=== PATIENT | male | born 1960 ===

== ENCOUNTER 2022-01-08 07:45 | Outpatient (REF) | payer OTHER, SELFPAY ==
[2022-01-08 11:52] LABS: Alanine Aminotransferase 17 U/L (0-40); Albumin Level 4.1 g/dL (3.5-5.0); Alkaline Phosphatase 53 U/L (39-117); Anion Gap 12 (12-20); Aspartate Amino Transferase 15 U/L (5-37); Blood Urea Nitrogen 14 mg/dL (9-16); Calcium 9.8 mg/dL (8.4-10.2); Carbon Dioxide 26 mmol/L (22-29); Chloride 106 mmol/L (96-108); Cholesterol 216 mg/dL; Estimated Glomerular Filt Rate > 60; Glucose Fasting 98 mg/dL (60-99); HDL Cholesterol 53 mg/dL; LDL Cholesterol Calculated 139 mg/dl; Potassium 4.2 mmol/L (3.3-5.1); Sodium 140 mmol/L (135-145); Triglycerides 122 mg/dL
[2022-01-08 12:38] LABS: Prostate Specific Antigen Scr 5.57 ng/mL (<0.05-4.0); TSH reflex Free T4 1.16 uIU/mL (0.32-4.0)
[2022-01-08 12:52] LABS: Appearance Urine CLEAR; Color Urine STRAW; Glucose Urine UA NEG (NEG); Leukocyte Esterase Urine NEG (NEG); Nitrite Urine NEG (NEG); PH 6.5 (5.0-8.0); Specific Gravity - Urine 1.015 (1.005-1.025); Urine Blood NEG (NEG); Urine Ketones NEG (NEG); Urine Protein NEG (NEG-TRACE)
[2022-01-08 12:59] LABS: Creatinine Urine 73.11 mg/dL; Microalbumin Urine < 5.0 mg/L
[2022-01-14 14:56] LABS: Testosterone, Free 51.1 pg/mL (35.0-155.0); Testosterone, Total 452 ng/dL (250-1100)
== END 2022-01-08 07:46 | disposition home or self-care (01) ==
LOC: HO.WFDLDS 07:45
PROVIDERS: Visit Provider Family Medicine
DX: Z00.00 Encounter for general adult medical examination without abnormal findings (principal); Z12.5 Encounter for screening for malignant neoplasm of prostate; I10 Essential (primary) hypertension; N52.9 Male erectile dysfunction, unspecified
CPT/HCPCS: 36415; 80053; 80061; 81003; 82043; 84153; 84402; 84403; 84443

== ENCOUNTER 2022-02-04 12:37 | Outpatient (REF) | payer OTHER, SELFPAY ==
--- NOTE | ~2022-02-04 | XR_ITS ---
EXAMINATION: XR KNEE, LEFT CLINICAL INFORMATION: Left leg pain COMPARISON: None TECHNIQUE: Two views of the left knee. FINDINGS: Bones and soft tissues are normal. No fracture or joint effusion. Alignment is anatomic. Joint spaces are well maintained. Mild vascular calcification in the catheter. XR/XR knee LT 2V IMPRESSION: Normal left knee.
--- NOTE | ~2022-02-04 | XR_ITS ---
EXAMINATION: XR LUMBOSACRAL SPINE CLINICAL INFORMATION: Lower back pain radiating to the left abdomen in the COMPARISON: None TECHNIQUE: Three views of the lumbosacral spine. FINDINGS: Lumbar spine maintains normal alignment. The vertebral body heights are maintained. There is multilevel loss of intervertebral disc space with endplate degenerative changes in the lower thoracic and lumbar spine. There is facet arthropathy in the lower lumbar spine. There are surgical clips in the left pelvis. 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
--- NOTE | ~2022-02-04 | XR_ITS ---
EXAMINATION: XR HIP, LEFT CLINICAL INFORMATION: Left hip pain COMPARISON: None TECHNIQUE: Two views of the left hip. FINDINGS: No acute fracture or dislocation. There is moderate joint space narrowing and subchondral sclerosis of the left hip. There are multiple surgical clips in left pelvis. 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
== END 2022-02-04 12:38 | disposition home or self-care (01) ==
LOC: HO.XRAY 12:37
PROVIDERS: Visit Provider Family Medicine
DX: M79.605 Pain in left leg (principal); M25.552 Pain in left hip; M54.50 Low back pain, unspecified
CPT/HCPCS: 72100; 73502; 73560

== ENCOUNTER 2022-05-10 09:29 | Outpatient (AMB) | payer OTHER, SELFPAY ==
--- NOTE | 2022-05-10 08:56 | MHC.OFFVIS ---
Intake Intake Visit Reasons: Elevated PSA Intake Note: Patient is present for elevated psa Medical Records Analyst Required: No Accompanied by: Self / Same As Patient Allergies pollen extracts Allergy (Mild, Verified 10/21/23 13:22) Sneezing penicillin V Allergy (Unknown, Verified 10/21/23 13:22) childhood Penicillins Allergy (Unknown, Verified 10/21/23 13:22) Unknown tree nuts, sesame seeds Allergy (Unknown, Uncoded 10/21/23 13:04) anaphylaxis Medication List - Last Reconciled 05/10/22 by Thomas Young MD bisacodyl (Dulcolax (bisacodyl)) 10 mg (2 x 5 mg) PO ONCE 1 day cholecalciferol (vitamin D3) 50 mcg PO DAILY finasteride 5 mg PO DAILY 90 days [id number]-[id number]-[id number]-C-pina-bosw 750-625-30 mg 2 tabs PO DAILY polyethylene glycol 3350 (Miralax) 238 grams PO ONCE zinc 50 mg PO DAILY HPI HPI Comments History of Present Illness Details Jose is a pleasant male. He is a patient of Dr. Espinal. He seen for the following urologic conditions - elevated PSA Initial visit Elevated PSA Discussed potential from prostatitis, of the prostate damage Recommend repeat PSA in 6 months Trial of finasteride 6 months Elevated PSA PSA 01/20 5.5 PFSH Medical History No pertinent past medical history Surgical History History of nasal surgery History of hernia surgery Social History Housing: Apartment Alcohol intake: current Alcohol intake frequency: a few times a week Patient Tobacco Use Status: Former Tobacco user e-Cigarette/Vaping Use: Never Used Second Hand Smoke Exposure: No service: No Current occupational status: employed Current occupation: [employer] Current occupational exposures/hazards: No Cognitive needs: No Hearing needs: No Vision needs: No Review of Systems Const Denies chills and Denies fever(s) Card Reports no additional complaints and Denies syncope Resp Denies cough GI Denies abdominal pain and Denies heartburn Reports as per HPI and Denies change in libido Neuro Denies syncope Psych Denies change in libido Endo Denies change in libido Physical Exam Const General: cooperative, healthy appearing, comfortable and no acute distress Orientation/consciousness: patient oriented x3 HEENT Face and sinus: Yes normal facial exam Mouth: moist mucous membranes Neck Neck: Yes normal visual inspection, Yes full ROM and Yes trachea midline Chest Chest palpation & inspection: normal inspection of the chest Resp Effort & Inspection: normal respiratory effort, able to speak in complete sentences and no respiratory distress GI Inspection: Yes normal to inspection Back/Spine/Pelvis Cervical Spine: normal cervical lordosis Thoracic/Lumbar Spine: thoracic and lumbar spine normal to inspection Skin General skin exam: no rashes or lesions noted Neuro General: patient oriented x3, gait normal, tone normal and moves all extremities Extrem General: Yes normal to inspection and Yes capillary refill normal Assessment & Plan Assessment & Plan (1) Elevated PSA: Code(s): R97.20 - Elevated prostate specific antigen [PSA] Plan Trial finasteride Six-month follow-up PSA Orders: Orders PSA,Total (Free>4and<10) 6 Months R97.20 - Elevated prostate specific antigen [PSA] Medications: New finasteride 5 mg PO DAILY 90 tabs 1RF 90 days R97.20 - Elevated prostate specific antigen [PSA], N40.1 - Benign prostatic hyperplasia with lower urinary tract symptoms, N13.8 - Other obstructive and reflux uropathy, R33.9 - Retention of urine, unspecified Patient Instructions: Imaging studies, laboratory and physical exam results were discussed and reviewed in detail. No major barriers to patient understanding were identified. An opportunity to ask questions regarding the treatment plan was provided. All questions were answered. The patient expressed understanding and agreement with the above treatment plan. The patient is aware they should contact our office by phone for worsening of their current condition or the appearance of new urologic symptoms. Compliance is encouraged with any medications and followup testing that is ordered. It is a privilege to participate in the urologic care of your patient. If you have any questions or concerns regarding treatment for the above conditions, or other urologic issues, please do not hesitate to contact me. The office telephone contact is [phone]. This note is constructed using voice recognition software. While every effort has been made to ensure accuracy signaling design engineer errors may have been included. Yours sincerely, Dr Thomas Young MD, [facility] - Urology Providers of Expert, Compassionate Care for the Genitourinary System Coding Level of Care Code New Pt Level 4 (15787) Diagnoses Elevated PSA R97.20
== END 2022-05-10 10:30 | disposition home or self-care (01) ==
LOC: HO.HUSH 09:29
PROVIDERS: PCP Family Medicine; Visit Provider Urology
DX: R97.20 Elevated prostate specific antigen [PSA] (principal)
CPT/HCPCS: 99499

== ENCOUNTER 2022-05-16 10:56 | Outpatient (REF) | payer OTHER, SELFPAY ==
[2022-05-16 14:29] LABS: MANUAL DIFF FLAG NO
[2022-05-16 14:34] LABS: Basophils Absolute Auto 0.1 X10*3/uL (0.0-0.2); Basophils Percent Auto 1.3 % (0-2); Eosinophils Absolute Auto 0.5 X10*3/uL (0.0-0.4); Eosinophils Percent Auto 7.6 % (0-4); Hematocrit 47.4 % (42.0-52.0); Hemoglobin 16.2 g/dl (14.0-18.0); Imm Gran Abs Auto 0.01 X10*3/uL (0.00-0.03); Imm Gran Pct Auto 0.1 % (0.0-0.4); Lymphocytes Absolute Auto 1.9 X10*3/uL (1.2-4.9); Lymphocytes Percent Auto 28.6 % (20-40); Mean Corpuscular HGB Conc 34.2 g/dl (31.0-36.0); Mean Corpuscular Hemoglobin 31.4 pg (27.0-33.0); Mean Corpuscular Volume 91.9 fL (80.0-98.0); Mean Platelet Volume 11.8 fL (9.4-12.4); Monocytes Absolute Auto 0.8 X10*3/uL (0.1-1.2); Monocytes Percent Auto 11.2 % (2-11); Neutrophils Absolute Auto 3.4 x10*3/uL (2.0-8.3); Neutrophils Percent Auto 51.2 % (45-73); Platelet Count 283 X10*3/uL (160-400); Red Blood Count 5.16 X10*6/uL (4.60-5.80); Red Cell Distribution Width 12.7 % (11.0-16.0); White Blood Count 6.7 X10*3/uL (4.8-10.8)
[2022-05-16 14:47] LABS: Alanine Aminotransferase 17 U/L (0-40); Albumin Level 4.3 g/dL (3.5-5.0); Alkaline Phosphatase 61 U/L (39-117); Anion Gap 13 (12-20); Aspartate Amino Transferase 16 U/L (5-37); Bilirubin Total 0.8 mg/dL (0.0-1.0); Blood Urea Nitrogen 14 mg/dL (9-16); Calcium 9.5 mg/dL (8.4-10.2); Carbon Dioxide 26 mmol/L (22-29); Chloride 106 mmol/L (96-108); Estimated Glomerular Filt Rate > 60; Glucose Random 100 mg/dL (60-115); Potassium 4.3 mmol/L (3.3-5.1); Sodium 141 mmol/L (135-145); Total Protein 7.1 g/dL (6.5-8.0)
[2022-05-16 15:08] LABS: TSH reflex Free T4 0.74 uIU/mL (0.32-4.0)
== END 2022-05-16 10:57 | disposition home or self-care (01) ==
LOC: HO.WFDLDS 10:56
PROVIDERS: Visit Provider Family Medicine
DX: R53.83 Other fatigue (principal)
CPT/HCPCS: 36415; 80053; 84443; 85025

== ENCOUNTER 2022-07-10 08:40 | Outpatient (REF) | payer OTHER, SELFPAY ==
[2022-07-10 13:00] LABS: Influenza A PCR NEGATIVE (Negative); Influenza B PCR NEGATIVE (Negative); Resp Syncy Virus RNA Qual PCR POSITIVE (Negative); SARS COV2 PCR INHOUSE NEGATIVE (Negative)
== END 2022-07-10 08:41 | disposition home or self-care (01) ==
LOC: HO.LAB 08:40
PROVIDERS: Visit Provider Nurse Practitioner Family
DX: Z20.822 Contact with and (suspected) exposure to COVID-19 (principal); B34.9 Viral infection, unspecified
CPT/HCPCS: 0241U

== ENCOUNTER 2022-09-10 11:41 | Outpatient (REF) | payer OTHER, SELFPAY ==
--- NOTE | ~2022-09-10 | XR_ITS ---
EXAMINATION: XR CHEST CLINICAL INFORMATION: Shortness of breath COMPARISON: X-ray 09/22/2019 TECHNIQUE: 2 views of the chest were obtained. FINDINGS: The cardiomediastinal silhouette is stable, within normal limits. The lungs are well expanded. Linear band of opacity in the left lower lung, probably atelectasis. There is no focal consolidation otherwise. No edema, or effusion. No pneumothorax. No acute osseous abnormality. XR/XR chest 2V IMPRESSION: Left basilar atelectasis.
[2022-09-10 11:56] LABS: MANUAL DIFF FLAG NO
[2022-09-10 12:39] LABS: Basophils Absolute Auto 0.1 X10*3/uL (0.0-0.2); Eosinophils Absolute Auto 0.5 X10*3/uL (0.0-0.4); Hematocrit 46.5 % (42.0-52.0); Hemoglobin 15.7 g/dl (14.0-18.0); Imm Gran Abs Auto 0.02 X10*3/uL (0.00-0.03); Imm Gran Pct Auto 0.3 % (0.0-0.4); Lymphocytes Absolute Auto 2.1 X10*3/uL (1.2-4.9); Lymphocytes Percent Auto 31.1 % (20-40); Mean Corpuscular HGB Conc 33.8 g/dl (31.0-36.0); Mean Corpuscular Hemoglobin 30.8 pg (27.0-33.0); Mean Corpuscular Volume 91.4 fL (80.0-98.0); Mean Platelet Volume 11.4 fL (9.4-12.4); Monocytes Absolute Auto 0.8 X10*3/uL (0.1-1.2); Neutrophils Absolute Auto 3.3 x10*3/uL (2.0-8.3); Neutrophils Percent Auto 48.6 % (45-73); Platelet Count 232 X10*3/uL (160-400); Red Blood Count 5.09 X10*6/uL (4.60-5.80); Red Cell Distribution Width 13.6 % (11.0-16.0); White Blood Count 6.8 X10*3/uL (4.8-10.8)
[2022-09-10 13:00] LABS: Alanine Aminotransferase 12 U/L (0-40); Alkaline Phosphatase 59 U/L (39-117); Anion Gap 11 (12-20); Aspartate Amino Transferase 14 U/L (5-37); Bilirubin Total 0.9 mg/dL (0.0-1.0); Blood Urea Nitrogen 14 mg/dL (9-16); Calcium 9.3 mg/dL (8.4-10.2); Carbon Dioxide 26 mmol/L (22-29); Chloride 106 mmol/L (96-108); Estimated Glomerular Filt Rate > 60; Glucose Random 93 mg/dL (60-115); Potassium 4.3 mmol/L (3.3-5.1); Sodium 139 mmol/L (135-145); Total Protein 6.8 g/dL (6.5-8.0)
== END 2022-09-10 11:42 | disposition home or self-care (01) ==
LOC: HO.XRAY 11:41
PROVIDERS: PCP Family Medicine; Visit Provider Family Medicine
DX: Z00.00 Encounter for general adult medical examination without abnormal findings (principal); R07.1 Chest pain on breathing; R06.02 Shortness of breath
CPT/HCPCS: 36415; 71046; 80053; 85025

== ENCOUNTER 2022-09-18 10:25 | Outpatient (REF) | payer OTHER, SELFPAY ==
[2022-09-18 11:21] LABS: MANUAL DIFF FLAG NO
[2022-09-18 12:13] LABS: Basophils Absolute Auto 0.1 X10*3/uL (0.0-0.2); Basophils Percent Auto 1.3 % (0-2); Eosinophils Absolute Auto 0.6 X10*3/uL (0.0-0.4); Hematocrit 45.9 % (42.0-52.0); Hemoglobin 15.7 g/dl (14.0-18.0); Imm Gran Abs Auto 0.03 X10*3/uL (0.00-0.03); Imm Gran Pct Auto 0.4 % (0.0-0.4); Lymphocytes Absolute Auto 2.3 X10*3/uL (1.2-4.9); Mean Corpuscular HGB Conc 34.2 g/dl (31.0-36.0); Mean Corpuscular Hemoglobin 31.3 pg (27.0-33.0); Mean Corpuscular Volume 91.4 fL (80.0-98.0); Mean Platelet Volume 11.4 fL (9.4-12.4); Monocytes Absolute Auto 0.8 X10*3/uL (0.1-1.2); Monocytes Percent Auto 11.6 % (2-11); Neutrophils Absolute Auto 3.3 x10*3/uL (2.0-8.3); Neutrophils Percent Auto 45.7 % (45-73); Platelet Count 255 X10*3/uL (160-400); Red Blood Count 5.02 X10*6/uL (4.60-5.80); Red Cell Distribution Width 13.8 % (11.0-16.0); White Blood Count 7.2 X10*3/uL (4.8-10.8)
[2022-09-18 12:56] LABS: Troponin-I High Sensitivity < 3.5 ng/L (<3.5-35.0)
[2022-09-18 13:08] LABS: Alanine Aminotransferase 17 U/L (0-40); Alkaline Phosphatase 58 U/L (39-117); Anion Gap 13 (12-20); Aspartate Amino Transferase 17 U/L (5-37); Bilirubin Total 0.7 mg/dL (0.0-1.0); Blood Urea Nitrogen 13 mg/dL (9-16); Calcium 9.9 mg/dL (8.4-10.2); Carbon Dioxide 27 mmol/L (22-29); Chloride 106 mmol/L (96-108); Estimated Glomerular Filt Rate > 60; Glucose Random 93 mg/dL (60-115); Sodium 141 mmol/L (135-145); Total Protein 6.9 g/dL (6.5-8.0)
[2022-09-18 14:47] LABS: Influenza A PCR NEGATIVE (Negative); Influenza B PCR NEGATIVE (Negative); Resp Syncy Virus RNA Qual PCR NEGATIVE (Negative); SARS COV2 PCR INHOUSE NEGATIVE (Negative)
== END 2022-09-18 10:26 | disposition home or self-care (01) ==
LOC: HO.LAB 10:25
PROVIDERS: Visit Provider Family Medicine
DX: Z00.00 Encounter for general adult medical examination without abnormal findings (principal); R06.02 Shortness of breath; R07.9 Chest pain, unspecified; R59.0 Localized enlarged lymph nodes; Z20.822 Contact with and (suspected) exposure to COVID-19
CPT/HCPCS: 0241U; 36415; 80053; 84484; 85025

== ENCOUNTER 2022-09-18 11:07 | Outpatient (REF) | payer OTHER, SELFPAY ==
--- NOTE | ~2022-09-18 | XR_ITS ---
EXAMINATION: XR CHEST CLINICAL INFORMATION: Shortness of breath COMPARISON: 09/10/2022 TECHNIQUE: 2 views of the chest were obtained. FINDINGS: No significant abnormality is noted involving the heart, lungs, mediastinum, bony thorax or soft tissues. XR/XR chest 2V IMPRESSION: Unremarkable examination.
== END 2022-09-18 11:08 | disposition home or self-care (01) ==
LOC: HO.XRAY 11:07
PROVIDERS: PCP Family Medicine; Visit Provider Family Medicine
DX: R06.02 Shortness of breath (principal)
CPT/HCPCS: 71046

== ENCOUNTER → 2022-09-23 12:57 | Outpatient (BNVA) | payer OTHER, SELFPAY | PROVIDERS: PCP Family Medicine; Visit Provider Nurse Practitioner Family | DX: Z13.89 Encounter for screening for other disorder (principal) ==

== ENCOUNTER 2022-10-01 14:36 | Outpatient (REF) | payer OTHER, SELFPAY ==
--- NOTE | ~2022-10-01 | US_ITS ---
EXAMINATION: US SOFT TISSUE NECK CLINICAL INFORMATION: Palpable abnormality in the left neck. COMPARISON: No similar priors. TECHNIQUE: Targeted high- frequency hardy-scale imaging and color Doppler ultrasound in the area of clinical concern in the soft tissues of the left lower neck as indicated by the patient. US/US soft tiss head and/or neck FINDINGS/IMPRESSION: No measurable lesion, collection or other abnormality in the area of concern as indicated by the patient. If symptoms persists, consider correlation with a CT or preferable MR targeted to the area of concern.
== END 2022-10-01 14:37 | disposition home or self-care (01) ==
LOC: HO.HMGCX 14:36
PROVIDERS: PCP Family Medicine; Visit Provider Nurse Practitioner Family
DX: M79.89 Other specified soft tissue disorders (principal)
CPT/HCPCS: 76536

== ENCOUNTER 2023-04-28 13:50 | Outpatient (AMB) | payer OTHER, SELFPAY ==
--- NOTE | 2023-04-28 13:51 | MHC.PC.OV ---
Vital Signs 04/28/23 14:01 Height 5 ft 10 in Weight 255 lb 4 oz BMI 36.6 BP 122/60 Blood Pressure Location Rt brachial Position Sitting Respiration 14 Pulse 98 Pulse Source Pulse Oximeter Pulse Oximetry (%) 96 Oxygen Delivery Method Room Air Intake Visit Reasons: right eye cyst/pustule Intake Note: Patient reports right, inside eyelid with small white pustule that patient noticed x2 days. Patient tried allergy eye drops and he reports they did not help. Senior Lead Java Developer Required: No Accompanied by: Self / Same As Patient Allergies pollen extracts Allergy (Mild, Verified 04/28/23 14:11) Sneezing penicillin V Allergy (Unknown, Verified 04/28/23 14:11) childhood Penicillins Allergy (Unknown, Verified 04/28/23 14:11) Unknown tree nuts, sesame seeds Allergy (Unknown, Uncoded 04/28/23 14:11) anaphylaxis Medication List - Last Reconciled 04/28/23 by Billie Hsieh CNP albuterol sulfate 90 mcg/actuation (Ventolin HFA) 2 puffs inhalation Q4-6H PRN 30 days epinephrine (EpiPen) 0.3 mg IM Q4H PRN Tobacco use date assessed: 04/28/23 HPI HPI Comments History of Present Illness Details 62-year-old male presents with complaints of a cyst to the inside of his right lower eyelid for the past 2 days. He reports associated soreness and intermittent purulent drainage. No visual disturbances. No fever, chills, body aches, fatigue, weakness. PFSH Surgical History History of hernia surgery History of nasal surgery Social History Housing: Apartment Alcohol intake: current Alcohol intake frequency: a few times a week Patient Tobacco Use Status: Former Tobacco user e-Cigarette/Vaping Use: Never Used Second Hand Smoke Exposure: No service: No Current occupational status: employed Current occupational exposures/hazards: No Cognitive needs: No Hearing needs: No Vision needs: No Questionnaire Thrive Questionnaire Date Thrive assessed: 02/05/22 LISA-7 AMB Questionnaire LISA-7 Date LISA - 7 assessed: 02/05/22 Source: Developed by Drs. Darin Day, Ama Bowman, Deyvi Espinal and colleagues, with an educational helen from [employer]. Review of Systems Const Details: Const Denies chills, Denies fatigue, Denies fever(s), Denies headache(s) and Denies weakness ENT Reports as per HPI Card Denies chest pain, Denies lightheadedness, Denies dyspnea and Denies other (Palpitations) Resp Denies cough, Denies dyspnea, Denies wheezing and Denies other ( shortness of breath) GI Denies abdominal pain, Denies melena, Denies hematochezia, Denies change in bowel habits, Denies dyspepsia and Denies nausea Denies hematuria and Denies dysuria Musc Denies abnormal gait, Denies myalgias, Denies arthralgias, Denies numbness and Denies tingling Skin/Breast Denies rash, Denies unusual bruising and Denies wounds Neuro Denies abnormal gait, Denies dizziness, Denies headache(s), Denies memory loss, Denies numbness, Denies Sensory deficit (Neuro), Denies tingling and Denies weakness Psych Denies anxiety, Denies depression, Denies memory loss Endo Denies cold intolerance, Denies fatigue, Denies heat intolerance, Denies polydipsia and Denies polyuria Aller/Immun Denies wheezing Physical exam (Primary Care) Vital Signs: Last Vital Signs Pulse 98 04/28/23 14:01 Resp 14 04/28/23 14:01 BP 122/60 04/28/23 14:01 Pulse Ox 96 04/28/23 14:01 Oxygen Delivery Method Room Air 04/28/23 14:01 BMI result Body Mass Index 36.6 Tobacco/Smoking Status: Tobacco use Status Tobacco use date assessed 04/28/23 04/28/23 14:11 Patient Tobacco Use Status Former Tobacco user 04/28/23 13:54 e-Cigarette/Vaping Use Never Used 04/28/23 13:54 Thrive Assessment: Date of Thrive Assessment Date Thrive assessed 02/05/22 04/28/23 13:54 Const Other: General: no acute distress and well developed Nutritional Appearance: well nourished Orientation/consciousness: patient oriented x3 HENMT Head: Yes normocephalic and Yes atraumatic Eyes General: appearance normal, both eyes and all related structures, except for small, round, yellow lesion with surrounding erythema to the inside of the right lower eyelid, consistent with an abscess Pupils: Equal, round and reactive pupils present EOM: EOMs intact bilaterally Resp Effort & Inspection: normal respiratory effort Auscultation: clear to auscultation bilaterally Cardio Rate: regular rate Rhythm: regular rhythm Heart sounds: S1 normal heart sound present, S2 normal heart sound present, no gallops, no murmurs and no rubs GI Palpation (GI): No Abdominal aortic bruit present, Soft to palpation, nontender, No hepatosplenomegaly present and No Rebound tenderness present Auscultation: normal bowel sounds General: Yes no CVA tenderness Back/Spine/Pelvis Back: no CVA tenderness Cervical Spine: cervical ROM normal and No Cervical spine tenderness Thoracic/Lumbar Spine: thoraco-lumbar ROM normal, No pain with thoraco-lumbar ROM, No thoracic spinal tenderness and No lumbar spinal tenderness Extrem General: Yes normal to inspection, No edema and No calf tenderness Skin General: warm and dry. Normal skin color. Normal skin turgor Lesions: no lesions Rashes: no rashes Trauma: no lacerations or abrasions Wounds: no wounds Nails: normal Neuro General: patient oriented x3, gait normal and no focal neuro deficit Cranial nerves: Yes Equal, round and reactive pupils present Cognition (Neuro): normal cognition Gait exam (Neuro): Normal gait present Sensory Exam: No Sensory deficit (Neuro) Psych Appearance: grossly normal Affect: normal affect Attitude: cooperative Thought process: Normal thought process present Assessment and Plan Assessment & Plan (1) Abscess of right lower eyelid: Code(s): H00.032 - Abscess of right lower eyelid Plan: Small, round, yellow lesion with surrounding erythema to the inside of the right lower eyelid, consistent with an abscess Doxycycline ordered. Take as prescribed Warm compresses encouraged Return with new or worsening signs and symptoms or visual disturbances; will referred to Ophthalmology Verbalized understanding and agreed with the treatment plan. Medications: New doxycycline hyclate 100 mg PO BID 20 caps 0RF 10 days Coding Level of Care Code Est Pt Level 3 (23622) Diagnoses Abscess of right lower eyelid H00.032
[2023-04-28 14:01] VITALS: BP 122/60; PULSE 98; RESP 14; O2SAT 96; BMI 36.6
== END 2023-04-28 14:25 | disposition home or self-care (01) ==
PROVIDERS: PCP Family Medicine; Visit Provider Nurse Practitioner Family
DX: H00.032 Abscess of right lower eyelid (principal)
CPT/HCPCS: 99213

== ENCOUNTER 2023-09-26 15:32 | Outpatient (AMB) | payer OTHER, SELFPAY ==
[2023-09-26 15:42] VITALS: BP 144/90; PULSE 80; RESP 13; TEMP 36.3; O2SAT 98; BMI 37.5
--- NOTE | 2023-09-26 15:42 | A.OFFPC_ITS ---
Vital Signs 09/26/23 15:42 Height 5 ft 10 in Weight 261 lb 8 oz BMI 37.5 BP 144/90 H Blood Pressure Location Rt brachial Position Sitting Respiration 13 Pulse 80 Pulse Source Pulse Oximeter Temp 97.4 F Temp Source Temporal Artery Scan Pulse Oximetry (%) 98 Oxygen Delivery Method Room Air Intake Visit Reasons: carpal tunnel Regulatory Product Manager Required: No Accompanied by: Self / Same As Patient Allergies pollen extracts Allergy (Mild, Verified 09/26/23 15:54) Sneezing penicillin V Allergy (Unknown, Verified 09/26/23 15:54) childhood Penicillins Allergy (Unknown, Verified 09/26/23 15:54) Unknown tree nuts, sesame seeds Allergy (Unknown, Uncoded 09/26/23 15:54) anaphylaxis Medication List - Last Reconciled 09/26/23 by Billie Hsieh CNP albuterol sulfate 90 mcg/actuation (Ventolin HFA) 2 puffs inhalation Q4-6H PRN 30 days epinephrine (EpiPen) 0.3 mg (0.3 mL) IM Q4H PRN 30 days Tobacco use date assessed: 09/26/23 Fall risk assessment: No Falls in past year Last assessed Fall Risk: 09/26/23 Dental Screening Dental Screen Date: 09/26/23 Did you have a dental visit in the last 12 months?: No Did you have a dental problem in the last 6 months where you did not have access to dental care?: No Was dental information given to patient?: Patient has dentist HPI HPI Comments History of Present Illness Details 63-year-old male presents with complaint s of dull ache intermitted pain below his left thumb (palm aspect). He reports associated occasional shooting pain with palpation. No tingling, numbness, or loss of sensation. No fall, injury, or trauma. His symptoms have been ongoing for the past 2 weeks. OTC analgesic cream and Advil have not provided relief. He works as a [employer] in his work requires repeated use of both hands. [facility] Medical History (Updated 09/26/23 @ 16:09 by Billie Hsieh CNP) No pertinent past medical history Surgical History History of hernia surgery History of nasal surgery Social History (Reviewed 04/28/23 @ 14:09 by Vandana Rivera CMAAdan Housing: Apartment Alcohol intake: current Alcohol intake frequency: a few times a week Patient Tobacco Use Status: Former Tobacco user e-Cigarette/Vaping Use: Never Used Second Hand Smoke Exposure: No service: No Current occupational status: employed Current occupation: [employer] Current occupational exposures/hazards: No Cognitive needs: No Hearing needs: No Vision needs: No Questionnaire Thrive Questionnaire Date Thrive assessed: 02/05/22 LISA-7 AMB Questionnaire LISA-7 Date LISA - 7 assessed: 02/05/22 Source: Developed by Drs. Darin Day, Ama Bowman, Deyvi Espinal and colleagues, with an educational helen from [employer]. Review of Systems Const Details: Const Denies chills, Denies fatigue, Denies fever(s), Denies headache(s) and Denies weakness ENT Denies dizziness and Denies headache(s) Card Denies chest pain, Denies lightheadedness, Denies dyspnea and Denies other (Palpitations) Resp Denies cough, Denies dyspnea, Denies wheezing and Denies other ( shortness of breath) GI Denies abdominal pain, Denies melena, Denies hematochezia, Denies change in bowel habits, Denies dyspepsia and Denies nausea Denies hematuria and Denies dysuria Musc Reports as per HPI Skin/Breast Denies rash, Denies unusual bruising and Denies wounds Neuro Denies abnormal gait, Denies dizziness, Denies headache(s), Denies memory loss, Denies numbness, Denies Sensory deficit (Neuro), Denies tingling and Denies weakness Psych Denies anxiety, Denies depression, Denies memory loss Endo Denies cold intolerance, Denies fatigue, Denies heat intolerance, Denies polydipsia and Denies polyuria Aller/Immun Denies wheezing Physical exam (Primary Care) BMI result Body Mass Index 37.5 Tobacco/Smoking Status: Tobacco use Status Tobacco use date assessed 04/28/23 04/28/23 14:11 Patient Tobacco Use Status Former Tobacco user 04/28/23 13:54 e-Cigarette/Vaping Use Never Used 04/28/23 13:54 Thrive Assessment: Date of Thrive Assessment Date Thrive assessed 02/05/22 04/28/23 13:54 Const Other: General: no acute distress and well developed Nutritional Appearance: well nourished Orientation/consciousness: patient oriented x3 [facility] Head: Yes normocephalic and Yes atraumatic Eyes General: appearance normal, both eyes and all related structures Pupils: Equal, round and reactive pupils present EOM: EOMs intact bilaterally Resp Effort & Inspection: normal respiratory effort Auscultation: clear to auscultation bilaterally Cardio Rate: regular rate Rhythm: regular rhythm Heart sounds: S1 normal heart sound present, S2 normal heart sound present, no gallops, no murmurs and no rubs GI Palpation (GI): No Abdominal aortic bruit present, Soft to palpation, nontender, No hepatosplenomegaly present and No Rebound tenderness present Auscultation: normal bowel sounds General: Yes no CVA tenderness Back/Spine/Pelvis Back: no CVA tenderness Cervical Spine: cervical ROM normal and No Cervical spine tenderness Thoracic/Lumbar Spine: thoraco-lumbar ROM normal, No pain with thoraco-lumbar ROM, No thoracic spinal tenderness and No lumbar spinal tenderness Extrem General: Yes normal to inspection, No edema and No calf tenderness Pain to palpation of the palm below the left thumb. Negative Phalen and Tinel signs. No overt injury or trauma Skin General: warm and dry. Normal skin color. Normal skin turgor Lesions: no lesions Rashes: no rashes Trauma: no lacerations or abrasions Wounds: no wounds Nails: normal Neuro General: patient oriented x3, gait normal and no focal neuro deficit Cranial nerves: Yes Equal, round and reactive pupils present Cognition (Neuro): normal cognition Gait exam (Neuro): Normal gait present Sensory Exam: No Sensory deficit (Neuro) Psych Appearance: grossly normal Affect: normal affect Attitude: cooperative Thought process: Normal thought process present Assessment and Plan Assessment & Plan (1) Hand pain, left: Code(s): M79.642 - Pain in left hand Plan: Pain to palpation of the palm below the left thumb. Negative Phalen and Tinel signs. No overt injury or trauma Likely muscular pain or tendinitis He notes he will continue with current treatment regimen Warm/cold compresses encouraged Follow-up with worsening or new symptoms Verbalized understanding and agreed with treatment plan Coding Level of Care Code Est Pt Level 3 (47813) Diagnoses Hand pain, left M79.642
== END 2023-09-26 16:07 | disposition home or self-care (01) ==
PROVIDERS: PCP Family Medicine; Visit Provider Nurse Practitioner Family
DX: M79.642 Pain in left hand (principal)
CPT/HCPCS: 99213

== ENCOUNTER 2023-10-08 13:34 | Outpatient (AMB) | payer OTHER, SELFPAY ==
[2023-10-08 13:39] VITALS: BP 150/90; PULSE 94; RESP 14; TEMP 36.6; O2SAT 97; BMI 37.2
--- NOTE | 2023-10-08 13:39 | AM.OFFWIN_ITS ---
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 Symptoms started Friday with nausea. He reports both nasal and chest congestion. [facility] Medical History No pertinent past medical history Surgical History History of nasal surgery History of hernia surgery Social History Housing: Apartment Alcohol intake: current Alcohol intake frequency: a few times a week Patient Tobacco Use Status: Former Tobacco user e-Cigarette/Vaping Use: Never Used Second Hand Smoke Exposure: No service: No Current occupational status: employed Current occupation: [employer] Current occupational exposures/hazards: No Cognitive needs: No Hearing needs: No Vision needs: No Review of Systems Const Denies chills, Denies fatigue, Denies fever(s), Denies headache(s) and Denies weakness ENT Denies dizziness, Denies headache(s) and Reports nasal congestion Card Denies dyspnea Resp Reports chest congestion, Denies cough, Denies dyspnea, Denies wheezing and Denies other (shortness of breath) Musc Denies numbness and Denies tingling Neuro Denies dizziness, Denies headache(s), Denies numbness, Denies tingling and Denies weakness Psych Denies anxiety and Denies depression Endo Denies fatigue Aller/Immun Denies wheezing Physical Exam Vital Signs: Last Vital Signs Temp 97.9 F 10/08/23 13:39 Pulse 94 10/08/23 13:39 Resp 14 10/08/23 13:39 BP 150/90 H 10/08/23 13:39 Pulse Ox 97 10/08/23 13:39 Oxygen Delivery Method Room Air 10/08/23 13:39 BMI result Body Mass Index 37.2 Const General: well developed; No acute distress Nutritional Appearance: well nourished Orientation/consciousness: patient oriented x3 HEENT Head: Yes normocephalic and Yes atraumatic Eyes General: appearance normal, both eyes and all related structures Pupils: Equal, round and reactive pupils present EOM: EOMs intact bilaterally Resp Effort & Inspection: normal respiratory effort Neuro General: patient oriented x3 and gait normal Cranial nerves: Yes Equal, round and reactive pupils present Psych Affect: normal affect Assessment & Plan Assessment & Plan (1) Viral illness: Code(s): B34.9 - Viral infection, unspecified Plan: Viral?illness There?is?no?antibiotic?medication?for?viruses.??They?must?run?their?course.?? Most?average?5-7?days?but?7-10?days?is?not?uncommon?and?up?to?14?days?is?still?p ossible.??A?cough?is?often?the?last?symptom?to?resolve?and?this?can?last?for?wee ks?in?some?cases. Rest Hydrate?well?-??Drink?plenty?of?fluids.??Especially?water. Tylenol?or?ibuprofen?for?muscle?aches,?headache,?fever/discomfort Can?use?qnvi-bph-ieodrlj?medications?for?cough?such?as?Delsym?or?DayQuil.??Presc ription?cough?medicines?have?been?shown?to?be?no?better. Checking?nasal?swab?for?COVID/flu/RSV (2) Chest congestion: Code(s): R09.89 - Other specified symptoms and signs involving the circulatory and respiratory systems Plan: Likely?secondary?to?viral?illness?as?above. Lungs?are?clear?though?coarse Can?continue?Delsym?or?DayQuil (3) Nasal congestion: Code(s): R09.81 - Nasal congestion Plan: Some?sinus?pressure?and?patient?has?had?multiple?sinus?infections?in?the?past Will?give?him?a?script?for?a?Z- Jim?but?I?have?advised?him?not?to?take?this?unless not?improving?in?a?couple?of?days. Orders: Orders SARS-CoV2/FLU/RSV Today B34.9 - Viral infection, unspecified, R09.89 - Other specified symptoms and signs involving the circulatory and respiratory systems, Z20.822 - Contact with and (suspected) exposure to COVID-19 Coding Level of Care Code Est Pt Level 3 (49259) Diagnoses Viral illness B34.9 Chest congestion R09.89 Nasal congestion R09.81
== END 2023-10-08 14:18 | disposition home or self-care (01) ==
PROVIDERS: PCP Family Medicine; Visit Provider Family Medicine
DX: B34.9 Viral infection, unspecified (principal); R09.89 Other specified symptoms and signs involving the circulatory and respiratory systems; R09.81 Nasal congestion
CPT/HCPCS: 99213

== ENCOUNTER 2023-10-08 14:16 | Outpatient (REF) | payer OTHER, SELFPAY ==
[2023-10-09 14:02] LABS: Influenza A PCR NEGATIVE (Negative); Influenza B PCR NEGATIVE (Negative); Resp Syncy Virus RNA Qual PCR NEGATIVE (Negative); SARS COV2 PCR INHOUSE NEGATIVE (Negative)
== END 2023-10-08 14:17 | disposition home or self-care (01) ==
LOC: HO.LAB 14:16
PROVIDERS: Visit Provider Family Medicine
DX: Z11.52 Encounter for screening for COVID-19 (principal); Z20.822 Contact with and (suspected) exposure to COVID-19; B34.9 Viral infection, unspecified; R09.89 Other specified symptoms and signs involving the circulatory and respiratory systems
CPT/HCPCS: 0241U

== ENCOUNTER 2023-10-13 12:57 | Outpatient (AMB) | payer OTHER, SELFPAY ==
[2023-10-13 13:02] VITALS: BP 148/88; PULSE 90; TEMP 36.8; O2SAT 97; BMI 37.3
--- NOTE | 2023-10-13 13:02 | AM.OFFWIN_ITS ---
Intake Vital Signs 10/13/23 13:02 Height 5 ft 10 in Weight 260 lb 4 oz BMI 37.3 BP 148/88 H Blood Pressure Location Rt brachial Position Sitting Pulse 90 Pulse Source Pulse Oximeter Temp 98.2 F Temp Source Oral Pulse Oximetry (%) 97 Oxygen Delivery Method Room Air Intake Visit Reasons: Congestion Intake Note: Pt presents to the office today for a walk in visit for c/o chest congestion and a lot of chest pressure. Pt states last night he was struggling to catch his breath while sleeping. Pt states his mucus was green yesterday but has lightened up today. Patient Tobacco Use Status: Former Tobacco user Allergies pollen extracts Allergy (Mild, Verified 10/13/23 13:13) Sneezing penicillin V Allergy (Unknown, Verified 10/13/23 13:13) childhood Penicillins Allergy (Unknown, Verified 10/13/23 13:13) Unknown tree nuts, sesame seeds Allergy (Unknown, Uncoded 10/13/23 13:04) anaphylaxis Medication List - Last Reconciled 10/13/23 by Jennifer Muniz, [facility]- albuterol sulfate 90 mcg/actuation (Ventolin HFA) 2 puffs inhalation Q4-6H PRN 30 days epinephrine (EpiPen) 0.3 mg (0.3 mL) IM Q4H PRN 30 days HPI HPI Comments History of Present Illness Details Here today with complaints of ongoing chest and nasal congestion. Was seen by primary care 09/26/2023 for similar symptoms. He was swabbed for COVID RSV and the flu and this was negative. He was treated with a 5 day course of azithromycin. He has completed this. However he does not feel any better. He does admit that his bloody sinus drainage has improved. However he continues with severe sinus congestion and chest congestion. Having a hard time sleeping. Not using anything [id number] at the current time. Denies any use of nasal sprays or nasal decongestants. Denies fever chills and chest pain Reports that he is very sensitive to medications and has severe allergic reactions to several things [facility] Medical History No pertinent past medical history Surgical History History of nasal surgery History of hernia surgery Social History Housing: Apartment Alcohol intake: current Alcohol intake frequency: a few times a week Patient Tobacco Use Status: Former Tobacco user e-Cigarette/Vaping Use: Never Used Second Hand Smoke Exposure: No service: No Current occupational status: employed Current occupation: [employer] Current occupational exposures/hazards: No Cognitive needs: No Hearing needs: No Vision needs: No Review of Systems Const All systems reviewed & are unremarkable except as noted in HPI and below Physical Exam Vital Signs: Last Vital Signs Temp 98.2 F 10/13/23 13:02 Pulse 90 10/13/23 13:02 BP 148/88 H 10/13/23 13:02 Pulse Ox 97 10/13/23 13:02 Oxygen Delivery Method Room Air 10/13/23 13:02 BMI result Body Mass Index 37.3 Const Other: Awake alert NAD Sclera and conjunctiva clear bilat TM intact bilat, effusions bilat worse on the right Nasal congestion noted, turbinates within normal limits, no sinus tenderness with palpation bilat MMM, pharynx WNL RRR LS CTAB Assessment & Plan Assessment & Plan (1) Acute sinus infection: Code(s): J01.90 - Acute sinusitis, unspecified Qualifiers: Recurrence: recurrent Sinusitis location: pansinusitis Qualified Code(s): J01.41 - Acute recurrent pansinusitis Plan: Will treat with another round of antibiotics. Chose doxycycline as he tolerated this well in the past. The last time he took this was September of 2022. He asked about medications to help his nasal congestion. I told him to avoid all wejw-dgu-mfthhwo products to include sprays and oral medications as this will worsen his congestion. Can use Flonase and has on hand at home. In addition I have sent and ipratropium. He can use as needed. This note is constructed using voice recognition software. While every effort has been made to ensure accuracy in behavioral services tech, still errors may have been included Sometimes, these errors may affect the content or meaning of the given sentence . Total time spent caring for the patient today was 30 minutes. This includes time spent before the visit reviewing the chart, time spent during the visit, and time spent after the visit on documentation Medications: New doxycycline hyclate 100 mg PO BID 7 days 14 caps 0RF ipratropium bromide administer into each nostril 2 sprays intranasal TID-QID PRN 15 mL 0RF allergy symptoms Coding Level of Care Code Est Pt Level 4 (63648) Diagnoses Acute recurrent pansinusitis J01.41 Recurrence: recurrent Sinusitis location: pansinusitis
== END 2023-10-13 13:25 | disposition home or self-care (01) ==
PROVIDERS: PCP Family Medicine; Visit Provider Nurse Practitioner Family
DX: J01.41 Acute recurrent pansinusitis (principal)
CPT/HCPCS: 99214

== ENCOUNTER 2023-10-21 12:55 | Outpatient (AMB) | payer OTHER, SELFPAY ==
--- NOTE | 2023-10-21 13:02 | A.OFFPC_ITS ---
Vital Signs 10/21/23 13:05 Height 5 ft 10 in Weight 255 lb 8 oz BMI 36.7 BP 132/90 H Blood Pressure Location Rt brachial Position Sitting Pulse 99 Pulse Source Pulse Oximeter Pulse Oximetry (%) 97 Oxygen Delivery Method Room Air Intake Visit Reasons: Congestion/Sore Chest Intake Note: Patient is here today for Congestion, Sore chest, trouble breathing. Finished antibiotic and still have some symptoms Nutrition Internship Required: No Graduate Rn: Not Required per policy Accompanied by: Self / Same As Patient Allergies pollen extracts Allergy (Mild, Verified 10/21/23 13:22) Sneezing penicillin V Allergy (Unknown, Verified 10/21/23 13:22) childhood Penicillins Allergy (Unknown, Verified 10/21/23 13:22) Unknown tree nuts, sesame seeds Allergy (Unknown, Uncoded 10/21/23 13:04) anaphylaxis Medication List - Last Reconciled 10/21/23 by Jennifer Muniz, [facility]- albuterol sulfate 90 mcg/actuation (Ventolin HFA) 2 puffs inhalation Q4-6H PRN 30 days epinephrine (EpiPen) 0.3 mg (0.3 mL) IM Q4H PRN 30 days ipratropium bromide 2 sprays intranasal TID-QID PRN Tobacco use date assessed: 09/26/23 Fall risk assessment: No Falls in past year Last assessed Fall Risk: 10/21/23 Dental Screening Dental Screen Date: 10/21/23 Did you have a dental visit in the last 12 months?: No Did you have a dental problem in the last 6 months where you did not have access to dental care?: No Was dental information given to patient?: Patient has dentist HPI HPI Comments History of Present Illness Details 63-year-old male being seen today for ch est congestion. This is his 3rd visit since October 08. He was seen October 08 for similar complaints and given a Z-Jim. A viral swab was obtained and negative at that time. He completed that and on the same day he completed the azithromycin he sought care again at this visit he complained of ongoing chest and nasal congestion. Was not using anything [id number]. Declined a viral swab at that visit. He was treated with doxycycline based on his allergies. Advised to use Flonase. I also sent in a prescription for ipratropium nasally. He presents today completing his doxycycline 7 day course yesterday with continued complaints of chest and nasal congestion. He has been using the Flonase and still feels congested. He made no mention of using the ipratropium. Reviewed the course of treatment so far with him. Advised that we should swab him for viruses again de spite the negative 1st swab. He made a remark about this provider being lazy at the last visit. And also said that he was willing to argue to make his point get what he wanted. I did ask him what he wanted and he was not able to tell me that. I offered him a chest x-ray although his exam was benign. He does not want a chest x-ray. He does not like taking medications. So I am not really loredo re what it is that he is looking for today. Be that as it may he is willing to do a viral swab. [facility] Medical History No pertinent past medical history Surgical History History of nasal surgery History of hernia surgery Social History Housing: Apartment Alcohol intake: current Alcohol intake frequency: a few times a week Patient Tobacco Use Status: Former Tobacco user e-Cigarette/Vaping Use: Never Used Second Hand Smoke Exposure: No service: No Current occupational status: employed Current occupation: [employer] Current occupational exposures/hazards: No Cognitive needs: No Hearing needs: No Vision needs: No Questionnaire PHQ-9 Over the last 2 weeks, how often have you been bothered by any of the following problems? 1. Little interest or pleasure in doing things: not at all 2. Feeling down, depressed, or hopeless: not at all 3. Trouble falling or staying asleep, or sleeping too much: not at all 4. Feeling tired or having little energy: not at all 5. Poor appetite or overeating: not at all 6. Feeling bad about yourself - or that you are a failure or have let yourself or your family down: not at all 7. Trouble concentrating on things, such as reading the newspaper or watching television: not at all 8. Moving or speaking so slowly that other people could have noticed. Or the opposite - being so fidgety or restless that you have been moving around a lot more than usual: not at all 9. Thoughts that you would be better off or of hurting yourself in some way: not at all Total score: 0 Depression Screening Interpretation: Negative Depression Screening Done: Yes Source: Developed by Drs. Darin Day, Ama Bowman, Deyvi Espinal and colleagues, with an educational helen from [employer]. Thrive Questionnaire Date Thrive assessed: 10/21/23 I am a: Patient What is your living situation today?: I have a steady place to live Within the past 12 months, did the food you bought not last and you didn't have the money to get more?: Never true Within the past 12 months, did you worry whether your food would run out before you got money to buy more?: Never true Do you have trouble paying for medicines?: No Do you have trouble getting transportation to medical appointments?: No Do you have trouble paying your heating and electricity bill?: No Do you have trouble taking care of your child, family member or friend?: No Do you have trouble with day-to-day activities such as bathing, preparing meals, shopping, managing finances, etc.?: No Are you currently unemployed and looking for a job?: No Are you interested in more education?: No Currently or been in a relationship where the following occur: no concerns reported THRIVE Score: 0 AUDIT C Alcohol Use Questionnaire (AUDIT-C) 1. How often do you have a drink containing alcohol?: Monthly or less 2. How many drinks containing alcohol do you have on a typical day when you are drinking?: 1 or 2 Total Score: 1 LISA-7 AMB Questionnaire LISA-7 Date LISA - 7 assessed: 10/21/23 Feeling nervous, anxious, or on edge: 0 = Not at all Not being able to stop or control worryin = Not at all Worrying too much about different things: 0 = Not at all Trouble relaxin = Not at all Being so restless that it is hard to sit still: 0 = Not at all Becoming easily annoyed or irritable: 0 = Not at all Feeling afraid as if something awful might happen: 0 = Not at all Total LISA-7 score (0-4 normal; 5-9 mild; 10-14 moderate; 15-21 severe): 0 Source: Developed by Drs. Darin Day, Ama Bowman, Deyvi Espinal and colleagues, with an educational helen from [employer]. Review of Systems Const All systems reviewed & are unremarkable except as noted in HPI and below Physical exam (Primary Care) Vital Signs: Last Vital Signs Pulse 99 10/21/23 13:05 BP 132/90 H 10/21/23 13:05 Pulse Ox 97 10/21/23 13:05 Oxygen Delivery Method Room Air 10/21/23 13:05 BMI result Body Mass Index 36.7 Tobacco/Smoking Status: Tobacco use Status Tobacco use date assessed 09/26/23 10/21/23 13:10 Patient Tobacco Use Status Former Tobacco user 10/21/23 13:10 e-Cigarette/Vaping Use Never Used 10/21/23 13:10 PHQ-9: PHQ-9 Score PHQ-9: Total score 0 10/22/23 07:41 Depression Screening Interpretation: Negative Thrive Assessment: Date of Thrive Assessment Date Thrive assessed 10/21/23 10/21/23 13:10 Currently or been in a relationship where the following occur: no concerns reported Const Other: Awake alert NAD Sclera and conjunctiva clear bilat TM intact and clear bilat Nasal congestion noted, turbinates within normal limits, no sinus tenderness with palpation bilat MMM, pharynx WNL RRR LS CTAB no cough or respiratory distress noted during exam Assessment and Plan Assessment & Plan (1) Viral illness: Comment: Treated with azithromycin immediately followed by a course of doxycycline. He continues to complain of his symptoms with a benign exam. Viral swab obtained today and negative. I offered him a chest x-ray and he declined. I do recommend follow up with his primary care for any further management of this. Code(s): B34.9 - Viral infection, unspecified (2) Nasal congestion: Code(s): R09.81 - Nasal congestion Plan This note is constructed using voice recognition software. While every effort has been made to ensure accuracy in sexual assault social worker, still errors may have been included Sometimes, these errors may affect the content or meaning of the given sentence . Total time spent caring for the patient today was 30 minutes. This includes time spent before the visit reviewing the chart, time spent during the visit, and time spent after the visit on documentation Orders: Orders SARS-CoV2/FLU/RSV 10/21/23 R68.89 - Other general symptoms and signs Coding Level of Care Code Est Pt Level 4 (59375) Diagnoses Viral illness B34.9 Nasal congestion R09.81
[2023-10-21 13:05] VITALS: BP 132/90; PULSE 99; O2SAT 97; BMI 36.7
== END 2023-10-21 13:30 | disposition home or self-care (01) ==
PROVIDERS: PCP Family Medicine; Visit Provider Nurse Practitioner Family
DX: B34.9 Viral infection, unspecified (principal); R09.81 Nasal congestion
CPT/HCPCS: 99214

== ENCOUNTER 2023-10-21 15:16 | Outpatient (REF) | payer OTHER, SELFPAY ==
[2023-10-21 16:02] LABS: Influenza A PCR NEGATIVE (Negative); Influenza B PCR NEGATIVE (Negative); Resp Syncy Virus RNA Qual PCR NEGATIVE (Negative); SARS COV2 PCR INHOUSE NEGATIVE (Negative)
== END 2023-10-21 15:17 | disposition home or self-care (01) ==
LOC: HO.LNP 15:16
PROVIDERS: Visit Provider Nurse Practitioner Family
DX: Z11.52 Encounter for screening for COVID-19 (principal); Z20.822 Contact with and (suspected) exposure to COVID-19; J02.9 Acute pharyngitis, unspecified
CPT/HCPCS: 0241U

== ENCOUNTER 2023-11-04 08:16 | Outpatient (REF) | payer OTHER, SELFPAY ==
--- NOTE | ~2023-11-04 | XR_ITS ---
EXAMINATION: XR CHEST CLINICAL INFORMATION: Chest pain COMPARISON: None available. TECHNIQUE: 2 views of the chest were obtained. FINDINGS: The lungs are hypoexpanded but clear. The heart size and pulmonary vascularity is normal. There is mild scoliosis of dorsal spine. XR/XR chest 2V IMPRESSION: Hypoexpanded lungs without acute process.
== END 2023-11-04 08:17 | disposition home or self-care (01) ==
LOC: HO.XRAY 08:16
PROVIDERS: PCP Family Medicine; Visit Provider Family Medicine
DX: R09.89 Other specified symptoms and signs involving the circulatory and respiratory systems (principal)
CPT/HCPCS: 71046

== ENCOUNTER 2023-11-04 13:01 | Outpatient (AMB) | payer OTHER, SELFPAY ==
--- NOTE | 2023-11-04 13:02 | A.OFFPC_ITS ---
Vital Signs 11/04/23 13:03 11/04/23 13:41 Height 5 ft 10 in Weight 257 lb 2 oz BMI 36.9 BP 144/80 H 140/90 H Blood Pressure Location Rt brachial Rt brachial Position Sitting Sitting Respiration 13 Pulse 96 Pulse Source Pulse Oximeter Temp 97.6 F Temp Source Temporal Artery Scan Pulse Oximetry (%) 99 Oxygen Delivery Method Room Air Intake Visit Reasons: difficulty breathing Form Setter/Driver Required: No Accompanied by: Self / Same As Patient Allergies pollen extracts Allergy (Mild, Verified 11/04/23 13:20) Sneezing penicillin V Allergy (Unknown, Verified 11/04/23 13:20) childhood Penicillins Allergy (Unknown, Verified 11/04/23 13:20) Unknown tree nuts, sesame seeds Allergy (Unknown, Uncoded 11/04/23 13:20) anaphylaxis Medication List - Last Reconciled 11/04/23 by Billie Hsieh CNP albuterol sulfate 90 mcg/actuation (Ventolin HFA) 2 puffs inhalation Q4-6H PRN 30 days epinephrine (EpiPen) 0.3 mg (0.3 mL) IM Q4H PRN 30 days ipratropium bromide 2 sprays intranasal TID-QID PRN Tobacco use date assessed: 09/26/23 Fall risk assessment: No Falls in past year Last assessed Fall Risk: 11/04/23 Dental Screening Dental Screen Date: 11/04/23 Did you have a dental visit in the last 12 months?: Yes Did you have a dental problem in the last 6 months where you did not have access to dental care?: No Was dental information given to patient?: Patient has dentist HPI HPI Comments History of Present Illness Details 63-year-old male presents with complaint s of intermittent upper chest congestion, pressure, and ache since he has been suffering with URI for the past 6 weeks. He also reports coughing, sneezing, nasal congestion. His symptoms are aggravated by exertion while walking. Sometimes he feels as though he is experiencing a heart attack. He notes that his symptoms are musculoskeletal in nature. He was evaluated for nasal/chest congestion and treated for sinus infection and URI 3 times last month. He was prescribed Z-Jim, doxycycline, and ipratropium He admits to using ipratropium as prescribed He had a chest x-ray done today which shows hypoexpanded lungs but otherwise normal FORMERLY [facility], [facility] Medical History No pertinent past medical history Surgical History History of nasal surgery History of hernia surgery Social History Housing: Apartment Alcohol intake: current Alcohol intake frequency: a few times a week Patient Tobacco Use Status: Former Tobacco user e-Cigarette/Vaping Use: Never Used Second Hand Smoke Exposure: No service: No Current occupational status: employed Current occupation: [employer] Current occupational exposures/hazards: No Cognitive needs: No Hearing needs: No Vision needs: No Questionnaire Thrive Questionnaire Date Thrive assessed: 10/21/23 LISA-7 AMB Questionnaire LISA-7 Date LISA - 7 assessed: 10/21/23 Source: Developed by Drs. Darin Day, Ama Bowman, Deyvi Espinal and colleagues, with an educational helen from [email or web address]. Review of Systems Const Details: Const Denies chills, Denies fatigue, Denies fever(s), Denies headache(s) and Denies weakness ENT Denies dizziness and Denies headache(s) Card Denies chest pain, Denies lightheadedness, Denies dyspnea and Denies other (Palpitations) Resp Denies cough, Denies dyspnea, Denies wheezing and Denies other ( shortness of breath) GI Denies abdominal pain, Denies melena, Denies hematochezia, Denies change in bowel habits, Denies dyspepsia and Denies nausea Denies hematuria and Denies dysuria Musc Denies abnormal gait, Denies myalgias, Denies arthralgias, Denies numbness and Denies tingling Skin/Breast Denies rash, Denies unusual bruising and Denies wounds Neuro Denies abnormal gait, Denies dizziness, Denies headache(s), Denies memory loss, Denies numbness, Denies Sensory deficit (Neuro), Denies tingling and Denies weak ness Psych Denies anxiety, Denies depression, Denies memory loss Endo Denies cold intolerance, Denies fatigue, Denies heat intolerance, Denies polydip malinda and Denies polyuria Aller/Immun Denies wheezing Physical exam (Primary Care) Vital Signs: Last Vital Signs Temp 97.6 F 11/04/23 13:03 Pulse 96 11/04/23 13:03 Resp 13 11/04/23 13:03 BP 144/80 H 11/04/23 13:03 Pulse Ox 99 11/04/23 13:03 Oxygen Delivery Method Room Air 11/04/23 13:03 BMI result Body Mass Index 36.9 Tobacco/Smoking Status: Tobacco use Status Tobacco use date assessed 09/26/23 11/04/23 13:09 Patient Tobacco Use Status Former Tobacco user 11/04/23 13:09 e-Cigarette/Vaping Use Never Used 11/04/23 13:09 Thrive Assessment: Date of Thrive Assessment Date Thrive assessed 10/21/23 11/04/23 13:09 Const Other: General: no acute distress and well developed Nutritional Appearance: well nourished Orientation/consciousness: patient oriented x3 HENMT Head is normocephalic Bilateral ear canal and TM are normal Nasal turbinates and oropharynx are pink and moist Sinuses are nontender with palpation No auricular or cervical lymphadenopathy Eyes General: appearance normal, both eyes and all related structures Pupils: Equal, round and reactive pupils present EOM: EOMs intact bilaterally Resp Effort & Inspection: normal respiratory effort Auscultation: clear to auscultation bilaterally Cardio Rate: regular rate Rhythm: regular rhythm Heart sounds: S1 normal heart sound present, S2 normal heart sound present, no gallops, no murmurs and no rubs GI Palpation (GI): No Abdominal aortic bruit present, Soft to palpation, nontender, No hepatosplenomegaly present and No Rebound tenderness present Auscultation: normal bowel sounds General: Yes no CVA tenderness Back/Spine/Pelvis Back: no CVA tenderness Cervical Spine: cervical ROM normal and No Cervical spine tenderness Thoracic/Lumbar Spine: thoraco-lumbar ROM normal, No pain with thoraco-lumbar ROM, No thoracic spinal tenderness and No lumbar spinal tenderness Extrem General: Yes normal to inspection, No edema and No calf tenderness Skin General: warm and dry. Normal skin color. Normal skin turgor Neuro General: patient oriented x3, gait normal and no focal neuro deficit Cranial nerves: Yes Equal, round and reactive pupils present Cognition (Neuro): normal cognition Gait exam (Neuro): Normal gait present Sensory Exam: No Sensory deficit (Neuro) Psych Appearance: grossly normal Affect: normal affect Attitude: cooperative Thought process: Normal thought process present Assessment and Plan Assessment & Plan (1) Viral upper respiratory illness: Code(s): J06.9 - Acute upper respiratory infection, unspecified Plan: Likely viral illness though possibly allergies. No exam evidence of bacterial infection Viral illness There is no antibiotic medication for viruses.? They must run their course.? Most average 5-7 days but 7-10 days is not uncommon and up to 14 days is still possible.? A cough is often the last symptom to resolve and this can last for weeks in some cases. Rest Hydrate well -? Drink plenty of fluids.? Especially water. Tylenol or ibuprofen for muscle aches, headache, fever/discomfort Continue to use ipratropium as prescribed Prednisone and Zyrtec as prescribed May take Benadryl 25 mg at night for sleep EKG recommended but patient declines at this time Cannot rule out COVID-19/RSV/Flu infection Nasal swab acquired and will be sent to the lab Return for new or worsening symptoms Verbalized understanding and agreed with treatment plan. Orders: Orders SARS-CoV2/FLU/RSV Today R09.89 - Other specified symptoms and signs involving the circulatory and respiratory systems Medications: New prednisone 4 tabs daily for 4 days, 3 tabs daily for 2 days, 2 tabs daily for 2 days, 1 tab daily for 2 days PO daily; 10 days 28 tabs 0RF cetirizine (Zyrtec) 10 mg PO DAILY 30 days 30 tabs 1RF Coding Level of Care Code Est Pt Level 4 (88511) Diagnoses Viral upper respiratory illness J06.9
[2023-11-04 13:03] VITALS: BP 144/80; PULSE 96; RESP 13; TEMP 36.4; O2SAT 99; BMI 36.9
[2023-11-04 13:41] VITALS: BP 140/90
== END 2023-11-04 13:55 | disposition home or self-care (01) ==
PROVIDERS: PCP Family Medicine; Visit Provider Nurse Practitioner Family
DX: J06.9 Acute upper respiratory infection, unspecified (principal)
CPT/HCPCS: 99214

== ENCOUNTER 2023-11-04 13:52 | Outpatient (REF) | payer OTHER, SELFPAY ==
[2023-11-05 12:28] LABS: Influenza A PCR NEGATIVE (Negative); Influenza B PCR NEGATIVE (Negative); Resp Syncy Virus RNA Qual PCR NEGATIVE (Negative); SARS COV2 PCR INHOUSE NEGATIVE (Negative)
== END 2023-11-04 13:53 | disposition home or self-care (01) ==
LOC: HO.LAB 13:52
PROVIDERS: Visit Provider Nurse Practitioner Family
DX: Z11.52 Encounter for screening for COVID-19 (principal); Z20.822 Contact with and (suspected) exposure to COVID-19; R09.89 Other specified symptoms and signs involving the circulatory and respiratory systems
CPT/HCPCS: 0241U

== ENCOUNTER 2023-11-17 10:47 | Outpatient (AMB) | payer OTHER, SELFPAY ==
--- NOTE | 2023-11-17 11:04 | A.OFFPC_ITS ---
Vital Signs 11/17/23 11:08 Height 5 ft 10 in Weight 251 lb 6 oz BMI 36.1 BP 124/60 Blood Pressure Location Lt brachial Position Sitting Respiration 12 Pulse 79 Pulse Source Pulse Oximeter Pulse Oximetry (%) 99 Oxygen Delivery Method Room Air Intake Visit Reasons: [facility], NSTEMI, Intake Note: Patient reports he is following up from [facility] after an NSTEMI. Patient reports he has some side effects from his current medications such as haziness in the morning and frequent urination. Food And Nutrition Supervisor Required: No Accompanied by: Self / Same As Patient Allergies pollen extracts Allergy (Mild, Verified 11/17/23 11:16) Sneezing penicillin V Allergy (Unknown, Verified 11/17/23 11:16) childhood Penicillins Allergy (Unknown, Verified 11/17/23 11:16) Unknown tree nuts, sesame seeds Allergy (Unknown, Uncoded 11/17/23 11:16) anaphylaxis Tobacco use date assessed: 09/26/23 HPI [facility], NSTEMI, HPI Details 63 y/o male presents today to f/u ED vis it for non-STEMI. Had presented with complaints of substernal and epigastric discomfort. EKG showed sinus rhythm with sinus arrhytmia and heart rate of 85. Nonspecific ST changes in V2 to V3 with minimal less than [address] segment elevation. High sensitive troponin has had significant delta from 23, 256 and 434. Presentation was concerning for NSTEMI. [facility] Medical History No pertinent past medical history Surgical History History of nasal surgery History of hernia surgery Social History Housing: Apartment Alcohol intake: current Alcohol intake frequency: a few times a week Patient Tobacco Use Status: Former Tobacco user e-Cigarette/Vaping Use: Never Used Second Hand Smoke Exposure: No service: No Current occupational status: employed Current occupation: [email or web address] Current occupational exposures/hazards: No Cognitive needs: No Hearing needs: No Vision needs: No Questionnaire Thrive Questionnaire Date Thrive assessed: 10/21/23 LISA-7 AMB Questionnaire LISA-7 Date LISA - 7 assessed: 10/21/23 Source: Developed by Drs. Darin Day, Ama Bowman, Deyvi Espinal and colleagues, with an educational helen from [employer]. Review of Systems Const Denies chills, Denies fatigue, Denies fever(s), Denies headache(s) and Denies weakness ENT Denies dizziness and Denies headache(s) Card Denies dyspnea Resp Denies cough, Denies dyspnea, Denies wheezing and Denies other (shortness of breath) Musc Denies numbness and Denies tingling Neuro Denies dizziness, Denies headache(s), Denies numbness, Denies tingling and Denies weakness Psych Denies anxiety and Denies depression Endo Denies fatigue Aller/Immun Denies wheezing Physical exam (Primary Care) Vital Signs: Last Vital Signs Pulse 79 11/17/23 11:08 Resp 12 11/17/23 11:08 BP 124/60 11/17/23 11:08 Pulse Ox 99 11/17/23 11:08 Oxygen Delivery Method Room Air 11/17/23 11:08 BMI result Body Mass Index 36.1 Tobacco/Smoking Status: Tobacco use Status Tobacco use date assessed 09/26/23 11/17/23 11:04 Patient Tobacco Use Status Former Tobacco user 11/17/23 11:04 e-Cigarette/Vaping Use Never Used 11/17/23 11:04 Thrive Assessment: Date of Thrive Assessment Date Thrive assessed 10/21/23 11/17/23 11:04 Const General: well developed; No acute distress Nutritional Appearance: well nourished Orientation/consciousness: patient oriented x3 HENMT Head: Yes normocephalic and Yes atraumatic Eyes General: appearance normal, both eyes and all related structures Pupils: Equal, round and reactive pupils present EOM: EOMs intact bilaterally Resp Effort & Inspection: normal respiratory effort Neuro General: patient oriented x3 and gait normal Cranial nerves: Yes Equal, round and reactive pupils present Psych Affect: normal affect Assessment and Plan Assessment & Plan (1) NSTEMI (non-ST elevated myocardial infarction): Code(s): I21.4 - Non-ST elevation (NSTEMI) myocardial infarction Plan: Recent?NSTEMI?myocardial?infarction?and?status?post?angio plasty?and?stenting?of?LAD?which?was?diffusely?up?to?95%?occluded. Echocardiogram?at?the?hospital?was?of?very?poor?quality?and?little?can?be?derive d?from?this-unable?to?get?ejection?fraction. He?has?an?appointment?with?cardiology?in?3?days. He?is?now?on?Brilinta,?aspirin,?atorvastatin?80?mg?daily?and?metoprolol. Notes?some?side?effects?likely?from?metoprolol?including?some mental?fogginess. Encouraged?him?to?continue?these?medications?and?follow-up?with?Cardiology. Has?not?had?repeat?echocardiogram?ordered?but?is?seeing?the?program planner?in?3?da ys?and?will?have?this?done?at?[facility]. He?will?ask?them?to?have?a?copy?of?the?report?sent?to?me. Encouraged?blood?pressure?control?and?diet?and?exercise. He?needs?FMLA?paperwork?for?intermittent?leave?of?up?to?3?days?per?week?times?18 ?weeks?for?cardiac?rehab. (2) Nasal polyps: Code(s): J33.9 - Nasal polyp, unspecified Plan: History?of?nasal?polyps?and?patient?notes?some?epistaxis. Encouraged?nasal?saline?and?humidified?air. Likely?some?of?his?symptoms?are?secondary?to?aspirin?and?Brilinta?which?he?needs ?to?continue?due?to?stenting. Referred?to?ENT (3) Epistaxis: Code(s): R04.0 - Epistaxis Plan: Mild Management?as?above Orders: Referrals Ear/Nose/Throat Referral J33.9 - Nasal polyp, unspecified, R04.0 - Epistaxis Coding Level of Care Code Est Pt Level 3 (87369) Diagnoses NSTEMI (non-ST elevated myocardial infarction) I21.4 Nasal polyps J33.9 Epistaxis R04.0
[2023-11-17 11:08] VITALS: BP 124/60; PULSE 79; RESP 12; O2SAT 99; BMI 36.1
== END 2023-11-17 12:15 | disposition home or self-care (01) ==
PROVIDERS: PCP Family Medicine; Visit Provider Family Medicine
DX: I25.2 Old myocardial infarction (principal); J33.9 Nasal polyp, unspecified; R04.0 Epistaxis
CPT/HCPCS: 99213

== ENCOUNTER 2023-12-10 07:24 | Outpatient (REF) | payer OTHER, SELFPAY ==
[2023-12-10 11:50] LABS: MANUAL DIFF FLAG NO
[2023-12-10 12:06] LABS: Basophils Absolute Auto 0.1 X10*3/uL (0.0-0.2); Basophils Percent Auto 1.1 % (0-2); Eosinophils Absolute Auto 0.7 X10*3/uL (0.0-0.4); Hematocrit 46.7 % (42.0-52.0); Imm Gran Abs Auto 0.03 X10*3/uL (0.00-0.03); Imm Gran Pct Auto 0.4 % (0.0-0.4); Lymphocytes Absolute Auto 2.4 X10*3/uL (1.2-4.9); Lymphocytes Percent Auto 29.5 % (20-40); Mean Corpuscular HGB Conc 34.3 g/dl (31.0-36.0); Mean Corpuscular Volume 90.5 fL (80.0-98.0); Mean Platelet Volume 11.5 fL (9.4-12.4); Monocytes Absolute Auto 0.9 X10*3/uL (0.1-1.2); Monocytes Percent Auto 11.4 % (2-11); Neutrophils Absolute Auto 3.9 x10*3/uL (2.0-8.3); Neutrophils Percent Auto 48.6 % (45-73); Platelet Count 253 X10*3/uL (160-400); Red Blood Count 5.16 X10*6/uL (4.60-5.80); Red Cell Distribution Width 12.9 % (11.0-16.0)
[2023-12-10 12:37] LABS: Alanine Aminotransferase 25 U/L (0-40); Alkaline Phosphatase 62 U/L (39-117); Anion Gap 13 (12-20); Aspartate Amino Transferase 18 U/L (5-37); Bilirubin Total 0.8 mg/dL (0.0-1.0); Blood Urea Nitrogen 17 mg/dL (9-16); Calcium 9.1 mg/dL (8.4-10.2); Carbon Dioxide 25 mmol/L (22-29); Chloride 106 mmol/L (96-108); Cholesterol 208 mg/dL (<200); Estimated Glomerular Filt Rate > 60; Glucose Fasting 105 mg/dL (60-99); HDL Cholesterol 48 mg/dL (>40); LDL Cholesterol Calculated 135 mg/dL (<100); Potassium 3.9 mmol/L (3.3-5.1); Sodium 140 mmol/L (135-145); Total Protein 7.1 g/dL (6.5-8.0); Triglycerides 127 mg/dL (<150)
[2023-12-10 12:38] LABS: Creatinine Urine 53.21 mg/dL; Microalbumin Urine < 5.0 mg/L
[2023-12-10 12:55] LABS: TSH reflex Free T4 0.89 uIU/mL (0.32-4.0)
== END 2023-12-10 07:25 | disposition home or self-care (01) ==
LOC: HO.WFDLDS 07:24
PROVIDERS: Visit Provider Family Medicine
DX: Z00.00 Encounter for general adult medical examination without abnormal findings (principal); I21.4 Non-ST elevation (NSTEMI) myocardial infarction; I10 Essential (primary) hypertension
CPT/HCPCS: 36415; 80053; 80061; 82043; 82570; 84443; 85025

== ENCOUNTER 2023-12-15 15:14 | Outpatient (AMB) | payer OTHER, SELFPAY ==
--- NOTE | 2023-12-15 15:16 | A.OFFPC_ITS ---
Vital Signs 12/15/23 15:17 Height 5 ft 10 in BP 124/70 Blood Pressure Location Lt brachial Position Sitting Pulse 84 Pulse Source Pulse Oximeter Pulse Oximetry (%) 97 Oxygen Delivery Method Room Air Intake Visit Reasons: follow up nstemi Intake Note: Patient is here for follow up on nstemi. Allergies pollen extracts Allergy (Mild, Verified 12/15/23 15:20) Sneezing sesame oil Allergy (Mild, Verified 12/15/23 15:20) Anaphylaxis sesame seed Allergy (Mild, Verified 12/15/23 15:20) Anaphylaxis penicillin V Allergy (Unknown, Verified 12/15/23 15:20) childhood Penicillins Allergy (Unknown, Verified 12/15/23 15:20) Unknown tree nuts, sesame seeds Allergy (Unknown, Uncoded 12/15/23 15:20) anaphylaxis Medication List - Last Reconciled 12/15/23 by Fidel Espinal MD albuterol sulfate 90 mcg/actuation (Ventolin HFA) 2 puffs inhalation Q4-6H PRN 30 days cetirizine (Zyrtec) 10 mg PO DAILY 30 days epinephrine (EpiPen) 0.3 mg (0.3 mL) IM Q4H PRN 30 days ipratropium bromide 2 sprays intranasal TID-QID PRN prednisone 4 tabs daily for 4 days, 3 tabs daily for 2 days, 2 tabs daily for 2 days, 1 tab daily for 2 days PO daily; 10 days Tobacco use date assessed: 12/15/23 Fall risk assessment: No Falls in past year Last assessed Fall Risk: 12/15/23 Dental Screening Dental Screen Date: 12/15/23 HPI follow up nstemi HPI Details 63 y/o male presents to f/u NSTEMI. Labs ordered. Had seen [facility] 11/20/23. They had decreased artovastatin from 80mg to 40mg to see if sensation of fogginess resolves. Per note they plan an echo mid-to-late November for reevaluation. [facility] Medical History No pertinent past medical history Surgical History History of nasal surgery History of hernia surgery Social History (Reviewed 03/05/24 @ 13:09 by NASIM Ibrahim Housing: Apartment Alcohol intake: current Alcohol intake frequency: a few times a week Patient Tobacco Use Status: Former Tobacco user e-Cigarette/Vaping Use: Never Used Second Hand Smoke Exposure: No service: No Current occupational status: employed Current occupation: [employer] Current occupational exposures/hazards: No Cognitive needs: No Hearing needs: No Vision needs: No Questionnaire Thrive Questionnaire Date Thrive assessed: 10/21/23 LISA-7 AMB Questionnaire LISA-7 Date LISA - 7 assessed: 10/21/23 Source: Developed by Drs. Darin Day, Ama Bowman, Deyvi Espinal and colleagues, with an educational helen from [employer]. Review of Systems Const Denies chills, Denies fatigue, Denies fever(s), Denies headache(s) and Denies weakness ENT Denies dizziness and Denies headache(s) Card Denies chest pain, Denies lightheadedness, Denies dyspnea and Denies other (Palpitations) Resp Denies cough, Denies dyspnea, Denies wheezing and Denies other ( shortness of breath) Musc Denies numbness and Denies tingling Neuro Denies dizziness, Denies headache(s), Denies numbness, Denies tingling, Denies paresthesias and Denies weakness Psych Denies anxiety and Denies depression Endo Denies fatigue Aller/Immun Denies wheezing Physical exam (Primary Care) Vital Signs: Last Vital Signs Pulse 84 12/15/23 15:17 BP 124/70 12/15/23 15:17 Pulse Ox 97 12/15/23 15:17 Oxygen Delivery Method Room Air 12/15/23 15:17 Tobacco/Smoking Status: Tobacco use Status Tobacco use date assessed 12/15/23 12/15/23 15:21 Patient Tobacco Use Status Former Tobacco user 12/15/23 15:21 e-Cigarette/Vaping Use Never Used 12/15/23 15:21 Thrive Assessment: Date of Thrive Assessment Date Thrive assessed 10/21/23 12/15/23 15:21 Const General: no acute distress and well developed Nutritional Appearance: well nourished Orientation/consciousness: patient oriented x3 HENMT Head: Yes normocephalic and Yes atraumatic Eyes General: appearance normal, both eyes and all related structures Pupils: Equal, round and reactive pupils present EOM: EOMs intact bilaterally Resp Effort & Inspection: normal respiratory effort Auscultation: clear to auscultation bilaterally Cardio Rate: regular rate Rhythm: regular rhythm Heart sounds: S1 normal heart sound present, S2 normal heart sound present, no gallops, no murmurs and no rubs Neuro General: patient oriented x3 and gait normal Cranial nerves: Yes Equal, round and reactive pupils present Psych Affect: normal affect Assessment and Plan Assessment & Plan (1) NSTEMI (non-ST elevated myocardial infarction): Code(s): I21.4 - Non-ST elevation (NSTEMI) myocardial infarction Plan: Patient?is?taking?metoprolol?and?aspirin?and?Brilinta Had?been?on?atorvastatin?but?this?was?stopped?because?he had?complaints?of?mental?fogginess This?has?not?improved?with?discontinuance?this?statin?so?I?have?asked?him?to?res ume?this. Blood?pressures?are?controll ed?but?he?wants?to?discontinue?metoprolol.??He?will?try?breaking?this?in?half?an d?watch?his?blood?pressures?carefully?at?home. If?fogginess?improves?he?will?continue?metoprolol?12.5?mg?daily?and?we?ca n?supplement?blood?pressure?control?with?losartan?if?needed If?blood?pressures?are?getting?too?high?however?he?will?resume?this?and?let?me?k now. Follow-up?with?Cardiology (2) Hyperlipidemia: Code(s): E78.5 - Hyperlipidemia, unspecified Plan: LDL?cholesterol?135?in?patient?with?coronary ?artery?disease?and?recent?NSTEMI?and?stent Had?stopped?atorvastatin?due?to?foggy?mental?thinking?but?this?has?not?changed?w ith?discontinuance Resume?atorvastatin (3) Brain fog: Code(s): R41.89 - Other symptoms and signs involving cognitive functions and awareness Plan: Possibly?due?to?metoprolol He?will?try?decreasing?this?to?12.5?mg?and?watch?his?blood?pressures?carefully.? ?He?will?let?me?know?if?blood?pressures?are?too?high Can?also?supplement?blood?pressure?with?losartan?if?needed Follow-up?with?Cardiology (4) Hypertension: Code(s): I10 - Essential (primary) hypertension Plan: Blood?pressure?well?controlled?today.??Goal?is?less?than?130/80 Medications?as?above Follow-up?with?Cardiology (5) CAD (coronary artery disease): Code(s): I25.10 - Atherosclerotic heart disease of [place] coronary artery without angina pectoris Plan: Now?s/p?stent Continue?aspirin?and?Brilinta Continue?small?dose?of?metoprolol?and?we?will?adjust?as?needed Resume?atorvastatin Follow-up?with?Cardiology (6) Nasal polyps: Code(s): J33.9 - Nasal polyp, unspecified Plan: Nasal?polyps?with?rather?severe?congestion?as?polyps?are?mechanically?obstructin g?nasal?passages. Refer red?to?ENT?though?he?has?not?heard?back?from?them?so?I?gave?him?their?phone?numb er. Trial?nasal?steroid?to?shrink?polyps?and?nasal?mucosa Use?nasal?saline?to?flush?out?any?secretions. Advised?against?pseudoephedrine?as?this?will?likely?cause?blood?pressures?to spike Ultimately?will?need?to?follow-up?with?ENT?and?may?need?resection Medications: New aspirin 325 mg PO DAILY 30 days 30 tabs 0RF ticagrelor (Brilinta) 60 mg PO BID 90 days 180 tabs 0RF atorvastatin 80 mg PO BEDTIME 90 days 90 tabs 0RF mometasone 50 mcg/actuation administer into each nostril 2 sprays intranasal DAILY 30 days PRN 17 grams 2RF nasal congestion metoprolol succinate ER 12.5 mg (1/2 x 25 mg) PO DAILY 90 days 45 tabs 0RF Coding Level of Care Code Est Pt Level 4 (09956) Diagnoses NSTEMI (non-ST elevated myocardial infarction) I21.4 Hyperlipidemia E78.5 Brain fog R41.89 Hypertension I10 CAD (coronary artery disease) I25.10 Nasal polyps J33.9
[2023-12-15 15:17] VITALS: BP 124/70; PULSE 84; O2SAT 97
== END 2023-12-15 16:04 | disposition home or self-care (01) ==
PROVIDERS: PCP Family Medicine; Visit Provider Family Medicine
DX: I25.2 Old myocardial infarction (principal); E78.5 Hyperlipidemia, unspecified; R41.89 Other symptoms and signs involving cognitive functions and awareness; I10 Essential (primary) hypertension; I25.10 Atherosclerotic heart disease of native coronary artery without angina pectoris; J33.9 Nasal polyp, unspecified
CPT/HCPCS: 99214

== ENCOUNTER → 2024-01-19 16:23 | Outpatient (AMB) | payer OTHER, SELFPAY ==
--- NOTE | 2024-01-19 16:27 | A.OFFPC_ITS ---
Vital Signs 01/19/24 16:30 Height 5 ft 10 in Weight 250 lb 6 oz BMI 35.9 BP 112/66 Blood Pressure Location Lt brachial Position Sitting Pulse 89 Pulse Source Pulse Oximeter Pulse Oximetry (%) 96 Oxygen Delivery Method Room Air Intake Visit Reasons: f/u hypertension, chronic conditions Intake Note: Patient is here to follow up on hypertension and chronic conditions. Allergies pollen extracts Allergy (Mild, Verified 01/19/24 16:32) Sneezing sesame oil Allergy (Mild, Verified 01/19/24 16:32) Anaphylaxis sesame seed Allergy (Mild, Verified 01/19/24 16:32) Anaphylaxis penicillin V Allergy (Unknown, Verified 01/19/24 16:32) childhood Penicillins Allergy (Unknown, Verified 01/19/24 16:32) Unknown tree nuts, sesame seeds Allergy (Unknown, Uncoded 01/19/24 16:32) anaphylaxis Medication List - Last Reconciled 01/19/24 by Fidel Espinal MD aspirin 81 mg PO DAILY epinephrine (EpiPen) 0.3 mg (0.3 mL) IM Q4H PRN 30 days metoprolol succinate ER 12.5 mg (1/2 x 25 mg) PO DAILY 90 days mometasone 50 mcg/actuation 2 sprays intranasal DAILY PRN 30 days ticagrelor (Brilinta) 60 mg PO BID 90 days Tobacco use date assessed: 01/19/24 Fall risk assessment: No Falls in past year Last assessed Fall Risk: 01/19/24 Dental Screening Dental Screen Date: 12/15/23 HPI f/u hypertension, chronic conditions HPI Details 63 y/o male presents to f/u hypertension in pt with recent NSTEMI and stent. Had decreased his metoprolol to 12.5mg due to brain fog. Blood pressure today is 112/66. He is on metoprolol 12.5mg daily. Pt reports some anxiety. [facility] Medical History No pertinent past medical history Surgical History History of nasal surgery History of hernia surgery Social History Housing: Apartment Alcohol intake: current Alcohol intake frequency: a few times a week Patient Tobacco Use Status: Former Tobacco user e-Cigarette/Vaping Use: Never Used Second Hand Smoke Exposure: No service: No Current occupational status: employed Current occupation: [employer] Current occupational exposures/hazards: No Cognitive needs: No Hearing needs: No Vision needs: No Questionnaire Thrive Questionnaire Date Thrive assessed: 10/21/23 LISA-7 AMB Questionnaire LISA-7 Date LISA - 7 assessed: 10/21/23 Source: Developed by Drs. Darin Day, Ama Bowman, Deyvi Espinal and colleagues, with an educational helen from [employer]. Review of Systems Const Denies chills, Denies fatigue, Denies fever(s), Denies headache(s) and Denies weakness ENT Denies dizziness and Denies headache(s) Card Denies chest pain, Denies lightheadedness, Denies dyspnea and Denies other (Palpitations) Resp Denies cough, Denies dyspnea, Denies wheezing and Denies other ( shortness of breath) Musc Denies numbness and Denies tingling Neuro Denies dizziness, Denies headache(s), Denies numbness, Denies tingling, Denies paresthesias and Denies weakness Psych Denies anxiety and Denies depression Endo Denies fatigue Aller/Immun Denies wheezing Physical exam (Primary Care) Vital Signs: Last Vital Signs Pulse 89 01/19/24 16:30 BP 112/66 01/19/24 16:30 Pulse Ox 96 01/19/24 16:30 Oxygen Delivery Method Room Air 01/19/24 16:30 BMI result Body Mass Index 35.9 Tobacco/Smoking Status: Tobacco use Status Tobacco use date assessed 01/19/24 01/19/24 16:42 Patient Tobacco Use Status Former Tobacco user 01/19/24 16:30 e-Cigarette/Vaping Use Never Used 01/19/24 16:30 Thrive Assessment: Date of Thrive Assessment Date Thrive assessed 10/21/23 01/19/24 16:30 Const General: no acute distress and well developed Nutritional Appearance: well nourished Orientation/consciousness: patient oriented x3 HENMT Head: Yes normocephalic and Yes atraumatic Eyes General: appearance normal, both eyes and all related structures Pupils: Equal, round and reactive pupils present EOM: EOMs intact bilaterally Resp Effort & Inspection: normal respiratory effort Auscultation: clear to auscultation bilaterally Cardio Rate: regular rate Rhythm: regular rhythm Heart sounds: S1 normal heart sound present, S2 normal heart sound present, no gallops, no murmurs and no rubs Neuro General: patient oriented x3 and gait normal Cranial nerves: Yes Equal, round and reactive pupils present Psych Affect: normal affect Assessment and Plan Assessment & Plan (1) Hypertension: Code(s): I10 - Essential (primary) hypertension Plan: Blood?pressure?shows?good?control.??Goal?is?less?than?130/80?for?patient?with?co ronary?artery?disease Continue?current?medication?regimen (2) CAD (coronary artery disease): Code(s): I25.10 - Atherosclerotic heart disease of [place] coronary artery without angina pectoris Plan: Taking?Brilinta?and?aspirin. He?is?still?very?concerned?that?statin?medications?are?causing?too?man y?side?effects?such?as?leg?pain?and?brain?fog He?will?try?Zetia LDL?goal?is?less?than?70. He?will?also?work?on?a?diet?lower?in?saturated?fats?and?cholesterol?and?work?at? exercise?and?weight?loss Will?follow-up?in?a?couple?of?months. I?did?discuss?that?Zetia?can?also?be?used?with?other?statins?and?that?we?may?be? able?to?find?a?statin?at?some?point?that?does?not?cause?adverse?effects?for?him? if?he?is?still?not?close?to?goal. Follow-up?with?Cardiology?as?recommended (3) Brain fog: Code(s): R41.89 - Other symptoms and signs involving cognitive functions and awareness Plan: This?has?not?improved?with?reduction?in?metoprolol?or?discontinuance?of?statin?m edication. Also?has?problems?with?sleeping?and?also?headaches We?had?discussed?testing?to?rule?out?sleep?apnea?in?the?past?but?he?has?not?had? this?done?yet?due?to?his?heart?attack. I?think?this?would?be?important?to?rule?out?at?this?point?and?he?agrees. Referred?to?Sleep?Medicine (4) Anxiety: Code(s): F41.9 - Anxiety disorder, unspecified Plan: Anxiety?and?irritability We?will?discuss?again?at?his?next?visit. Ruling?out?sleep?apnea He?is?also?s/p?heart?attack?and?this?can?lead?to?anxiety?as?well. (5) Hyperlipidemia: Code(s): E78.5 - Hyperlipidemia, unspecified Plan: Starting?Zetia (6) Sleep apnea: Code(s): G47.30 - Sleep apnea, unspecified Plan: As?above Orders: Referrals Sleep Medicine Referral G47.30 - Sleep apnea, unspecified Medications: New ezetimibe (Zetia) 10 mg PO DAILY 30 days 30 tabs 2RF Coding Level of Care Code Est Pt Level 4 (10938) Diagnoses Hypertension I10 CAD (coronary artery disease) I25.10 Brain fog R41.89 Anxiety F41.9 Hyperlipidemia E78.5 Sleep apnea G47.30
[2024-01-19 16:30] VITALS: BP 112/66; PULSE 89; O2SAT 96; BMI 35.9
== END ==
PROVIDERS: PCP Family Medicine; Visit Provider Family Medicine
DX: I10 Essential (primary) hypertension (principal); I25.10 Atherosclerotic heart disease of native coronary artery without angina pectoris; R41.89 Other symptoms and signs involving cognitive functions and awareness; F41.9 Anxiety disorder, unspecified; E78.5 Hyperlipidemia, unspecified; G47.30 Sleep apnea, unspecified
CPT/HCPCS: 99214

== ENCOUNTER 2024-03-30 08:04 | Outpatient (AMB) | payer OTHER, SELFPAY ==
--- OUTSIDE RECORDS SUMMARY | 2024-03-30 08:05 | XMS_ITS | Continuity of Care Document ---
Author Organization [facility] Address [address] [address]- Care Team Providers Care Tree Doctor Name Role Phone Fidel Espinal MD Primary Care Physician Encounter [facility] Date(s): 01/07/24 - 01/14/24 [facility] [address] [address]- [place] Encounter Diagnosis CAD S/P percutaneous coronary angioplasty(Discharge Diagnosis) - 01/07/24 Attending Physician: Sam Santos MD Admitting Physician: Sam Santos MD Referring Physician: Fidel Espinal MD Allergies, Adverse Reactions, Alerts Substance Reaction Severity Status atorvastatin Prednisone adverse reaction Active penicillins breathing problems Active Nuts Active Medications amLODIPine 5 mg oral tablet 5 mg, 1, tablet, By Mouth, Daily, # 90 tablet, Refills 3, Tot. Refills 3, Maintenance, 01/07/24 9:17:00 EDT, Route to Pharmacy Electronically, [id number], Partial fill upon patient request if the prescription is for a schedule II opio... Start Date: 01/07/24 Stop Date: 01/01/25 Status: Ordered aspirin 81 mg oral delayed release tablet = 81 mg, By Mouth, Daily, # 90 tablet, 0 Refills, Maintenance, 11/07/23 9:42:00 EST, EC Tablet, [facility], Partial fill upon patient request if the prescription is for a schedule II opioid drug., 178, cm, 11/07/23 8:33:00 EST, Height, 1... Start Date: 11/07/23 Stop Date: 02/05/24 Status: Ordered cetirizine 10 mg oral tablet 1 tablet = 10 mg, By Mouth, Daily, # 30 tablet, 0 Refills, Maintenance, 11/06/23 3:23:00 EST, Tablet, Partial fill upon patient request if the prescription is for a schedule II opioid drug. Start Date: 11/06/23 Status: Ordered metoprolol 25 mg oral tablet, extended release 12.5 mg, 0.5, tablet, By Mouth, Daily, # 90 tablet, Refills 0, Tot. Refills 0, Maintenance, 11/07/23 9:43:00 EST, Route to Pharmacy Electronically, [facility], Partial fill upon patientrequest if the prescription is for a schedule II op... Start Date: 11/07/23 Status: Ordered PredniSONE By Mouth, Daily, 0 Refills, Maintenance, 11/05/23 7:49:00 EST, Partial fill upon patient request ifthe prescription is for a schedule II opioid drug. Start Date: 11/05/23 Status: Ordered rosuvastatin 10 mg oral tablet 1 tablet = 10 mg, By Mouth, Daily at bedtime, # 30 tablet, 6 Refills, Maintenance, 01/07/24 9:11:00EDT, Tablet, [facility] #[id number], Partial fill upon patient request if the prescription is for a schedule II opioid drug., 178, cm, 01/07/24 8:... Start Date: 01/07/24 Stop Date: 08/04/24 Status: Ordered ticagrelor 90 mg oral tablet 1 tablet = 90 mg, By Mouth, 2 times a day, # 180 tablet, 3 Refills, Maintenance, 01/02/24 15:04:00 EDT, Tablet, [facility] #[id number], Partial fill upon patient request if the prescription is for a schedule II opioid drug., 178, cm, 12/11/23 15:... Start Date: 01/02/24 Status: Ordered Problem List Condition Confirmation Course Effective Dates Status Health St atus Informant Groin pain Confirmed Active Obese class II Confirmed Active Diagnosis Diagnosis Type Effective Dates Health Status Clinical Service Informant CAD S/P percutaneous coronary angioplasty Discharge Diagnosis 01/07/24 Vital Signs Most recent to oldest [Reference Range]: 1 2 Height 178 cm (01/07/24 8:46 AM) 178 cm (01/07/24 8:43 AM) Weight 114.1 kg (01/07/24 8:43 AM) Oxygen Saturation [94-100 %] 98 % (01/07/24 8:43 AM) Pulse Rate [55-90 bpm] 85 bpm (01/07/24 8:43 AM) Body Mass Index [18.5-24.99 kg/m2] 36.01 kg/m2 *>HHI* (01/07/24 8:43 AM) Blood Pressure [90-138/55-84 mm Hg] 150/ 99mm Hg *H* (01/07/24 8:46 AM) 148/100mm Hg *H* (01/07/24 8:43 AM) Mode of Delivery (Oxygen) Room air (01/07/24 8:43 AM) Blood pressure sites Arm, right (01/07/24 8:46 AM) Arm, left (01/07/24 8:43 AM) Weight Obtained Via Standing scale (01/07/24 8:43 AM) Social History Social History Type Response Smoking Status Former smoker, quit more than 30 days ago entered on: 11/05/23 Sex Implantable Device List Procedure Provider Procedure Date Device Type Site Reduction Turbinate Inferior Shaji Vora MD 04/28/19 Unknown Nares Right Device Identifier Serial Number Lot or Batch Number Manufacturing Date Expiration Date Distinct Identification Code MRI Safety Implantable Status Assigning Authority Unknown Unknown [id number] Unknown 09/21/20 Unknown Unknown Active Unknown Procedure Provider Procedure Date Device Type Site Reduction Turbinate Inferior Shaji Vora MD 04/28/19 Unknown Nares Left Device Identifier Serial Number Lot or Batch Number Manufacturing Date Expiration Date Distinct Identification Code MRI Safety Implantable Status Assigning Authority Unknown Unknown [id number] Unknown 09/21/20 Unknown Unknown Active Unknown Cardiology Outpatient Note * Sam Santos MD: PERFORM Event Display: Cardiology Note Office Authored Date: [id number] Patient: ??TAVO HUDSON ? Age:??63 Years?Sex:??Male?:??1960?? Patient Hx Cardiology Shared Clinical Summary CAD s/p THOMAS to mid-proximal LAD 11/06/2023. Mild dz in LCx and RCA HL??with??hx of atorvastatin intolerance?? Hypertension?? Provider Clinical Summary 63-year-old man seen in follow-up. ??First time meeting??him. No further angina since stenting in October 2023, but??he and his are??concerned about??blood pressure and lipid trends??since then. Did not tolerate atorvastatin??80??or 40 mg nightly. ??Had??quadriceps pain bilaterally which resolved with??atorvastatin cessation. Noted to be hypertensive during cardiac rehab, which improves with exercise Physical Exam Vitals & Measurements HR:??85??(Peripheral)?? BP:??150/99?? SpO2:??98%?? HT:??178??cm?? WT:??114.1??kg?? BMI:??36.01?? Weight lb/oz: 251 lb 9 oz GENERAL: ??Alert and oriented x3, no acute distress. HEENT: Mucous membranes pink and moist. ?? NECK: ??No JVD?? LUNGS: Clear to auscultation bilaterally. ??No crackles, wheezing, rhonchi. ?? HEART: ??Regular rate and rhythm, normal S1, S2. ??No murmurs, rubs, or gallops.?? ABDOMEN: Soft, nontender, nondistended.?? EXTREMITIES: ??No pitting edema, cyanosis, clubbing. ?? PULSES: 2+ radials SKIN: Warm and well perfused. ?? NEURO: ??Oriented to person, time, and place, following commands, and moving all extremities.?? MUSCULOSKELETAL: ??Negative.?? Assessment/Plan 1.??CAD S/P percutaneous coronary angioplasty With Hyperlipidemia? Trial of an alternative statin??with surveillance labs before 3-month follow- up visit. He knows to stop the medication if he develops muscle aches again If he does not tolerate rosuvastatin, next step would be to put in a prior authorization for [place] Ordered: Rosuvastatin, 1 tablet = 10 mg, By Mouth, Daily at bedtime, # 30 tablet, 6 Refills, Maintenance, 01/07/24 9:11:00 EDT, Tablet, [facility] #[id number], Partial fill upon patient request if the prescription is for a schedule II opioid drug., 178, cm, 01/07/24 8:... ALT AST Hemoglobin A1C (Monitoring) Lipid Panel ?? CAD in [place] artery Status post??LAD stent, October 2023 No angina. Brilinta??through October 2024 Aspirin 81 mg for life Statin??as described above.?? Ordered: Follow up Appointment ?? Hypertension ??Poor control. He and seem to think addition of metoprolol??has caused a spike in his blood pressure which I disagreed with. But it might be causing some brain fog symptoms, so??having him have his Toprol- XL to 12.5 mg dailyfrom a 25 mg dose Adding amlodipine 5 mg daily for better treatment of??high blood pressure Ordered: Amlodipine, 5 mg, 1, tablet, By Mouth, Daily, # 90 tablet, Refills 3, Tot. Refills 3, Maintenance, 01/07/24 9:17:00 EDT, Route to Pharmacy Electronically, [email or web address] #[id number], Partial fill upon patient request if the prescription is for a schedule II opio... ?? Orders: Metoprolol, 12.5 mg, 0.5, tablet, By Mouth, Daily, # 90 tablet, Refills 0, Tot. Refills 0, Maintenance, 11/07/23 9:43:00 EST, Route to Pharmacy Electronically, [facility], Partial fill upon patient request if the prescription is for a schedule II op... ?? RTC with Evette GARCIA in 3 months? Billing Total time: 45 min (5 minutes reviewing data and coordinating care, 30 minutes directly interactingwith the patient, 10 minutes documenting the encounter) Allergies Nuts atorvastatin??(Prednisone adverse reaction) penicillins??(breathing problems) Home Medications amLODIPine 5 mg oral tablet, 5 mg= 1 tablet, By Mouth, Daily, 3 refills aspirin 81 mg oral delayed release tablet, 81 mg, By Mouth, Daily cetirizine 10 mg oral tablet, 10 mg= 1 tablet, By Mouth, Daily metoprolol 25 mg oral tablet, extended release, 12.5 mg= 0.5 tablet, By Mouth, Daily PredniSONE, By Mouth, Daily rosuvastatin 10 mg oral tablet, 10 mg= 1 tablet, By Mouth, Daily at bedtime, 6 refills ticagrelor 90 mg oral tablet, 90 mg= 1 tablet, By Mouth, 2 times a day, 3 refills Lab Results Cardiology Labs WBC: 8.6 k/mm3 (11/07/23) RBC:??4.66 m/mm3??Low (11/07/23) Hgb: 14.5 Gm/dL (11/07/23) Hct: 42.3 % (11/07/23) MCV: 90.8 femtoliters (11/07/23) MCH: 31.1 pg (11/07/23) MCHC: 34.3 g/dL (11/07/23) Platelet Count: 229 k/mm3 (11/07/23) RDW-SD: 42.9 femtoliters (11/07/23) Nucleated RBC (Automated): 0 #/100 WBC'S (11/07/23) Abs. Neut: 5.1 k/mm3 (11/05/23) Abs. Lymph: 1.8 k/mm3 (11/05/23) Abs. [place]:??0.2 k/mm3??Low (11/05/23) Abs. Eo: 0.1 k/mm3 (11/05/23) Abs. Baso: 0.1 k/mm3 (11/05/23) Neut %: 70.3 % (11/05/23) [place] %:??2.5 %??Low (11/05/23) Eos %: 1.2 % (11/05/23) Baso %: 0.7 % (11/05/23) Imm Gran: 0.5 % (11/05/23) Abs. Imm Gran: 0 k/mm3 (11/05/23) INR: 1 (11/05/23) Protime (PT): 10.7 seconds (11/05/23) APTT:??83.8 seconds??High (11/06/23) Sodium: 141 mmol/L (11/07/23) Potassium: 3.9 mmol/L (11/07/23) Chloride: 103 mmol/L (11/07/23) Bicarbonate Level: 22 mmol/L (11/07/23) Glucose Level:??126 mg/dL??High (11/06/23) Hemoglobin A1C (Monitoring): 5.6 % (11/06/23) BUN: 13 mg/dL (11/07/23) Creatinine-Blood: 1 mg/dL (11/07/23) Calcium: 8.8 mg/dL (11/06/23) Protein, Total: 6.7 g/dL (12/20/23) Albumin: 4.2 g/dL (12/20/23) Alkaline Phosphatase: 64 IU/L (12/20/23) AST (SGOT): 18 IU/L (12/20/23) ALT (SGPT): 21 IU/L (12/20/23) Bilirubin, Total: 0.7 mg/dL (12/20/23) Cholesterol:??219 mg/dL??High (12/20/23) Triglycerides: 94 mg/dL (12/20/23) HDL Cholesterol: 51 mg/dL (12/20/23) LDL Cholesterol: 120 mg/dL (11/07/23) Non HDL Cholesterol:??168 mg/dL??High (12/20/23) Diagnostic Impression ECG ECG 12-Lead ?? 08:10:00 Please click on pdf link to open report ?? Signed By: Nan Trejo MD ?? ECG 12-Lead ?? 08:10:00 Ventricular Rate: 93 BPM Atrial Rate: 93 BPM P-R Interval: 194 ms QRS Duration: 88 ms Q-T Interval: 424 ms QTC Calculation(Bazett): 527 ms P [place]: 31 degrees R [place]: 69 degrees T [place]: 137 degrees Poor data quality, interpretation may be adversely affected Normal sinus rhythm T wave abnormality, consider anterolateral ischemia Prolonged QT Abnormal ECG When compared with ECG of 06-NOV-2023 14:43, No significant change was found Confirmed by NAN TREJO ([id number]) on 11/12/2023 4:35:33 PM ?? Mccoll: NAN TREJO ?? Signed By: Nan Trejo MD Echo Echocardiogram - Complete ?? 13:01:57 Summary The right ventricle is normal in size and function. The left ventricular size is normal. The left ventricular wall thickness is upper normal. The LV systolic function is normal . The left ventricular ejection fraction is 55-60 %. The endocardial definition on the apical windows is suboptimal (the patient refused use of LV contrast) however overall there are no regional wall motion abnormalities. There is no doppler evidence of increased filling pressures. ?? Comparison Comparison is made to the study of November 06, 2023. The previously mentioned wall motion abnormalities are now resolved. ?? Signature ?? Signed By: Josue Garcia MD Problem List/Past Medical History Ongoing Groin pain Obese class II Procedure/Surgical History No qualifying data available. Social History Alcohol Use: Current. Frequency: 1-2 times per month. Electronic Cigarette/Vaping Electronic Cigarette Use: Never. Substance Abuse Use: Never. Tobacco Use: Former smoker, quit more than 30 days ago. Family History No family history recorded. Patient Care team information Care Team Personnel Name: Jazmyn Sanchez RN Position: [facility] RN Member Role: Primary Care Nurse Name: Fidel Espinal MD Position: [facility] Outreach Member Role: PCP Address: Address: [address] [place] [address]- Care Team Related Persons Name: SHALONDA HUDSON Address: home [address] [place] [address]
--- OUTSIDE RECORDS SUMMARY | 2024-03-30 08:05 | XMS_ITS | Continuity of Care Document ---
Author Organization [facility] ter Address [address] [place] [id number]- Care Team Providers Care Daycare Assistant Name Role Phone Gretta GUIDO, Ainsley Adams Primary Care Physician [phone] Encounter [facility] [place] [facility] [place](s[place] 11/05/23 - 11/07/[address] [address]- Discharge Disposition: A-D/C Home Attending Physician: Janeen GUIDO, Terry Fernandez Admitting Physician: Chung GUIDO, [facility] Referring Physician: Not on Staff, Referring MD Allergies, Adverse Reactions, Alerts Substance Reaction Severity Status penicillins breathing problems Active Nuts Active Medications aspirin 81 mg oral delayed release tablet = 81 mg, By Mouth, Daily, # 90 tablet, 0 Refills, Maintenance, 11/07/23 9:42:00 EST, EC Tablet, [facility], Partial fill upon patient [...] opioid drug. Start Date: 11/06/23 Status: Ordered Lipitor 80 mg oral tablet = 80 mg, By Mouth, Daily at bedtime, # 90 each, 0 Refills, Maintenance, 11/07/23 9:42:00 EST, Tablet, [facility], Partial fill upon patient request if the prescription is for a scheduleII opioid drug., 178, cm, 11/07/23 8:33:00 EST, Hei... Start Date: 11/07/23 Stop Date: 02/05/24 Status: Ordered metoprolol 25 mg oral tablet, extended release 25 mg, 1, tablet, By Mouth, Daily, # 90 tablet, Refills 0, Tot. Refills 0, Maintenance, 11/07/23 9:43:00 EST, Route to Pharmacy Electronically, [facility], Partial fill upon patient request if the prescription is for a schedule II opioid... Start Date: 11/07/23 Status: Ordered PredniSONE By Mouth, Daily, 0 Refills, Maintenance, 11/05/23 7:49:00 EST, Partial fill upon patient request ifthe prescription is for a schedule II opioid drug. Start Date: 11/05/23 Status: Ordered ticagrelor 90 mg oral tablet 1 tablet = 90 mg, By Mouth, 2 times a day, # 120 tablet, 0 Refills, Maintenance, 11/07/23 9:43:00 EST, Tablet, [facility], Partial fill upon patient request if the prescription is for aschedule II opioid drug., 178, cm, 11/07/23 8:33:00... Start Date: 11/07/23 Stop Date: 01/06/24 Status: Ordered Problem List Condition Confirmation Course Effective Dates Status Health St atus Informant Groin pain Confirmed Active Obese class II Confirmed Active Vital Signs Most recent to oldest [Reference Range]: 1 2 3 Height 178 cm (11/07/23 10:02 AM) 178 cm (11/07/23 8:33 AM) 178 cm (11/07/23 5:03 AM) Weight 115.7 kg (11/07/23 5:03 AM) 115.1 kg (11/05/23 5:19 PM) 115.1 kg (11/05/23 5:13 PM) Oxygen Saturation [94-100 %] 100 % (11/07/23 8:33 AM) 96 % (11/07/23 5:03 AM) 100 % (11/06/23 8:58 PM) Pulse Rate [55-90 bpm] 110 bpm *H* (11/07/23 10:02 AM) 85 bpm (11/07/23 8:33 AM) 88 bpm (11/07/23 5:03 AM) Body Mass Index [18.5-24.99 kg/m2] 36.52 kg/m2 *>HHI* (11/07/23 5:03 AM) 36.33 kg/m2 *>HHI* (11/05/23 5:19 PM) Blood Pressure [90-138/55-84 mm Hg] 131/93mm Hg (11/07/23 10:02 AM) 126/78mm Hg (11/07/23 8:33 AM) 139/87mm Hg *H* (11/07/23 5:03 AM) Respiratory Rate [16-30 br/min] 18 br/min (11/07/23 8:33 AM) 18 br/min (11/07/23 5:03 AM) 18 br/min (11/06/23 8:58 PM) Temperature [96.8-100.4 DegF] 98.2 DegF (11/07/23 8:33 AM) 98.4 DegF (11/07/23 5:03 AM) 98.2 DegF (11/06/23 8:58 PM) Mode of Delivery (Oxygen) Room air (11/07/23 8:33 AM) Room air (11/07/23 5:03 AM) Room air (11/06/23 8:58 PM) Blood pressure sites Arm, left (11/07/23 8:33 AM) Arm, left (11/07/23 5:03 AM) Arm, left (11/06/23 8:58 PM) Temperature Route Oral (11/07/23 8:33 AM) Oral (11/07/23 5:03 AM) Oral (11/06/23 8:58 PM) Dry Weight 115.1 kg (11/05/23 5:19 PM) Weight Obtained Via Bed scale (11/07/23 5:03 AM) Bed scale (11/05/23 5:13 PM) Social History Social History Type Response Smoking Status Former smoker, quit more than 30 days ago entered on: 11/05/23 Sex Implantable Device List Procedure Provider Procedure Date Device Type Site Reduction Turbinate Inferior Shaji Vora MD 04/28/19 Unknown Nares Right Device Identifier Serial Number Lot or Batch Number Manufacturing Date Expiration Date Distinct Identification Code MRI Safety Implantable Status Assigning Authority Unknown Unknown [id number] Unknown 09/21/20 Unknown Unknown Active Unknown Procedure Provider Procedure Date Device Type Site Reduction Turbinate Inferior Shaji Vora MD 04/28/19 Unknown Nares Left Device Identifier Serial Number Lot or Batch Number Manufacturing Date Expiration Date Distinct Identification Code MRI Safety Implantable Status Assigning Authority Unknown Unknown [id number] Unknown 09/21/20 Unknown Unknown Active Unknown Cardiac catheterization study * Event Display: Cardiac Last Remodeler Repairer Report Authored Date: Cardiac Diagnostic + PCI Report Demographics Patient Name TRISTAN VO Jr Gender Male [employer] Room Number M511 Height 70.08 inches Date of 1960 Weight 253.54 pounds Age 63 year(s) BSA 2.31 m2 Accession Number [id number] BMI 36.3 kg/m2 Referring Physician Val Brock Date of Study 11/06/2023 MD Ainsley Saunders MD Performing Physician Brandyn Ledesma Fellow Caleb Molina MD Interventional Brandyn Ledesma Physician Tracy Procedure Procedure Type Diagnostic procedure:Coronary Angiography with [facility] PCI procedure:Coronary IVUS, Stent (Drug Eluting) Miscellaneous:ACT [facility] Diagnostic Catheterization Status:Urgent [facility] Interventional Catheterization Status:Urgent Indications Indications: NSTEMI. Current Diagnosis:Unstable angina. Clinical History Admission Medications + +------+------+ + + +---------+ !Medication !Dosage!Times !Last !Last !Administered !Comments ! ! ! !Per !Delivery !Delivery ! ! ! ! ! !Day !Date !Time ! ! ! + +------+------+ + + +---------+ !Aspirin (any) !81 mg !x 1 !11/06/2023!00:00 !Yes ! ! + +------+------+ + + +---------+ !Unfractionated ! !x 1 ! ! ! ! ! !Heparin (any) ! ! ! ! ! ! ! + +------+------+ + + +---------+ Clinical Evaluation Leading to Procedure - The patient's CAD presentation was assessed as: Non-STEMI. - The patient's anginal syndrome during the past two weeks was assessed as: Class IV according to the [place] Cardiovascular Society Classification System (CCS). Additional Clinical History:63-year-old gentleman with obesity, no known cardiac disease who presented to hospital with chest pain and found to have non-STEMI. He is referred for cardiac catheterization and possible PCI. Procedure Data Procedure Date Date: 11/06/2023Start: 13:16End: 14:31 The procedure was explained in detail to the patient. Risks, complications and alternative treatments were reviewed. Written consent was obtained. Entry Locations - Retrograde Percutaneous access was performed through the Right Radial artery (Primary location). A 6 Fr sheath was inserted. Hemostasis was successfully obtained using TR Band. Closure Comments: 11 cc's in TR. Procedure Medications - Benadryl I.V. 25 mg. - Versed (Midazolam) I.V. 1 mg. - Fentanyl I.V. 50 mcg. - Lidocaine 2% S.C. Right groin 3 ml. - Nitroglycerin I.A. 200 mcg. - Heparin I.V. 5000 units. - 0.9NS I.V. bolus 500 ml. - Ticagrelor P.O. 180 mg. - Versed (Midazolam) I.V. 1 mg. - Fentanyl I.V. 50 mcg. - Heparin I.V. 6000 units. - Nitroglycerin I.A. 200 mcg. - Nitroglycerin I.A. 200 mcg. Sedation: My intra-service moderate sedation time was: from 13:26 to 14:27. Refer to procedural log for detailed chronological information. Contrast Material - Omnipaque 100 ml Diagnostic Catheters - ADxTerity 5F 100 cm JR 4.0was used for: Left heart catheterization. - ADxTerity 5F 100 cm JR 4.0was used for: Right coronary angiography. - ADxTerity 5F 100 cm JL 3.5was used for: Left coronary angiography. - AVISTA BRITE TIP 6F 100 cm XB LAD 3.5was used for: PCI. Fluoroscopy Time: Diagnostic: 2:13 minutes. PCI: 10:00 minutes. Total: 12:13 minutes. Fluoroscopy Dose: Diagnostic: 389 mGy. PCI: 400 mGy. Total: 789 mGy. Dose Area Product:Diagnostic: 63349 mGy/cm2. PCI: 40753 mGy/cm2. Total: 01391 mGy/cm2. Procedure Narrative We obtained right radial artery access. Diagnostic coronary angiogram performed using 5 Armenian JR4 and JL 3.5. We also obtained LVEDP using JR4 which was 15 to 20 mmHg. There was no obstructive CAD in the RCA. Proximal section of mid LAD has a 95% lesion, there is a second lesion further distal in mid LAD at the bifurcation with a large second diagonal. We decided to perform PCI of LAD. Heparin was given and ACT was monitored. We engaged the left main using XB LAD 3.5. Crossed the lesion and wired to distal LAD using run-through wire. We performed balloon angioplasty of both lesions using 2.5 mm x 15 mm balloon. We performed OCT which showed distal vessel reference was about 3 mm and proximal was 4 mm. We stented proximal to mid LAD using 3.0 mm x 32 mm Synergy THOMAS, we postdilated the proximal part of the stent using 4.0 mm NC balloon and distal part of the stent using 3.0 mm NC balloon. Repeat OCT was performed but there was significant swirling of contrast therefore quality was not adequate. Final angiogram showed no stent edge dissection, the ostium of second diagonal appeared pinched likely due to plaque shift, we brought the run-through wire from LAD and were able to wire the diagonal with no difficulty, following that we performed balloon angioplasty of the ostial diagonal using 2.0 mm x 12 mm balloon. This improved the angiographic appearance of the lesion. Patient tolerated the procedure well. There was PING-3 flow in the diagonal and LAD. There were no complications. Patient was chest pain-free. We closed the right radial artery access site using a TR band. Angiographic Findings Cardiac Arteries and Lesion Findings LMCA: Normal. LAD: Mild diffuse disease (<30%). Lesion in Mid LAD: Proximal subsection.95% stenosis . Pre procedure PING III flow was noted. Good runoff was present. The lesion was diagnosed as Moderate Risk (B). The lesion was diffuse and eccentric.The lesion showed with irregular contour and tandem arrangment.Culprit lesion.Bifurcation lesion. Lesion in 1st Dia% stenosis . Pre procedure PING III flow was noted. Good runoff was present. The lesion was diagnosed as Moderate Risk (B). The lesion was eccentric.The lesion showed with smooth contour.Bifurcation lesion. LCx: Mild diffuse disease (<30%). RCA: Mild diffuse disease (<30%). Hemodynamics Condition: Rest O2 Consumption: Estimated: 314.16Heart Rate: 121 bpm Pressures (mmHg) +-----+ + !Site !Pressure ! +-----+ + !LV !145/11 ,16 ! +-----+ + !AO !138/93 (116)! +-----+ + !LV !145/11 ,15 ! +-----+ + !AO !130/90 (111)! +-----+ + Valve Gradients and Areas +------+----+----+----+-----+----+------+ !Valve !Peak!Mean!Area!Index!Flow!Source! +------+----+----+----+-----+----+------+ !Aortic!7 !0 ! ! ! ! ! +------+----+----+----+-----+----+------+ !Aortic!7 !0 ! ! ! ! ! +------+----+----+----+-----+----+------+ Shunts Oxygen Values O2 Consumption 314.16 Interventional Procedure Cardiac lesions LAD: Lesion in Mid LAD: Proximal subsection.95% stenosis reduced to 0%. Pre procedure PING III flow was noted. Post Procedure PING III flow was present. Good runoff was present. The lesion was diagnosed as Moderate Risk (B). The lesion was diffuse and eccentric.The lesion showed with irregular contour and tandem arrangment.Lesion plaque is ruptured.The guidewire cross was successful.Culprit lesion.Bifurcation lesion. Treatment results:Interventional treatment was successful. Devices used - Runthrough NS 0.014 in 180 cm Extra Floppy. Number of passes: 1. - Emerge 2.50 mm 15 mm RX. Diameter: 2.5 mm. Length: 15 mm. 2 inflation(s) to a max pressure of: 14 paula. - Dragonfly OpStar. Number of passes: 2. - Synergy XD 3.00 mm 32 mm US. (Primary Device)Diameter: 3 mm. Length: 32 mm. 1 inflation(s) to a max pressure of: 12 paula. - NC Emerge 4.00 mm 12 mm. Diameter: 4 mm. Length: 12 mm. 3 inflation(s) to a max pressure of: 12 paula. - NC Emerge 3.00 mm 12 mm. Diameter: 3 mm. Length: 12 mm. 2 inflation(s) to a max pressure of: 14 paula. Lesion in 1st Dia% stenosis reduced to 10%. Pre procedure PING III flow was noted. Post Procedure PING III flow was present. Good runoff was present. The lesion was diagnosed as Moderate Risk (B). The lesion was eccentric.The lesion showed with smooth contour.The guidewire cross was successful.Bifurcation lesion. Treatment results:Interventional treatment was successful. Devices used - Runthrough NS 0.014 in 180 cm Extra Floppy. Number of passes: 1. - Emerge 2.00 mm 12 mm RX. Diameter: 2 mm. Length: 12 mm. 1 inflation(s) to a max pressure of: 8 paula. Conclusions Diagnostic Summary No obstructive CAD in RCA and LCx Mid LAD: Diffuse stenosis up to 95% in the proximal section, lesion crossing the D1 and D2 LVEDP: 15 to 20 mmHg No significant gradient on pullback across aortic valve Interventional Summary Successful OCT guided PCI of proximal to mid LAD using 3.0 mm x 32 mm Synergy THOMAS. Stent was postdilated using 3.0 mm NC balloon distally and 4.0 mm NC balloon proximally. We performed balloon angioplasty of the ostium of second diagonal using 2.0 mm x 12 mm balloon. Successful hemostasis of the right radial artery using a radial compression device . Interventional Recommendations Aggressive secondary risk factor modification according to ATP III guidelines. Continue aspirin 81 mg indefinitely. Continue ticagrelor 90 mg po bid therapy for at least 12 month(s) post-PCI. ACC Diagnostic Recommendations: PCI without planned CABG. Complications:None. Signatures * Event Display: Cardiac Last Remodeler Repairer Report Authored Date: Note * Rosario Montilla RN: PERFORM, SIGN, VERIFY Event Display: Cardiac Rehab Note Authored Date: Patient: TAVO HUDSON JR Age: 63 years Sex: Male : 1960 Associated Diagnoses: None Author: Rosario Montilla RN Pre-exercise Vitals Vital Signs Comment: Reviewed in [facility]. Pre-exercise Physical Examination Neurologic: alert & oriented. Activity Symptoms with Cardiac Rehab Symptoms: No exertional symptoms. Activity Ambulate: independent. Patient Education Education: Family present, Post procedure guidelines, Stent card reviewed. Education topic Teachback comprehension 75% Topic: Medication education, Role of exercise, Home activity guidelines/limits. Reinforcement needed: Infarct recovery guidelines. Recommendation and Plan Outpatient follow up recommended: [facility]. Cardiac Rehab: Will sign off at this time. Recommendation comment: RN notified of plan. * Tati Kennedy RN: PERFORM Event Display: Discharge/Transfer Note Hospital Authored Date: [id number] Nursing Discharge Note Entered On: 11/07/2023 13:37 EST Performed On: 11/07/2023 13:37 EST by Tati Kennedy RN Nursing Discharge Note 2 Discharge Time : 11/07/2023 13:37 EST Discharge Level of Care at Discharge : Home/Prison/Foster Care Patient Left Unit Via : Ambulatory Patient Accompanied Off Unit with : Significant other, Responsible adult DC Instructions Provided & Signed by Pt : Yes Patient Understands D/C Instructions : Yes Patient Instructions Discharge Signed : Yes Did Pt have Specialty Bed or Wound Vac : No Tati Kennedy RN - 11/07/2023 13:37 EST * Janeen GUIDO, Terry D: PERFORM Event Display: Discharge/Transfer Note Hospital Authored Date: [id number] Patient: ??TAOV HUDSON JR ? Age:??63 Years?Sex:??Male?:??1960?? Patient Information Discharge Location: Primary Care Physician: Ainsley Glynn MD Admit Date/Time: 11/05/23 17:12 Discharge Disposition Discharge Disposition: Home: No Services Discharge Diagnosis Non-ST elevated myocardial infarction (non-STEMI) (I21.4) CAD S/P percutaneous coronary angioplasty (I25.10) Regional wall motion abnormality of heart (R93.1) ?? _ Discharge Medications Aspirin (aspirin 81 mg oral delayed release tablet)?81?Milligram?By Mouth?Daily?for 90?Days Atorvastatin (Lipitor 80 mg oral tablet)?80?Milligram?By Mouth?Daily at bedtime?for 90?Days Cetirizine (cetirizine 10 mg oral tablet)?1?tab(s)?10?Milligram?By Mouth?Daily Metoprolol (metoprolol 25 mg oral tablet, extended release)?25?Milligram?1?tablet?ByMouth?Daily PredniSONE?By Mouth?Daily Ticagrelor (ticagrelor 90 mg oral tablet)?1?tab(s)?90?Milligram?By Mouth?2 times a day?for 60?Days ? Quality Measures Chest Pain, AMI Quality Measures:?Beta-Simona Prescribed at Discharge:??Beta-Simona Prescibed ?Aspirin Prescribed at Discharge:??Aspirin Prescribed ?Statin Prescribed at Discharge:??Statin Prescribed ? Medications Started Aspirin (aspirin 81 mg oral delayed release tablet)?81?Milligram?By Mouth?Daily?for 90?Days Atorvastatin (Lipitor 80 mg oral tablet)?80?Milligram?By Mouth?Daily at bedtime?for 90?Days Metoprolol (metoprolol 25 mg oral tablet, extended release)?25?Milligram?1?tablet?ByMouth?Daily Ticagrelor (ticagrelor 90 mg oral tablet)?1?tab(s)?90?Milligram?By Mouth?2 times a day?for 60?Days Allergies Allergies ?(Active and Proposed Allergies Only) Nuts? (Severity: Unknown severity, Onset: Unknown) penicillins? (Severity: Unknown severity, Onset: Unknown) ?Reactions: breathing problems ? PCP Follow-Up/Heads-Up Patient found to have coronary artery disease status post stent placement and is being discharged on aspirin, Brilinta, atorvastatin and metoprolol Hospital Course ??This is a 63-year-old??obese??male??with a significant past medical history, who currently presents to the hospital as a transfer??from [place] ED where he presented to the??chest pain.??He does describe episodes of chest pressure??noted??over the past 6 weeks. He was noted to have elevation in his troponin consistent with non-STEMI and has been transferred here for further management. ? # Non-ST elevated myocardial infarction (non-STEMI) (I21.4) # Coronary artery disease status post stent placement in this admission #??Regional wall motion abnormality ?? - Status post left heart cath 11/06/2023??with findings of no obstructive CAD in RCA and LCx,??Mid LAD: Diffuse stenosis up to 95% in the proximal section, lesion crossing?the D1 and D2 -Successful OCT guided PCI of proximal to mid LAD using 3.0 mm x 32 mm?Synergy THOMAS. Stent was postdilated using 3.0 mm NC balloon distally and 4.0?mm NC balloon proximally. -??balloon angioplasty of the ostium of second diagonal using 2.0?mm x 12 mm balloon. -Patient chest pain-free today, -Echo study was of poor quality and LVEF could not be assessed, likely echo outpatient, did have some regional wall motion abnormalities -Spent 25-30 min in room counseling??and explaining the importance of all the medications and answering multiple questions. -Patient will follow-up with cardiology outpatient in 4 to 6 weeks appointment has been requested -HbA1c??5.6 in prediabetic range??and LDL 120 will continue aspirin, atorvastatin, metoprolol??and ticagrelor ? Being discharged in stable condition patient is aware of monitoring his stool for any bleeding??andalso returning to the ER if he has further chest pain Objective Assessment and Plan ? Vital Signs?? Temperature: 98.2 DegF (11/07/23 08:33:00) Temperature Route: Oral (11/07/23 08:33:00) Pulse Rate: 85 bpm (11/07/23 08:33:00) Respiratory Rate: 18 br/min (11/07/23 08:33:00) Systolic Blood Pressure: 126 mm Hg (11/07/23 08:33:00) Diastolic Blood Pressure: 78 mm Hg (11/07/23 08:33:00) Blood pressure sites: Arm, left (11/07/23 08:33:00) Mean Arterial Pressure: 94 mm Hg (11/07/23 08:33:00) Pulse Pressure: 48 mm Hg (11/07/23 08:33:00) Oxygen Saturation: 100 % (11/07/23 08:33:00) Mode of Delivery (Oxygen): Room air (11/07/23 08:33:00) Early Warning Score: 0 (11/07/23 08:34:06) ? . Physical Exam General: Is appears comfortable in no distress HEENT: ??mucous mucous membranes appear wet, PERRLA Cardiovascular: S1-S2 heard no murmurs appreciated Respiratory: CTA without any wheezing or crackles anteriorly GI: Abdomen nontender to palpation, no distention, no obvious hepatosplenomegaly Neuro: AOx3 plus date of , able to raise all extremities on commands Psych: Appears calm without any agitation Consultants cards Pending Results Add On Lab Order ordered on 11/06/2023 Add On Lab Order ordered on 11/07/2023 CBC ordered on 11/05/2023 PTT ordered on 11/06/2023 Patient Education Titles WebMD Ignite Patient Education - Ticagrelor Oral Tablet?? WebMD Ignite Patient Education - Atorvastatin Oral Tablet?? WebMD Ignite Patient Education - Aspirin Delayed Release Oral Tablet?? WebMD Ignite Patient Education - Metoprolol Extended Release Oral Tablet?? Follow-Up Appointments Added Follow Up ?Time Frame ?Comments [facility]?4 to 5 weeks?you should receive a??call??from their??office??for??a??follow up appointment??but if??you done then??call??please call [facility] cardiology??at [phone]?to schedule an appointment?? Gretta GUIDO, Ainsley Adams?1 to 2 weeks Patient Instructions # 1. ??It is extremely important to continue??all for new??medications that have been prescribed??which are essential??for patient's??who have had stent placed. ??You have been discharged on 2 blood thinners: Aspirin and Brilinta??is important to monitor your stool for any bleeding. ??If your stoolturns black or there is fresh blood in stool please come back to the ER ?? #2. ??If you experience chest pain please come back to the ER for further evaluation ?? #3.?You will need to follow-up??with cardiology in 4 to 6 weeks of discharge. ??You will receivea call from their office but if not??then please call at the number provided to get a follow-up appointment.?? Would recommend getting the echocardiogram??at the follow-up visit??as the echocardiogram done in this hospitalization but not of the best quality Post Discharge Care Diet: ??Cardiac diet ?? Activity: ??Ambulate with assistance 3 times a day unless otherwise specified ?? Code Status: ??Full Resuscitation ?? Discharge ?11/07/23 9:46:00 EST Home Health Face to Face ^HomeHealthFTF Results Discharge Labs BLOOD COUNT & DIFF WBC 8.6 k/mm3 ()?? 11/07/2023 00:46 RBC 4.66 m/mm3 (Low)?? 11/07/2023 00:46 Hgb 14.5 Gm/dL ()?? 11/07/2023 00:46 Hct 42.3 % ()?? 11/07/2023 00:46 MCV 90.8 femtoliters ()?? 11/07/2023 00:46 MCH 31.1 pg ()?? 11/07/2023 00:46 MCHC 34.3 g/dL ()?? 11/07/2023 00:46 Platelet Count 229 k/mm3 ()?? 11/07/2023 00:46 RDW-SD 42.9 femtoliters ()?? 11/07/2023 00:46 MPV 11.5 femtoliters ()?? 11/07/2023 00:46 Nucleated RBC (Automated) 0.0 #/100 WBC'S ()?? 11/07/2023 00:46 Abs. NRBC 0.0 k/mm3 ()?? 11/07/2023 00:46 ?? CARDIAC High Sensitivity Troponin (HSTnT) HEMOLYZED ng/L ()?? 11/06/2023 01:56 ? CHEM GENERAL Sodium 141 mmol/L ()?? 11/07/2023 00:46 Potassium 3.9 mmol/L ()?? 11/07/2023 00:46 Chloride 103 mmol/L ()?? 11/07/2023 00:46 Bicarbonate Level 22 mmol/L ()?? 11/07/2023 00:46 Anion Gap 16 ()?? 11/07/2023 00:46 Glucose Level 126 mg/dL (High)?? 11/06/2023 07:36 Hemoglobin A1C (Monitoring) 5.6 % ()?? 11/06/2023 07:36 BUN 13 mg/dL ()?? 11/07/2023 00:46 Creatinine-Blood 1.0 mg/dL ()?? 11/07/2023 00:46 Estimated GFR Creatinine 88 ML/MIN/1.73 M2 ()?? 11/07/2023 00:46 Calcium 8.8 mg/dL ()?? 11/06/2023 07:36 ? COAG APTT 83.8 seconds (High)?? 11/06/2023 07:36 ? LIPID STUDIES Cholesterol 206 mg/dL (High)?? 11/06/2023 07:36 Triglycerides 160 mg/dL (High)?? 11/06/2023 07:36 HDL Cholesterol 54 mg/dL ()?? 11/06/2023 07:36 LDL Cholesterol 120 mg/dL ()?? 11/06/2023 07:36 Non HDL Cholesterol 152 mg/dL ()?? 11/06/2023 07:36 ? MISC. CHEMISTRY Hold Gel Top SPECIMEN DISCARDED AFTER 1 WEEK ()?? 11/06/2023 01:56 ? URINE OTHER Est Creatinine Clearance 77.25 mL/min ()?? 11/07/2023 02:20 ? Imaging(s) ?Echocardiogram - Complete ?? 11/06/2023 10:41??by Milton Chatterjee MD ?Summary ??The left ventricle is poorly visualized. No adequate imaging windows were ??obtained and patient refused ultrasound enhancement. The left ventricular ??size is normal. The left ventricular wall thickness is increased. Cannot ??assess LV ejection fraction. Image quality is inadequate to assess regional ??wall motion. The distal septal to apical wall appears akinetic in extremely ??limited imaging. ?? The right ventricle is poorly visualized. The right ventricle is normal in ??size. Right ventricular systolic function appears preserved. ?? Impressions ??Mostly inadequate study. The distal septal and apical wall appears akinetic. ? Consults(s) ?Consultation Note ?? 11/05/2023 22:26??by Sabi Ge MD ? 45??minutes spent on discharge including 25 minutes??spent??with patient and patient's spouse at bedside explaining??in detail??about NSTEMI,??angiography report, stent placement??and all the medications that are necessary??and answered all the questions * Tati Kennedy RN: PERFORM Event Display: Patient Education/Instruction Authored Date: [id number] Inpatient Adult Discharge Instructions. [address] [address] Name: TAVO HUDSON : 1960?? Visit: 11/05/2023 17:12?? Current Date: 11/07/2023 12:47 ?? Account: [id number]?? Inpatient Adult Discharge Instructions We would like to thank you for allowing us to assist you with your healthcare needs. The following includes patient education materials and information regarding your injury/illness. Our entire staffstrives to provide an excellent experience for our patients and their families. PLEASE ENSURE YOU FOLLOW-UP PER THE INSTRUCTIONS BELOW! ?? YOUR OPINION IS IMPORTANT TO US! Please complete the survey you may receive by mail or email. Your feedback will be used to make improvements to the healthcare experiences of our patients and their families. Surveys are administered by [employer] ?? If further treatment with your primary care physician or another doctor is recommended, it is important for you to keep the appointment. Call your primary care physician or return to the Emergency Department immediately if your condition worsens, fails to improve, or new symptoms develop. If you need to find a doctor, you can call [facility] [employer] for a referral at [phone] or toll free at [phone] ([phone]) or log in to [email or web address].. ?? [facility], in keeping with [facility] guidance, no longer requires face masks for staff, patientsor visitors in most situations. Similiar to time spent indoors at other locations, there is the chance that you were exposed to repiratory viruses during your time with us (such as flu or COVID-19). If you develop symptoms concerning for a viral respiratory infection, please seek testing (and treatment if indicated) from your medical provider or home test kit. ?? You can view and manage your care through the patient portal or by using a health care lopez of your choosing. [email or web address] is a website that allows you to securely view your medical information including your hospital discharge summary, office visit summaries, medications and follow-up visits. You can also request appointments, renew medications, and request access to your medical information using a health care lopez of your choosing, or just ask a question. You can enroll at [email or web address] or register during your next office visit. You have been discharged from [facility], Patient Care Unit: M5??. If you have any questions regarding these instructions, including results of studies pending, afteryou leave, please call us and we will be happy to assist you 24/03. [facility] Your Care Team Attending Physician Terry Vernon MD?? Consulting Providers Terry Vernon MD?? Discharging Providers Terry Vernon MD Your Diagnosis Non-ST elevated myocardial infarction (non-STEMI) CAD S/P percutaneous coronary angioplasty Regional wall motion abnormality of heart Tests Performed Below is a partial list of the tests performed during your hospitalization. You may have had other tests and procedures not included in this list. Please discuss all test results with your provider. Basic Metabolic Panel BUN Cardiac Lipid Panel CBC Creatinine HEMOGLOBIN A1C Hgb A1C (Monitoring) High??Sensitivity??Troponin T HOLD GEL TUBE LIPID PANEL Lytes PTT?-- Results Pending -- You will be contacted within 72 hours with your results. Add On Lab Order?? CBC?? PTT?? Primary Care Provider Gretta GUIDO, Ainsley Adams? Advance Directive Health Care Proxy on File Yes - Health Care Proxy Discharge Vitals Temperature: 98.2 DegF Height: 178 cm Pulse Rate:??110 bpm??High Weight: 115.7 kg Respiratory Rate: 18 br/min Body Mass Index:??36.52 kg/m2??Critical Systolic Blood Pressure: 131 mm Hg Body surface area: 2.39 Diastolic Blood Pressure:??93 mm Hg??High ?? Oxygen Saturation: 100 % ?? Studies Pending All studies ordered during this hospital stay have been completed unless listed below. Please discuss all pending results with your provider listed above in these instructions. ?? Add On Lab Order?? CBC?? PTT?? What to do next Instructions From Your Doctor # 1. ??It is extremely important to continue??all for new??medications that have been prescribed??which are essential??for patient's??who have had stent placed. ??You have been discharged on 2 blood thinners: Aspirin and Brilinta??is important to monitor your stool for any bleeding. ??If your stoolturns black or there is fresh blood in stool please come back to the ER ?? #2. ??If you experience chest pain please come back to the ER for further evaluation ?? #3.?You will need to follow-up??with cardiology in 4 to 6 weeks of discharge. ??You will receivea call from their office but if not??then please call at the number provided to get a follow-up appointment.?? Would recommend getting the echocardiogram??at the follow-up visit??as the echocardiogram done in this hospitalization but not of the best quality ?? Orders??:Cardiac diet :Ambulate with assistance ??3 times a day ??unless otherwise specified Status: ??Full Resuscitation? 11/07/23 9:46:00 EST?? Scheduled Follow-Up Appointments Friday 11:00 AM EDT ?? With: Sam Troncoso Where: [facility] [address] [address]- Status: Pending You Need to Schedule the Following Appointments Follow Up with??[facility] When:??12/11/2023 01:00 PM EDT Why: [phone] Where: [address] [place] [address] Follow Up with??[facility] When:??Within 4 to 5 weeks Why: ??you should receive a??call??from their??office??for??a??follow up appointment??but if??you done then??call??please call [facility] cardiology??at [phone]?to schedule an appointment?? Where: [address] [place] [address]- [phone] Follow Up with??Gretta GUIDO, Ainsley Adams When:??Within 1 to 2 weeks Where: [address] [place] [address]- Discharge Medications TAVO HUDSON :1960 Visit Date:11/05/2023 Medications: Please continue your medications until treatment is completed or stopped by your provider. Medications not listed below should be discontinued. Discuss any questions related to medications with your provider. What How Much When Why Instructions Next Dose New Aspirin (aspirin 81 mg oral delayed release tablet) 81 Milligram Oral Daily CAD S/P percutaneous coronary angioplasty Duration: 90 Days Pickup at [place] [address] 11/08/2023 New Atorvastatin (Lipitor 80 mg oral tablet) 80 Milligram Oral Daily at Bedtime Duration: 90 Days Pickup at [place] [address] 11/07/2023 New Metoprolol (metoprolol 25 mg oral tablet, extended release) 1 tab(s) Oral Daily Pickup at [place] [address] 11/08/2023 New Ticagrelor (ticagrelor 90 mg oral tablet) 1 tab(s) Oral Twice a day CAD S/P percutaneous coronary angioplasty Duration: 60 Days Pickup at [place] [address] 11/07/2023 Unchanged Cetirizine (cetirizine 10 mg oral tablet) 1 tab(s) Oral Daily Unchanged PredniSONE Oral Daily Pharmacy Information [facility]: [address], [place] [id number] [phone] ?? What How Much When Comments Stop Taking Loratadine (Claritin 10 mg oral tablet) 1 tab(s) Oral Daily tapering dosed ?? Prescription Given During Visit Aspirin (aspirin 81 mg oral delayed release tablet) - 81 mg, By Mouth, Daily, # 90 tablet, 0 Refills, [facility], [address] [place] [address] [phone]?? Atorvastatin (Lipitor 80 mg oral tablet) - 80 mg, By Mouth, Daily at bedtime, # 90 each, 0 Refills,[facility], [address] [place] [address] [phone]?? Metoprolol (metoprolol 25 mg oral tablet, extended release) - 1 tablet = 25 mg, By Mouth, Daily, # 90 tablet, 0 Refills, [facility], [address] [place] [address] [phone]?? Ticagrelor (ticagrelor 90 mg oral tablet) - 1 tablet = 90 mg, By Mouth, 2 times a day, # 120 tablet, 0 Refills, [facility], [address] [place] [phone]?? Laboratory Results Below is a partial list of the most recent Laboratory test results done prior to this discharge. You may have had other tests and procedures not included in this list. Please discuss all test resultswith your provider. Est Creatinine Clearance - 77.25 mL/min (11/07/2023) Basic Metabolic Panel (11/06/2023) ???Sodium - 140 mmol/L???Potassium - 3.9 mmol/L???Chloride - 105 mmol/L???Bicarbonate Level - 21 mmol/L???Anion Gap - 14???Glucose Level - 126 mg/dL???BUN - 14 mg/dL???Creatinine-Blood - 0.9 mg/dL???Estimated GFR Creatinine - 93 ML/MIN/1.73 M2???Calcium - 8.8 mg/dL BUN (11/07/2023) ???BUN - 13 mg/dL Cardiac Lipid Panel (11/06/2023) ???Cholesterol - 206 mg/dL???Triglycerides - 160 mg/dL???HDL Cholesterol - 54 mg/dL???LDL Cholesterol - 120 mg/dL???Non HDL Cholesterol - 152 mg/dL CBC (11/07/2023) ???WBC - 8.6 k/mm3???RBC - 4.66 m/mm3???Hgb - 14.5 Gm/dL???Hct - 42.3 %???MCV - 90.8 femtoliters???MCH - 31.1 pg???MCHC - 34.3 g/dL???Platelet Count - 229 k/mm3???RDW-SD - 42.9 femtoliters???MPV - 11.5 femtoliters???Nucleated RBC (Automated) - 0.0 #/100 WBC'S???Abs. NRBC - 0.0 k/mm3 Creatinine (11/07/2023) ???Creatinine-Blood - 1.0 mg/dL???Estimated GFR Creatinine - 88 ML/MIN/1.73 M2 HEMOGLOBIN A1C (11/06/2023) ???Hemoglobin A1C (Monitoring) - 5.6 % Hgb A1C (Monitoring) (11/06/2023) ???Hemoglobin A1C (Monitoring) - 5.6 % High??Sensitivity??Troponin T (11/06/2023) ???High Sensitivity Troponin (HSTnT) - HEMOLYZED HOLD GEL TUBE (11/06/2023) ???Hold Gel Top - SPECIMEN DISCARDED AFTER 1 WEEK LIPID PANEL (11/07/2023) ???Cholesterol - 199 mg/dL???Triglycerides - 157 mg/dL???HDL Cholesterol - 48 mg/dL???LDL Cholesterol - 120 mg/dL???Non HDL Cholesterol - 151 mg/dL Lytes (11/07/2023) ???Sodium - 141 mmol/L???Potassium - 3.9 mmol/L???Chloride - 103 mmol/L???Bicarbonate Level - 22 mmol/L???Anion Gap - 16 Allergies (NKA means No Known Allergies) Nuts penicillins??(breathing problems) Problems Active Problems??(2) Groin pain?? Obese class II?? Education Materials Below is the list of Educational Leaflet Providered with your Discharge Instructions. [employer] Patient Education - Ticagrelor Oral Tablet?? [employer] Patient Education - Atorvastatin Oral Tablet?? [employer] Patient Education - Aspirin Delayed Release Oral Tablet?? [employer] Patient Education - Metoprolol Extended Release Oral Tablet?? Valuables and Belongings I fully understand and agree that [facility] accepts no responsibility for all my personal property including clothing, toilet articles, radios, jewelry, dentures, hearing aids, rings, money, or any other property that is in my possession or is brought to me after admission. I understand certain valuables may be placed in a hospital safe for a short period of time. I understand that the hospital is not liable for loss or damage due to accident, fire, or other natural occurrence while said property is in the safe. I accept full responsibility for any personal property that I keep with me, and will not hold the hospital responsible in case of loss or disappearance. I acknowledge that i have been encouraged to send valuables and belongings home. ? Other Discharge Information ? Pulmonary Rehab Status?? Pulmonary Rehab Discharge Status?? Respiratory Rate: 18 br/min ? Common Emergency Awareness Tips IS IT A STROKE? Act FAST and Check for these signs: FACE Does the face look uneven? ARM Does one arm drift down? SPEECH Does their speech sound strange? TIME Call at any sign of stroke ?? Heart Attack Signs Chest discomfort: Most heart attacks involve discomfort in the center of the chest and lasts more than a few minutes, or goes away and comes back. It can feel like uncomfortable pressure, squeezing, fullness or pain. Discomfort in upper body: Symptoms can include pain or discomfort in one or both arms, back, neck, jaw or stomach. Shortness of breath: With or without discomfort. Other signs: Breaking out in a cold sweat, nausea, or lightheaded. Remember, MINUTES DO MATTER. If you experience any of these heart attack warning signs, call to get immediate medical attention! ?? Smoking can increase your chances of developing chronic health problems and can cause harmful effects to other family members in your house. If you smoke, you are strongly encouraged to quit. Please call [facility] [email or web address] Link at [phone] or [phone] ([phone]) or log in to [email or web address] for referrals to smoking cessation programs. ?? 302 Suicide & Crisis Lifeline is available 24/03 if you or someone you know needs to find a reason to keep living. By calling 194 you'll be connected to a skilled, trained counselor at a crisis center in your area. INPATIENT DISCHARGE INSTRUCTIONS SIGNATURE PAGE TAVO HUDSON Location:[facility] Registration Date and Time:11/05/2023 17:12 EST Primary Care Physician: Gretta GUIDO, Ainsley Adams, Attending Physician: Janeen GUIDO, Terry Fernandez, TAVO CARRASCO, have received the above patient education materials/instructions and have verbalized understanding. If ambulance or transport services are being used I further acknowledge being given a choice of service. ?? If you need to contact me, please call me at this number: . Patient/Recording Artist Name: Patient/Recording Artist Signature: Relationship to Patient: Witness Name/Signature: Date: * Roldan GORDON, Rosario De Anda: PERFORM, SIGN, VERIFY Event Display: Patient Education Handout Authored Date: * Tati Kennedy RN: PERFORM Event Display: Patient Education Leaflets Authored Date: [id number] Discharge Instructions for Cardiac Catheterization ?? [address] Discharge Instructions for Cardiac Catheterization Cardiac catheterization??is an invasive??procedure??to look for certain heart problems. These problems may affect the heart's chambers, valves, and blood vessels. A thin, flexible tube (catheter) is put in a blood vessel in your groin or arm. The catheter is moved to the heart. The healthcare provider can look at the blood flow, blood pressure, and oxygen. They can inject contrast fluid??into your blood. This flows to your heart.??The provider can then take X-rays pictures?? of your heart. Coronary angiography is often done as part of a cardiac cath. This looks for blocked areas in the arteries that send blood to the heart. If a blockage is found, your provider may try to open up the artery. They may put a stent in place. Your provider will talk with you about the results of your procedure . Ask any questions you have before you leave. This sheet will help you take care of yourselfat home. Home care ??? Have a responsible adult drive you home after your procedure. ??? Don't drive or makeany important decisions for at least 24 hours after getting any type of sedation or anesthesia.? Drink?? 6 to 8??glasses of water over the next 24 hours. This is to help flush the contrast dye out of your body. Call your healthcare team if your urine has any change in color. ??? Take your tempe rature each day for 3 to 5 days. If you feel cold and clammy or start sweating, take your temperature right away. Call your healthcare team. ??? Do only light and easy activities for??the next?? 2 to3??days. Ask for help with chores and errands while you recover. Have someone drive you to your appointments. ??? Don't lift anything heavy??until your healthcare team says it's safe. ??? Ask your healthcare team when you can expect to return to work. Unless your job involves lifting, you may be able to return to your normal activities within 2 days. ??? Take your medicines as directed. Don't skip doses. ??? Check your incisions every day for signs of infection. These include redness, swelling,and fluid leaking. It's normal to have a small bruise or bump where the catheter was put in. A bruise that's getting larger is not normal. Tell your healthcare team about this. Call your healthcare team if you see blood forming in the incision. Go to the emergency room if you have uncontrolled bleeding from the artery site. This is even more important if you take medicines that make it hard for your blood to clot. These include aspirin, clopidogrel, warfarin, apixaban, and rivaroxaban. ??? Eat a healthy diet. Make sure it's low in fat, salt, and cholesterol. Ask your healthcare team for diet information. ??? Stop smoking. Sign up for a quit-smoking program. Or ask your healthcare team for help. ??? Exercise as your healthcare team tells you to. Your healthcare team??may advise you to start a cardiac rehab program. Cardiac rehab is an exercise program where trained healthcare staff watchyour progress and stress on your heart while you exercise. Ask your team how to enroll. ??? Don't swim or take baths until your healthcare team says it???s OK. You can shower the day after the procedure. Keep the site clean and dry. This keeps the incision from getting wet and infected until the skin and artery can heal. ??? Follow all other after-care instructions from your team.? Follow-up care ??? Make a follow-up appointment as advised. It's common to have a follow-up appointment 2 to 4 weeks after an angioplasty or coronary stent procedure. ??? Make a yearly appointment. This is??to make sure you're still doing well and not having any new symptoms. ??? Don't wait for a follow-up appointment if your medicines aren't working or you're having heart-related symptoms. Call your healthcare provider. ?? When to get medical care Call your healthcare provider right away if you have any of these: ??? Severe or increasing pain, numbness, coldness, or a bluish color in the leg or arm that held the catheter ??? Fever of 100.4?? F??( 38??C) or higher, or as advised by your healthcare provider ??? Signs of infection at the incision site. These include redness, swelling, drainage, or warmth. ??? Bleeding, bruising, or a lot of??swelling where the catheter was inserted ??? Blood in your urine ??? Black or tarry stools ??? Any unusual bleeding ??? Irregular, very slow, or fast heartbeat ??? Dizziness ?? Call 911 Call 911 if you have any of these: ??? Chest pain ??? Shortness of breath ??? Sudden numbness or weakness in arms, legs, or face, or trouble speaking ??? The puncture site swells up very fast ??? Bleeding from the puncture site that doesn't slow down with firm pressure ?? Last Reviewed Date: 2021 ?? [employer]. All rights reserved. This information is not intended as a substitute for professional medical care. Always follow your healthcare professional's instructions. ?? * Janeen GUIDO, Terry D: PERFORM Event Display: Patient Education Leaflets Authored Date: [id number] Ticagrelor Oral Tablet ?? [id number] Ticagrelor Oral Tablet Brands: Brilinta Uses This medicine is used for the following purposes: ??? heart disease ??? prevent blood clots ??? prevent heart attack ?? Instructions This medicine may be taken with or without food. This medicine will work best if you take it at about the same time every day. Store at room temperature away from heat, light, and moisture. Do not keep in the bathroom. It is important that you keep taking each dose of this medicine on time even if you are feeling well. If you forget a dose, just wait. Use the next dose at the usual time. Do not use 2 doses at once. Drug interactions can change how medicines work or increase risk for side effects. Tell your healthcare providers about all medicines taken. Include prescription and [id number] medicines, vitamins, and herbal medicines. Speak with your doctor or pharmacist before starting or stopping any medicine. It is very important that you follow your doctor's instructions for all blood tests. ?? Cautions This medicine may cause serious bleeding problems in patients taking blood thinner medications. Follow your doctor's instructions carefully to monitor your blood lab tests if you are on blood thinners. Tell your doctor and pharmacist if you ever had an allergic reaction to a medicine. This medicine may cause serious bleeding from the stomach or bowels. Stop this medicine and call your doctor immediately if you see any signs of bleeding. Bleeding can cause pain in the stomach, vomiting up liquid that looks like coffee grounds, and red or dark tarry stools. There is an increased risk of bleeding while on this medicine, please tell your doctor or nurse if you notice any excessive bleeding or bruising. Do not use the medication any more than instructed. Speak with your doctor before taking any medicine with aspirin. Please check with your doctor before drinking alcohol while on this medicine. Tell the doctor or pharmacist if you are , planning to be , or . Do not take Hibbing's wort while on this medicine. Call your doctor right away if you notice any unusual bleeding or bruising. Do not share this medicine with anyone who has not been prescribed this medicine. Some patients have serious side effects from this medicine. Ask your pharmacist to show you the information from the Food and Drug Administration (FDA) and discuss it with you. Always refill this medicine before it runs out. ?? Side Effects The following is a list of some common side effects from this medicine. Please speak with your doctor about what you should do if you experience these or other side effects. ??? coughing ??? nosebleeds Call your doctor or get medical help right away if you notice any of these more serious side effects: ??? bleeding or bruising ??? breathing interruption during sleep ??? shallow, irregular breathing ??? coughing up blood or vomit that looks like coffee grounds ??? fainting ??? fever ??? numbness or tingling in hands and feet ??? severe or persistent headache ??? sudden leg pain, swelling, warmth or redness ??? loss of movement anywhere on the body ??? shortness of breath ??? bloody or dark, tarry stools ??? symptoms of stroke (such as one-sided weakness, slurred speech, confusion) ??? difficulty swallowing ??? unusual or unexplained tiredness or weakness ??? blood in urine ??? blurring or changes of vision A few people may have an allergic reaction to this medicine. Symptoms can include difficulty breathing, skin rash, itching, swelling, or severe dizziness. If you notice any of these symptoms, seek medical help quickly. ?? Extra Please speak with your doctor, nurse, or pharmacist if you have any questions about this medicine. ?? [email or web address] IMPORTANT NOTE: This document tells you briefly how to take your medicine, but it does not tell youall there is to know about it. Your doctor or pharmacist may give you other documents about your medicine. Please talk to them if you have any questions. Always follow their advice. There is a more complete description of this medicine available in Arabic. Scan this code on your smartphone or tablet or use the web address below. You can also ask your pharmacist for a printout. If you have any questions, please ask your pharmacist. The display and use of this drug information is subject to Terms of Use. Copyright(c) 2022 [employer]. ?? [employer]. All rights reserved. This information is not intended as a substitute for professional medical care. Always follow your healthcare professional's instructions. ?? * Janeen GUIDO, Terry D: PERFORM Event Display: Patient Education Leaflets Authored Date: [id number] Atorvastatin Oral Tablet ?? [id number] Atorvastatin Oral Tablet Brands: Lipitor Uses To lower high fat levels in blood. ?? Instructions This medicine may be taken with or without food. Store at room temperature away from heat, light, and moisture. Do not keep in the bathroom. Avoid grapefruit and grapefruit juice while on this medicine. It is important that you keep taking each dose of this medicine on time even if you are feeling well. If you forget to take a dose on time, take it as soon as you remember. If it is almost time for thenext dose, do not take the missed dose. Return to your normal schedule. Do not take 2 doses at one time. Drug interactions can change how medicines work or increase risk for side effects. Tell your healthcare providers about all medicines taken. Include prescription and [id number] medicines, vitamins, and herbal medicines. Speak with your doctor or pharmacist before starting or stopping any medicine. Keep all appointments for medical exams and tests while on this medicine. ?? Cautions Tell your doctor and pharmacist if you ever had an allergic reaction to a medicine. Do not use the medication any more than instructed. Please check with your doctor before drinking alcohol while on this medicine. Do not breastfeed while on this medicine. During , this medicine should be used only when clearly needed. Talk to your doctor about the risks and benefits. Do not share this medicine with anyone who has not been prescribed this medicine. ?? Side Effects Call your doctor or get medical help right away if you notice any of these more serious side effects: ??? confusion ??? signs of kidney damage (such as change in urine color or bubbly urine) ??? signs of liver damage (such as yellowing of eye or skin, dark urine, or unusual tiredness) ??? memory problems or loss ??? muscle pain or weakness A few people may have an allergic reaction to this medicine. Symptoms can include difficulty breathing, skin rash, itching, swelling, or severe dizziness. If you notice any of these symptoms, seek medical help quickly. ?? Extra Please speak with your doctor, nurse, or pharmacist if you have any questions about this medicine. ?? [email or web address] IMPORTANT NOTE: This document tells you briefly how to take your medicine, but it does not tell youall there is to know about it. Your doctor or pharmacist may give you other documents about your medicine. Please talk to them if you have any questions. Always follow their advice. There is a more complete description of this medicine available in Arabic. Scan this code on your smartphone or tablet or use the web address below. You can also ask your pharmacist for a printout. If you have any questions, please ask your pharmacist. The display and use of this drug information is subject to Terms of Use. Copyright(c) 2022 [employer]. ?? [employer]. All rights reserved. This information is not intended as a substitute for professional medical care. Always follow your healthcare professional's instructions. ?? * Event Display: Hemodynamic Procedure Report Authored Date: History and physical note * Ramses Parra DO: PERFORM, MODIFY, MODIFY, MODIFY, MODIFY, MODIFY Event Display: History and Physical Hospital Authored Date: Patient: ??TRISTAN TAVO ? Age:??63 Years?Sex:??Male?:??1960?? Chief Complaint/Reason for Consultation Transfer from [facility] for non-STEMI History of Present Illness This is a 63-year-old male who??denies significant past medical history, and presents to the hospital as a transfer from [facility] where he presented earlier today with complaint of substernal and epigastric discomfort that awoke him from sleep.?? The patient reports having a viral infection in October. ??He was??treated??with 2 courses of??antibiotics, initially Zithromax,??and then doxycycline.??He did notice some improvement??with doxycycline,??but reports that he had??chest pressure??sincethat time. ??He feels that the pressure is worse when he lays down. ??He also reports some exertional shortness of breath??and increased fatigue.?He was seen at his PCPs office yesterday??due to his persistent symptoms,??and was prescribed prednisone 40 mg??(tapering dose down by 10 mg every 2 days till off), as well as cetirizine 10 mg daily.?He took his??first??doses of these medications yesterday. ??This morning he awoke??slightly before??6 AM with substernal chest discomfort associated with??nausea and vomiting, prompting him to go to [place] [facility].?? In the ER, he had lab work done thatwas fairly unremarkable with a D-dimer of 0.47 and initial troponin 23.?? Subsequent troponin was elevated at 256.?? Glucose was also elevated at 196.?? The patient did undergo CTA of the chest and abdomen at the outside hospital that showed no evidence of pulmonary embolism and no aortic aneurysm or dissection with fatty liver and chronic diverticulosis without diverticulitis.?? The patient was initiated on heparin drip due to elevated cardiac markers and subsequently transferred here for further assessment.?? His EKG at the outside hospital showed sinus rhythm with sinus arrhythmia and heart rate of 85.?? There were some nonspecific ST changes in V2 to V3 with minimal less than [address] segment elevation. Review of Systems A complete review of systems was obtained and noted to be negative except as stated above in the HPI. Objective Measurements?? Height: 178 cm (11/05/23) Weight: 115.1 kg (11/05/23) Dry Weight: 115.1 kg (11/05/23) Body Mass Index:??36.33 kg/m2??Critical (11/05/23) ? Vital Signs?? Temperature: 97.7 DegF (11/05/23 17:19:00) Temperature Route: Oral (11/05/23 17:19:00) Pulse Rate:??102 bpm??High (11/05/23 17:19:00) Respiratory Rate: 20 br/min (11/05/23 17:19:00) Systolic Blood Pressure:??145 mm Hg??High (11/05/23 19:15:00) Diastolic Blood Pressure:??126 mm Hg??High (11/05/23 19:15:00) Blood pressure sites: Arm, left (11/05/23 17:19:00) Mean Arterial Pressure: 115 mm Hg (11/05/23 17:19:00) Pulse Pressure: 49 mm Hg (11/05/23 17:19:00) Oxygen Saturation: 99 % (11/05/23 17:19:00) Mode of Delivery (Oxygen): Room air (11/05/23 17:19:00) Early Warning Score: 3 (11/05/23 19:15:13) ? Physical Exam General: Alert, in no acute cardiopulmonary distress. Mental Status: Oriented to person, place and time. Normal affect. Head: Normocephalic. Eyes: Pupils are equal, round and reactive to light. Extraocular muscles intact. Ear, Nose and Throat: Oropharynx clear, mucous membranes moist. Ears and nose without masses, lesions or deformities. Trachea midline. Neck: Supple, Full range of motion. Respiratory: Clear to auscultation and percussion. No wheezing, rales or rhonchi. Cardiovascular: Heart sounds normal. Regular rate and rhythm, no murmurs, rubs or gallops. Gastrointestinal: Abdomen soft, non-tender, non-distended. Normal bowel sounds. No pulsatile mass. No hepatosplenomegaly. Neurologic: Cranial nerves II-XII grossly intact. No focal neurological deficits. Moves all extremities spontaneously. Sensation intact bilaterally. Skin: No rashes or lesions. No petechiae or purpura. No edema. Musculoskeletal: No cyanosis or clubbing. No gross deformities. Normal range of motion. Assessment/Plan Assessment:??This is a 63-year-old??obese??male??with a significant past medical history, who currently presents to the hospital as a transfer??from [place] [facility] where he presented to the??chest pain.??He does describe episodes of chest pressure??noted??over the past 6 weeks. He was noted to have elevation in his troponin consistent with non-STEMI and has been transferred here for further management. ? Non-ST elevated myocardial infarction (non-STEMI) (I21.4) This patient will be admitted to an inpatient telemetry bed.??He presents with??intermittent chest pain??with associated cough for the last 6 weeks. He had an episode this morning that awoke him fromsleep.??His EKG does not show any acute abnormality, and troponin was noted to increase from 23 to 256. We will continue to trend troponins on this patient. He was initiated on a heparin drip at the outside hospital and given aspirin. Will continue him on aspirin, high- dose statin treatment, and initiate metoprolol 25 mg twice daily. In addition, we will obtain an echocardiogram on this patient. Cardiology consult has also been requested.?? The patient is very hesitant to start new medications as he states??he is very sensitive??to medication.?? He also describes??feeling flushed and??attributes this to possible reaction??to dye received for??CTA of the chest and abdomen.?? Extensive time spent with patient describing indications for??medications including aspirin, beta-blockers,??and stat in??treatment. ??The patient??also still reports 1 out of 10 chest??pressure,??and was offered Nitropaste, which he??does not want to??take. ?? VTE Prophylaxis This patient is currently on a heparin drip. ?VTE Prophylaxis Assessment:??Excluded from VTE prophylaxis measure ?? Code Status Confirmed with the patient that he is a full code. ?? Patient seen on November 05, 2023.?? Total time spent with patient and in coordination of care: including reviewing the chart/medical records, speaking with the patient, formulating and discussing the treatment plan, and documenting the findings and encounter:?70 + min ? Histories Allergies Allergies ?(Active and Proposed Allergies Only) Nuts? (Severity: Unknown severity, Onset: Unknown) penicillins? (Severity: Unknown severity, Onset: Unknown) ?Reactions: breathing problems ? Past Medical History/Problem List Active Problems??(2) Obese class II Nasal polyp ? Past Surgical History Bilateral inguinal hernia repair x 2 Sinus??surgery/rhinoplasty ? Social History Patient and lives with spouse. Alcohol Details:??Use: None currently, and previously social drinker. Substance Abuse Details:??Use: Never. Tobacco Details:??Use: Former smoker, smoked from age 17 to his early 40s??at 1 pack every few days. Electronic Cigarette/Vaping Details:??Electronic Cigarette Use: Never. ?? Family Medical History Mother living at 87 and relatively healthy. ??Father at 83??with Alzheimer's disease and he had an SD in his??mid 60s. Medications Home Medications??(no regular home medications, and started on??following 2 medications 1 day ago) Cetirizine (cetirizine 10 mg oral tablet)?1?tab(s)?10?Milligram?By Mouth?Daily PredniSONE 10 mg??4 tablets??By Mouth?Daily??for 2 days, then decrease by??1 tablet??every 2 days ? Results Recent Labs BLOOD COUNT & DIFF WBC 7.3 k/mm3 ()?? 11/05/2023 07:09 RBC 5.31 m/mm3 ()?? 11/05/2023 07:09 Hgb 16.7 Gm/dL ()?? 11/05/2023 07:09 Hct 48.1 % ()?? 11/05/2023 07:09 MCV 90.6 femtoliters ()?? 11/05/2023 07:09 MCH 31.5 pg ()?? 11/05/2023 07:09 MCHC 34.7 g/dL ()?? 11/05/2023 07:09 Platelet Count 261 k/mm3 ()?? 11/05/2023 07:09 RDW-SD 41.5 femtoliters ()?? 11/05/2023 07:09 MPV 11.3 femtoliters ()?? 11/05/2023 07:09 Nucleated RBC (Automated) 0.0 #/100 WBC'S ()?? 11/05/2023 07:09 Abs. NRBC 0.0 k/mm3 ()?? 11/05/2023 07:09 Abs. Neut 5.1 k/mm3 ()?? 11/05/2023 07:09 Abs. Lymph 1.8 k/mm3 ()?? 11/05/2023 07:09 Abs. Meagher 0.2 k/mm3 (Low)?? 11/05/2023 07:09 Abs. Eo 0.1 k/mm3 ()?? 11/05/2023 07:09 Abs. Baso 0.1 k/mm3 ()?? 11/05/2023 07:09 Neut % 70.3 % ()?? 11/05/2023 07:09 Lymph % 24.8 % ()?? 11/05/2023 07:09 Meagher % 2.5 % (Low)?? 11/05/2023 07:09 Eos % 1.2 % ()?? 11/05/2023 07:09 Baso % 0.7 % ()?? 11/05/2023 07:09 Imm Gran 0.5 % ()?? 11/05/2023 07:09 Abs. Imm Gran 0.0 k/mm3 ()?? 11/05/2023 07:09 ?? CARDIAC High Sensitivity Troponin (HSTnT) 256 ng/L (Critical)?? 11/05/2023 10:15 ?? CHEM GENERAL Sodium 138 mmol/L ()?? 11/05/2023 07:09 Potassium 3.9 mmol/L ()?? 11/05/2023 07:09 Chloride 101 mmol/L ()?? 11/05/2023 07:09 Bicarbonate Level 22 mmol/L ()?? 11/05/2023 07:09 Anion Gap 15 ()?? 11/05/2023 07:09 Glucose Level 196 mg/dL (High)?? 11/05/2023 07:09 BUN 16 mg/dL ()?? 11/05/2023 07:09 Creatinine-Blood 0.8 mg/dL ()?? 11/05/2023 07:09 Estimated GFR Creatinine 99 ML/MIN/1.73 M2 ()?? 11/05/2023 07:09 Calcium 9.7 mg/dL ()?? 11/05/2023 07:09 Protein, Total 7.7 Gm/dL ()?? 11/05/2023 07:09 Albumin 4.4 Gm/dL ()?? 11/05/2023 07:09 Alkaline Phosphatase 66 units/L ()?? 11/05/2023 07:09 Lipase 17 units/L ()?? 11/05/2023 07:09 AST (SGOT) 19 units/L ()?? 11/05/2023 07:09 ALT (SGPT) 23 units/L ()?? 11/05/2023 07:09 Bilirubin, Total 0.5 mg/dL ()?? 11/05/2023 07:09 Bilirubin, Direct <0.2 mg/dL ()?? 11/05/2023 07:09 Bilirubin, Indirect Direct bilirubin is less than the measureable limit. Therefore, indirect mg/dL ()?? 11/05/2023 07:09 ?? COAG INR 1.0 ()?? 11/05/2023 12:25 Protime (PT) 10.7 seconds ()?? 11/05/2023 12:25 APTT 29.0 seconds ()?? 11/05/2023 12:25 D-Dimer 0.47 mg/L FEU ()?? 11/05/2023 07:09 ?? HEME OTHER Hold Blue Top SPECIMEN DISCARDED AFTER 4 HOURS. ()?? 11/05/2023 07:09 ?? MISC. CHEMISTRY Hold Gel Top SPECIMEN DISCARDED AFTER 1 WEEK ()?? 11/05/2023 07:09 Hold Holley Top SPECIMEN DISCARDED AFTER 1 WEEK ()?? 11/05/2023 07:09 ?? URINE OTHER Est Creatinine Clearance 96.56 mL/min ()?? 11/05/2023 07:39 ? Imaging(s) ?Other Image ?EKG showing sinus arrhythmia with heart rate of 85. Some very minimal less than 1 mm STelevation noted in V2 and V3 with Q waves in lead III. ?(11/05/2023 09:[address] Angio Chest) IMPRESSION:? No aortic aneurysm or dissection. ?? Fatty liver. ?? Chronic diverticulosis without diverticulitis. [1] [1]??CT Angio Chest; Alcides Camp MD 11/05/2023 09:17 EST EKG study * Event Display: ECG 12-Lead Please click on pdf link to open report * Event Display: ECG 12-Lead Ventricular Rate: 98 BPM Atrial Rate: 98 BPM P-R Interval: 192 ms QRS Duration: 100 ms Q-T Interval: 342 ms QTC Calculation(Bazett): 436 ms P [place]: 49 degrees R [place]: 53 degrees T [place]: 47 degrees Normal sinus rhythm Cannot rule out Inferior infarct , age undetermined Abnormal ECG When compared with ECG of 05-NOV-2023 11:16, MANUAL COMPARISON REQUIRED, DATA IS UNCONFIRMED Confirmed by Suleman Lo ([id number]) on 11/05/2023 11:22:37 PM [place]: Suleman Lo Heart * Event Display: Echocardiogram - Complete Authored Date: [id number] Transthoracic Echocardiography Report (TTE) Patient Demographics Patient Name TAVO HUDSON Date of Study 11/06/2023 Corporate Gender Male Facility Race Ethnicity Date of 1960 Height: 70.08 inches Age 63 year(s) Weight: 253.54 pounds Accession Number [id number] BSA: 2.31 m2 Room Number [id number] BMI: 36.3 kg/m2 Referring Physician Ramses Parra DO Interpreting Milton Chatterjee MD Physician Medical Office Specialist Ashleigh Whitman [facility] Indications NSTEMI. Clinical History Obesity. Former tobacco use. Study Data Type of Study TTE procedure:Echo Complete-Doppler, Colorflow, M-Mode. Procedure Information:Patient refused Definity Study Date11/06/2023 Start Time: 10:41 AM Study Location: [facility] [place] [facility] [place] Study Status: Bedside Patient Status: Routine Technical Quality: Inadequate due to obesity. Blood Pressure:133/77 mmHg EKG: Normal sinus rhythm HR: 89 bpm 2D Measurements LV Diastolic Dimension: 4.47 cm LV Systolic Dimension: 3 cm LV Septum Diastolic: 1.34 cm LV PW Diastolic: 1 cm AO Root Dimension: 2.8 cm LA Dimension: 3.6 cm LVOT Stroke Volume: 63.51 ml LVOT: 2.27 cm Stroke Volume Index27.49 ml/m2 Ascending Aorta:2.8 cm Cardiac Index:2.45 l/min/m2 Doppler Measurements AV Peak Velocity: 117 cm/s MV Peak E-Wave: 53 cm/s AV Peak Gradient: 5.48 mmHg MV Peak A-Wave: 83.6 cm/s MV E/A Ratio: 0.63 LVOT Peak Velocity: 90.6 cm/s MV P1/2t: 66 msec LVOT VTI15.7 cm MV Deceleration Time: 226 msec MV Area (PHT): 3.33 cm2 PV Peak Velocity: 75.6 cm/s E' Lateral Velocity: 5.98 cm/s PV Peak Gradient: 2.29 mmHg E/Lat E':[id number] Cardiac Anatomy Left Ventricle/Interventricular Septum The left ventricle is poorly visualized. No adequate imaging windows were obtained and patient refused ultrasound enhancement. The left ventricular size is normal. The left ventricular wall thickness is increased. Cannot assess LV ejection fraction. Image quality is inadequate to assess regional wall motion. The distal septal to apical wall appears akinetic in extremely limited imaging. Left Atrium/Interatrial Septum The left atrium is poorly visualized. Aortic Valve The aortic valve is is poorly visualized. There is no aortic stenosis. There is no aortic regurgitation. Mitral Valve The mitral valve opening is normal. There is no significant mitral regurgitation. Aorta The ascending aorta and aortic root are normal in size. Right Ventricle The right ventricle is poorly visualized. The right ventricle is normal in size. Right ventricular systolic function appears preserved. Right Atrium The right atrium is poorly visualized. Pulmonic Valve The pulmonic valve is poorly visualized. Tricuspid Valve The tricuspid valve is poorly visualized. Pumonary Artery An accurate pulmonary artery pressure could not be obtained. Venous Structures The inferior vena cava is poorly visualized. Pericardium/Extracardiac There is no significant pericardial effusion. Summary The left ventricle is poorly visualized. No adequate imaging windows were obtained and patient refused ultrasound enhancement. The left ventricular size is normal. The left ventricular wall thickness is increased. Cannot assess LV ejection fraction. Image quality is inadequate to assess regional wall motion. The distal septal to apical wall appears akinetic in extremely limited imaging. The right ventricle is poorly visualized. The right ventricle is normal in size. Right ventricular systolic function appears preserved. Impressions Mostly inadequate study. The distal septal and apical wall appears akinetic. Comparison No prior study available for comparison. Signature * Event Display: Echocardiogram - Complete Authored Date: Cardiology * Event Display: Cardiac Rhythm Strips Authored Date: * Event Display: Cardiac Rhythm Strips Authored Date: * Event Display: Cardiac Rhythm Strips Authored Date: Hospital Progress note * Jazmyn Sanchez RN: PERFORM, SIGN, VERIFY, MODIFY, SIGN Event Display: Progress Note Hospital Authored Date: Patient: TAVO HUDSON JR [facility]: [id number] Age: 63 years Sex: Male : 1960 Associated Diagnoses: None Author: Jazmyn Sanchez RN Findings Problem Related to Alteration in Cardiac Function (new) : Alteration in Cardiac Function/new 11/06/2023 23:00 EST Alteration in Cardiac Status Related to Cardiac Procedure, Chest pain Goals & Outcomes, Cardiac Status Pt will resume/maintain adequate cardiac output, Pt will resume/maintain adequate hemodynamic status, Pt will resume/maintain adequate respiratory function, Pt will resume/maintain intact neuro function, Pt will maintain adequate GI/ function appropriate for pt, Pt will maintain adequate nutrition status, Pt/caregiver will state understanding of diagnosis, Pt/caregiver will state strategies to reduce risk factors Cardiac Interventions Implemented Assess/monitor cardiac status, Assess/monitor neuro status, Assess/monitor respiratory status, Assess for tolerance of IV infusions; verify rate & dose, Call/Report variances in ECG to provider, Document & Monitor O2 Sats; Administer O2 as ordered, Ensure adequate caloric intake, If no bowel movement in 3 days activate bowel regime, Monitor & document daily weight, Monitor anticoagulation values, Monitor ECG w/administration of antiarrhythmics (CO 13.420), Obtain 12 Lead ECG and CXR as ordered, Prep pt for treatments & procedures, Teach/encourage deep breath & cough exercises, Teach/encourage use of incentive spirometer, Team conversation regarding appropriate level of care, Turn & reposition Q2 hours per activity restrictions, Useadjunctive therapies per Standards of Practice Goals/Interventions, Cardiac Yes Cardiac, Problem Start 11/05/2023 19:11 Reviewed Plan with, Cardiac Status Patient Patient Progression, Cardiac Status Patient progressing according to plan . Narrative/Incidental Pt. is A&Ox4. He is on tele in NSR with 1st degree HB. He denies any SOB, chest pain, palpitations, dizziness or N/V. He is on RA. He is S/P cath via RT radial 11/06/23. dressing is CDI with no oozing, bruising or swelling with +CMS. he is independent in room with steady gait. safety maintained with bed locked in lowest position and call dorman in reach. He did refuse the metoprolol, I educated him on what it is for and let the provider Brian Leiva know, no further orders. * Janeen GUIDO, Terry D: MODIFY, PERFORM Event Display: Progress Note Hospital Authored Date: Patient: ??TAVO HUDSON JR ? Age:??63 Years?Sex:??Male?:??1960?? Subjective Patient seen at bedside. ??Denies any nausea vomiting??chest pain or shortness of breath this morning.? Patient has been refusing most of his medications but discussed??patient did not have a clear reason??but does not want to be on medications. ??Had a discussion??that??if they take him for left heartcatheterization??and find significant??obstructive CAD??that he will need to have a stent placed and after that he will need to??continue??dual antiplatelet therapy??at least for a year??and also metoprolol/beta-simona??and??statins.?? Patient was not sure??that he will be able to take the medications after which I informed cardiology input??his left heart catheterization was aborted??until further clarification??however later??a second discussion occurred??after his was in the room??and patient is agreeable??to take Review of Systems Objective Measurements?? Height: 178 cm (11/06/23) Weight: 115.1 kg (11/05/23) Dry Weight: 115.1 kg (11/05/23) Body Mass Index:??36.33 kg/m2??Critical (11/05/23) ? Vital Signs?? Temperature: 98.5 DegF (11/06/23 10:29:00) Temperature Route: Oral (11/06/23 10:29:00) Pulse Rate: 88 bpm (11/06/23 10:29:00) Respiratory Rate: 18 br/min (11/06/23 10:29:00) Systolic Blood Pressure: 133 mm Hg (11/06/23 10:29:00) Diastolic Blood Pressure:??86 mm Hg??High (11/06/23 10:29:00) Blood pressure sites: Arm, right (11/06/23 10:29:00) Mean Arterial Pressure: 102 mm Hg (11/06/23 10:29:00) Pulse Pressure: 47 mm Hg (11/06/23 10:29:00) Oxygen Saturation: 97 % (11/06/23 10:29:00) Mode of Delivery (Oxygen): Room air (11/06/23 10:29:00) Early Warning Score: 0 (11/06/23 10:31:46) ? Precautions No Precautions documented.? Physical Exam General: Is appears comfortable in no distress HEENT: ??mucous mucous membranes appear wet, PERRLA Cardiovascular: S1-S2 heard no murmurs appreciated Respiratory: CTA without any wheezing or crackles anteriorly GI: Abdomen nontender to palpation, no distention, no obvious hepatosplenomegaly Neuro: AOx3 plus date of , able to raise all extremities on commands Psych: Appears calm without any agitation _ Inpatient Medications Medications (14) Active SCHEDULED: (5) Aspirin 81 mg EC Tablet (Aspirin Tablet) ??81 mg, By Mouth, Daily Atorvastatin 80 mg Tablet (Lipitor 80 mg oral tablet) ??80 mg, By Mouth, Daily at bedtime Metoprolol 25mg Tablet (metoprolol 25 mg oral tablet) ??25 mg, By Mouth, 2 times a day NaCl 0.9% Flush 3ml (NaCL 0.9% Flush) ??3 mL, IV Push, Every 8 hours Ticagrelor 90 mg Tablet (Ticagrelor Tablet) ??90 mg 1 tablet, By Mouth, 2 times a day CONTINUOUS: (1) NaCL 0.9% (1000 mL) Cont IV 1,000 mL (NaCL 0.9% 1,000 mL) ??1,000 mL, IV Infusion, 125 mL/hr PRN: (8) Acetaminophen 325 mg Tablet (Acetaminophen Tablet) ??650 mg, By Mouth, Every 4 hours Dextromethorphan-Guaifenesin 20 mg-200 mg/10 mL Liqu UD (Robitussin DM Liquid) ??10 mL, By Mouth, Every 4 hours Docusate Sodium 100 mg Capsule (Docusate Sodium Capsule) ??100 mg 1 capsule, By Mouth, 2 times a day Melatonin 3 mg Tablet (Melatonin Tablet) ??3 mg, By Mouth, Daily at bedtime NaCl 0.9% Flush 3ml (NaCL 0.9% Flush) ??3 mL, IV Push, Every 8 hours Polyethylene Glycol 17 Gm Powder (MiraLax Powder) ??17 Gm 1 pack/packet, By Mouth, Daily Senna Tablet ??8.6 mg 1 tablet, By Mouth, 2 times a day Simethicone 80 mg Chewable Tablet (Simethicone Tablet) ??80 mg, Chew, 3 times a day ? Results Recent Labs BLOOD COUNT & DIFF WBC 10.1 k/mm3 ()?? 11/06/2023 01:56 RBC 4.78 m/mm3 ()?? 11/06/2023 01:56 Hgb 14.9 Gm/dL ()?? 11/06/2023 01:56 Hct 43.3 % ()?? 11/06/2023 01:56 MCV 90.6 femtoliters ()?? 11/06/2023 01:56 MCH 31.2 pg ()?? 11/06/2023 01:56 MCHC 34.4 g/dL ()?? 11/06/2023 01:56 Platelet Count 251 k/mm3 ()?? 11/06/2023 01:56 RDW-SD 42.5 femtoliters ()?? 11/06/2023 01:56 MPV 11.4 femtoliters ()?? 11/06/2023 01:56 Nucleated RBC (Automated) 0.0 #/100 WBC'S ()?? 11/06/2023 01:56 Abs. NRBC 0.0 k/mm3 ()?? 11/06/2023 01:56 Abs. Neut 5.1 k/mm3 ()?? 11/05/2023 07:09 Abs. Lymph 1.8 k/mm3 ()?? 11/05/2023 07:09 Abs. Meagher 0.2 k/mm3 (Low)?? 11/05/2023 07:09 Abs. Eo 0.1 k/mm3 ()?? 11/05/2023 07:09 Abs. Baso 0.1 k/mm3 ()?? 11/05/2023 07:09 Neut % 70.3 % ()?? 11/05/2023 07:09 Lymph % 24.8 % ()?? 11/05/2023 07:09 Meagher % 2.5 % (Low)?? 11/05/2023 07:09 Eos % 1.2 % ()?? 11/05/2023 07:09 Baso % 0.7 % ()?? 11/05/2023 07:09 Imm Gran 0.5 % ()?? 11/05/2023 07:09 Abs. Imm Gran 0.0 k/mm3 ()?? 11/05/2023 07:09 ?? CARDIAC High Sensitivity Troponin (HSTnT) HEMOLYZED ng/L ()?? 11/06/2023 01:56 ?? CHEM GENERAL Sodium 140 mmol/L ()?? 11/06/2023 07:36 Potassium 3.9 mmol/L ()?? 11/06/2023 07:36 Chloride 105 mmol/L ()?? 11/06/2023 07:36 Bicarbonate Level 21 mmol/L (Low)?? 11/06/2023 07:36 Anion Gap 14 ()?? 11/06/2023 07:36 Glucose Level 126 mg/dL (High)?? 11/06/2023 07:36 Hemoglobin A1C (Monitoring) 5.6 % ()?? 11/06/2023 07:36 BUN 14 mg/dL ()?? 11/06/2023 07:36 Creatinine-Blood 0.9 mg/dL ()?? 11/06/2023 07:36 Estimated GFR Creatinine 93 ML/MIN/1.73 M2 ()?? 11/06/2023 07:36 Calcium 8.8 mg/dL ()?? 11/06/2023 07:36 Protein, Total 7.7 Gm/dL ()?? 11/05/2023 07:09 Albumin 4.4 Gm/dL ()?? 11/05/2023 07:09 Alkaline Phosphatase 66 units/L ()?? 11/05/2023 07:09 Lipase 17 units/L ()?? 11/05/2023 07:09 AST (SGOT) 19 units/L ()?? 11/05/2023 07:09 ALT (SGPT) 23 units/L ()?? 11/05/2023 07:09 Bilirubin, Total 0.5 mg/dL ()?? 11/05/2023 07:09 Bilirubin, Direct <0.2 mg/dL ()?? 11/05/2023 07:09 Bilirubin, Indirect Direct bilirubin is less than the measureable limit. Therefore, indirect mg/dL ()?? 11/05/2023 07:09 ?? COAG INR 1.0 ()?? 11/05/2023 12:25 Protime (PT) 10.7 seconds ()?? 11/05/2023 12:25 APTT 83.8 seconds (High)?? 11/06/2023 07:36 D-Dimer 0.47 mg/L FEU ()?? 11/05/2023 07:09 ?? HEME OTHER Hold Blue Top SPECIMEN DISCARDED AFTER 4 HOURS. ()?? 11/05/2023 07:09 ?? LIPID STUDIES Cholesterol 206 mg/dL (High)?? 11/06/2023 07:36 Triglycerides 160 mg/dL (High)?? 11/06/2023 07:36 HDL Cholesterol 54 mg/dL ()?? 11/06/2023 07:36 LDL Cholesterol 120 mg/dL ()?? 11/06/2023 07:36 Non HDL Cholesterol 152 mg/dL ()?? 11/06/2023 07:36 ?? MISC. CHEMISTRY Hold Gel Top SPECIMEN DISCARDED AFTER 1 WEEK ()?? 11/06/2023 01:56 Hold Holley Top SPECIMEN DISCARDED AFTER 1 WEEK ()?? 11/05/2023 07:09 ?? URINE OTHER Est Creatinine Clearance 85.83 mL/min ()?? 11/06/2023 08:14 ? Abnormal Labs ?? BLOOD COUNT & DIFF ??Abs. NRBC ??0.0 k/mm3 () ??11/06/2023 01:56 ??Nucleated RBC (Automated) ??0.0 #/100 WBC'S () ??11/06/2023 01:56 ??RDW-SD ??42.5 femtoliters () ??11/06/2023 01:56 ? CARDIAC ??High Sensitivity Troponin (HSTnT) ??HEMOLYZED ng/L () ??11/06/2023 01:56 ? CHEM GENERAL ??Bicarbonate Level ??21 mmol/L (Low) ??11/06/2023 07:36 ??Estimated GFR Creatinine ??93 ML/MIN/1.73 M2 () ??11/06/2023 07:36 ??Glucose Level ??126 mg/dL (High) ??11/06/2023 07:36 ? COAG ??APTT ??83.8 seconds (High) ??11/06/2023 07:36 ? LIPID STUDIES ??Cholesterol ??206 mg/dL (High) ??11/06/2023 07:36 ??HDL Cholesterol ??54 mg/dL () ??11/06/2023 07:36 ??Non HDL Cholesterol ??152 mg/dL () ??11/06/2023 07:36 ??Triglycerides ??160 mg/dL (High) ??11/06/2023 07:36 ? MISC. CHEMISTRY ??Hold Gel Top ??SPECIMEN DISCARDED AFTER 1 WEEK () ??11/06/2023 01:56 ? Note: Critical results are displayed in red. ? Assessment/Plan ??This is a 63-year-old??obese??male??with a significant past medical history, who currently presents to the hospital as a transfer??from [place] ED where he presented to the??chest pain.??He does describe episodes of chest pressure??noted??over the past 6 weeks. He was noted to have elevation in his troponin consistent with non-STEMI and has been transferred here for further management. ? # Non-ST elevated myocardial infarction (non-STEMI) (I21.4) # Coronary artery disease status post stent placement in this admission #??Regional wall motion abnormality ?? -Status post left heart cath 11/06/2023??with findings of no obstructive CAD in RCA and LCx,??Mid LAD: Diffuse stenosis up to 95% in the proximal section, lesion crossing?the D1 and D2 ??-Successful OCT guided PCI of proximal to mid LAD using 3.0 mm x 32 mm?Synergy THOMAS. Stent was postdilated using 3.0 mm NC balloon distally and 4.0?mm NC balloon proximally. -??balloon angioplasty of the ostium of second diagonal using 2.0?mm x 12 mm balloon. -Patient chest pain-free today, -Echo study was of poor quality and LVEF could not be assessed, likely echo outpatient, did have some regional wall motion abnormalities -Will university counselor further tomorrow??to ensure??patient remains compliant with his medications after discharge -Patient was placed on heparin drip which has been discontinued -Appreciate cardiology assistance in patient's care -HbA1c??5.6 in prediabetic range??and LDL 120 will continue aspirin, atorvastatin, metoprolol??and ticagrelor ? Diet:??Cardiac diet Code status :? Full code DVT prophylaxis :? Lovenox from tomorrow: Disposition? Telemetry floor Lines :??IV?? Labs : ordered Family: Patient's spouse updated at bedside Discharge Planning??likely discharge tomorrow ? Diagnoses Non-ST elevated myocardial infarction (non-STEMI) ??(I21.4) ? * Marianela Villar RN: SIGN, PERFORM, VERIFY, SIGN, MODIFY Event Display: Progress Note Hospital Authored Date: Patient: TAVO HUDSON JR Age: 63 years Sex: Male : 1960 Associated Diagnoses: None Author: Marianela Villar RN Findings Problem Related to Alteration in Cardiac Function (new) : Alteration in Cardiac Function/new 11/06/2023 9:00 EST Alteration in Cardiac Status Related to Cardiac Procedure, Chest pain Goals & Outcomes, Cardiac Status Pt will resume/maintain adequate cardiac output, Pt will resume/maintain adequate hemodynamic status, Pt will resume/maintain adequate respiratory function, Pt will resume/maintain intact neuro function, Pt will maintain adequate GI/ function appropriate for pt, Pt will maintain adequate nutrition status, Pt/caregiver will state understanding of diagnosis, Pt/caregiver will state strategies to reduce risk factors Cardiac Interventions Implemented Assess/monitor cardiac status, Assess/monitor neuro status, Assess/monitor respiratory status, Assess for tolerance of IV infusions; verify rate & dose, Call/Report variances in ECG to provider, Document & Monitor O2 Sats; Administer O2 as ordered, Ensure adequate caloric intake, If no bowel movement in 3 days activate bowel regime, Monitor & document daily weight, Monitor anticoagulation values, Monitor ECG w/administration of antiarrhythmics (CO 13.420), Obtain 12 Lead ECG and CXR as ordered, Prep pt for treatments & procedures, Teach/encourage deep breath & cough exercises, Teach/encourage use of incentive spirometer, Team conversation regarding appropriate level of care, Turn & reposition Q2 hours per activity restrictions BH Goals/Interventions, Cardiac Yes Cardiac, Problem Start 11/05/2023 19:11 Reviewed Plan with, Cardiac Status Patient Patient Progression, Cardiac Status Patient progressing according to plan (Modified) . Evaluation Pt A&Ox4. On RA. NSR on tele. Pt denies cp, sob, dizziness, n/v. Hep gtt running per protocol. + pedal pulses bilaterally. Trace edema noted in BLE. Pt refusing metoprolol this am despite education given, MD aware. Cardiac cath cancelled today as per MD, pt is hesitatant about taking blood thinners if stent is needed. Cards made aware. Pt is continent of bowel and bladder. Pt is independent in the room. Safety maintained. Plan of care ongoing. . * Aurea GORDON, Marianela: PERFORM Event Display: Progress Note Hospital Authored Date: Accepted from CARE unit at around 1630. R radial site CDI, no hematoma present. VSS. Pt denies any cp or sob. TR band removed at 181, DSG applied to site. Post procedure fluids complete. Consult note * Joo GUIDO, Sabi S: MODIFY, PERFORM, MODIFY Event Display: Consultation Note Authored Date: Patient: ??TRISTAN TAVO BOYER ? Age:??63 Years?Sex:??Male?:??1960?? Indication for Consult Reason For Consult: NSTEMI Requesting Provider: Dr Parra Primary Tattoo Technician: Not established Consulting Tattoo Technician: Dr Saunders History of Present Illness/Interval History This 63-year-old male with no significant past medical history presented to the emergency room on November 04 with complaints of chest pain which started over the last week.?? He tells me that he was in his usual state of health until 6 weeks ago when he started experiencing rhinorrhea, nasal congestion??associated with cough productive of green sputum and fevers and chills for the first 3 days.?? Since then he has been??fighting what he describes as an upper respite tract infection.?? He is??beingtried on multiple antibiotics??and was recently given steroids??and cetirizine for possible??bronchitis leg fatigue. ??For the last week he has been explaining to me that he has been having??intermittent exercise-induced chest pressure??in the substernal region??going straight through to the back at times. ??It is not worsened by breathing patterns.?Yesterday morning, at around 5:45 AM he wokeup??to an acute onsets of squeezing sensation in the substernal region??without any radiation??assoc iated with diaphoresis nausea and vomiting.?? It lasted for approximately 45 minutes and then??resolved without any intervention.?? This is the first time he is experienced any sort of symptoms like this. ??He has denied any sort of food of fevers, chills,??rhinorrhea or nasal congestion however does still reports a cough productive of intermittent sputum production.?? He is an obese gentleman, former smoker quit more than 20 years ago??but has a family history of coronary artery disease.?? He told me that he visits the primary care physician??already on an as-needed basis and was told that his blood pressure was mildly elevated however not requiring any sort of medical therapy. ??He has never had any form of heart testing done in the past however tells me that??he saw a log check scaler a couple years back [unclear who]??for hyperlipidemia and was recommended to start??statin therapy however wanted to try diet and exercise first. ? ER course: Blood pressure 198/129 heart rate 96 bpm saturating 98% on room air Labs WC 7 hemoglobin 16 platelet 1 INR 1 Sodium 130 potassium 3.9 chloride 101 bicarb 22 anion gap 15 BUN 16 creatinine 0.8 High sensitive troponin 23, 256, 434 ?? Meds given heparin GGT Aspirin 2024 Lipitor 80 Metoprolol 25 twice daily ?? Home medications Prednisone 10 mg daily Cetirizine 10 mg Doxycycline Azithromycin ? CT angio of the chest dated November 05, 2023 lungs are clear No aortic dissection Heart is normal in size with no pericardial effusion. ?? Prior cardiac workup EKG dated November 04 sinus tachycardia heart rate 103 bpm. EKG dated November 04 at 6:40 PM normal sinus rhythm??? Poor R wave progression.?? Q wave in lead III Review of Systems Negative except for above Physical Exam Vitals & Measurements T:??98.4?F?? HR:??106??(Peripheral)?? RR:??16?? BP:??154/97?? SpO2:??99%?? HT:??178??cm?? WT:??115.1??kg?? BMI:??36.33?? Weight lb/oz: 253 lb 12 oz Gen: Awake, alert and oriented x4, in NAD Neck: No JVD, No carotid bruits, no thyromegaly CVS: S1/S2 heard, regular no M/R/G Resp: Air entry equal bilaterally,?? no crepitations no rhonci Abd: Obese,??soft and non tender, no organomegaly appreciated, no abdominal wall edema Ext: no peripheral edema noted. Assessment/Plan This 63-year-old male with no significant past medical history presented to the emergency room on November 04 with complaints of substernal, squeezing chest pain, 10 out of 10 in severity without radiation associated with nausea, vomiting and diaphoresis on a background of a viral illness and stuttering chest pain for the last week.?? On presentation he was considerably hypertensive with a blood press ure of 198/129.?? His EKG revealed sinus tachycardia with poor R wave progression and a Q wave in lead III.?? His high sensitive troponin however has had a significant delta from 23, 256, 434.?? He had a CT angio of the chest which did not reveal any evidence of aortic dissection nor was there any p ericardial effusion.?? His presentation is concerning for an NSTEMI and as such should be treated with anticoagulation, high intensity statin and aspirin 81 mg daily. ?? Problem list 1.?? NSTEMI 2.?? Elevated blood pressure 3.?? Obesity 4. ??? Undiagnosed REJI ? Recommendations 1.?? Continue aspirin 81 mg daily 2.?? Start high intensity statin.?? Patient is very hesitant to start at this moment and only wantsto take medications that is necessary.?? Obtain a fasting lipid profile and will likely need statintherapy after that.?? He is willing to take medications however would like to have 100% evidence before. 3.?? Continue heparin GGT for now 4.?? Obtain a transthoracic echo 5.?? Keep n.p.o. after midnight for cardiac catheterization on November 05 6.?? He will likely need blood pressure medications.?? Based on his LV function, we can tailor his antihypertensive regimen. 7.?? He did report a flushed feeling after receiving IV contrast for his CAT scan however denied any itching, throat closure, no hives??or anaphylaxis like reaction.?? It does not appear to be consistent with an allergic reaction.?? I did however offer him contrast allergy premedication prior to the procedure in case however he was not interested in the unwanted medication . 8.?? Precontrast hydration with IV fluids at 75 mL/h 9. Obtain an HbA1C ?? Thank you for allowing us to participate in the care of this patient. ?? The above note was prepared with the help of voice recognition software. Please excuse any grammatical or spelling errors that may have occurred. ?? Sabi Joo Cardiovascular Disease Fellow [id number] Case D/W Dr. Saunders Allergies Nuts penicillins??(breathing problems) Home Medications Loratadine: 10 mg = 1 tablet, By Mouth, Daily, tapering dosed PredniSONE: By Mouth, Daily Hospital Medications Medications (16) Active SCHEDULED: (4) Aspirin 81 mg EC Tablet (Aspirin Tablet) ??81 mg, By Mouth, Daily Atorvastatin 80 mg Tablet (Lipitor 80 mg oral tablet) ??80 mg, By Mouth, Daily at bedtime Metoprolol 25mg Tablet (metoprolol 25 mg oral tablet) ??25 mg, By Mouth, 2 times a day NaCl 0.9% Flush 3ml (NaCL 0.9% Flush) ??3 mL, IV Push, Every 8 hours CONTINUOUS: (2) Heparin 25,000 units / 250 mL D5W premix 25,000 units [8 units/kg/hr] + D5%W Premixed IV 250 mL (Heparin 25,000 units in 250 mL Premix 25,000 units [8 units/kg/hr] + D5%W Premixed IV 250 mL) ??250 mL, IV Infusion, 9.21 mL/hr Lactated Ringers (1000 mL) Cont IV 1,000 mL (LR 1,000 mL) ??1,000 mL, IV Infusion, 75 mL/hr PRN: (10) Acetaminophen 325 mg Tablet (Acetaminophen Tablet) ??650 mg, By Mouth, Every 4 hours Dextromethorphan-Guaifenesin 20 mg-200 mg/10 mL Liqu UD (Robitussin DM Liquid) ??10 mL, By Mouth, Every 4 hours Docusate Sodium 100 mg Capsule (Docusate Sodium Capsule) ??100 mg 1 capsule, By Mouth, 2 times a day Heparin 5000 units/mL Inj (1 mL) (Heparin Inj) ??7,000 units 1.4 mL, IV Push, Every 6 hours Heparin 5000 units/mL Inj (1 mL) (Heparin Inj) ??3,500 units 0.7 mL, IV Push, Every 6 hours Melatonin 3 mg Tablet (Melatonin Tablet) ??3 mg, By Mouth, Daily at bedtime NaCl 0.9% Flush 3ml (NaCL 0.9% Flush) ??3 mL, IV Push, Every 8 hours Polyethylene Glycol 17 Gm Powder (MiraLax Powder) ??17 Gm 1 pack/packet, By Mouth, Daily Senna Tablet ??8.6 mg 1 tablet, By Mouth, 2 times a day Simethicone 80 mg Chewable Tablet (Simethicone Tablet) ??80 mg, Chew, 3 times a day Lab Results Cardiology Labs WBC: 7.3 k/mm3 (11/05/23) RBC: 5.31 m/mm3 (11/05/23) Hgb: 16.7 Gm/dL (11/05/23) Hct: 48.1 % (11/05/23) MCV: 90.6 femtoliters (11/05/23) MCH: 31.5 pg (11/05/23) MCHC: 34.7 g/dL (11/05/23) Platelet Count: 261 k/mm3 (11/05/23) RDW-SD: 41.5 femtoliters (11/05/23) Nucleated RBC (Automated): 0 #/100 WBC'S (11/05/23) Abs. Neut: 5.1 k/mm3 (11/05/23) Abs. Lymph: 1.8 k/mm3 (11/05/23) Abs. Meagher:??0.2 k/mm3??Low (11/05/23) Abs. Eo: 0.1 k/mm3 (11/05/23) Abs. Baso: 0.1 k/mm3 (11/05/23) Neut %: 70.3 % (11/05/23) Meagher %:??2.5 %??Low (11/05/23) Eos %: 1.2 % (11/05/23) Baso %: 0.7 % (11/05/23) Imm Gran: 0.5 % (11/05/23) Abs. Imm Gran: 0 k/mm3 (11/05/23) INR: 1 (11/05/23) Protime (PT): 10.7 seconds (11/05/23) APTT: 29 seconds (11/05/23) Sodium: 138 mmol/L (11/05/23) Potassium: 3.9 mmol/L (11/05/23) Chloride: 101 mmol/L (11/05/23) Bicarbonate Level: 22 mmol/L (11/05/23) Glucose Level:??196 mg/dL??High (11/05/23) BUN: 16 mg/dL (11/05/23) Creatinine-Blood: 0.8 mg/dL (11/05/23) Calcium: 9.7 mg/dL (11/05/23) Protein, Total: 7.7 Gm/dL (11/05/23) Albumin: 4.4 Gm/dL (11/05/23) Alkaline Phosphatase: 66 units/L (11/05/23) AST (SGOT): 19 units/L (11/05/23) ALT (SGPT): 23 units/L (11/05/23) Bilirubin, Total: 0.5 mg/dL (11/05/23) Diagnostic Impression ECG ECG 12-Lead * Preliminary * ?? 19:40:40 Please click on pdf link to open report ?? ECG 12-Lead * Preliminary * ?? 19:40:40 Ventricular Rate: 98 BPM Atrial Rate: 98 BPM P-R Interval: 192 ms QRS Duration: 100 ms Q-T Interval: 342 ms QTC Calculation(Bazett): 436 ms P [place]: 49 degrees R [place]: 53 degrees T [place]: 47 degrees Normal sinus rhythm Cannot rule out Inferior infarct , age undetermined Abnormal ECG When compared with ECG of 05-NOV-2023 11:16, MANUAL COMPARISON REQUIRED, DATA IS UNCONFIRMED ?? [place]: , Problem List/Past Medical History Ongoing Groin pain Obese class II Procedure/Surgical History No qualifying data available. Social History Alcohol Use: Current. Frequency: 1-2 times per month. Electronic Cigarette/Vaping Electronic Cigarette Use: Never. Substance Abuse Use: Never. Tobacco Use: Former smoker, quit more than 30 days ago. Family History No family history recorded. Patient Care team information Care Team Personnel Name: Ainsley Glynn MD Position: [facility] Physician (General Medicine) Member Role: PCP Address: Address: [address] [place] [address] Name: Jazmyn Sanchez RN Position: [facility] RN Member Role: Primary Care Nurse Care Team Related Persons Name: SHALONDA HUDSON Address: [place] [address]
--- OUTSIDE RECORDS SUMMARY | 2024-03-30 08:05 | XMS_ITS | Continuity of Care Document ---
Author Organization [facility] Address [address] [address]- Care Team Providers Care Manager Plumbing Name Role Phone Teddy GUIDO, Fidel Mayo Primary Care Physician Encounter [facility] [place] Date(s): 12/03/23 - 01/02/24 [facility] [address] [address]- [place] Allergies, Adverse Reactions, Alerts Substance Reaction Severity Status penicillins breathing problems Active Nuts Active Medications aspirin 81 mg oral delayed release tablet = 81 mg, By Mouth, Daily, # 90 tablet, 0 Refills, Maintenance, 11/07/23 9:42:00 EST, EC Tablet, [facility], Partial fill upon patient request if the prescription is for a schedule II opioid drug., 178, cm, 11/07/23 8:33:00 EST, Height, 1... Start Date: 11/07/23 Stop Date: 02/05/24 Status: Ordered atorvastatin 40 mg oral tablet 1 tablet = 40 mg, By Mouth, Daily, # 30 tablet, 5 Refills, Maintenance, 11/20/23 11:58:00 EDT, Tablet, [id number], Partial fill upon patient request if the prescription is for a schedule II opioid drug., 178, cm, 11/20/23 11:34:00 EDT... Start Date: 11/20/23 Status: Ordered cetirizine 10 mg oral tablet [...] 0 Refills, Maintenance, 11/07/23 9:42:00 EST, Tablet, [facility], Partial fill upon patient request if the prescription is for a scheduleII opioid drug., 178laurie, 11/07/23 8:33:00 EST, Hei... Start Date: 11/07/23 Stop Date: 02/05/24 Status: Ordered metoprolol 25 mg oral tablet, extended release 25 mg, 1, tablet, By Mouth, Daily, # 90 tablet, Refills 0, Tot. Refills 0, Maintenance, 11/07/23 9:43:00 EST, Route to Pharmacy Electronically, [facility], Partial fill upon patient [...] 3 Refills, Maintenance, 01/02/24 15:04:00 EDT, Tablet, [id number], Partial fill upon patient request if the prescription is for a schedule II opioid drug., laurie [place], 12/11/23 15:... Start Date: 01/02/24 Status: Ordered ticagrelor 90 mg oral tablet 1 tablet = 90 mg, By Mouth, 2 times a day, for 60 days, # 120 tablet, 0 Refills, Hard Stop 249:43:00 EDT, 11/07/23 9:43:00 EST, Tablet, [facility], Partial fill upon patient request if the prescription is for a schedule II opioid... Start Date: 11/07/23 Stop Date: 01/06/24 Status: Ordered Problem List Condition Confirmation Course Effective Dates Status Health [facility] Informant Groin pain Confirmed Active Obese class II Confirmed Active Social History Social History Type Response Smoking Status Former smoker, quit more than 30 days ago entered on: 11/05/23 Sex Implantable Device List Procedure Provider Procedure Date Device Type Site Reduction Turbinate Inferior Shaji Vora MD 04/28/19 Unknown Nares Right Device Identifier Serial Number Lot or Batch Number Manufacturing Date Expiration Date Distinct Identification Code MRI Safety Implantable Status Assigning Authority Unknown Unknown [id number] Unknown 09/21/20 Unknown Unknown Active Unknown Procedure Provider Procedure Date Device Type Site Reduction Turbinate Inferior Shaji Vora MD 04/28/19 Unknown Nares Left Device Identifier Serial Number Lot or Batch Number Manufacturing Date Expiration Date Distinct Identification Code MRI Safety Implantable Status Assigning Authority Unknown Unknown [id number] Unknown 09/21/20 Unknown Unknown Active Unknown Patient Care team information Care Team Personnel Name: Jazmyn Sanchez RN Position: [facility] RN Member Role: Primary Care Nurse Name: Fidel Espinal MD Position: [facility] Outreach Member Role: PCP Address: Address: [address] [place] [id number] Care Team Related Persons Name: SHALONDA HUDSON Address: home [address] [place] [id number]
--- OUTSIDE RECORDS SUMMARY | 2024-03-30 08:05 | XMS_ITS | Continuity of Care Document ---
Author Organization [facility] Address [address] [address]- Care Team Providers Care Slurry Blender Name Role Phone Fidel Espinal MD Primary Care Physician [phone] Encounter [facility] ACCT R [id number] Date(s): 11/20/23 - 11/27/23 [facility] [address] [address]- Attending Physician: Evette Santos Admitting Physician: Evette Santos Referring Physician: Valeria Oden Allergies, Adverse Reactions, Alerts Substance Reaction Severity Status penicillins breathing problems Active Nuts Active Medications aspirin 81 mg oral delayed release tablet = 81 mg, By Mouth, Daily, # 90 tablet, 0 Refills, Maintenance, 11/07/23 9:42:00 EST, EC Tablet, [facility], Partial fill upon patient request if the prescription is for a schedule II opioid drug., 178, cm, 11/07/23 8:33:00 EST, Height, 1... Start Date: 11/07/23 Stop Date: 02/05/24 Status: Ordered atorvastatin 40 mg oral tablet 1 tablet = 40 mg, By Mouth, Daily, # 30 tablet, 5 Refills, Maintenance, 11/20/23 11:58:00 EDT, Tablet, [email or web address] #[id number], Partial fill upon patient request if the [...] 0 Refills, Maintenance, 11/07/23 9:42:00 EST, Tablet, [facility], Partial fill upon patient request if the prescription is for a scheduleII opioid drug., 178, cm, 11/07/23 8:33:00 EST, Hei... Start Date: 11/07/23 Stop Date: 02/05/24 Status: Ordered metoprolol 25 mg oral tablet, extended release 25 mg, 1, tablet, By Mouth, Daily, # 90 tablet, Refills 0, Tot. Refills 0, Maintenance, 11/07/23 9:43:00 EST, Route to Pharmacy Electronically, [facility], Partial fill upon patient request [...] 0 Refills, Maintenance, 11/07/23 9:43:00 EST, Tablet, [facility], Partial fill upon patient request if the prescription is for aschedule II opioid drug., 178, cm, 11/07/23 8:33:00... Start Date: 11/07/23 Stop Date: 01/06/24 Status: Ordered Problem List Condition Confirmation Course Effective Dates Status [facility] Informant Groin pain Confirmed Active Obese class II Confirmed Active Vital Signs Most recent to oldest [Reference Range]: 1 Height 178 cm (11/20/23 11:34 AM) Weight 113.7 kg (11/20/23 11:34 AM) Oxygen Saturation [94-100 %] 97 % (11/20/23 11:34 AM) Pulse Rate [55-90 bpm] 77 bpm (11/20/23 11:34 AM) Body Mass Index [18.5-24.99 kg/m2] 35.89 kg/m2 *>HHI* (11/20/23 11:34 AM) Blood Pressure [90-138/55-84 mm Hg] 127/ 77mm Hg (11/20/23 11:34 AM) Mode of Delivery (Oxygen) Room air (11/20/23 11:34 AM) Blood pressure sites Arm, left (11/20/23 11:34 AM) Weight Obtained Via Standing scale (11/20/23 11:34 AM) Social History Social History Type Response [...] Safety Implantable Status Assigning Authority Unknown Unknown [id number] Unknown 09/21/20 Unknown Unknown Active Unknown Procedure Provider Procedure Date Device Type Site Reduction Turbinate Inferior Shaji Vora MD 04/28/19 Unknown Nares Left Device Identifier Serial Number Lot or Batch Number Manufacturing Date Expiration Date Distinct Identification Code MRI Safety Implantable Status Assigning Authority Unknown Unknown [id number] Unknown 09/21/20 Unknown Unknown Active Unknown Cardiology Outpatient Note * Robert GARCIA, Evette Fernandez: PERFORM Event Display: Cardiology Note Office Authored Date: Patient: ??TRISTANJOSE ? Age:??63 Years?Sex:??Male?:??1960?? Patient Hx Cardiology Shared Clinical Summary CAD s/p THOMAS to mid-proximal LAD 11/06/2023 Provider Clinical Summary Jose is a pleasant??63-year-old gentleman??who was evaluated for chest pain, nausea, vomiting??onthe morning of??November 05, 2023. ??He was first evaluated at [facility] CAT scan ruled out??aortic dissection??and then he was transferred??to [facility]??for cardiac catheteriz ation??which revealed??95%??mid to proximal LAD??occlusion.?? Drug-eluting stent was placed??to theLAD??and??balloon angioplasty??to the ostial??diagonal.?? He has done well??since this procedure but does??complain of??a general feeling of fogginess in the head ?? Plan: 1. CAD:??Status post drug-eluting stent to LAD??November 06, 2023.?? Jose understands the importance of staying on Brilinta??90 mg twice daily for 1 full year.?? He will continue on??81 mg aspirin daily??and 25 mg of metoprolol succinate??daily.?? For now we will decrease his atorvastatin??from 80 mgdaily to 40 mg daily??to see if??his sensation of fogginess ??resolves.?? If no improvement??mightconsider reducing??metoprolol dose slightly. ??For now he will take??metoprolol at night. ??We willget repeat fasting lipid panel and LFTs??in approximately 6 weeks.?? We will get an echo??mid-to-late November??for reevaluation. ??We discussed??what he believes is a contrast allergy,??I then discussed this with Dr. Nan Trejo who??explains that??Definity is of course a??imaging agent??but the make-up is quite different from??contrast dye is used in CAT scan studies??and that it is very unlikely that Jose would??have a problem??if Definity was needed??during his upcoming echo. ?? Jose will follow-up??and establish care with Dr. Sam Santos??January 07, 2024, he will get??an echoand routine blood work??just prior to that visit.?We spent 60 minutes??on today's visit??reviewing all medical records, establishing a plan,??and answering??any and all questions. Thank you for allowing us to participate in his care. Evette Jones PA-C History of Present Illness/Interval History I had the pleasure of seeing??Jose and his Shalonda??here in cardiology??[facility]where Jose was treated for an NSTEMI??and ultimately??had a drug-eluting stent placed to his LAD??with??balloon angioplasty to??the ostial??diagonal. 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 At [facility] he was ruled out for aortic dissection??and transferred to [facility]??for emergent cardiac cath.?He was stabilized and underwent cardiac cath on November 06, 2023??which showed 95% occlusion??of the proximal to mid LAD??and drug-eluting stent was placed.?Circumflex and RCA??had minimal??disease at less than 30%. Jose has done well since he has been home but he does have some concerns,??he has??a feeling of?? fogginess??in his head, blurred vision, and??fatigue , he??questions if this could be from the statin or??beta-shlomo.?He is tolerating the Brilinta. In reviewing his history he has had episodes of??chest pressure since July??but has also had several??viral illnesses over the winter??with some URI symptoms, it was thought that his chest pressure was related??to these other illnesses.?? He was treated with prednisone??in October??for what was thought to be another URI because of ongoing dyspnea. We reviewed his home blood pressures with systolic readings anywhere from 1 11-1 34??and diastolic readings typically between??70 and 80. ??Pulse rates??between 60 and 80 bpm.?Home blood pressure monitor here in the office??showed similar??numbers to our manual??blood pressure reading. ?? 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 After??CAT scan??with contrast??his blood pressure was elevated and he was?? very warm and red-faced??for 12 hours after ,??because of this reaction he??refused to allow Definity ??to be used during recent echocardiogram. ??That particular study had poor quality imaging??which??we were unable to determine??LVEF??or if there were any wall motion abnormalities.?? The distal septal??apical wall??was??akinetic. Review of Systems Discussed, see HPI Physical Exam Vitals & Measurements HR:??77??(Peripheral)?? BP:??127/77?? SpO2:??97%?? HT:??178??cm?? WT:??113.7??kg?? BMI:??35.89?? Weight lb/oz: 250 lb 11 oz Reviewed vitals Right radial access site is well-healed??without tenderness, erythema, or drainage. ??There is no bruit. Lungs: Clear to auscultation bilaterally Cardiac:??Regular rate and rhythm without murmurs rubs or gallops Assessment/Plan CAD in [place] artery Ordered: Echo Complete Hepatic Function Panel Lipid Panel ?? Orders: Atorvastatin, 1 tablet = 40 mg, By Mouth, Daily, # 30 tablet, 5 Refills, Maintenance, 11/20/23 11:58:00 EDT, Tablet, [facility] #[id number], Partial fill upon patient request if the prescriptionis for a schedule II opioid drug., 178, cm, 11/20/23 11:34:00 EDT... Medical Decision Making MODERATE - chronic illness w/ exac, progression, or AE of Tx, 2+ stable chronic illnesses, 1 new prob w/ ? prognosis, 1 acute w/ systemic Sx or comp injury; 2 of (note / test / order / indep historian = 3), interpretation / discussion; MOD risk +SDOH Allergies Nuts penicillins??(breathing problems) Home Medications aspirin 81 mg oral delayed release tablet, 81 mg, By Mouth, Daily atorvastatin 40 mg oral tablet, 40 mg= 1 tablet, By Mouth, Daily, 5 refills cetirizine 10 mg oral tablet, 10 mg= 1 tablet, By Mouth, Daily Lipitor 80 mg oral tablet, 80 mg, By Mouth, Daily at bedtime metoprolol 25 mg oral tablet, extended release, 25 mg= 1 tablet, By Mouth, Daily PredniSONE, By Mouth, Daily ticagrelor 90 mg oral tablet, 90 mg= 1 tablet, By Mouth, 2 times a day Lab Results Cardiology Labs WBC: 8.6 k/mm3 (11/07/23) RBC:??4.66 m/mm3??Low (11/07/23) Hgb: 14.5 Gm/dL (11/07/23) Hct: 42.3 % (11/07/23) MCV: 90.8 femtoliters (11/07/23) MCH: 31.1 pg (11/07/23) MCHC: 34.3 g/dL (11/07/23) Platelet Count: 229 k/mm3 (11/07/23) RDW-SD: 42.9 femtoliters (11/07/23) Nucleated RBC (Automated): 0 #/100 WBC'S (11/07/23) Abs. Neut: 5.1 k/mm3 (11/05/23) Abs. Lymph: 1.8 k/mm3 (11/05/23) Abs. Prairie:??0.2 k/mm3??Low (11/05/23) Abs. Eo: 0.1 k/mm3 (11/05/23) Abs. Baso: 0.1 k/mm3 (11/05/23) Neut %: 70.3 % (11/05/23) [place] %:??2.5 %??Low (11/05/23) Eos %: 1.2 % [...] (11/07/23) Calcium: 8.8 mg/dL (11/06/23) Protein, Total: 7.7 Gm/dL (11/05/23) Albumin: 4.4 Gm/dL (11/05/23) Alkaline Phosphatase: 66 units/L (11/05/23) AST (SGOT): 19 units/L (11/05/23) ALT (SGPT): 23 units/L (11/05/23) Bilirubin, Total: 0.5 mg/dL (11/05/23) Cholesterol: 199 mg/dL (11/07/23) Triglycerides:??157 mg/dL??High (11/07/23) HDL Cholesterol: 48 mg/dL (11/07/23) LDL Cholesterol: 120 mg/dL (11/07/23) Non HDL Cholesterol: 151 mg/dL (11/07/23) Diagnostic Impression ECG ECG 12-Lead ?? 08:10:00 Please click on pdf link to open report ?? Signed By: Nan Trejo MD ?? ECG 12-Lead ?? 08:10:00 Ventricular Rate: 93 BPM Atrial Rate: 93 BPM P-R Interval: 194 ms QRS Duration: 88 ms Q-T Interval: 424 ms QTC Calculation(Bazett): 527 ms P [place]: 31 degrees R [place]: 69 degrees T [place]: 137 degrees Poor data quality, interpretation may be adversely affected Normal sinus rhythm T wave abnormality, consider anterolateral ischemia Prolonged QT Abnormal ECG When compared with ECG of 06-NOV-2023 14:43, No significant change was found Confirmed by NAN TREJO ([id number]) on 11/12/2023 4:35:33 PM ?? [place]: NAN TREJO ?? Signed By: Nan Trejo MD Echo Echocardiogram - Complete ?? 10:41:50 Summary The left ventricle is poorly visualized. No adequate imaging windows were obtained and patient refused ultrasound enhancement. The left ventricular size is normal. The left ventricular wall thickness is increased. Cannot assess LV ejection fraction. Image quality is inadequate to assess regional wall motion. The distal septal to apical wall appears akinetic in extremely limited imaging. ?? The right ventricle is poorly visualized. The right ventricle is normal in size. Right ventricular systolic function appears preserved. ?? Impressions Mostly inadequate study. The distal septal and apical wall appears akinetic. ?? Comparison No prior study available for comparison. ?? Signature ?? Signed By: Shena GUIDO, Milton Adams Problem List/Past Medical History Ongoing Groin pain Obese class II Procedure/Surgical History No qualifying data available. Follow-Up Appointments Added Follow Up ?Time Frame ?Comments Sam Santos MD?7 ?? Weeks Social History Alcohol Use: Current. Frequency: 1-2 times per month. Electronic Cigarette/Vaping Electronic Cigarette Use: Never. Substance Abuse Use: Never. Tobacco Use: Former smoker, quit more than 30 days ago. Family History No family history recorded. Patient Care team information Care Team Personnel Name: Jazmyn Sanchez RN Position: [facility] RN Member Role: Primary Care Nurse Name: Fidel Espinal MD Position: [facility] Outreach Member Role: PCP Address: Address: [address] [place] [id number]- Care Team Related Persons Name: SHALONDA HUDSON Address: [place] [address]
--- OUTSIDE RECORDS SUMMARY | 2024-03-30 08:05 | XMS_ITS | Continuity of Care Document ---
Author Organization [facility] Address [address] [address]- Care Team Providers Care Windows Deployment Technician Name Role Phone Teddy GUIDO, Fidel Mayo Primary Care Physician Encounter [facility] [place] [place] Date(s): 01/02/24 - 02/01/24 [facility] [address] [address]- [place] Allergies, Adverse Reactions, Alerts Substance Reaction Severity Status atorvastatin Prednisone adverse reaction Active penicillins breathing problems Active Nuts Active Medications amLODIPine 5 mg oral tablet 5 mg, 1, tablet, By Mouth, Daily, # 90 tablet, Refills 3, Tot. Refills 3, Maintenance, 01/07/24 9:17:00 EDT, Route to Pharmacy Electronically, [facility] #[id number], Partial fill upon patient request if the prescription is for a schedule II opio... Start Date: 01/07/24 Stop Date: 01/01/25 Status: Ordered aspirin 81 mg oral delayed release tablet = 81 mg, By Mouth, Daily, # 90 tablet, 0 Refills, Maintenance, 11/07/23 9:42:00 EST, EC Tablet, [facility], Partial fill upon patient [...] 11/07/23 9:43:00 EST, Route to Pharmacy Electronically, [facility], Partial fill upon patientrequest [...] tablet, 6 Refills, Maintenance, 01/07/24 9:11:00EDT, Tablet, [facility] #[id number], Partial fill upon patient request if the prescription is for a schedule II opioid drug., 178 cm, 01/07/24 8:... Start Date: 01/07/24 Stop Date: 08/04/24 Status: Ordered ticagrelor 90 mg oral tablet 1 tablet = 90 mg, By Mouth, 2 times a day, # 180 tablet, 3 Refills, Maintenance, 01/02/24 15:04:00 EDT, Tablet, [facility] #[id number], Partial fill upon patient request if the prescription is for a schedule II opioid drug., Wu cm, 12/11/23 15:... Start Date: 01/02/24 Status: Ordered Problem List Condition Confirmation Course Effective Dates Status [facility] Informant Groin pain Confirmed Active Obese [...] Safety Implantable Status Assigning Authority Unknown Unknown [id number] 1 Unknown 09/21/20 Unknown Unknown Active Unknown Procedure Provider Procedure Date Device Type Site Reduction Turbinate Inferior Shaji Vora MD 04/28/19 Unknown Nares Left Device Identifier Serial Number Lot or Batch Number Manufacturing Date Expiration Date Distinct Identification Code MRI Safety Implantable Status Assigning Authority Unknown Unknown [id number] Unknown 09/21/20 Unknown Unknown Active Unknown Patient Care team information Care Team Personnel Name: Jazmyn Sanchez RN Position: S RN Member Role: Primary Care Nurse Name: Fidel Espinal MD Position: [facility] Outreach Member Role: PCP Address: Address: [address] [place] [address]- Care Team Related Persons Name: SHALONDA HUDSON Address: home [address] [place] [address]
--- NOTE | 2024-03-30 08:13 | AM.OFFWIN_ITS ---
Intake Vital Signs 03/30/24 08:25 Height 5 ft 10 in Weight 245 lb 6 oz BMI 35.2 BP 134/84 Blood Pressure Location Rt brachial Position Sitting Respiration 16 Pulse 84 Pulse Source Pulse Oximeter Temp 97.9 F Temp Source Oral Pulse Oximetry (%) 97 Oxygen Delivery Method Room Air Intake Visit Reasons: Shortness of breath Intake Note: patient here for c/o shortness of breath. Patient Tobacco Use Status: Former Tobacco user Import/Export Administrator Required: No Allergies pollen extracts Allergy (Mild, Verified 03/30/24 08:30) Sneezing sesame oil Allergy (Mild, Verified 03/30/24 08:30) Anaphylaxis sesame seed Allergy (Mild, Verified 03/30/24 08:30) Anaphylaxis penicillin V Allergy (Unknown, Verified 03/30/24 08:30) childhood Penicillins Allergy (Unknown, Verified 03/30/24 08:30) Unknown tree nuts, sesame seeds Allergy (Unknown, Uncoded 03/30/24 08:30) anaphylaxis Medication List - Last Reconciled 03/30/24 by Billie Hsieh CNP aspirin 81 mg PO DAILY epinephrine (EpiPen) 0.3 mg (0.3 mL) IM Q4H PRN 30 days ezetimibe (Zetia) 10 mg PO DAILY 30 days metoprolol succinate ER 12.5 mg (1/2 x 25 mg) PO DAILY 90 days mometasone 50 mcg/actuation 2 sprays intranasal DAILY PRN 30 days ticagrelor (Brilinta) 60 mg PO BID 90 days Do you need a note to return to daycare/school/sports/work: Yes HPI HPI Comments History of Present Illness Details 63-year-old male presents with complaint s of intermittent breathing issue for over two years; he has been experiencing moderate intermittent pressure in his right upper chest with inhalation. No chest pain or palpations. No cough. No constitutional symptoms. No acute symptoms at this time. He has never been evaluated by pulmonology. He requests pulmonology referral. [facility] Medical History No pertinent past medical history Surgical History History of nasal surgery History of hernia surgery Social History (Reviewed 11/04/23 @ 13:09 by NASIM Ibrahim Housing: Apartment Alcohol intake: current Alcohol intake frequency: a few times a week Patient Tobacco Use Status: Former Tobacco user e-Cigarette/Vaping Use: Never Used Second Hand Smoke Exposure: No service: No Current occupational status: employed Current occupation: [employer] Current occupational exposures/hazards: No Cognitive needs: No Hearing needs: No Vision needs: No Review of Systems Const Details: Const Denies chills, Denies fatigue, Denies fever(s), Denies headache(s) and Denies weakness ENT Denies change in vision, Denies dizziness, Denies headache(s), Denies hearing loss, Denies nasal congestion, Denies sinus pain, Denies sinus pressure and Denies sore throat Resp Reports as per HPI Cardio Denies chest pain, Denies lightheadedness, Denies dyspnea and Denies other (palpitations) Neuro Denies dizziness, Denies headache(s), Denies numbness, Denies tingling and Denies weakness Psych Denies anxiety, Denies depression, Denies memory?loss Endo Denies fatigue Aller/Immun Denies wheezing Physical Exam Const Other: Const General: well developed; No acute distress Nutritional Appearance: well nourished Orientation/consciousness: patient oriented x3 HEENT Head: Yes normocephalic and Yes atraumatic Eyes General: appearance normal, both eyes and all related structures Pupils: Equal, round and reactive pupils present EOM: EOMs intact bilaterally Resp Effort & Inspection: normal respiratory effort Auscultation: clear to auscultation bilaterally Cardio Rate: regular rate Rhythm: regular rhythm Heart sounds: S1 normal heart sound present, S2 normal heart sound present, no gallops, no murmurs and no rubs Bruits: no abdominal aortic bruits and no carotid bruits Neuro General: patient oriented x3 and gait normal, no focal neuro deficit Cranial nerves: Yes Equal, round and reactive pupils present Psych Affect: normal affect Assessment & Plan Assessment & Plan (1) Difficulty breathing: Code(s): R06.89 - Other abnormalities of breathing Plan: Moderate intermittent pressure in his right upper chest with inhalation. Symptoms have been ongoing for the past 2 years No chest pain, palpitations, cough or constitutional symptoms No acute symptoms Albuterol inhaler as prescribed Referred to pulmonology as requested Follow-up with PCP as planned Go to the ED with worsening symptoms with associated chest pain or palpitations Verbalized understanding and agreed with the treatment plan Orders: Referrals Pulmonology Referral R06.89 - Other abnormalities of breathing Medications: New albuterol sulfate 90 mcg/actuation 2 puffs inhalation Q4-6H PRN 8.5 grams 2RF shortness of breath or wheezing Coding Level of Care Code Est Pt Level 4 (28511) Diagnoses Difficulty breathing R06.89
[2024-03-30 08:25] VITALS: BP 134/84; PULSE 84; RESP 16; TEMP 36.6; O2SAT 97; BMI 35.2
== END 2024-03-30 08:59 | disposition home or self-care (01) ==
PROVIDERS: PCP Family Medicine
DX: R06.89 Other abnormalities of breathing (principal)
CPT/HCPCS: 99214

== ENCOUNTER 2024-04-07 10:49 | Outpatient (AMB) | payer OTHER, SELFPAY ==
--- NOTE | 2024-04-07 10:50 | MHC.OFFVIS ---
Vital Signs 04/07/24 10:51 Height 5 ft 10 in Weight 242 lb 8 oz BMI 34.8 BP 142/78 H Blood Pressure Location Rt brachial Position Sitting Pulse 87 Pulse Source Pulse Oximeter Pulse Oximetry (%) 98 Oxygen Delivery Method Room Air Intake Visit Reasons: abnormality of breathing Allergies pollen extracts Allergy (Mild, Verified 04/07/24 11:02) Sneezing sesame oil Allergy (Mild, Verified 04/07/24 11:02) Anaphylaxis sesame seed Allergy (Mild, Verified 04/07/24 11:02) Anaphylaxis penicillin V Allergy (Unknown, Verified 04/07/24 11:02) childhood Penicillins Allergy (Unknown, Verified 04/07/24 11:02) Unknown tree nuts, sesame seeds Allergy (Unknown, Uncoded 04/07/24 11:02) anaphylaxis HPI HPI abnormality of breathing: Details: Jose is a pleasant 63 year old male, former smoker, with underlying asthma and recent MO 10/2023 s/p one stent. He was referred by PCP for pulmonary evaluation for worsening respiratory symptoms after malathi COVID19 4 years ago. He did not require hospitalization. He also notes increased hypersensitivity to allergens. He denies recent allergy testing. He has a parrot and dog at home. He does not use any antihistamines. He reports asthma since childhood, never requiring intubation. He has been prescribed albuterol however has not used in quite some time. He continues to report dyspnea on exertion and productive cough with clear to white sputum. 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 He denies any pertinent family history. [facility] Medical History No pertinent past medical history Surgical History History of nasal surgery History of hernia surgery Social History Housing: Apartment Alcohol intake: current Alcohol intake frequency: a few times a week Patient Tobacco Use Status: Former Tobacco user e-Cigarette/Vaping Use: Never Used Second Hand Smoke Exposure: No service: No Current occupational status: employed Current occupation: [employer] Current occupational exposures/hazards: No Cognitive needs: No Hearing needs: No Vision needs: No Physical Exam Vital Signs: Last Vital Signs Pulse 87 04/07/24 10:51 BP 142/78 H 04/07/24 10:51 Pulse Ox 98 04/07/24 10:51 Oxygen Delivery Method Room Air 04/07/24 10:51 BMI result Body Mass Index 34.8 Results Reviewed Results Reviewed: [address] [address] XRay Report Signed Patient: Jose Gilbert MR#: [id number] : 1960 Acct:[id number] Age/Sex: 63 / M ADM Date: 11/04/23 Loc: HO.XRAY Attending Dr: Fidel Espinal MD Ordering Physician: Fidel Espinal MD Date of Service: 11/04/23 Procedure(s): XR chest 2V Accession Number(s): [id number] cc: Fidel Espinal MD~ EXAMINATION: XR CHEST CLINICAL INFORMATION: Chest pain COMPARISON: None available. TECHNIQUE: 2 views of the chest were obtained. FINDINGS: The lungs are hypoexpanded but clear. The heart size and pulmonary vascularity is normal. There is mild scoliosis of dorsal spine. XR/XR chest 2V IMPRESSION: Hypoexpanded lungs without acute process. Dictated By: Raul Hilliard MD Signed By: <Electronically signed by Raul Hilliard MD in OV> 11/04/23 1011 DD/ 0842 TD/TT: Pharmacy Affairs Assistant: [facility] Assessment & Plan Assessment & Plan (1) Asthma: Code(s): J45.909 - Unspecified asthma, uncomplicated Category: Medical (2) Environmental allergies: Code(s): Z91.09 - Other allergy status, other than to drugs and biological substances Category: Medical Plan Jose's symptoms are likely related to underlying asthma with possible allergic component. Will send for PFT and RAST. He would like to hold of on additional medications at this time. Will follow up to review results and consider chest CT. Recent CXR revealed hypoinflated lungs otherwise unremarkable. All questions were answered and patient in agreement of plan. Orders: Orders Other Ref Test - Misc 04/07/24 Z91.09 - Other allergy status, other than to drugs and biological substances Complete Blood Count Auto Diff 04/07/24 Z91.09 - Other allergy status, other than to drugs and biological substances Immunoglobulin E 04/07/24 Z91.09 - Other allergy status, other than to drugs and biological substances Resp Allergy Profile Region I 04/07/24 Z91.09 - Other allergy status, other than to drugs and biological substances PFT pulmonary function test Today Coding Level of Care Code New Pt Level 4 (01064) Diagnoses Asthma J45.909 Environmental allergies Z91.09
[2024-04-07 10:51] VITALS: BP 142/78; PULSE 87; O2SAT 98; BMI 34.8
== END 2024-04-07 11:52 | disposition home or self-care (01) ==
PROVIDERS: PCP Family Medicine; Referring Provider Family Medicine; Visit Provider Nurse Practitioner Family
DX: J45.909 Unspecified asthma, uncomplicated (principal); Z91.09 Other allergy status, other than to drugs and biological substances
CPT/HCPCS: 99204

== ENCOUNTER → 2024-04-07 10:49 | Outpatient (BNVA) | payer OTHER, SELFPAY | PROVIDERS: PCP Family Medicine; Visit Provider Nurse Practitioner Family ==

== ENCOUNTER 2024-04-14 12:07 | Outpatient (AMB) | payer OTHER, SELFPAY ==
--- NOTE | 2024-04-14 12:15 | A.OFFPC_ITS ---
Vital Signs 04/14/24 12:17 Height 5 ft 10 in Weight 245 lb 4 oz BMI 35.2 BP 126/80 Blood Pressure Location Lt brachial Position Sitting Respiration 18 Pulse 98 Pulse Source Pulse Oximeter Temp 98 F Temp Source Tympanic Pulse Oximetry (%) 98 Oxygen Delivery Method Room Air Intake Visit Reasons: hyperlipidemia in patient with CAD Intake Note: follow up for hyperlipidemia and CAD Allergies pollen extracts Allergy (Mild, Verified 04/14/24 12:16) Sneezing sesame oil Allergy (Mild, Verified 04/14/24 12:16) Anaphylaxis sesame seed Allergy (Mild, Verified 04/14/24 12:16) Anaphylaxis penicillin V Allergy (Unknown, Verified 04/14/24 12:16) childhood Penicillins Allergy (Unknown, Verified 04/14/24 12:16) Unknown tree nuts, sesame seeds Allergy (Unknown, Uncoded 04/07/24 11:02) anaphylaxis Medication List - Last Reconciled 04/14/24 by Fidel Espinal MD albuterol sulfate 90 mcg/actuation 2 puffs inhalation Q4-6H PRN aspirin 81 mg PO DAILY epinephrine (EpiPen) 0.3 mg (0.3 mL) IM Q4H PRN 30 days ezetimibe (Zetia) 10 mg PO DAILY 30 days metoprolol succinate ER 12.5 mg (1/2 x 25 mg) PO DAILY 90 days mometasone 50 mcg/actuation 2 sprays intranasal DAILY PRN 30 days ticagrelor (Brilinta) 60 mg PO BID 90 days Tobacco use date assessed: 01/19/24 Dental Screening Dental Screen Date: 12/15/23 HPI hyperlipidemia in patient with CAD HPI Details Patient?presents?to?discuss?lab?work?including?his?cholesterol?levels?and?A1c Patient?has?a?history?of?coronary?artery?disease?and?goal?for?LDL?cholesterol?is ?less?than?70.??LDL?has?been?significantly?above?this?and?is?still?at 126. He?declined?statins?and?I?had?sent?a?prescr iption?for?Zetia?but?patient?is?declining?this?as?well A1c?5.8%? No?asthma?symptoms?today.??Breathing?easily.??Has?medications?which?he?takes?as? needed PFSH Medical History No pertinent past medical history Surgical History History of nasal surgery History of hernia surgery Social History Housing: Apartment Alcohol intake: current Alcohol intake frequency: a few times a week Patient Tobacco Use Status: Former Tobacco user e-Cigarette/Vaping Use: Never Used Second Hand Smoke Exposure: No service: No Current occupational status: employed Current occupation: [employer] Current occupational exposures/hazards: No Cognitive needs: No Hearing needs: No Vision needs: No Questionnaire Thrive Questionnaire Date Thrive assessed: 10/21/23 LISA-7 AMB Questionnaire LISA-7 Date LISA - 7 assessed: 10/21/23 Source: Developed by Drs. Darin Day, Ama Bowman, Deyvi Espinal and colleagues, with an educational helen from [employer]. Review of Systems Const Denies chills, Denies fatigue, Denies fever(s), Denies headache(s) and Denies weakness ENT Denies dizziness and Denies headache(s) Card Denies chest pain, Denies lightheadedness, Denies dyspnea and Denies other (Palpitations) Resp Denies cough, Denies dyspnea, Denies wheezing and Denies other ( shortness of breath) Musc Denies numbness and Denies tingling Neuro Denies dizziness, Denies headache(s), Denies numbness, Denies tingling, Denies paresthesias and Denies weakness Psych Denies anxiety and Denies depression Endo Denies fatigue Aller/Immun Denies wheezing Physical exam (Primary Care) Vital Signs: Last Vital Signs Temp 98 F 04/14/24 12:17 Pulse 98 04/14/24 12:17 Resp 18 04/14/24 12:17 BP 126/80 04/14/24 12:17 Pulse Ox 98 04/14/24 12:17 Oxygen Delivery Method Room Air 04/14/24 12:17 BMI result Body Mass Index 35.2 Tobacco/Smoking Status: Tobacco use Status Tobacco use date assessed 01/19/24 04/14/24 12:20 Patient Tobacco Use Status Former Tobacco user 04/14/24 12:20 e-Cigarette/Vaping Use Never Used 04/14/24 12:20 Thrive Assessment: Date of Thrive Assessment Date Thrive assessed 10/21/23 04/14/24 12:20 Const General: no acute distress and well developed Nutritional Appearance: well nourished Orientation/consciousness: patient oriented x3 HENMT Head: Yes normocephalic and Yes atraumatic Eyes General: appearance normal, both eyes and all related structures Pupils: Equal, round and reactive pupils present EOM: EOMs intact bilaterally Resp Effort & Inspection: normal respiratory effort Auscultation: clear to auscultation bilaterally Cardio Rate: regular rate Rhythm: regular rhythm Heart sounds: S1 normal heart sound present, S2 normal heart sound present, no gallops, no murmurs and no rubs Neuro General: patient oriented x3 and gait normal Cranial nerves: Yes Equal, round and reactive pupils present Psych Affect: normal affect Assessment and Plan Assessment & Plan (1) Hyperlipidemia: Code(s): E78.5 - Hyperlipidemia, unspecified Plan: LDL?cholesterol?126?is?still?well?above?goal?of?less?than?70?for?patient?with?co ronary?artery?disease He?has?declined?to?take?statins?or?other?medications. Strongly?encouraged?a?diet?low?in?saturated?fats?and?cholesterol,?exercise?and?w eight?loss Also?encouraged?better?blood?sugar?control We?discussed?sup plements?such?as?red?yeast?rice?and?lecithin?which?may?bring?some?modest?improve ments?in?his?cholesterol?as?well Will?follow-up?in?a?few?months?and?advise?patient (2) CAD (coronary artery disease): Code(s): I25.10 - Atherosclerotic heart disease of [place] coronary artery without angina pectoris Plan: Patient?has?history?of?stent?and?is?followed?by?cardiology. He?is?on?Brilinta?but?would?like?to?change?this.??I?advised?he?discuss?with?his? admission nurse (3) Asthma: Code(s): J45.909 - Unspecified asthma, uncomplicated Plan: Followed?by?pulmonology Patient?is?breathing?easily?today Has?albuterol?and?treats?allergy?triggers?when?needed Stable Follow-up?with?pulmonology?as?recommended (4) Sleep apnea: Code(s): G47.30 - Sleep apnea, unspecified Plan: Numerous?symptoms?of?sleep?apnea?and?has?an?appointment?coming?up?with?sleep?med icine (5) Pre-diabetes: Code(s): R73.03 - Prediabetes Plan: A1c?5.8%.??Early?pre?diabetes?range. Discussed?exercise?weight?loss?and?a?diet?lower?in?sugars?and?starches Will?continue?to?monitor Orders: Orders Lipid Panel Today I25.10 - Atherosclerotic heart disease of [place] coronary artery without angina pectoris, Z00.00 - Encounter for general adult medical examination without abnormal findings Comprehensive [place]. Panel Fast Today I25.10 - Atherosclerotic heart disease of [place] coronary artery without angina pectoris, Z00.00 - Encounter for general adult medical examination without abnormal findings Hemoglobin A1c Today I25.10 - Atherosclerotic heart disease of [place] coronary artery without angina pectoris, R73.01 - Impaired fasting glucose Cortisol Random Today R73.03 - Prediabetes Coding Level of Care Code Est Pt Level 4 (01541) Diagnoses Hyperlipidemia E78.5 CAD (coronary artery disease) I25.10 Asthma J45.909 Sleep apnea G47.30 Pre-diabetes R73.03
[2024-04-14 12:17] VITALS: BP 126/80; PULSE 98; RESP 18; TEMP 36.6; O2SAT 98; BMI 35.2
== END 2024-04-14 12:58 | disposition home or self-care (01) ==
PROVIDERS: PCP Family Medicine; Visit Provider Family Medicine
DX: E78.5 Hyperlipidemia, unspecified (principal); I25.10 Atherosclerotic heart disease of native coronary artery without angina pectoris; J45.909 Unspecified asthma, uncomplicated; G47.30 Sleep apnea, unspecified; R73.03 Prediabetes
CPT/HCPCS: 99214

== ENCOUNTER → 2024-06-14 11:59 | Outpatient (BNVA) | payer OTHER, SELFPAY | PROVIDERS: PCP Family Medicine; Visit Provider Family Medicine ==

== ENCOUNTER 2024-06-29 12:04 | Outpatient (AMB) | payer OTHER, SELFPAY ==
--- NOTE | 2024-06-29 12:02 | A.OFFPC_ITS ---
Intake Visit Reasons: FMLA Paperwork Allergies pollen extracts Allergy (Mild, Verified 06/29/24 12:03) Sneezing sesame oil Allergy (Mild, Verified 06/29/24 12:03) Anaphylaxis sesame seed Allergy (Mild, Verified 06/29/24 12:03) Anaphylaxis penicillin V Allergy (Unknown, Verified 06/29/24 12:03) childhood Penicillins Allergy (Unknown, Verified 06/29/24 12:03) Unknown tree nuts, sesame seeds Allergy (Unknown, Uncoded 06/14/24 12:59) anaphylaxis Tobacco use date assessed: 01/19/24 Dental Screening Dental Screen Date: 12/15/23 HPI FMLA Paperwork HPI Details Patient presents by telemedicine to revise his FMLA paperwork due to requiring extension of the end date. Patient who in retrospect, had noted some chest pressure since 07/21/2023 initially presented to [facility] ED on 11/05/2023 for chest pain and was transferred and admitted to [facility] on 11/06/2023 after cardiac catheterization revealed 95% occlusion of left anterior descending coronary artery. He was diagnosed with NSTEMI and underwent left anterior descending balloon angioplasty with drug-eluting stent placement which he tolerated well. However, patient has had complaints of mental fogginess since then. He was discharged from the hospital on 11/08/2023 and resumed work on 11/18/23 and began cardiac rehab on 12/11/2023. Cardiac rehab was anticipated to complete in April but was extended through June with an expected discharge from cardiac rehab was 06/24/2024. [facility] Medical History No pertinent past medical history Surgical History History of nasal surgery History of hernia surgery Social History Housing: Apartment Alcohol intake: current Alcohol intake frequency: a few times a week Patient Tobacco Use Status: Former Tobacco user e-Cigarette/Vaping Use: Never Used Second Hand Smoke Exposure: No service: No Current occupational status: employed Current occupation: [employer] Current occupational exposures/hazards: No Cognitive needs: No Hearing needs: No Vision needs: No Questionnaire Thrive Questionnaire Date Thrive assessed: 10/21/23 LISA-7 AMB Questionnaire LISA-7 Date LISA - 7 assessed: 10/21/23 Source: Developed by Drs. Darin Day, Ama Bowman, Deyvi Espinal and colleagues, with an educational helen from [employer]. Review of Systems Const Denies chills, Denies fatigue, Denies fever(s), Denies headache(s) and Denies weakness ENT Denies dizziness and Denies headache(s) Card Denies chest pain, Denies lightheadedness, Denies dyspnea and Denies other (Palpitations) Resp Denies cough, Denies dyspnea, Denies wheezing and Denies other ( shortness of breath) Musc Denies numbness and Denies tingling Neuro Denies dizziness, Denies headache(s), Denies numbness, Denies tingling, Denies paresthesias and Denies weakness Psych Denies anxiety and Denies depression Endo Denies fatigue Aller/Immun Denies wheezing Physical exam (Primary Care) Tobacco/Smoking Status: Tobacco use Status Tobacco use date assessed 01/19/24 06/29/24 12:03 Patient Tobacco Use Status Former Tobacco user 06/29/24 12:03 e-Cigarette/Vaping Use Never Used 06/29/24 12:03 Thrive Assessment: Date of Thrive Assessment Date Thrive assessed 10/21/23 06/29/24 12:03 Telehealth Telehealth Telehealth Platform: Telephone Location of provider rendering services: practice address Location of patient: address on file Patient Identification confirmed using: Name, : Yes Telehealth method: voice only Patient verbally consented to treatment: Yes Patient verbally consented to billing insurance company: Yes Patient informed of any privacy concerns related to visit: Yes Minutes spent on Phone/Video with Pt.: 15 Coding Level of Care Code Tele Est Pt Level 2 (87007) Diagnoses NSTEMI (non-ST elevated myocardial infarction) I21.4 CAD (coronary artery disease) I25.10 Assessment & Plan Assessment & Plan (1) NSTEMI (non-ST elevated myocardial infarction): Code(s): I21.4 - Non-ST elevation (NSTEMI) myocardial infarction Category: Medical Plan: NSTEMI?on?11/05/2023?with?angioplasty?and?drug- eluting?stent?placement?on?11/06/2023. Patient?completed?cardiac?rehab?on?06/24/2024 - this?was?extended?from?April. Patient?has?been?doing?well?and?was?back?to?work?by?11/18/2023. Revised?FMLA?paperwork. (2) CAD (coronary artery disease): Code(s): I25.10 - Atherosclerotic heart disease of [place] coronary artery without angina pectoris Category: Medical Plan: Stable Follow-up?with??Tom?as?recommended
--- OUTSIDE RECORDS SUMMARY | 2024-06-29 12:05 | XMS_ITS | Continuity of Care Document ---
Author Organization [facility] Address [address] [address]- Care Team Providers Care Floor Mechanic Name Role Phone Fidel Espinal MD Primary Care Physician Encounter [facility] R [id number] Date(s): 04/26/24 - 05/26/24 [facility] [address] [address]- Attending Physician: Phyllis Felton Admitting Physician: AdmtrPhyllis Referring Physician: Admtr ArFrank Allergies, Adverse Reactions, Alerts Substance Reaction Severity Status atorvastatin Prednisone adverse reaction Active penicillins breathing problems Active Nuts Active Medications amLODIPine 5 mg oral tablet 5 mg, 1, tablet, By Mouth, Daily, # 90 tablet, Refills 3, Tot. Refills 3, Maintenance, 01/07/24 9:17:00 EDT, Route to Pharmacy Electronically, [id number], Partial fill upon patient request if the prescription is for a schedule II opio... Start Date: 01/07/24 Stop Date: 01/01/25 Status: Ordered aspirin 81 mg oral delayed release tablet = 81 mg, By Mouth, Daily, # 90 tablet, 0 Refills, Maintenance, 11/07/23 9:42:00 EST, EC Tablet, [facility], Partial fill upon patient [...] opioid drug. Start Date: 11/06/23 Status: Ordered clopidogrel 75 mg oral tablet 75 mg, 1, tablet, By Mouth, Daily, # 30 tablet, Refills 6, Tot. Refills 6, Maintenance, 04/26/24 16:57:00 EDT, Route to Pharmacy Electronically, [id number], Partial fill upon patientrequest if the prescription is for a schedule II op... Start Date: 04/26/24 Status: Ordered metoprolol 25 mg oral tablet, extended release 12.5 mg, 0.5, tablet, By Mouth, Daily, # 90 tablet, Refills 0, Tot. Refills 0, Maintenance, 11/07/23 9:43:00 EST, Route to Pharmacy Electronically, [facility], Partial fill upon patientrequest if the prescription is for a schedule II op... Start Date: 11/07/23 Status: Ordered PredniSONE By Mouth, Daily, 0 Refills, Maintenance, 11/05/23 7:49:00 EST, Partial fill upon patient request ifthe prescription is for a schedule II opioid drug. Start Date: 11/05/23 Status: Ordered Problem List Condition Confirmation Course [...] Safety Implantable Status Assigning Authority Unknown Unknown [id number] Unknown 09/21/20 Unknown Unknown Active Unknown Procedure Provider Procedure Date Device Type Site Reduction Turbinate Inferior Shaji Vora MD 04/28/19 Unknown Nares Left Device Identifier Serial Number Lot or Batch Number Manufacturing Date Expiration Date Distinct Identification Code MRI Safety Implantable Status Assigning Authority Unknown Unknown [id number] Unknown 09/21/20 Unknown Unknown Active Unknown Patient Care team information Care Team Personnel Name: Jazmyn Sanchez RN Position: [facility] RN Member Role: Primary Care Nurse Name: Fidel Espinal MD Position: [facility] Outreach Member Role: PCP Address: Address: [address] [place] [id number]- Care Team Related Persons Name: SHALONDA HUDSON Address: home [address] [place] [id number]
--- OUTSIDE RECORDS SUMMARY | 2024-06-29 12:05 | XMS_ITS | Continuity of Care Document ---
Author Organization Psychiatric Address [address] [address]- Care Team Providers Care Receiving Associate Store Name Role Phone Fidel Espinal MD Primary Care Physician Encounter [facility] Date(s): 04/26/24 - 05/03/24 [facility] [address] [address]- Attending Physician: Sam Santos MD Admitting Physician: Sam Santos MD Referring Physician: Fidel Espinal MD Allergies, Adverse Reactions, Alerts Substance Reaction Severity Status atorvastatin Prednisone adverse reaction Active penicillins breathing problems Active Nuts Active Medications amLODIPine 5 mg oral tablet 5 mg, 1, tablet, By Mouth, Daily, # 90 tablet, Refills 3, Tot. Refills 3, Maintenance, 01/07/24 9:17:00 EDT, Route to Pharmacy Electronically, [facility] #[id number], Partial fill upon patient request if the prescription is for a schedule II opio... Start Date: 01/07/24 Stop Date: 01/01/25 Status: Ordered aspirin 81 mg oral delayed release tablet = 81 mg, By Mouth, Daily, # 90 tablet, 0 Refills, Maintenance, 11/07/23 9:42:00 EST, EC Tablet, [facility], Partial fill upon patient [...] 04/26/24 16:57:00 EDT, Route to Pharmacy Electronically, [facility] #[id number], Partial fill upon patientrequest if the prescription is for a schedule II op... Start Date: 04/26/24 Status: Ordered metoprolol 25 mg oral tablet, extended release 12.5 mg, 0.5, tablet, By Mouth, Daily, # 90 tablet, Refills 0, Tot. Refills 0, Maintenance, 11/07/23 9:43:00 EST, Route to Pharmacy Electronically, [facility], Partial fill upon patientrequest if the [...] oldest [Reference Range]: 1 Height 178 cm (04/26/24 3:44 PM) Weight 112 kg (04/26/24 3:44 PM) Oxygen Saturation [94-100 %] 97 % (04/26/24 3:44 PM) Pulse Rate [55-90 bpm] 87 bpm (04/26/24 3:44 PM) Body Mass Index [18.5-24.99 kg/m2] 35.35 kg/m2 *>HHI* (04/26/24 3:44 PM) Blood Pressure [90-138/55-84 mm Hg] 178/ 100mm Hg *H* (04/26/24 3:44 PM) Blood pressure sites Arm, left (04/26/24 3:44 PM) Weight Obtained Via Standing scale (04/26/24 3:44 PM) Social History Social History Type Response Smoking Status Former smoker, quit more than 30 days ago entered on: 11/05/23 Sex Implantable Device List Procedure Provider Procedure Date Device Type Site Reduction Turbinate Inferior Shaji Vora MD 04/28/19 Unknown [place] Right Device Identifier Serial Number Lot or Batch Number Manufacturing Date Expiration Date Distinct Identification Code MRI Safety Implantable Status Assigning Authority Unknown Unknown [id number] Unknown 09/21/20 Unknown Unknown Active Unknown Procedure Provider Procedure Date Device Type Site Reduction Turbinate Inferior Shaji Vora MD 04/28/19 Unknown Ginny Left Device Identifier Serial Number Lot or Batch Number Manufacturing Date Expiration Date Distinct Identification Code MRI Safety Implantable Status Assigning Authority Unknown Unknown [id number] Unknown 09/21/20 Unknown Unknown Active Unknown Cardiology Outpatient Note * Evette Santos: PERFORM Event Display: Cardiology Note Office Authored Date: [id number] Patient: ??TRISTANJOSE ? Age:??63 Years?Sex:??Male?:??1960?? Patient Hx Cardiology Shared Clinical Summary CAD s/p THOMAS to mid-proximal LAD 11/06/2023. Mild dz in LCx and RCA HL??with??hx of atorvastatin intolerance?? Hypertension?? Provider Clinical Summary Jose is a pleasant??63-year-old gentleman??with a history of CAD. ??He presented to [facility] on November 05, 2023??after experiencing retractable vomiting.?? A??cardiac catheterization at that time??revealed??95%??mid to proximal LAD??occlusion.?? Drug-eluting stent was placed??to the LAD??and??balloon angioplasty??to the ostial??diagonal.?? He continues to struggle with medication intolerances??having not??tolerated??80??mg or 40 mg of atorvastatin.?He has many vague symptoms that he thinks might be related to Brilinta. ?? Plan: 1. CAD:??Status post drug-eluting stent to LAD??November 06, 2023.?Jose??feels that his many??symptoms of??confusion, fatigue,??slight disorientation??might be an intolerance to Brilinta, at this point we will make a change to??Plavix 75 mg daily??to see if he tolerates that??any better. ??He willcontinue on??81 mg aspirin daily??to be taken at night. He did not tolerate atorvastatin. ??He was given a prescription??for??10 mg of rosuvastatin??from Dr. Espinal??but admits that he has not tried that yet. At this point we will make the 1 change from Brilinta to??Plavix??and see how he does, we will takehis normal Brilinta dose tonight??and then his first dose of Plavix tomorrow midday??and then be onschedule the following day??for p.m. dosing.?? If he tolerates that change we will then consider??st arting??rosuvastatin 10 mg??every other day??and if tolerated slowly increasing??frequency??and then dosage as??tolerated. In discussing the importance of statin therapy??in a person with known CAD, I explained??that we have targets/goals??for an LDL of less than 70 and ideally closer to 50. In explaining the benefits of start in therapy??including??potential slight reduction in existing plaque,??preventing additional plaque buildup, and especially??for plaque stabilization,??Shalonda did question me??more than once??about the accuracy??of my comments.?Recent echo??reports??LVEF of 55 to 60%??without wall motion abnormalities. 2.?Hypertension:??Blood pressure was elevated today??in the office,??unfortunately we got so involved in lengthy discussions??during today's visits??that??I did not recheck it at the end of the visit.?? I am reassured??by blood pressures taken at [facility] during cardiac rehab??although there are a fair number of??systolic readings greater than 130, he has an??appropriate??BP response to exercise??and then recovery.?Defer to Dr. Bright for blood pressure control. ?? I will see Jose here in cardiology in 6 months or sooner if needed.?? We will discuss??his response to Plavix and then rosuvastatin??either by phone or through the patient portal. We spent 60 minutes??on today???s visit??reviewing all medical records, establishing a plan,??and answering??any and all questions. Thank you for allowing us to participate in his care. Evette Jones PA-C History of Present Illness/Interval History I had the pleasure of seeing??Jose and his Sahlonda??here for a routine??cardiology??follow-up.??Jose was treated for an NSTEMI??and ultimately??had a drug-eluting stent placed to his mid-pro ximal??LAD??with??balloon angioplasty to??the ostial. 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 At [place] he was ruled out for aortic dissection??and transferred to [facility]??for an??emergent cardiac cath.?He was stabilized and underwent cardiac cath on November 06, 2023??which showed 95% occlusion??of the proximal to mid LAD??and drug-eluting stent was placed.?Circumflex and RCA??had minimal??disease at less than 30%. Jose continues to complain of?? fogginess??in his head, blurred vision, and??fatigue ,??we first considered it was due to the high intensity atorvastatin so the dose was reduced to 40 mg??but his symptoms continued??so atorvastatin was eventually stopped.?? Dr. Espinal??prescribed??rosuvastatin 10 mg daily??but Jose admits that he never??filled that prescription. ??Metoprolol has since been stopped??and yet his??symptoms continue,??he is now questioning if this could??possibly be secondary??to the use of Brilinta. ?? 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 After??CAT scan??with contrast??his blood pressure was elevated and he was?? very warm and red-faced??for 12 hours after ,??because of this reaction he??refused to allow Definity ??to be used during a previous ??echocardiogram. ??That particular study had poor quality imaging??which??we were unable to determine??LVEF??or if there were any wall motion abnormalities.?I did attempt to reassure him for his??follow-up echo in November that??the use of Definity??typically does not cause side effects??and is for mulated very differently than the??contrast material used for??CT scans??but at the time of the November??2023??echo??he could not be reassured by the??senior technologist??about how close the??proximity to the emergency room was??so he opted not to take the chance??and refused Definity. Images were better than the October echo??and his best could be determined they do not feel that there are wall motion abnormalities.?? LVEF was??reported as??within the normal range??of 55 to 60%. ?? I was able to review??report from [facility] cardiac rehab, provided to me by Jose.?? Heart rate response to exercise is appropriate.?? Resting blood pressures??vary??but there are frequently systolic blood pressures??between 140 and 160, there was a normal blood pressure response to exercise??and appropriate recovery response. Review of Systems Discussed, see HPI Physical Exam Vitals & Measurements HR:??87??(Peripheral)?? BP:??178/100?? SpO2:??97%?? HT:??178??cm?? WT:??112??kg?? BMI:??35.35?? Weight lb/oz: 246 lb 15 oz GENERAL: ??Alert and oriented, no acute distress. NECK: ??No JVD?? LUNGS: Clear to auscultation bilaterally. ??No crackles, wheezing, rhonchi. ?? HEART: ??Regular rate and rhythm, normal S1, S2. ??No murmurs, rubs, or gallops.?? ABDOMEN: Soft, nontender, nondistended.?? EXTREMITIES: ??No pitting edema. ?? SKIN: Warm and well perfused. ?? NEURO:??following commands and moving all extremities.? Jose was hypertensive??at intake. Assessment/Plan CAD (coronary artery disease) Ordered: Follow up Appointment ?? Essential hypertension Ordered: Follow up Appointment ?? Hyperlipidemia Ordered: Follow up Appointment ?? Orders: Clopidogrel, 75 mg, 1, tablet, By Mouth, Daily, # 30 tablet, Refills 6, Tot. Refills 6, Maintenance, 04/26/24 16:57:00 EDT, Route to Pharmacy Electronically, [facility] #[id number], Partial fillupon patient request if the prescription is for a schedule II op... See provider clinical summary above Medical Decision Making MODERATE - chronic illness w/ exac, progression, or AE of Tx, 2+ stable chronic illnesses, 1 new prob w/ ? prognosis, 1 acute w/ systemic Sx or comp injury; 2 of (note / test / order / indep historian = 3), interpretation / discussion; MOD risk +SDOH Allergies Nuts atorvastatin??(Prednisone adverse reaction) penicillins??(breathing problems) Home Medications amLODIPine 5 mg oral tablet, 5 mg= 1 tablet, By Mouth, Daily, 3 refills aspirin 81 mg oral delayed release tablet, 81 mg, By Mouth, Daily cetirizine 10 mg oral tablet, 10 mg= 1 tablet, By Mouth, Daily clopidogrel 75 mg oral tablet, 75 mg= 1 tablet, By Mouth, Daily, 6 refills metoprolol 25 mg oral tablet, extended release, 12.5 mg= 0.5 tablet, By Mouth, Daily PredniSONE, By Mouth, Daily Lab Results Cardiology Labs WBC: 8.6 k/mm3 (11/07/23) RBC:??4.66 m/mm3??Low (11/07/23) Hgb: 14.5 Gm/dL (11/07/23) Hct: 42.3 % (11/07/23) MCV: 90.8 femtoliters (11/07/23) MCH: 31.1 pg (11/07/23) MCHC: 34.3 g/dL (11/07/23) Platelet Count: 229 k/mm3 (11/07/23) RDW-SD: 42.9 femtoliters (11/07/23) Nucleated RBC (Automated): 0 #/100 WBC'S (11/07/23) Abs. Neut: 5.1 k/mm3 (11/05/23) Abs. Lymph: 1.8 k/mm3 (11/05/23) Abs. [place]:??0.2 k/mm3??Low (11/05/23) Abs. Eo: 0.1 k/mm3 (11/05/23) Abs. Baso: 0.1 k/mm3 (11/05/23) Neut %: 70.3 % (11/05/23) [place] %:??2.5 %??Low (11/05/23) Eos %: 1.2 % (11/05/23) Baso %: 0.7 % (11/05/23) Imm Gran: 0.5 % (11/05/23) Abs. Imm Gran: 0 k/mm3 (11/05/23) INR: 1 (11/05/23) Protime (PT): 10.7 seconds (11/05/23) APTT:??83.8 seconds??High (11/06/23) Sodium: 141 mmol/L (11/07/23) Potassium: 3.9 mmol/L (11/07/23) Chloride: 103 mmol/L (11/07/23) Bicarbonate Level: 22 mmol/L (11/07/23) Glucose Level:??126 mg/dL??High (11/06/23) Hemoglobin A1C (Monitoring):??5.8 %??High (04/02/24) BUN: 13 mg/dL (11/07/23) Creatinine-Blood: 1 mg/dL (11/07/23) Calcium: 8.8 mg/dL (11/06/23) Protein, Total: 6.7 g/dL (12/20/23) Albumin: 4.2 g/dL (12/20/23) Alkaline Phosphatase: 64 IU/L (12/20/23) AST (SGOT): 17 IU/L (04/02/24) ALT (SGPT): 17 IU/L (04/02/24) Bilirubin, Total: 0.7 mg/dL (12/20/23) Cholesterol:??205 mg/dL??High (04/02/24) Triglycerides:??164 mg/dL??High (04/02/24) HDL Cholesterol: 50 mg/dL (04/02/24) LDL Cholesterol: 120 mg/dL (11/07/23) Non HDL Cholesterol:??155 mg/dL??High (04/02/24) LDL Chol Calc ([facility]):??126 mg/dL??High (04/02/24) Diagnostic Impression ECG ECG 12-Lead ?? 08:10:00 Please click on pdf link to open report ?? Signed By: Nan Trejo MD ?? ECG 12-Lead ?? 08:10:00 Ventricular Rate: 93 BPM Atrial Rate: 93 BPM P-R Interval: 194 ms QRS Duration: 88 ms Q-T Interval: 424 ms QTC Calculation(Bazett): 527 ms P Holden: 31 degrees R Holden: 69 degrees T Holden: 137 degrees Poor data quality, interpretation may be adversely affected Normal sinus rhythm T wave abnormality, consider anterolateral ischemia Prolonged QT Abnormal ECG When compared with ECG of 06-NOV-2023 14:43, No significant change was found Confirmed by NAN TREJO ([id number]) on 11/12/2023 4:35:33 PM ?? Ayr: NAN TREJO ?? Signed By: Nan Trejo [...] now resolved. ?? Signature ?? Signed By: Jose GUIDO, Josue Problem List/Past Medical History Ongoing Groin pain [...] Team Personnel Name: Jazmyn Sanchez RN Position: [facility] RN Member Role: Primary Care Nurse Name: Teddy GUIDO , Fidel Mayo Position: [facility] Outreach Member Role: PCP Address: Address: [address] [place] [id number]- Care Team Related Persons Name: SYDNISAMUELSHALONDA STRICKLAND Address: [address] [address]
== END 2024-06-29 16:55 | disposition home or self-care (01) ==
LOC: HO.HMCFM 12:04
PROVIDERS: PCP Family Medicine; Visit Provider Family Medicine
DX: I25.10 Atherosclerotic heart disease of native coronary artery without angina pectoris (principal); I25.2 Old myocardial infarction

== ENCOUNTER → 2024-06-29 12:04 | Outpatient (BNVA) | payer OTHER, SELFPAY | PROVIDERS: PCP Family Medicine; Visit Provider Family Medicine ==

== ENCOUNTER 2024-07-21 08:15 | Outpatient (REF) | payer OTHER, SELFPAY ==
[2024-07-21 11:36] LABS: MANUAL DIFF FLAG NO
[2024-07-21 11:45] LABS: Basophils Absolute Auto 0.1 X10*3/uL (0.0-0.2); Basophils Percent Auto 1.1 % (0-2); Eosinophils Absolute Auto 0.5 X10*3/uL (0.0-0.4); Eosinophils Percent Auto 6.3 % (0-4); Hematocrit 45.2 % (42.0-52.0); Hemoglobin 15.5 g/dl (14.0-18.0); Imm Gran Abs Auto 0.02 X10*3/uL (0.00-0.03); Imm Gran Pct Auto 0.3 % (0.0-0.4); Lymphocytes Absolute Auto 1.6 X10*3/uL (1.2-4.9); Lymphocytes Percent Auto 22.4 % (20-40); Mean Corpuscular HGB Conc 34.3 g/dl (31.0-36.0); Mean Corpuscular Hemoglobin 30.8 pg (27.0-33.0); Mean Corpuscular Volume 89.7 fL (80.0-98.0); Mean Platelet Volume 11.1 fL (9.4-12.4); Monocytes Absolute Auto 0.8 X10*3/uL (0.1-1.2); Monocytes Percent Auto 10.6 % (2-11); Neutrophils Absolute Auto 4.3 x10*3/uL (2.0-8.3); Neutrophils Percent Auto 59.3 % (45-73); Platelet Count 256 X10*3/uL (160-400); Red Blood Count 5.04 X10*6/uL (4.60-5.80); Red Cell Distribution Width 13.1 % (11.0-16.0); White Blood Count 7.2 X10*3/uL (4.8-10.8)
[2024-07-21 11:51] LABS: Estimated Average Glucose 108 mg/dL; Hemoglobin A1C 148.0466 umol/L; Hemoglobin A1c % 5.4 % (<6.0); Total Hemoglobin (HGBA1C) 4141.1944 umol/L
[2024-07-21 12:13] LABS: Cortisol Random 9.9 ug/dL
[2024-07-21 12:21] LABS: Alanine Aminotransferase 20 U/L (0-40); Alkaline Phosphatase 53 U/L (39-117); Anion Gap 11 (12-20); Aspartate Amino Transferase 27 U/L (5-37); Bilirubin Total 0.8 mg/dL (0.0-1.0); Blood Urea Nitrogen 18 mg/dL (9-16); Calcium 9.2 mg/dL (8.4-10.2); Carbon Dioxide 26 mmol/L (22-29); Chloride 107 mmol/L (96-108); Cholesterol 228 mg/dL (<200); Estimated Glomerular Filt Rate > 60; Glucose Fasting 103 mg/dL (60-99); HDL Cholesterol 52 mg/dL (>40); LDL Cholesterol Calculated 153 mg/dL (<100); Potassium 3.8 mmol/L (3.3-5.1); Sodium 140 mmol/L (135-145); Total Protein 6.9 g/dL (6.5-8.0); Triglycerides 116 mg/dL (<150)
[2024-07-23 11:28] LABS: Class Alternaria alternata 0; Class Aspergillus fumigatus 0; Class Bermuda Grass 0/1; Class Birch 0; Class Cat Dander 0; Class Cladosporium herbarum 0; Class Cockroach 0; Class Common Ragweed 0; Class Cottonwood 0; Class Derm. pterony 0; Class Dermatophagoides farinae 0; Class Dog Dander 0; Class Elm 0; Class Maple Box Elder 0; Class Mountain Cedar 0; Class Mouse Urine Protein 0; Class Mugwort 0; Class Oak 0; Class Penicillium crysogenum 0; Class Rough Pigweed 0; Class Sheep Sorrel 0; Class Sycamore 0; Class Timothy Grass 0/1; Class Walnut Tree 0; Class White Ash 0; Class White Mulberry 0; D001 IgE D pteronyssinus <0.10 kU/L; D002 - IgE D farinae <0.10 kU/L; E001 - IgE Cat Dander <0.10 kU/L; E005 - IgE Dog Dander <0.10 kU/L; E072-IgE Mouse Urine <0.10 kU/L; G006 - IgE Timothy Grass 0.22 kU/L; I006-IgE Cockroach, German <0.10 kU/L; Immunoglobulin E 154 kU/L (<OR=114); M001 IgE Penicillium chrysogen <0.10 kU/L; M002 - IgE Cladosporium herbar <0.10 kU/L; M003 - IgE Aspergillus fumigat <0.10 kU/L; M006 - IgE Alternaria alternat <0.10 kU/L; T001 IgE Maple/Box Elder <0.10 kU/L; T003 IgE Common Silver Birch <0.10 kU/L; T006 - IgE Cedar, Mountain <0.10 kU/L; T007 - IgE Oak, White <0.10 kU/L; T008 IgE Elm, American <0.10 kU/L; T010 - IgE Walnut <0.10 kU/L; T011 - IgE Maple Leaf Sycamore <0.10 kU/L; T014 - IgE Cottonwood <0.10 kU/L; T015 - IgE Ash, White <0.10 kU/L; T070 - IgE White Mulberry <0.10 kU/L; W001 - IgE Ragweed, Short <0.10 kU/L; W006 - IgE Mugwort <0.10 kU/L; W014 IgE Pigweed, Common <0.10 kU/L; W018 IgE Sheep Sorrel <0.10 kU/L
[2024-07-23 23:08] LABS: Immunoglobulin E 170 kU/L (<OR=114)
== END 2024-07-21 08:16 | disposition home or self-care (01) ==
LOC: HO.WFDLDS 08:15
PROVIDERS: Nurse Practitioner Family; Visit Provider Family Medicine
DX: Z00.00 Encounter for general adult medical examination without abnormal findings (principal); I25.10 Atherosclerotic heart disease of native coronary artery without angina pectoris; R73.01 Impaired fasting glucose; R73.03 Prediabetes; Z91.09 Other allergy status, other than to drugs and biological substances
CPT/HCPCS: 36415; 80053; 80061; 82533; 82785; 83036; 85025; 86003; 86331

== ENCOUNTER 2024-07-26 08:35 | Outpatient (AMB) | payer OTHER, SELFPAY ==
--- NOTE | 2024-07-26 08:52 | MHC.PC.OV ---
Vital Signs 07/26/24 08:57 Height 5 ft 10 in Weight 245 lb 8 oz BMI 35.2 BP 140/90 H Blood Pressure Location Rt brachial Position Sitting Respiration 16 Pulse 94 Pulse Source Pulse Oximeter Pulse Oximetry (%) 97 Oxygen Delivery Method Room Air Intake Visit Reasons: follow up labs Intake Note: f/u labs Allergies pollen extracts Allergy (Mild, Verified 07/26/24 08:56) Sneezing sesame oil Allergy (Mild, Verified 07/26/24 08:56) Anaphylaxis sesame seed Allergy (Mild, Verified 07/26/24 08:56) Anaphylaxis penicillin V Allergy (Unknown, Verified 07/26/24 08:56) childhood Penicillins Allergy (Unknown, Verified 07/26/24 08:56) Unknown tree nuts, sesame seeds Allergy (Unknown, Uncoded 06/14/24 12:59) anaphylaxis Tobacco use date assessed: 01/19/24 Dental Screening Dental Screen Date: 12/15/23 HPI follow up labs HPI Details 64 y/o male presents to f/u HLD in pt with CAD and NSTEMI and f/u on pre-diabetes as well. Blood pressure today 140/90, 94p. Not on any meds for blood pressure. Had been on metoprolol in the past. Labs drawn 07/21/24. Reviewed labs with pt. A1c 5.4%. Triglycerides 116. TC 238. LDL 153. HDL 52. Reports ongoing difficulty with shortness of breath. Does have environmental allergies/asthma. [facility] Medical History No pertinent past medical history Surgical History History of nasal surgery History of hernia surgery Social History Housing: Apartment Alcohol intake: current Alcohol intake frequency: a few times a week Patient Tobacco Use Status: Former Tobacco user e-Cigarette/Vaping Use: Never Used Second Hand Smoke Exposure: No service: No Current occupational status: employed Current occupation: [employer] Current occupational exposures/hazards: No Cognitive needs: No Hearing needs: No Vision needs: No Questionnaire Thrive Questionnaire Date Thrive assessed: 10/21/23 LISA-7 AMB Questionnaire LISA-7 Date LISA - 7 assessed: 10/21/23 Source: Developed by Drs. Darin Day, Ama Bowman, Deyvi Espinal and colleagues, with an educational helen from [employer]. Review of Systems Const Denies chills, Denies fatigue, Denies fever(s), Denies headache(s) and Denies weakness ENT Denies dizziness and Denies headache(s) Card Reports dyspnea Resp Denies cough, Reports dyspnea, Denies wheezing and Denies other (shortness of breath) Musc Denies numbness and Denies tingling Neuro Denies dizziness, Denies headache(s), Denies numbness, Denies tingling and Denies weakness Psych Denies anxiety and Denies depression Endo Denies fatigue Aller/Immun Denies wheezing Physical exam (Primary Care) Vital Signs: Last Vital Signs Pulse 94 07/26/24 08:57 Resp 16 07/26/24 08:57 BP 140/90 H 07/26/24 08:57 Pulse Ox 97 07/26/24 08:57 Oxygen Delivery Method Room Air 07/26/24 08:57 BMI result Body Mass Index 35.2 Tobacco/Smoking Status: Tobacco use Status Tobacco use date assessed 01/19/24 07/26/24 08:52 Patient Tobacco Use Status Former Tobacco user 07/26/24 08:52 e-Cigarette/Vaping Use Never Used 07/26/24 08:52 Thrive Assessment: Date of Thrive Assessment Date Thrive assessed 10/21/23 07/26/24 08:52 Const General: well developed; No acute distress Nutritional Appearance: well nourished Orientation/consciousness: patient oriented x3 [facility] Head: Yes normocephalic and Yes atraumatic Eyes General: appearance normal, both eyes and all related structures Pupils: Equal, round and reactive pupils present EOM: EOMs intact bilaterally Resp Effort & Inspection: normal respiratory effort Neuro General: patient oriented x3 and gait normal Cranial nerves: Yes Equal, round and reactive pupils present Psych Affect: normal affect Coding Level of Care Code Est Pt Level 4 (74197) Diagnoses Hypertension I10 Hyperlipidemia E78.5 CAD (coronary artery disease) I25.10 Difficulty breathing R06.89 Environmental allergies Z91.09 Assessment & Plan Assessment & Plan (1) Hypertension: Code(s): I10 - Essential (primary) hypertension Category: Medical Plan: Blood?pressure?is?above?goal?of?less?than?130/80?for?patient?with?coronary?artery?disease He?declines?to?take?medication Advised?weight?loss?exercise Avoid?salt/sodium (2) Hyperlipidemia: Code(s): E78.5 - Hyperlipidemia, unspecified Category: Medical Plan: LDL?cholesterol?is?well?above?recommended?range?for?patient?coronary?artery?disease.??Goal?less?70 He?has?tried?statins,?Zetia?and?Brilinta Encouraged?weight?loss?and?exercise He?wants?to?try?something?natural?and?I?recommended?red?yeast?rice?and?lecithin Follow-up?with?Cardiology?as?recommended (3) CAD (coronary artery disease): Code(s): I25.10 - Atherosclerotic heart disease of [place] coronary artery without angina pectoris Category: Medical Plan: Follow-up?with?Cardiology?as?recommended (4) Difficulty breathing: Code(s): R06.89 - Other abnormalities of breathing Category: Medical Plan: Numerous?allergies?and?respiratory tightness Now?followed?by?vtrizirioos-wfzzjj-vy?pulmonology?as?recommended (5) Environmental allergies: Code(s): Z91.09 - Other allergy status, other than to drugs and biological substances Category: Medical Plan: Referred?to?immunology Orders: Referrals Allergy & Immunology Referral T78.40XA - Allergy, unspecified, initial encounter Medications: Refilled epinephrine (EpiPen) 0.3 mg (0.3 mL) IM Q4H PRN 2 ea 2RF anaphylaxis 30 days
[2024-07-26 08:57] VITALS: BP 140/90; PULSE 94; RESP 16; O2SAT 97; BMI 35.2
== END 2024-07-26 09:34 | disposition home or self-care (01) ==
PROVIDERS: PCP Family Medicine; Visit Provider Family Medicine
DX: I10 Essential (primary) hypertension (principal); E78.5 Hyperlipidemia, unspecified; I25.10 Atherosclerotic heart disease of native coronary artery without angina pectoris; R06.89 Other abnormalities of breathing; Z91.09 Other allergy status, other than to drugs and biological substances

== ENCOUNTER → 2024-07-26 08:35 | Outpatient (BNVA) | payer OTHER, SELFPAY | PROVIDERS: PCP Family Medicine; Visit Provider Family Medicine ==

== ENCOUNTER 2024-08-04 15:22 | Outpatient (AMB) | payer OTHER, SELFPAY ==
--- NOTE | 2024-08-04 15:23 | MHC.OFFVIS ---
Vital Signs 08/04/24 15:24 Height 5 ft 10 in Weight 246 lb 8 oz BMI 35.4 BP 162/78 H Blood Pressure Location Rt brachial Position Sitting Pulse 93 Pulse Source Pulse Oximeter Pulse Oximetry (%) 97 Oxygen Delivery Method Room Air Intake Visit Reasons: abnormality of breathing Allergies pollen extracts Allergy (Mild, Verified 08/04/24 15:26) Sneezing sesame oil Allergy (Mild, Verified 08/04/24 15:) Anaphylaxis sesame seed Allergy (Mild, Verified 08/04/24 15:) Anaphylaxis penicillin V Allergy (Unknown, Verified 08/04/24 15:26) childhood Penicillins Allergy (Unknown, Verified 08/04/24 15:26) Unknown tree nuts, sesame seeds Allergy (Unknown, Uncoded 08/04/24:) anaphylaxis HPI HPI abnormality of breathing: Details: Jose is a pleasant 64 year old male, former smoker, with underlying asthma and recent [place] 10/2023 s/p LAD stent. He was referred by PCP for pulmonary evaluation for worsening respiratory symptoms after malathi COVID19 4 years ago. He did not require hospitalization. He also notes increased hypersensitivity to allergens,RAST + for environmental allergies. Not using antihistamine. He was referred to an allergy office in [place] however they are closed, will enter referral to [place] location. He continues to report dyspnea on exertion and productive cough with clear to white sputum. He denies any presents to urgent care hospitalizations related to respiratory distress since last visit. [facility] Medical History No pertinent past medical history Surgical History History of nasal surgery History of hernia surgery Social History Housing: Apartment Alcohol intake: current Alcohol intake frequency: a few times a week Patient Tobacco Use Status: Former Tobacco user e-Cigarette/Vaping Use: Never Used Second Hand Smoke Exposure: No service: No Current occupational status: employed Current occupation: [employer] Current occupational exposures/hazards: No Cognitive needs: No Hearing needs: No Vision needs: No Review of Systems Const Denies chills, Denies excessive sweating, Denies fever(s), Denies headache(s) and Denies night sweats Eyes Denies dry eyes, Denies irritation and Denies itchy eyes ENT Reports Normal hearing present, Denies headache(s), Denies nasal congestion and Denies sore throat Card Denies chest pain, Denies chest pain at rest, Denies chest pain with activity, Denies claudication, Denies leg edema, Denies orthopnea and Denies paroxysmal nocturnal dyspnea Resp Denies chest congestion, Denies cough, Denies excessive phlegm production, Denies pain on inspiration, Denies pain with cough, Denies stridor and Denies wheezing Musc Denies myalgias Neuro Reports Normal hearing present and Denies headache(s) Endo Denies excessive sweating Lávaro/Lymph Denies lymphadenopathy Aller/Immun Denies itchy eyes, Denies seasonal rhinorrhea and Denies wheezing Physical Exam Vital Signs: Last Vital Signs Pulse 93 08/04/24 15:24 BP 162/78 H 08/04/24 15:24 Pulse Ox 97 08/04/24 15:24 Oxygen Delivery Method Room Air 08/04/24 15:24 BMI result Body Mass Index 35.4 Const General: cooperative, healthy appearing, comfortable, no acute distress, well developed and alert Nutritional Appearance: obese Orientation/consciousness: patient oriented x3 Limitations: no limitations HEENT Head: Yes normal to inspection, Yes normocephalic and Yes atraumatic Ears: hearing grossly normal bilaterally and external ears normal Eyes General: appearance normal, both eyes and all related structures Eyelids: Yes eyelids normal Sclerae: sclerae normal EOM: EOMs intact bilaterally Neck Neck: Yes normal visual inspection and Yes no lymphadenopathy Lymphatic: no lymphadenopathy noted Chest Chest palpation & inspection: normal inspection of the chest Resp Effort & Inspection: normal respiratory effort, able to speak in complete sentences, no audible wheezes, no cough, no stridor, not tachypneic, no tripod positioning and no use of accessory muscles Auscultation: clear to auscultation bilaterally Cardio Jugular venous distension: no JVD Rate: regular rate Rhythm: regular rhythm Skin Other: warm, dry General skin exam: no rashes or lesions noted Neuro General: patient oriented x3 Cranial nerves: Yes Normal hearing present Cognition (Neuro): normal cognition Gait exam (Neuro): Normal gait present Extrem General: Yes normal to inspection, Yes capillary refill normal, Yes no clubbing, cyanosis or edema and Yes no pedal edema Psych Appearance: grossly normal and well kempt Speech and movement: Normal speech and movement present and Clear speech present Affect: normal affect Attitude: cooperative Thought process: Normal thought process present Thought content: Normal thought content present Insight: Good insight present (Psych) Judgement: Good judgement present (Psych) Assessment & Plan Assessment & Plan (1) Asthma: Code(s): J45.909 - Unspecified asthma, uncomplicated Category: Medical (2) Environmental allergies: Code(s): Z91.09 - Other allergy status, other than to drugs and biological substances Category: Medical Plan Will trial Breo. Discussed importance of good oral hygiene to prevent thrush. Discuss trialing daily antihistamine and will re-enter referral to mechanical maintenance instructor in [facility]. All questions were answered and patient in agreement of plan. Will follow-up in 6-8 weeks or sooner if needed. Medications: New fluticasone furoate-vilanterol 100-25 mcg/dose (Breo Ellipta) 1 inh inhalation DAILY 60 ea 3RF Coding Level of Care Code Est Pt Level 4 (90023) Diagnoses Asthma J45.909 Environmental allergies Z91.09
[2024-08-04 15:24] VITALS: BP 162/78; PULSE 93; O2SAT 97; BMI 35.4
== END 2024-08-04 16:02 | disposition home or self-care (01) ==
PROVIDERS: PCP Family Medicine; Visit Provider Nurse Practitioner Family
DX: J45.909 Unspecified asthma, uncomplicated (principal); Z91.09 Other allergy status, other than to drugs and biological substances
CPT/HCPCS: 99214

== ENCOUNTER 2024-09-15 08:54 | Outpatient (REF) | payer OTHER, SELFPAY ==
--- NOTE | 2024-09-15 09:01 | PFT_ITS ---
Flows: FEV1: 102 % of predicted at 3.44 L FVC: 97 % of predicted at 4.31 L FEV1/FVC: 80 % Bronchodilator response: Bronchodilator testing not performed as patient used albuterol immediately prior to testing. Volumes: Total lung capacity: 86 % of predicted at 6.17 L Residual volume: 74 % of predicted at 1.77 L Slow vital capacity: 91 % of predicted at 4.40 L Expiratory reserve volume: 34 % of predicted at 0.44 L Diffusion capacity: Normal Impression: No obstructive or restrictive ventilatory defect. Bronchodilator testing not performed as patient used albuterol immediately prior to testing. Decreased expiratory reserve volume suggests extrathoracic restriction likely secondary to abdominal obesity. MTDD
== END 2024-09-15 08:55 | disposition home or self-care (01) ==
LOC: HO.RESP 08:54
PROVIDERS: PCP Family Medicine; Visit Provider Nurse Practitioner Family
DX: J45.909 Unspecified asthma, uncomplicated (principal)
CPT/HCPCS: 94010; 94640; 94727; 94729

== ENCOUNTER → 2024-09-15 09:01 | Outpatient (BNV) | payer OTHER, SELFPAY | PROVIDERS: PCP Family Medicine; Visit Provider Internal Medicine Pulmonary Disease | DX: J45.909 Unspecified asthma, uncomplicated (principal) | CPT/HCPCS: 94060; 94727; 94729 ==

== ENCOUNTER 2024-09-15 15:10 | Outpatient (AMB) | payer OTHER, SELFPAY ==
--- NOTE | 2024-09-15 14:34 | A.OFFVIS_ITS ---
Vital Signs 09/15/24 15:13 Height 5 ft 10 in Weight 245 lb BMI 35.2 BP 132/70 Blood Pressure Location Rt brachial Position Sitting Pulse 99 Pulse Source Pulse Oximeter Pulse Oximetry (%) 96 Oxygen Delivery Method Room Air Intake Visit Reasons: abnormality of breathing International Relations Professor Required: No Bindery Machine Feeder Offbearer: Bindery Machine Feeder Offbearer offered & declined Accompanied by: Self / Same As Patient Allergies pollen extracts Allergy (Mild, Verified 09/15/24 15:18) Sneezing sesame oil Allergy (Mild, Verified 09/15/24 15:18) Anaphylaxis sesame seed Allergy (Mild, Verified 09/15/24 15:18) Anaphylaxis penicillin V Allergy (Unknown, Verified 09/15/24 15:18) childhood Penicillins Allergy (Unknown, Verified 09/15/24 15:18) Unknown tree nuts, sesame seeds Allergy (Unknown, Uncoded 09/15/24 15:18) anaphylaxis Medication List - Last Reconciled 09/15/24 by Rosario Mckay LPN albuterol sulfate 90 mcg/actuation 2 puffs inhalation Q4-6H PRN aspirin 81 mg PO DAILY clopidogrel 75 mg PO DAILY epinephrine (EpiPen) 0.3 mg (0.3 mL) IM Q4H PRN 30 days fluticasone furoate-vilanterol 100-25 mcg/dose (Breo Ellipta) 1 inh inhalation DAILY mometasone 50 mcg/actuation 2 sprays intranasal DAILY PRN 30 days HPI HPI abnormality of breathing: Details: Jose is a pleasant 64 year old male, former smoker, with underlying asthma and recent [place] 10/2023 s/p LAD stent. He was initially referred for worsening respiratory symptoms after malathi COVID 19 4 years ago. He also noted increased hypersensitivity to allergens,RAST + for environmental allergies, not using antihistamine. At the last visit he was referred to an lining maker for further evaluation and has an upcoming appt in October. He continues to report dyspnea on exertion and productive cough with clear to white sputum, using albuterol MDI with good effect. Breo was sent in however he is reluctant to use or any other inhaler/singulair due to potential adverse effects. Today he presents to review PFT. He denies any presents to urgent care hospitalizations related to respiratory distress since last visit. [facility] Medical History No pertinent past medical history Surgical History History of nasal surgery History of hernia surgery Social History Housing: Apartment Alcohol intake: current Alcohol intake frequency: a few times a week Patient Tobacco Use Status: Former Tobacco user e-Cigarette/Vaping Use: Never Used Second Hand Smoke Exposure: No service: No Current occupational status: employed Current occupation: [employer] Current occupational exposures/hazards: No Cognitive needs: No Hearing needs: No Vision needs: No Review of Systems Const Denies chills, Denies excessive sweating, Denies fever(s), Denies headache(s) and Denies night sweats Eyes Denies dry eyes, Denies irritation and Denies itchy eyes ENT Reports Normal hearing present, Denies headache(s), Denies nasal congestion and Denies sore throat Card Denies chest pain, Denies chest pain at rest, Denies chest pain with activity, Denies claudication, Denies leg edema, Denies orthopnea and Denies paroxysmal nocturnal dyspnea Resp Denies chest congestion, Denies excessive phlegm production, Denies pain on inspiration, Denies pain with cough, Denies stridor and Denies wheezing Musc Denies myalgias Neuro Reports Normal hearing present and Denies headache(s) Endo Denies excessive sweating Álvaro/Lymph Denies lymphadenopathy Aller/Immun Denies itchy eyes, Denies seasonal rhinorrhea and Denies wheezing Physical Exam Vital Signs: Last Vital Signs Pulse 99 09/15/24 15:13 BP 132/70 09/15/24 15:13 Pulse Ox 96 09/15/24 15:13 Oxygen Delivery Method Room Air 09/15/24 15:13 BMI result Body Mass Index 35.2 Const General: cooperative, healthy appearing, comfortable, no acute distress, well developed and alert Nutritional Appearance: obese Orientation/consciousness: patient oriented x3 Limitations: no limitations HEENT Head: Yes normal to inspection, Yes normocephalic and Yes atraumatic Ears: hearing grossly normal bilaterally and external ears normal Eyes General: appearance normal, both eyes and all related structures Eyelids: Yes eyelids normal Sclerae: sclerae normal EOM: EOMs intact bilaterally Neck Neck: Yes normal visual inspection and Yes no lymphadenopathy Lymphatic: no lymphadenopathy noted Chest Chest palpation & inspection: normal inspection of the chest Resp Effort & Inspection: normal respiratory effort, able to speak in complete sentences, no audible wheezes, no cough, no stridor, not tachypneic, no tripod positioning and no use of accessory muscles Auscultation: clear to auscultation bilaterally Cardio Jugular venous distension: no JVD Rate: regular rate Rhythm: regular rhythm Skin Other: warm, dry General skin exam: no rashes or lesions noted Neuro General: patient oriented x3 Cranial nerves: Yes Normal hearing present Cognition (Neuro): normal cognition Gait exam (Neuro): Normal gait present Extrem General: Yes normal to inspection, Yes capillary refill normal, Yes no clubbing, cyanosis or edema and Yes no pedal edema Psych Appearance: grossly normal and well kempt Speech and movement: Normal speech and movement present and Clear speech present Affect: normal affect Attitude: cooperative Thought process: Normal thought process present Thought content: Normal thought content present Insight: Good insight present (Psych) Judgement: Good judgement present (Psych) Assessment & Plan Assessment & Plan (1) Asthma: Code(s): J45.909 - Unspecified asthma, uncomplicated Category: Medical (2) Environmental allergies: Code(s): Z91.09 - Other allergy status, other than to drugs and biological substances Category: Medical Plan Reviewed PFT which did not reveal any obstructive or restrictive defect. Unable to assess bronchodilator response as he had used albuterol prior to test. Lung volumes and DLCO normal. Discussed sending in Airpra to use to minimize steroid exposure which he will consider in the future. It appears respiratory symptoms are triggered by allergies and will have evaluation next month with an lining maker. All questions were answered and patient in agreement of plan. Will follow-up in 3-6 months or sooner if needed. Medications: Discontinued mometasone 50 mcg/actuation administer into each nostril Discontinued Reason: Patient Completed Course 2 sprays intranasal DAILY 30 days PRN 17 grams 2RF nasal congestion fluticasone furoate-vilanterol 100-25 mcg/dose (Breo Ellipta) Discontinued Reason: Patient Completed Course 1 inh inhalation DAILY 60 ea 3RF Coding Level of Care Code Est Pt Level 4 (92036) Diagnoses Asthma J45.909 Environmental allergies Z91.09
[2024-09-15 15:13] VITALS: BP 132/70; PULSE 99; O2SAT 96; BMI 35.2
== END 2024-09-15 15:42 | disposition home or self-care (01) ==
PROVIDERS: PCP Family Medicine; Visit Provider Nurse Practitioner Family
DX: J45.909 Unspecified asthma, uncomplicated (principal); Z91.09 Other allergy status, other than to drugs and biological substances
CPT/HCPCS: 99214

== ENCOUNTER 2024-11-05 07:52 | Outpatient (REF) | payer OTHER, SELFPAY ==
--- OUTSIDE RECORDS SUMMARY | 2024-11-05 07:54 | XMS_ITS | Encounter Summary ---
Author Organization [facility] Address [address] [place] [address] Care Team Providers Care Wicker Molded Candles Name Role Phone Rylan Roth MD Primary Care Provider Encounter Details Date Type Department Care Team (Late st Contact Info) Description 05/15/2020 Scanned Document [facility] U[facility] Surgery [address] [place] [id number] Provider, MD Mandeep [address] [place] [address] Social History Tobacco Use Types Packs/Day Years Used Date Smoking Tobacco: Never Smokeless Tobacco: Never Alcohol Use Standard Drinks/Week Comments Not Currently 0 (1 standard drink = 0.6 oz pur e alcohol) Sex and Gender Information Value Date Recorded Sex Assigned at Not on file Gender Identity Not on file Sexual Orientation Not on file documented as of this encounter Plan of Treatment Not on file documented as of this encounter Visit Diagnoses Not on filedocumented in this encounter Care Teams Wicker Molded Candles Relationship Specialty Start Date End Date Rylan Roth MD [address] [place] [address] PCP - General Internal Medicine 10/08/19 documented as of this encounter
--- OUTSIDE RECORDS SUMMARY | 2024-11-05 07:54 | XMS_ITS | Clinical Summary ---
Author Organization [facility] Address [address] [place] [address] Care Team Providers Care Compress Machine Operator Name Role Phone Rylan Roth MD Primary Care Provider [phone] Allergies Active Allergy Reactions Criticality Noted Date Comments Penicillins Shortness Of Breath High 10/08/2019 Medications Medication Sig Dispensed Refills Start Date End Date Status EPINEPHrine 0.3 mg/0.3 mL IJ auto-injection Inject 0.3 mg into the shoulder, thigh, or buttocks as needed. As Directed. 10/03/2020 Active Spiriva Respimat 1.25 MCG/ACT inhalation INHALE 2 INHALATIONS BY MOUTH DAILY 12/05/2020 Active Active Problems No known active problems Immunizations Name Administration Dates Next Due Tdap 08/10/2013 Social History Tobacco Use Types Packs/Day Years Used Date Smoking Tobacco: Never Smokeless Tobacco: Never Alcohol Use Standard Drinks/Week Comments Not Currently 0 (1 standard drink = 0.6 oz pur e alcohol) Sex and Gender Information Value Date Recorded Sex Assigned at Not on file Gender Identity Not on file Sexual Orientation Not on file Last Filed Vital Signs Vital Sign Reading Time Taken Comments Blood Pressure 128/70 12/08/2020 3:22 PM EDT Pulse 82 12/08/2020 3:22 PM EDT Temperature 36.8 ??C (98.3 ??F) 12/08/2020 3:22 PM ED T Respiratory Rate 16 09/15/2013 1:08 PM EST Oxygen Saturation 98% 12/08/2020 3:22 PM EDT Inhaled Oxygen Concentration - - Weight 105 kg (231 lb) 12/08/2020 3:22 PM EDT Height 177.8 cm (5' 10 ) 12/08/2020 3:22 PM EDT Body Mass Index 33.15 12/08/2020 3:22 PM EDT Plan of Treatment Health Maintenance Due Date Last Done Comments Hepatitis C Virus Screening 1959 HIV Screening 1972 Colonoscopy 2004 Pneumococcal Vaccines 50+ (1 of 1 - PCV) 2009 Zoster (Shingles) Vaccine (1 of 2) 2009 DTaP/Tdap/Td Vaccines (2 - T d or Tdap) 08/10/2023 08/10/2013 Influenza Vaccine 04/01/2024 COVID-19 Vaccine (1 - 2023-2 5 season) 2024 RSV Vaccine 60 years and old er and Patients (1 - 1-dose 75+ series) 2034 Hepatitis B Vaccines Aged Out No long er eligible based on patient's age to complete this topic Care Teams Compress Machine Operator Relationship Specialty Start Date End Date Rylan Roth MD [address] [place] [address] PCP - General Internal Medicine 10/08/19
--- OUTSIDE RECORDS SUMMARY | 2024-11-05 07:54 | XMS_ITS | Clinical Summary ---
Author Organization [facility] Address [address] [place] [address] Care Team Providers Care Apple Picking Supervisor Name Role Phone Ainsley Glynn MD Primary Care Provider Unav ailable Social History Tobacco Use Types Packs/Day Years Used Date Smoking Tobacco: Former Cigarettes 0 09/01/1976 - 09/01/2015 Smokeless Tobacco: Never Alcohol Use Standard Drinks/Week Comments Yes 1 (1 standard drink = 0.6 oz pur e alcohol) Sex and Gender Information Value Date Recorded Sex Assigned at Not on file Legal Sex Male 9:38 PM EST Gender Identity Not on file Sexual Orientation Not on file Obstetrics History Plan of Treatment Health Maintenance Due Date Last Done Comments DTaP,Tdap,and Td Vaccines (1 - Tdap) 1978 Pneumococcal Vaccine: 50+ Ye ars (1 of 1 - PCV) 2009 Zoster Vaccines (1 of 2) 2009 COVID-19 Vaccine ( - 2023-2 5 season) 2024 Influenza Vaccine (#1) 2024 RSV Immunization Patients 60 + Years Old (1 - 1-dose 75+ series) 2034 HIB Vaccines Aged Out No longer eligi ble based on patient's age to complete this topic HPV Vaccines Aged Out No longer eligi ble based on patient's age to complete this topic Hepatitis A Vaccines Aged Out No long er eligible based on patient's age to complete this topic Hepatitis B Vaccines Aged Out No long er eligible based on patient's age to complete this topic IPV Vaccines Aged Out No longer eligi ble based on patient's age to complete this topic MMR Vaccines Aged Out No longer eligi ble based on patient's age to complete this topic Meningococcal ACWY Vaccine Aged Out N o longer eligible based on patient's age to complete this topic Meningococcal B Vacine Aged Out No lo nger eligible based on patient's age to complete this topic Pneumococcal Vaccine: Pediat rics (0 to 5 Years) and At-Risk Patients (6 to 64 Years) Aged Out No longer eligible b ased on patient's age to complete this topic RSV Immunization Patients Un leobardo 20 months Aged Out No longer eligible b ased on patient's age to complete this topic Varicella Vaccines Aged Out No longer eligible based on patient's age to complete this topic Care Teams Apple Picking Supervisor Relationship Specialty Start Date End Date Ainsley Glynn MD PCP - General Internal Medicine 03/22/19
--- OUTSIDE RECORDS SUMMARY | 2024-11-05 07:55 | XMS_ITS | Clinical Summary ---
Author Organization [facility] Address [address] [place] [address] Care Team Providers Care Clinical Marketing Manager Name Role Phone Unknown Pcp, Non Php Primary Care Provider Unava ilable Allergies Active Allergy Reactions Criticality Noted Date Comments Environmental 12/22/2019 Nuts 12/21/2019 Penicillins 12/21/2019 Medications Cholecalcifero l (Vitamin D) 125 MCG (5000 UT) Cap 0 10/03/19 21 Active Zinc 100 MG Tab 0 10/03/19 21 Active EPINEPHrine (EPIPEN) 0.3 MG/0.3ML injection syringe INJECT 0.3ML INTRAMUSCULARLY DIRECTED. 1 1 10/03/19 21 Active loratadine (Claritin) 10 MG tablet TAKE 1 TABLET DAILY NEEDED. 0 11/02/19 22 Active Pseudoephedrin e HCl (Sudafed) 30 MG tablet TAKE 1 TABLET EVERY 4 TO 6 HOURS NEEDED. 0 11/02/19 22 Active predniSONE (DELTASONE) 20 MG tablet TAKE 2 TABLET Daily 10 tablet 0 11/02/19 22 Active Active Problems Problem Noted Date Diagnosed Date Sinus congestion 11/01/2021 Acute sinusitis 11/01/2021 Overview (10/05/2023): Impression - [id number]: Doxycylcine 100mg bid X 7 days. Prednisone as directed. S/E discussed. Push fluids. Saline spray, mucinex prn. RTO if not improving. Impression - 01Nov2021: Rapid covid test done in office and negative. Doxycylcine 100mg bid X 7 days. Prednisone as directed. S/E discussed. Push fluids. Saline spray, mucinex prn. RTO if not improving. COVID-19 virus infection 08/06/2021 Overview (10/05/2023): Impression - [id number]: Patient with covid 19 infection who testing positive 12 days ago. He has been monitoring his oxygenation on a home pulse oximeter and has had oxygen readings in the mid 90s. He is alternating Tylenol with ibuprofen for fever which is been intermittent. Most of his symptoms including body aches have resolved at this time. He still has some cough with mucus that he cannot expect her rate. He is advised to use either plain Robitussin or Mucinex 12 hour as a mucolytic. He denies any need for albuterol inhaler at this time. Should he have any worsening pulmonary symptoms he is advised to contact his supervisor home economics Dr. Pope. Dyspnea 09/15/2020 Overview (10/05/2023): Impression - 15Sep2020: This has been going on for months but pt getting worse. Did not respond to Albuterol inhaler of which Zipper Joiner took him off from. I am concerned about a PE due to no response to conventional medications. Impression - [id number]: Pt with no definite diagnosis and not responding well to medicaton. I will refer him to Cardiology to r/o cardiac etiology for symptoms. 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 Immunizations Name Administration Dates Next Due Influenza,injectable,quad,preservative 0 Family History Medical History Relation Name Comments Dementia Father Alzheimer's dis ease : Father Heart Disorder Father acute myocard ial infarction : Father Lipid/Cholesterol Abnormality Father hypercholesterolemia : Father Relation Name Status Comments Father Social History Tobacco Use Types Packs/Day Years Used Date Smoking Tobacco: Never Assessed Comments:Smoking Status:No c urrent tobacco use Sex and Gender Information Value Date Recorded Sex Assigned at Not on file Legal Sex Male 6:40 PM EDT Gender Identity Not on file Sexual Orientation Not on file Last Filed Vital Signs Vital Sign Reading Time Taken Comments Blood Pressure 144/72 11/01/2021 2:35 PM EST RUE/Sitting RUE/Sitting Pulse 89 11/01/2021 2:35 PM EST Temperature 36.3 ??C (97.4 ??F) 11/01/2021 2 :35 PM EST Respiratory Rate 16 11/01/2021 2:35 PM EST Oxygen Saturation 96% 11/01/2021 2:3 5 PM EST Inhaled Oxygen Concentration - - Weight 105 kg (231 lb 15.9 oz) 11/01/2021 2:35 PM EST Height 174 cm (5' 8.5 ) 11/01/2021 2:35 PM EST Body Mass Index 34.76 11/01/2021 2:35 PM EST Plan of Treatment Health Maintenance Due Date Last Done Comments DTaP/Tdap/Td (1 - Tdap) 1977 Pneumococcal 50+ years (1 of 2 - PCV) 1978 Colon Cancer Screening 2004 Zoster (Shingrix) (1 of 2) 2009 RSV (1 - Risk 60-74 years 1-dose series) 2019 COVID-19 Vaccine (1 - 2023-2 5 season) 2024 Influenza (#1) 2024 09/21/2019 Hepatitis C Screening Completed 01/04/2020 LDL Cholesterol Discontinued 01/04/2020 Physical Discontinued 05/15/2020 Chest Imaging Discontinued 09/15/2020, 09/22/2019 Abdominal Aorta Imaging Discontinued HPV Vaccine Aged Out No longer eligi ble based on patient's age to complete this topic Hep A Aged Out No longer eligi ble based on patient's age to complete this topic Hep B Aged Out No longer eligi ble based on patient's age to complete this topic Hib Aged Out No longer eligi ble based on patient's age to complete this topic Meningococcal ACWY Aged Out No longer eligible based on patient's age to complete this topic Zoster (Zostavax) Discontinued Procedures Procedure Name Priority Date/Time Associated Diagnosis Comments CTA CHEST W/ CONTRAST TO R/O PE (DX: SOB/CP) SAME DAY- CALL RADIOLOGY TO SCHED Routine 09/15/2020 4:00 PM EST HEPATITIS C ANTIBODY W/ REFLEX TO RNA, QN, RT PCR Routine 01/04/2020 6:22 AM EDT LIPID PANEL WITH REFLEX TO DIRECT LDL Routine 01/04/2020 6:22 AM EDT from Last 3 Months or Most Recently Relevant to Health Maintenance Results * CTA CHEST W/ CONTRAST TO R/O PE (DX: SOB/CP) SAME DAY- CALL RADIOLOGY TO [facility] (09/15/2020 4:00 PM EST) IMAGING STUDY [facility] Report PATIENT: JOSE GILBERT ?# ?? 58 ADMISSION DATE: 09/15/20 ? MR#: ?? [id number] LOCATION: MM-CAT SCAN ? ROOM#: ATTENDING PHYSICIAN: Julian Michele DICTATING PHYSICIAN: Hossein Ontiveros ?REPORT#: [id number] ORDERING PHYSICIAN: ??Dede Michele EXAM SERVICE DATE: 09/15/20 EXAM: CTA Chest Spiral for PE ====== [facility] EXAMINATION: CT ANGIOGRAM OF THE CHEST WITH AND WITHOUT CONTRAST (CT PULMONARY ANGIOGRAM FOR PE) CLINICAL INFORMATION: [place]: [facility]
Diabetic: No
Normal Creatinine: Unknown
20g IV: Unknown
Exam Reason: SOB ??DYSPNEA ??? PULMONARY EMBOLISM
Hx Of Renal Impairment: N
Rad Site: [facility]
Are you ordering this test to rule out VTE? Y
Comment: KEEP AND CALL TIMI Boyle#[phone]
COMPARISON: None TECHNIQUE: Prior to contrast administration, noncontrast localization images were obtained. ?? Subsequently, multidetector volumetric imaging was performed from the thoracic inlet to below the diaphragms following the administration of 80 mL Omnipaque 350 intravenous contrast. No contrast reaction reported Sagittal, coronal, and MIP oblique sagittal reformatted images were obtained on the CT workstation, uploaded to PACS, and reviewed. This CT examination was performed using dose optimization techniques as appropriate, variously including the following: *Automated exposure control *Adjustment of mA and/or kV according to patient size (this includes techniques or standardized protocols for targeted exams where dose is matched to indication/reason for exam; i.e. extremities or head) *Use of iterative reconstruction technique TOTAL DLP: 527 mGy-cm FINDINGS: QUALITY OF STUDY/CONTRAST BOLUS: Satisfactory. PULMONARY ARTERIES: No central or segmental pulmonary emboli. THORACIC AORTA: No aneurysm or dissection. LUNG: No focal consolidation, nodules or masses. Low lung volumes. PLEURA: No pleural effusion or pneumothorax. MEDIASTINUM: Normal heart size. ??No pericardial effusion. ??No hilar or mediastinal lymphadenopathy. ??No evidence of septal bowing or right heart strain. CHEST WALL/AXILLA: No axillary or internal mammary lymphadenopathy. OSSEOUS STRUCTURES: No acute or suspicious osseous abnormality. UPPER ABDOMEN: Unremarkable. ??No reflux of contrast into the hepatic veins to suggest elevated right heart pressures. IMPRESSION: No evidence of pulmonary embolism or other active disease. VTE: negative DICTATED BY: Hossein Ontiveros ? 09/15/201614 TRANSCRIBED BY: CHAZ ? 09/15/201614 REPORT STATUS: Signed ? 09/15/20 SIGNED BY: Hossein Ontiveros ? [id number] Report is considered draft until signed, signified by completion of date and time stamp above. PHCT CONVERSIONS Anatomical Region Laterality Modality CHEST Computed Tomogra phy 09/15/2020 4:00 PM EST us Dedejanette RiveraYessenia IMG CT WITH CONTRAST ORD ERABLES Final Result * HEPATITIS C ANTIBODY W/ REFLEX TO RNA, QN, RT PCR (01/04/2020 6:22 AM EDT) Hepatitis C virus Ab NON-REACT NOEL NON-REACT NOEL PHCT CONVERSIONS Hepatitis C virus Ab Signal/Cutoff 0.01 <1.00 PHCT CONVERSIONS Comment: HCV antibody was non-reactive. There is no laboratory evidence of HCV infection. In most cases, no further action is required. However, if recent HCV exposure is suspected, a test for HCV RNA (test code 54994) is suggested. For additional information please refer to http://education.Going/faq/JSE46i9 (This link is being provided for informational/ educational purposes only.) 01/04/2020 6:22 AM EDT Narrative PHCT CONVERSIONS - 01/05/2020 11:28 AM EDT [facility] Date/Time: [facility] Testing performed at: 1, [facility], [address] [place] [address], [address], [place], [address], Video Games Storywriter: Griselda Randolph MD [facility] Date/Time: [facility] Results Received Date/Time: [id number] [facility] Reported Date/Time: us Rylan Roth MD LABORATORY Final Resu lt PHCT CONVERSIONS * (ABNORMAL) LIPID PANEL WITH REFLEX TO DIRECT LDL (01/04/2020 6:22 AM EDT) Cholesterol 220(H) <200 mg/dL PHCT CONVERSIONS HDL Cholesterol 61 > OR = 40 mg/dL PHCT CONVERSIONS Triglyceride 116 <150 mg/dL PHCT CONVERSIONS LDL Cholesterol 137(H) mg/dL (calc) PHCT CONVERSIONS Comment: Reference range: <100 Desirable range <100 mg/dL for primary prevention; <70 mg/dL for patients with CHD or diabetic patients with > or = 2 CHD risk factors. LDL-C is now calculated using the Isidro-Carey calculation, which is a validated novel method providing better accuracy than the Friedewald equation in the estimation of LDL-C. Isidro DANIELS et al. AMANDA. 2013;310(19): 3033-2215 (http://education.brand [employer]/faq/IRK905) CHOL/HDL Ratio 3.6 <5.0 (calc) PHCT CONVERSIONS Cholesterol Non-HDL 159(H) <130 mg/dL (calc) PHCT CONVERSIONS Comment: For patients with diabetes plus 1 major ASCVD risk factor, treating to a non-HDL-C goal of <100 mg/dL (LDL-C of <70 mg/dL) is considered a therapeutic option. 01/04/2020 6:22 AM EDT Narrative PHCT CONVERSIONS - 01/05/2020 2:42 AM EDT The insurance provider for this patient does not allow for this test(s) to be performed at [facility]. ??We have processed it and sent it to the reference lab as required by the payor. ??Please enter in error the original order. FASTING: YES [facility] Testing performed at: [facility], [facility], [address] [place] [address], [address], [place], [address], Video Games Storywriter: Griselda Randolph MD [facility] Date/Time: [id number] [facility] Results Received Date/Time: [facility] Reported Date/Time: us Rylan Roth MD LABORATORY Final Resu lt PHCT CONVERSIONS from Last 3 Months or Most Recently Relevant to Health Maintenance Care Teams Clinical Marketing Manager Relationship Specialty Start Date End Date Unknown Pcp, Non Php PCP - General 07/02/24
[2024-11-05 12:01] LABS: Alanine Aminotransferase 21 U/L (0-40); Albumin Level 3.8 g/dL (3.5-5.0); Alkaline Phosphatase 55 U/L (39-117); Anion Gap 11 (12-20); Aspartate Amino Transferase 28 U/L (5-37); Bilirubin Total 0.9 mg/dL (0.0-1.0); Blood Urea Nitrogen 15 mg/dL (9-16); Calcium 9.3 mg/dL (8.4-10.2); Carbon Dioxide 27 mmol/L (22-29); Chloride 106 mmol/L (96-108); Cholesterol 200 mg/dL (<200); Estimated Glomerular Filt Rate > 60; Glucose Fasting 108 mg/dL (60-99); HDL Cholesterol 51 mg/dL (>40); LDL Cholesterol Calculated 132 mg/dL (<100); Potassium 4.1 mmol/L (3.3-5.1); Sodium 140 mmol/L (135-145); Total Protein 7.3 g/dL (6.5-8.0); Triglycerides 88 mg/dL (<150)
== END 2024-11-05 07:53 | disposition home or self-care (01) ==
LOC: HO.WFDLDS 07:52
PROVIDERS: Visit Provider Family Medicine
DX: Z00.00 Encounter for general adult medical examination without abnormal findings (principal); I25.10 Atherosclerotic heart disease of native coronary artery without angina pectoris
CPT/HCPCS: 36415; 80053; 80061

== ENCOUNTER 2024-11-10 15:28 | Outpatient (AMB) | payer OTHER, SELFPAY ==
--- NOTE | 2024-11-10 15:40 | A.OFFPC_ITS ---
Vital Signs 11/10/24 15:43 11/10/24 16:32 Height 5 ft 10 in Weight 244 lb 8 oz BMI 35.1 BP 140/70 H 140/78 H Blood Pressure Location Rt brachial Rt brachial Position Sitting Sitting Respiration 16 Pulse 90 Pulse Source Pulse Oximeter Temp 98.3 F Temp Source Oral Pulse Oximetry (%) 98 Oxygen Delivery Method Room Air Intake Visit Reasons: f/u hypertension, HLD Intake Note: follow up on htn and lab review Cream Separator Operator Required: No Allergies pollen extracts Allergy (Mild, Verified 11/10/24 15:40) Sneezing sesame oil Allergy (Mild, Verified 11/10/24 15:40) Anaphylaxis sesame seed Allergy (Mild, Verified 11/10/24 15:40) Anaphylaxis penicillin V Allergy (Unknown, Verified 11/10/24 15:40) childhood Penicillins Allergy (Unknown, Verified 11/10/24 15:40) Unknown tree nuts, sesame seeds Allergy (Unknown, Uncoded 09/15/24 15:18) anaphylaxis Tobacco use date assessed: 01/19/24 Dental Screening Dental Screen Date: 12/15/23 HPI f/u hypertension, HLD HPI Details 64 y/o male presents to f/u HTN, HLD. Blood pressure today 140/70, 90p. Hx of CAD, NSTEMI. Pt had discontinued his BP meds and pt declines them. Labs drawn 11/05/24. Reviewed labs with pt. Fasting glucose of 108. Last A1c in July 5.4%. Triglycerides 88. TC 200. LDL 132. HDL 51. Notes ongoing environmental allergies. Followed by pulmonology. Notes R sided chest discomfort. Worsened with cough/sneeze. HPI Comments History of Present Illness Details Documentation assistance for Fidel Espinal MD, was provided by Vasu Tejada,? Social Insurance Administrator on 11/10/2024 at 4:10 PM EST. I, Dr. Espinal, have read, observed, and verified documentation. ?? PFSH Medical History No pertinent past medical history Surgical History History of nasal surgery History of hernia surgery Social History Housing: Apartment Alcohol intake: current Alcohol intake frequency: a few times a week Patient Tobacco Use Status: Former Tobacco user e-Cigarette/Vaping Use: Never Used Second Hand Smoke Exposure: No service: No Current occupational status: employed Current occupation: [employer] Current occupational exposures/hazards: No Cognitive needs: No Hearing needs: No Vision needs: No Questionnaire Thrive Questionnaire Date Thrive assessed: 11/10/24 I am a: Patient What is your living situation today?: I choose not to answer this question Within the past 12 months, did the food you bought not last and you didn't have the money to get more?: I choose not to answer this question Within the past 12 months, did you worry whether your food would run out before you got money to buy more?: I choose not to answer this question THRIVE Score: 0 LISA-7 AMB Questionnaire LISA-7 Date LISA - 7 assessed: 10/21/23 Source: Developed by Drs. Darin Day, Ama Bowman, Deyvi Espinal and colleagues, with an educational helen from [employer]. Review of Systems Const Denies chills, Reports fatigue, Denies fever(s), Denies headache(s) and Denies weakness ENT Denies dizziness and Denies headache(s) Card Details: Chest discomfort Denies dyspnea Resp Denies cough, Denies dyspnea, Denies wheezing and Denies other (shortness of breath) Musc Denies numbness and Denies tingling Neuro Denies dizziness, Denies headache(s), Denies numbness, Denies tingling and Denies weakness Psych Denies anxiety and Denies depression Endo Reports fatigue Aller/Immun Denies wheezing Physical exam (Primary Care) Vital Signs: Last Vital Signs Temp 98.3 F 11/10/24 15:43 Pulse 90 11/10/24 15:43 Resp 16 11/10/24 15:43 BP 140/78 H 11/10/24 16:32 Pulse Ox 98 11/10/24 15:43 Oxygen Delivery Method Room Air 11/10/24 15:43 BMI result Body Mass Index 35.1 Tobacco/Smoking Status: Tobacco use Status Tobacco use date assessed 01/19/24 11/10/24 15:41 Patient Tobacco Use Status Former Tobacco user 11/10/24 15:41 e-Cigarette/Vaping Use Never Used 11/10/24 15:41 Thrive Assessment: Date of Thrive Assessment Date Thrive assessed 11/10/24 11/10/24 15:41 Const General: well developed; No acute distress Nutritional Appearance: well nourished and obese Orientation/consciousness: patient oriented x3 HENMT Head: Yes normocephalic and Yes atraumatic Eyes General: appearance normal, both eyes and all related structures Pupils: Equal, round and reactive pupils present EOM: EOMs intact bilaterally Resp Effort & Inspection: normal respiratory effort Auscultation: clear to auscultation bilaterally Cardio Rate: regular rate Rhythm: regular rhythm Heart sounds: S1 normal heart sound present, S2 normal heart sound present, no gallops, no murmurs and no rubs Neuro General: patient oriented x3 and gait normal Cranial nerves: Yes Equal, round and reactive pupils present Psych Affect: normal affect Coding Level of Care Code Est Pt Level 4 (93810) Diagnoses Hypertension I10 CAD (coronary artery disease) I25.10 Hyperlipidemia E78.5 Allergies T78.40XA Sleep apnea G47.30 Chest discomfort R07.89 Assessment & Plan Assessment & Plan (1) Hypertension: Code(s): I10 - Essential (primary) hypertension Category: Medical Plan: Blood?pressure?is?high.??Goal?is?less?than?130/80 Patient?discontinued?his?blood?pressure?medications?and?declines?them. Encouraged?weight?loss, exercise?and?proper?sleep. (2) CAD (coronary artery disease): Code(s): I25.10 - Atherosclerotic heart disease of [place] coronary artery without angina pectoris Category: Medical Plan: Followed?by?Dr. Santos History?CAD?and?NSTEMI Have?encouraged?good?blood?pressure?and?lipid?control?but?patient?has?numerous?s ensitivities?to?medications?and?declines?many?of?them. Will?continue?to?work?on?this?with?him?through?lifestyle?changes?in?medications? that?he?accept. (3) Hyperlipidemia: Code(s): E78.5 - Hyperlipidemia, unspecified Category: Medical Plan: Patient?has?tried?numerous?medications?including?statin s,?Zetia?Brilinta?and?others He?is?working?on?lifestyle?changes.??LDL?cholesterol?has?improved?but?still?well ?above?goal?less?than?70. Continue?to?work?at?weight?loss?and?exercise.??Watch?saturated?fa ts?and?cholesterol We?talked?about?jhha-tzl-fewcavx?supplements?such?as?red?yeast?rice?and?lecithin Will?continue?to?monitor Follow-up?with?Cardiology?as?recommended (4) Allergies: Code(s): T78.40XA - Allergy, unspecified, initial encounter Category: Medical Plan: Significant?allergies?and?he?is?followed?by?pulmonology As?some?right- sided?chest?discomfort?which?is?worsened?with?cough?sneeze?and?deep?inspiration Likely?intercostal?muscle?strain?or?costochondritis Recent?chest?x-ray?was?negative?for?any?mass (5) Sleep apnea: Code(s): G47.30 - Sleep apnea, unspecified Category: Medical Plan: Ongoing?fatigue Referred?to?Sleep?Medicine.??Had?referred?him?before?but?patient?says?he?was?nev er?contacted. (6) Chest discomfort: Code(s): R07.89 - Other chest pain Category: Medical Plan: As above Plan He?will?return?in 3?months to?follow-up?hypertension, hyperlipidemia, fatigue. Patient?h as?tried?numerous?medications?for?his?lipids?and?does?not?tolerate?them.??Discon tinued?his?blood?pressure?medication?prior?to?his?last?visit?and?declines?others . Followed?by?Dr. Santos, cardiology. Orders: Orders Complete Blood Count Auto Diff 11/11/24 R53.83 - Other fatigue, Z00.00 - Encou nter for general adult medical examination without abnormal findings TSH reflex Free T4 11/11/24 R53.83 - Other fatigue, Z00.00 - Encounter for general adult medical examination without abnormal findings IRON PROFILE 11/11/24 R53.83 - Other fatigue SARS-CoV2/FLU/RSV 11/10/24 R09.89 - Other specified symptoms and signs involving the circulatory and respiratory systems Comprehensive [place]. Panel Fast 11/11/24 R53.83 - Other fatigue, Z00.00 - Encounter for general adult medical examination without abnormal findings Vitamin B12 and Folate 11/11/24 E53.8 - Deficiency of other specified B group vitamins, R53.83 - Other fatigue Vitamin D 25-OH Total 11/11/24 E55.9 - Vitamin D deficiency, unspecified, R53.83 - Other fatigue
[2024-11-10 15:43] VITALS: BP 140/70; PULSE 90; RESP 16; TEMP 36.8; O2SAT 98; BMI 35.1
[2024-11-10 16:32] VITALS: BP 140/78
--- OUTSIDE RECORDS SUMMARY | 2024-11-10 18:11 | XMS_ITS | Encounter Summary ---
Author Organization [facility] Address [address] [place] [address] Care Team Providers Care Ticket Printer And Tagger Name Role Phone Rylan Roth MD Primary Care Provider Encounter Details Date Type Department Care Team (Late st Contact Info) Description 05/15/2020 Scanned Document [facility] Urologic Surgery [address] [place] [id number] Provider, MD Mandeep [address] [place] [address] Social History Tobacco Use Types Packs/Day Years [...] on filedocumented in this encounter Care Teams Ticket Printer And Tagger Relationship Specialty Start Date End Date Rylan Roth MD [address] [place] [address] PCP - General Internal Medicine 10/08/19 documented as of this encounter
--- OUTSIDE RECORDS SUMMARY | 2024-11-10 18:11 | XMS_ITS | Clinical Summary ---
Author Organization [facility] Address [address] [place] [address] Care Team Providers Care Grain Miller Helper Name Role Phone Ainsley Glynn MD Primary [...] age to complete this topic Care Teams Grain Miller Helper Relationship Specialty Start Date End Date Ainsley Glynn MD PCP - General Internal Medicine 03/22/19
--- OUTSIDE RECORDS SUMMARY | 2024-11-10 18:11 | XMS_ITS | Clinical Summary ---
Author Organization [facility] Address [address] [place] [address] Care Team Providers Care Primary Mill Roller Name Role Phone Rylan Roth MD Primary Care Provider [phone] Allergies Active Allergy Reactions Criticality Noted Date [...] age to complete this topic Care Teams Primary Mill Roller Relationship Specialty Start Date End Date Rylan Roth MD [address] [place] [address] PCP - General Internal Medicine 10/08/19
--- OUTSIDE RECORDS SUMMARY | 2024-11-10 18:11 | XMS_ITS | Clinical Summary ---
Author Organization [facility] Address [address] [place] [address] Care Team Providers Care Process Architect Name Role Phone Unknown Pcp, Non Php [...] Acute sinusitis 11/01/2021 Overview (10/05/2023): Impression - [id number]: Doxycylcine 100mg bid X 7 days. Prednisone as directed. S/E discussed. Push fluids. Saline spray, mucinex prn. RTO if not improving. Impression - 01Nov2021: Rapid covid test done in office and negative. Doxycylcine 100mg bid X 7 days. Prednisone as directed. S/E discussed. Push fluids. Saline spray, mucinex prn. RTO if not improving. COVID-19 virus infection 08/06/2021 Overview (10/05/2023): Impression - 75Jcs5453: Patient with covid 19 infection who testing [...] symptoms he is advised to contact his aeronautical project engineer Dr. Pope. Dyspnea 09/15/2020 Overview (10/05/2023): Impression - 15Sep2020: This has been going on for months but pt getting worse. Did not respond to Albuterol inhaler of which Fire Information Officer took him off from. I am concerned about a PE due to no response to conventional medications. Impression - [id number]: Pt with no definite diagnosis and not responding well to medicaton. I will refer him to Cardiology to r/o cardiac etiology for symptoms. 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 Allergic rhinitis due to pollen, unspecified sea sonality 10/15/2019 Moderate persistent asthma 10/15/2019 Overview (10/05/2023): Impression - [id number]: I will add Spiriva to treatment regimen [...] (DX: SOB/CP) SAME DAY- CALL RADIOLOGY TO REPLACED BY [facility] (09/15/2020 4:00 PM EST) IMAGING STUDY [facility] Medical Imaging Report PATIENT: JOSE HUDSON ?# ?? 58 ADMISSION DATE: 09/15/20 ? MR#: ?? [id number] LOCATION: MM-CAT SCAN ? ROOM#: ATTENDING PHYSICIAN: Julian Michele DICTATING PHYSICIAN: Hossein Ontiveros ?REPORT#: [id number] ORDERING PHYSICIAN: ??Dede Michele EXAM SERVICE DATE: 09/15/20 EXAM: CTA Chest Spiral for PE ====== [facility] EXAM[facility]ATION: CT ANGIOGRAM OF THE CHEST WITH AND WITHOUT CONTRAST (CT PULMONARY ANGIOGRAM FOR PE) CLINICAL INFORMATION: [place]: [facility]
Diabetic: No
Normal Creatinine: Unknown
20g IV: Unknown
Exam Reason: SOB ??DYSPNEA ??? PULMONARY EMBOLISM
Hx Of Renal Impairment: N
Rad Site: [facility]
Are you ordering this test to rule out VTE? Y
Comment: KEEP AND CALL TIMI Boyle#[phone]
COMPARISON: None TECHNIQUE: Prior to contrast administration, [...] a test for HCV RNA (test code 49275) is suggested. For additional information please refer to http://education.[place]/faq/ANB95q0 (This link is being provided for informational/ educational purposes only.) 01/04/2020 6:22 AM EDT Narrative PHCT CONVERSIONS - 01/05/2020 11:28 AM EDT [facility] Date/Time: [facility] Testing performed at: 1, [facility], [address] [place] [address], [address], [place], [address], Urban And Regional Planner: Griselda Randolph MD [facility] Collection Date/Time: [facility] Results Received Date/Time: [id number] [facility] Reported Date/Time: us Rylan Roth MD [...] LDL-C. Isidro DANIELS et al. AMANDA. 2013;310(19): 6492-2931 (http://education.TinyBytes.Tamecco/faq/UWW514) CHOL/HDL Ratio 3.6 <5.0 (calc) PHCT CONVERSIONS [...] for this test(s) to be performed at [facility]. ??We have processed it and sent it to the reference lab as required by the payor. ??Please enter in error the original order. FASTING: YES [facility] Testing performed at: NL1, [facility], [address] [place] [address], [address], [place], [address], Urban And Regional Planner: Griselda Randolph MD [facility] Date/Time: [id number] [facility] Results Received Date/Time: [facility] Reported Date/Time: us Rylan Roth MD LABORATORY Final Resu lt PHCT CONVERSIONS from Last 3 Months or Most Recently Relevant to Health Maintenance Care Teams Process Architect Relationship Specialty Start Date End Date Unknown Pcp, Non Php PCP - General 07/02/24
--- OUTSIDE RECORDS SUMMARY | 2024-11-10 18:11 | XMS_ITS ---
Author Name [facility] Organization Unknown Care Team Organization Name Specialty Phone Email Start Date End Da jesse [facility] 09/08/2021 01/12/2022
== END 2024-11-10 16:31 | disposition home or self-care (01) ==
LOC: HO.HMCFM 15:28
PROVIDERS: PCP Family Medicine; Visit Provider Family Medicine
DX: I10 Essential (primary) hypertension (principal); I25.10 Atherosclerotic heart disease of native coronary artery without angina pectoris; E78.5 Hyperlipidemia, unspecified; T78.40XA Allergy, unspecified, initial encounter; G47.30 Sleep apnea, unspecified; R07.89 Other chest pain

== ENCOUNTER 2024-11-10 15:28 | Outpatient (REF) | payer OTHER, SELFPAY ==
--- OUTSIDE RECORDS SUMMARY | 2024-11-10 18:51 | XMS_ITS | Encounter Summary ---
Author Organization [facility] Address [address] [place] [address] Care Team Providers Care Community Educator Name Role Phone Rylan Roth MD Primary Care Provider Encounter Details Date Type Department Care Team (Late st Contact Info) Description 05/15/2020 Scanned Document [facility] Urologic Surgery [address] [place] [id number] Provider, MD Mandeep [address] [place] [address] Social History Tobacco Use Types Packs/Day Years [...] on filedocumented in this encounter Care Teams Community Educator Relationship Specialty Start Date End Date Rylan Roth MD [address] [place] [address] PCP - General Internal Medicine 10/08/19 documented as of this encounter
--- OUTSIDE RECORDS SUMMARY | 2024-11-10 18:51 | XMS_ITS | Clinical Summary ---
Author Organization [facility] Address [address] [place] [address] Care Team Providers Care Broadcast News Producer Name Role Phone Unknown Pcp, Non Php [...] Acute sinusitis 11/01/2021 Overview (10/05/2023): Impression - [id number]: Doxycylcine 100mg bid X 7 days. Prednisone as directed. S/E discussed. Push fluids. Saline spray, mucinex prn. RTO if not improving. Impression - 01Nov2021: Rapid covid test done in office and negative. Doxycylcine 100mg bid X 7 days. Prednisone as directed. S/E discussed. Push fluids. Saline spray, mucinex prn. RTO if not improving. COVID-19 virus infection 08/06/2021 Overview (10/05/2023): Impression - 10Otz6305: Patient with covid 19 infection who testing [...] symptoms he is advised to contact his barrelhead inspector Dr. Pope. Dyspnea 09/15/2020 Overview (10/05/2023): Impression - 15Sep2020: This has been going on for months but pt getting worse. Did not respond to Albuterol inhaler of which Public Transportation Inspector took him off from. I am concerned about a PE due to no response to conventional medications. Impression - 63Joa9131: Pt with no definite diagnosis and not responding well to medicaton. I will refer him to Cardiology to r/o cardiac etiology for symptoms. 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 58 ADMISSION DATE: 09/15/20 ? MR#: ?? [id number] LOCATION: MM-CAT SCAN ? ROOM#: ATTENDING PHYSICIAN: Julian Michele DICTATING PHYSICIAN: Hossein Ontiveros ?REPORT#: [id number] ORDERING PHYSICIAN: ??Dede Michele EXAM SERVICE DATE: 09/15/20 EXAM: CTA Chest Spiral for PE ====== [facility] EX[facility]: CT ANGIOGRAM OF THE CHEST WITH AND WITHOUT CONTRAST (CT PULMONARY ANGIOGRAM FOR PE) CLINICAL INFORMATION: [place]: [facility]
Diabetic: No
Normal Creatinine: Unknown
20g IV: Unknown
Exam Reason: SOB ??DYSPNEA ??? PULMONARY EMBOLISM
Hx Of Renal Impairment: N
Rad Site: [facility]
Are you ordering this test to rule out VTE? Y
Comment: KEEP AND CALL TIMI Boyle#[phone]
COMPARISON: None TECHNIQUE: Prior to contrast administration, [...] a test for HCV RNA (test code 95429) is suggested. For additional information please refer to http://education.[place]/faq/VIP19j6 (This link is being provided for informational/ educational purposes only.) 01/04/2020 6:22 AM EDT Narrative PHCT CONVERSIONS - 01/05/2020 11:28 AM EDT [facility] Date/Time: [facility] Testing performed at: 1, [facility], [address] [place] [address], [address], [place], [address], Rocket Scientist: Griselda Randolph MD [facility] Collection Date/Time: [facility] Results Received Date/Time: [id number] [facility] Reported Date/Time: us Rylan Roth MD [...] LDL-C. Isidro DANIELS et al. AMANDA. 2013;310(19): 6767-8561 (http://education.iRewardChart.Signix/faq/UOM865) CHOL/HDL Ratio 3.6 <5.0 (calc) PHCT CONVERSIONS [...] for this test(s) to be performed at [facility]. ??We have processed it and sent it to the reference lab as required by the payor. ??Please enter in error the original order. FASTING: YES [facility] Testing performed at: NL1, [employer] [facility], [address] [place] [address], [address], [place], [address], Rocket Scientist: Griselda Randolph MD [facility] Collection Date/Time: [id number] [facility] Results Received Date/Time: [facility] Reported Date/Time: us Rylan Roth MD LABORATORY Final Resu lt PHCT CONVERSIONS from Last 3 Months or Most Recently Relevant to Health Maintenance Care Teams Broadcast News Producer Relationship Specialty Start Date End Date Unknown Pcp, Non Php PCP - General 07/02/24
--- OUTSIDE RECORDS SUMMARY | 2024-11-10 18:51 | XMS_ITS | Clinical Summary ---
Author Organization [facility] Address [address] [place] [address] Care Team Providers Care Kaiawhina Name Role Phone Rylan Roth MD Primary Care Provider [phone] Allergies Active Allergy Reactions Criticality Noted Date [...] age to complete this topic Care Teams Kaiawhina Relationship Specialty Start Date End Date Rylan Roth MD [address] [place] [address] PCP - General Internal Medicine 10/08/19
--- OUTSIDE RECORDS SUMMARY | 2024-11-10 18:51 | XMS_ITS | Clinical Summary ---
Author Organization [facility] Address [address] [place] [address] Care Team Providers Care Fish Housekeeper Name Role Phone Ainsley Glynn MD Primary [...] age to complete this topic Care Teams Fish Housekeeper Relationship Specialty Start Date End Date Ainsley Glynn MD PCP - General Internal Medicine 03/22/19
[2024-11-10 19:31] LABS: Influenza A PCR NEGATIVE (Negative); Influenza B PCR NEGATIVE (Negative); Resp Syncy Virus RNA Qual PCR NEGATIVE (Negative); SARS COV2 PCR INHOUSE NEGATIVE (Negative)
== END 2024-11-10 15:29 | disposition home or self-care (01) ==
LOC: HO.LNP 15:28
PROVIDERS: PCP Family Medicine; Visit Provider Family Medicine
DX: R09.89 Other specified symptoms and signs involving the circulatory and respiratory systems (principal); I10 Essential (primary) hypertension; I25.10 Atherosclerotic heart disease of native coronary artery without angina pectoris; E78.5 Hyperlipidemia, unspecified; T78.40XA Allergy, unspecified, initial encounter; G47.30 Sleep apnea, unspecified; R07.89 Other chest pain; I25.2 Old myocardial infarction
CPT/HCPCS: 0241U

== ENCOUNTER 2025-03-15 11:49 | Outpatient (REF) | payer OTHER, SELFPAY ==
--- OUTSIDE RECORDS SUMMARY | 2025-03-15 13:08 | XMS_ITS | Clinical Summary ---
Author Organization [facility] Address [address] [place] [address] Care Team Providers Care Boat Oar Maker Name Role Phone Unknown Pcp, Non Php [...] Acute sinusitis 11/01/2021 Overview (10/05/2023): Impression - 57Rcq3224: Doxycylcine 100mg bid X 7 days. Prednisone as directed. S/E discussed. Push fluids. Saline spray, mucinex prn. RTO if not improving. Impression - 01Nov2021: Rapid covid test done in office and negative. Doxycylcine 100mg bid X 7 days. Prednisone as directed. S/E discussed. Push fluids. Saline spray, mucinex prn. RTO if not improving. COVID-19 virus infection 08/06/2021 Overview (10/05/2023): Impression - 41Lgq7547: Patient with covid 19 infection who testing [...] symptoms he is advised to contact his welding pantograph operator Dr. Pope. Dyspnea 09/15/2020 Overview (10/05/2023): Impression - 15Sep2020: This has been going on for months but pt getting worse. Did not respond to Albuterol inhaler of which Loading Machine Tool Setter took him off from. I am concerned about a PE due to no response to conventional medications. Impression - 96Rwj1587: Pt with no definite diagnosis and not responding well to medicaton. I will refer him to Cardiology to r/o cardiac etiology for symptoms. 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 Allergic rhinitis due to pollen, unspecified sea sonality 10/15/2019 Moderate persistent asthma 10/15/2019 Overview (10/05/2023): Impression - 51Npa5007: I will add Spiriva to treatment regimen and see how he does. Immunizations Immunization Administration Dates Next Due Influenza,injectable,quad,preservative 0 Family [...] 89 11/01/2021 2:35 PM EST Temperature 36.3 C (97.4 F) 11/01/2021 2:35 PM EST Respiratory Rate 16 11/01/2021 2:35 [...] 60-74 years 1-dose series) 2019 COVID-19 Vaccine ( - 2023-2 5 season) 2024 Influenza (#1) 2025 09/21/2019 Hepatitis C Screening Completed 01/04/2020 LDL [...] (DX: SOB/CP) SAME DAY- CALL RADIOLOGY TO [facility] (09/15/2020 4:00 PM EST) IMAGING STUDY [facility] Medical Imaging Report PATIENT: JOSE HUDSON # 58 ADMISSION DATE: 09/15/20 MR#: [id number] [facility] SC[facility] ROOM#: ATTENDING PHYSICIAN: Julian Michele DICTATING PHYSICIAN: Hossein Ontiveros REPORT#: [id number] ORDERING PHYSICIAN: Julian Michele EXAM SERVICE DATE: 09/15/20 EXAM: CTA Chest Spiral for PE ====== EXAMINATION: CT ANGIOGRAM OF THE CHEST WITH AND WITHOUT CONTRAST (CT PULMONARY ANGIOGRAM FOR PE) CLINICAL INFORMATION: [place]: [facility]
Diabetic: No
Normal Creatinine: Unknown
20g IV: Unknown
Exam Reason: SOB DYSPNEA ? PULMONARY EMBOLISM
Hx Of Renal Impairment: N
Rad Site: [facility]
Are you ordering this test to rule out VTE? Y
Comment: KEEP AND CALL TIMI Boyle#[phone]
COMPARISON: None TECHNIQUE: Prior to contrast administration, noncontrast localization images were obtained. Subsequently, multidetector volumetric imaging was performed from [...] effusion or pneumothorax. MEDIASTINUM: Normal heart size. No pericardial effusion. No hilar or mediastinal lymphadenopathy. No evidence of septal bowing or right heart strain. CHEST WALL/AXILLA: No axillary or internal mammary lymphadenopathy. OSSEOUS STRUCTURES: No acute or suspicious osseous abnormality. UPPER ABDOMEN: Unremarkable. No reflux of contrast into the hepatic veins to suggest elevated right heart pressures. IMPRESSION: No evidence of pulmonary embolism or other active disease. VTE: negative DICTATED BY: Hossein Ontiveros 09/15/20 1615 TRANSCRIBED BY: CHAZ 09/15/20 1615 REPORT STATUS: Signed 09/15/20 SIGNED BY: Hossein Ontiveros 1639 Report is considered draft until signed, signified by completion of date and time stamp above. PHCT CONVERSIONS Anatomical Region Laterality Modality CHEST Computed Tomogra phy 09/15/2020 4:00 PM EST [facility] CT WITH CONTRAST ORD ERABLES Final Result [...] a test for HCV RNA (test code 35254) is suggested. For additional information please refer to http://Surikate.Ticket ABC/faq/SPM12c4 (This link is being provided for informational/ educational purposes only.) 01/04/2020 6:22 AM EDT Narrative PHCT CONVERSIONS - 01/05/2020 11:28 AM EDT [facility] Collection Date/Time: Quest Testing performed at: 1, [facility], [address] [place] [address], [address], [place], [address], Rework Operator: Griselda Randolph MD [facility] Collection Date/Time: [facility] Results Received Date/Time: [facility] Reported Date/Time: Rylan Roth MD LABORATORY Final Resu lt [...] factors. LDL-C is now calculated using the Isidro-Aurelio calculation, which is a validated novel method providing better accuracy than the Friedewald equation in the estimation of LDL-C. Isidro DANIELS et al. AMANDA. 2013;310(19): 6167-6743 (http://Surikate.PicPrizes/faq/TWG915) CHOL/HDL Ratio 3.6 <5.0 (calc) PHCT CONVERSIONS [...] for this test(s) to be performed at [facility]. We have processed it and sent it to the reference lab as required by the payor. Please enter in error the original order. FASTING: YES [facility] Testing performed at: NL1, [facility], [address] [place] [address], [address], [place], [address], Rework Operator: Griselda Randolph MD [facility] Collection Date/Time: [id number] [facility] Results Received Date/Time: [facility] Reported Date/Time: us Rylan Roth MD LABORATORY Final Resu lt PHCT CONVERSIONS from Last 3 Months or Most Recently Relevant to Health Maintenance Care Teams Boat Oar Maker Relationship Specialty Start Date End Date Unknown Pcp, Non Php PCP - General 07/02/24
--- OUTSIDE RECORDS SUMMARY | 2025-03-15 13:08 | XMS_ITS | Clinical Summary ---
Author Organization [facility] Address [address] [place] [address] Care Team Providers Care Railroad Crossing Protection Maintainer Name Role Phone Rylan Roth MD Primary Care Provider [phone] Allergies Active Allergy Reactions Criticality Noted Date Comments Penicillins Shortness Of Breath High 10/08/2019 Medications EPINEPHrine 0.3 mg/0.3 mL IJ auto-injection Inject 0.3 mg into the shoulder, thigh, or buttocks as needed. As Directed. 1 Active Spiriva Respimat 1.25 MCG/ACT inhalation INHALE 2 INHALATIONS BY MOUTH DAILY 1 Active Active Problems No known active problems Immunizations Immunization Administration Dates Next Due Tdap 08/10/2013 Social History Tobacco Use Types Packs/Day Years Used Date Smoking Tobacco: Never Smokeless Tobacco: Never Alcohol Use Standard Drinks/Week Comments Not Currently 0 (1 standard drink = 0.6 oz pur e alcohol) Sex and Gender Information Value Date Recorded Sex Assigned at Not on file Legal Sex Male 12:44 PM EDT Gender Identity Not on file Sexual Orientation Not on file Last Filed Vital Signs Vital Sign Reading Time Taken Comments Blood Pressure 128/70 12/08/2020 3:22 PM EDT Pulse 82 12/08/2020 3:22 PM EDT Temperature 36.8 C (98.3 F) 12/08/2020 3:22 PM EDT Respiratory Rate 16 09/15/2013 1:08 PM EST [...] - T d or Tdap) 08/10/2023 08/10/2013 COVID-19 Vaccine ( - 2023-2 5 season) 2024 Influenza Vaccine 04/01/2025 RSV Vaccine 60 years and old er and Patients (1 - 1-dose 75+ series) 2034 Hepatitis B Vaccines Aged Out No long er eligible based on patient's age to complete this topic Insurance [facility] [place] [address] [facility] Care Teams Railroad Crossing Protection Maintainer Relationship Specialty Start Date End Date Rylan Roth MD [address] [place] [address] PCP - General Internal Medicine 10/08/19
--- OUTSIDE RECORDS SUMMARY | 2025-03-15 13:08 | XMS_ITS | Clinical Summary ---
Author Organization [facility] it[facility] Address [address] [place] [address] Care Team Providers Care Inpatient Nursing Aide Name Role Phone Ainsley Glynn MD Primary [...] 2023-2 5 season) 2024 Influenza Vaccine (#1) 2025 RSV Immunization Adult Patie nts (1 - 1-dose 75+ series) 2034 HIB [...] age to complete this topic Meningococcal B Vaccine Aged Out No l onger eligible based on patient's age to complete this topic Pneumococcal Vaccine: Pediat rics (0 to 5 Years) and At-Risk Patients (6 to 49 Years) Aged Out No longer eligible b ased on patient's age to complete this topic RSV Immunization Patients Un leobardo 20 months Aged Out No longer eligible b ased on patient's age to complete this topic Varicella Vaccines Aged Out No longer eligible based on patient's age to complete this topic Care Teams Inpatient Nursing Aide Relationship Specialty Start Date End Date Ainsley Glynn MD PCP - General Internal Medicine 03/22/19
[2025-03-15 14:43] LABS: MANUAL DIFF FLAG NO
[2025-03-15 14:52] LABS: Hematocrit 45.5 % (42.0-52.0); Hemoglobin 15.4 g/dl (14.0-18.0); Imm Gran Abs Auto 0.01 X10*3/uL (0.00-0.03); Imm Gran Pct Auto 0.1 % (0.0-0.4); Lymphocytes Absolute Auto 1.6 X10*3/uL (1.2-4.9); Mean Corpuscular HGB Conc 33.8 g/dl (31.0-36.0); Mean Corpuscular Hemoglobin 30.8 pg (27.0-33.0); Mean Corpuscular Volume 91.0 fL (80.0-98.0); NRBC Abs Auto 0.000 X10*3/uL (0.0-0.012); NRBC Pct Auto 0.0 /100WBC (0.0-0.2); Platelet Count 248 X10*3/uL (160-400); Red Blood Count 5.00 X10*6/uL (4.60-5.80); White Blood Count 6.8 X10*3/uL (4.8-10.8)
[2025-03-15 15:11] LABS: Alanine Aminotransferase 18 U/L (0-40); Albumin Level 4.2 g/dL (3.5-5.0); Alkaline Phosphatase 50 U/L (39-117); Anion Gap 11 (12-20); Aspartate Amino Transferase 25 U/L (5-37); Blood Urea Nitrogen 16 mg/dL (9-16); Calcium 9.2 mg/dL (8.4-10.2); Carbon Dioxide 26 mmol/L (22-29); Chloride 109 mmol/L (96-108); Cholesterol 213 mg/dL (<200); Estimated Glomerular Filt Rate > 60; HDL Cholesterol 48 mg/dL (>40); Iron 151 mcg/dL (45-160); Percent Iron Saturation 54 % (15-50); Potassium 4.1 mmol/L (3.3-5.1); Sodium 142 mmol/L (135-145); Total Iron Binding Capacity 278 mcg/dL (228-428); Total Protein 6.9 g/dL (6.5-8.0); Triglycerides 128 mg/dL (<150); Unsaturated Iron Binding 127 ug/dL
[2025-03-15 15:37] LABS: Folate 7.8 ng/mL (> or = 4.0); Vitamin B12 459 pg/mL (200-900)
== END 2025-03-15 11:50 | disposition home or self-care (01) ==
LOC: HO.WFDLDS 11:49
PROVIDERS: Visit Provider Family Medicine
DX: Z00.00 Encounter for general adult medical examination without abnormal findings (principal); R53.83 Other fatigue; I25.10 Atherosclerotic heart disease of native coronary artery without angina pectoris; E53.8 Deficiency of other specified B group vitamins; E55.9 Vitamin D deficiency, unspecified
CPT/HCPCS: 36415; 80053; 80061; 82306; 82607; 82746; 83540; 84443; 85025

== ENCOUNTER 2025-04-13 12:49 | Outpatient (AMB) | payer OTHER, SELFPAY ==
[2025-04-13 13:05] VITALS: BP 136/78; PULSE 92; TEMP 36.7; O2SAT 98; BMI 34.3
--- NOTE | 2025-04-13 13:05 | AM.OFFWIN_ITS ---
Intake Vital Signs 04/13/25 13:05 Height 5 ft 10 in Weight 239 lb 2 oz BMI 34.3 BP 136/78 Blood Pressure Location Lt brachial Position Sitting Pulse 92 Pulse Source Pulse Oximeter Temp 98.0 F Temp Source Oral Pulse Oximetry (%) 98 Oxygen Delivery Method Room Air Intake Visit Reasons: EP congestion Patient Tobacco Use Status: Former Tobacco user Harbor Boat Pilot Required: No Allergies pollen extracts Allergy (Mild, Verified 11/10/24 15:40) Sneezing sesame oil Allergy (Mild, Verified 11/10/24 15:40) Anaphylaxis sesame seed Allergy (Mild, Verified 11/10/24 15:40) Anaphylaxis penicillin V Allergy (Unknown, Verified 11/10/24 15:40) childhood Penicillins Allergy (Unknown, Verified 11/10/24 15:40) Unknown keli seeds Allergy (Severe, Uncoded 04/13/25 13:11) Anaphylaxis tree nuts, sesame seeds Allergy (Unknown, Uncoded 09/15/24 15:18) anaphylaxis Do you need a note to return to daycare/school/sports/work: No HPI HPI Comments History of Present Illness Details History of Present Illness - The patient is a 64-year-old male pres enting with acute sinus pressure and congestion. - Reports severe congestion persisting f or several weeks, with an inability to hear due to clogged ears. - [facility], during which nasal polyps were removed. - Informed that the polyps may have recu rred. - Experiences significant nasal discharg e, described as heavy and yellow-tinted, suggestive of infection. - History of myocardial infarction in [facility] 2023, currently on clopidogrel and aspirin therapy. 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 - He denies fever, chills, CP, SOB, coug h, sick contacts, or travel. Physical Exam General: Cooperative, healthy appearing, comfortable, no acute distress and well developed Head: Normal to inspection Ears: Hearing grossly normal bilaterally. No tragus or mastoid tenderness noted. Auditory canals clear bilaterally. TM's normal, not bulging. No fluid noted. Nose: Normal external nose present. Moist mucosa. Turbinates normal bilaterally, not boggy. Face and sinus: Tenderness to palpation of the frontal and maxillary sinuses bilaterally. Neck: Normal visual inspection and Yes full ROM. No lymphadenopathy noted. Respiratory: Normal respiratory effort and able to speak in complete sentences. Clear to auscultation bilaterally Cardiovascular: Regular rate and rhythm. Normal S1 and S2 GI: Normal to inspection. Soft to palpation and nontender, nondistended. No guarding noted. Skin: No rashes or lesions noted [facility] Medical History No pertinent past medical history Surgical History History of nasal surgery History of hernia surgery Social History Housing: Apartment Alcohol intake: current Alcohol intake frequency: a few times a week Patient Tobacco Use Status: Former Tobacco user e-Cigarette/Vaping Use: Never Used Second Hand Smoke Exposure: No service: No Current occupational status: employed Current occupation: [employer] Current occupational exposures/hazards: No Cognitive needs: No Hearing needs: No Vision needs: No Review of Systems Const All systems reviewed & are unremarkable except as noted in HPI and below Physical Exam Vital Signs: Last Vital Signs Temp 98.0 F 04/13/25 13:05 Pulse 92 04/13/25 13:05 BP 136/78 04/13/25 13:05 Pulse Ox 98 04/13/25 13:05 Oxygen Delivery Method Room Air 04/13/25 13:05 BMI result Body Mass Index 34.3 Assessment & Plan Assessment & Plan (1) Sinusitis: Code(s): J32.9 - Chronic sinusitis, unspecified Qualifiers: Sinusitis location: unspecified location Chronicity: acute Recurrence: recurrent Qualified Code(s): J01.91 - Acute recurrent sinusitis, unspecified Plan Most likely sinusitis Plan - tylenol or motrin as needed - cefpodoxime BID for 10 days - patient is concerned that he will not have improvement with the antibiotics as he has had multiple sinus infections in the past, he was on doxycycline with no improvement and has an allergy to PCN- told him to call if no improvement in 24- 48 hrs on abx and we could switch meds - steam showers - Follow up with PCP Medications: New cefpodoxime must administer with a meal/food 200 mg PO Q12H 20 tabs 0RF 10 days Coding Level of Care Code Est Pt Level 3 (68077) Diagnoses Acute recurrent sinusitis, unspecified location J01.91 Sinusitis location: unspecified location Chronicity: acute Recurrence: recurrent
--- OUTSIDE RECORDS SUMMARY | 2025-04-13 13:19 | XMS_ITS | Clinical Summary ---
Author Organization [facility] Address [address] [place] [address] Care Team Providers Care Sanding Supervisor Name Role Phone Unknown Pcp, Non Php [...] Acute sinusitis 11/01/2021 Overview (10/05/2023): Impression - [id number]: Doxycylcine 100mg bid X 7 days. Prednisone as directed. S/E discussed. Push fluids. Saline spray, mucinex prn. RTO if not improving. Impression - 01Nov2021: Rapid covid test done in office and negative. Doxycylcine 100mg bid X 7 days. Prednisone as directed. S/E discussed. Push fluids. Saline spray, mucinex prn. RTO if not improving. COVID-19 virus infection 08/06/2021 Overview (10/05/2023): Impression - [id number]: Patient with covid 19 infection who testing [...] symptoms he is advised to contact his machine cloth examiner Dr. Pope. Dyspnea 09/15/2020 Overview (10/05/2023): Impression - 15Sep2020: This has been going on for months but pt getting worse. Did not respond to Albuterol inhaler of which Blade Boner took him off from. I am concerned about a PE due to no response to conventional medications. Impression - [id number]: Pt with no definite diagnosis and not responding well to medicaton. I will refer him to Cardiology to r/o cardiac etiology for symptoms. 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 SCAN ROOM#: ATTENDING PHYSICIAN: Julian Michele DICTATING PHYSICIAN: Hossein Ontiveros REPORT#: [id number] ORDERING PHYSICIAN: Julian Michele EXAM SERVICE DATE: 09/15/20 EXAM: CTA Chest Spiral for PE ====== EXAMINATION: CT ANGIOGRAM OF THE CHEST WITH AND WITHOUT CONTRAST (CT PULMONARY ANGIOGRAM FOR PE) CLINICAL INFORMATION: [place]: [facility]
Diabetic: No
Normal Creatinine: Unknown
20g IV: Unknown
Exam Reason: SOB DYSPNEA ? PULMONARY EMBOLISM
Hx Of Renal Impairment: N
Rad Site: [facility]
Are you ordering this test to rule out VTE? Y
Comment: KEEP AND CALL TIMI Boyle#[phone]
COMPARISON: None TECHNIQUE: Prior to contrast administration, [...] Computed Tomogra phy 09/15/2020 4:00 PM EST Result [facility] WITH CONTRAST ORD ERABLES Final Result [...] a test for HCV RNA (test code 33828) is suggested. For additional information please refer to http://[employer]/faq/TFA54e5 (This link is being provided for informational/ educational purposes only.) 01/04/2020 6:22 AM EDT Narrative PHCT CONVERSIONS - 01/05/2020 11:28 AM EDT [facility] Date/Time: [facility] Testing performed at: 1, [employer], [address] [place] [address], [address], [place], [address], Certified Medication Aide: Griselda Randolph MD [facility] Date/Time: [facility] [...] equation in the estimation of LDL-C. Isidro SS et al. AMANDA. 2013;310(19): 0309-0825 (http://education.E[employer]Tim[employer].PS DEPT./faq/BQR974) CHOL/HDL Ratio 3.6 <5.0 (calc) PHCT CONVERSIONS [...] performed at [facility]. We have processed it and sent it to the reference lab as required by the payor. Please enter in error the original order. FASTING: YES [facility] Testing performed at: NL1, [employer], [address] [place] [address], [address], [place], [address], Certified Medication Aide: Griselda Randolph MD [facility] Date/Time: [facility] Results Received Date/Time: [facility] Reported Date/Time: us Rylan Roth MD LABORATORY Final Resu lt PHCT CONVERSIONS from Last 3 Months or Most Recently Relevant to Health Maintenance Care Teams Sanding Supervisor Relationship Specialty Start Date End Date Unknown Pcp, Non Php PCP - General 07/02/24
--- OUTSIDE RECORDS SUMMARY | 2025-04-13 13:19 | XMS_ITS | Clinical Summary ---
Author Organization [facility] Address [address] [place] [address] Care Team Providers Care Double End Tenoner Setter Name Role Phone Rylan Roth MD Primary Care Provider [phone] Allergies Active Allergy Reactions Criticality Noted Date [...] patient's age to complete this topic Insurance [facility] Care Teams Double End Tenoner Setter Relationship Specialty Start Date End Date Rylan Roth MD [address] [place] [id number] PCP - General Internal Medicine 10/08/19
--- OUTSIDE RECORDS SUMMARY | 2025-04-13 13:19 | XMS_ITS | Clinical Summary ---
Author Organization [facility] ity Address [address] [place] [address] Care Team Providers Care Meeting Specialist Name Role Phone Ainsley Glynn MD Primary [...] Vaccine ( - 2023-2 5 season) 2024 Depression Screening 09/01/2024 Influenza Vaccine (#1) 2025 RSV Immunization Adult [...] age to complete this topic Care Teams Meeting Specialist Relationship Specialty Start Date End Date Ainsley Glynn MD PCP - General Internal Medicine 03/22/19
== END 2025-04-13 13:26 | disposition home or self-care (01) ==
PROVIDERS: PCP Family Medicine; Visit Provider Physician Assistant Medical
DX: J01.91 Acute recurrent sinusitis, unspecified (principal)

== ENCOUNTER 2025-04-21 10:01 | Outpatient (AMB) | payer OTHER, SELFPAY ==
--- NOTE | 2025-04-21 10:08 | MHC.PC.OV ---
Vital Signs 04/21/25 10:13 Height 5 ft 10 in Weight 238 lb 4 oz BMI 34.2 BP 132/82 Blood Pressure Location Lt brachial Position Sitting Respiration 16 Pulse 90 Pulse Source Pulse Oximeter Temp 98.4 F Temp Source Temporal Artery Scan Pulse Oximetry (%) 98 Oxygen Delivery Method Room Air Intake Visit Reasons: Sinus infection, no improvement after 1 wk abx Intake Note: Jose presents in the office today for a sinus infection. Patient has been taking doxycyclomine for 1 week with minimal improvement. Allergies pollen extracts Allergy (Mild, Verified 04/21/25 10:09) Sneezing sesame oil Allergy (Mild, Verified 04/21/25 10:09) Anaphylaxis sesame seed Allergy (Mild, Verified 04/21/25 10:09) Anaphylaxis penicillin V Allergy (Unknown, Verified 04/21/25 10:09) childhood Penicillins Allergy (Unknown, Verified 04/21/25 10:09) Unknown keli seeds Allergy (Severe, Uncoded 04/21/25 10:09) Anaphylaxis tree nuts, sesame seeds Allergy (Unknown, Uncoded 04/21/25 10:09) anaphylaxis Tobacco use date assessed: 01/19/24 Dental Screening Dental Screen Date: 04/21/25 Did you have a dental visit in the last 12 months?: No Did you have a dental problem in the last 6 months where you did not have access to dental care?: No Was dental information given to patient?: Patient has dentist HPI HPI Comments History of Present Illness Details 64-year-old male with a past medical history of sinusitis, sinus polyps, coronary artery disease, hypertension and asthma presents for evaluation of a sinus infection. This started a few weeks ago. He was seen at the walk-in and prescribed a 7 day course of doxycycline which he completed. It provided minimal improvement. He endorses sinus congestion, yellow/green nasal discharge, bilateral sinus pressure and pain and fatigue. He was on Nasonex, but he ran out of the medicine. It was helping with chronic congestion and allergies. He had sinus surgery some 8 or 9 years ago. He denies fevers or chills. Penicillin allergy is listed. He had difficulty breathing and developed an itchy rash when he was a child and took the medication. He would like to be evaluated for a penicillin allergy. ROS: Constitutional: No fevers or chills Eyes: No vision changes, blurry vision, double vision, eye pain, eye redness, eye discharge. ENT: No hearing loss, sore throat. See HPI Respiratory: No shortness of breath, cough or sputum production. Cardiovascular: No chest pain Neurologic: No headache, dizziness, syncope Physical exam: Constitutional: Alert, in no distress. Head: Normocephalic. Eyes: No discharge or erythema Ear, Nose and Throat: Canals clear. TMs normal. Bilateral polypoid tissue present, yellow nasal discharge . Bilateral maxillary sinus tenderness. Throat mildly erythematous. No exudates. Neck: Supple, Full range of motion. No lymphadenopathy. Respiratory: Clear to auscultation. Cardiovascular: S1 S2 regular. No murmurs. Neurologic: No focal neurological deficits. [facility] Medical History No pertinent past medical history Surgical History History of nasal surgery History of hernia surgery Social History (Updated 04/21/25 @ 10:13 by Naya Chambers MA) Housing: Apartment Alcohol intake: current Alcohol intake frequency: a few times a week Patient Tobacco Use Status: Former Tobacco user e-Cigarette/Vaping Use: Never Used Second Hand Smoke Exposure: No Use of substances other than those prescribed or required for medical reasons: No service: No Current occupational status: employed Current occupation: [email or web address] Current occupational exposures/hazards: No Cognitive needs: No Hearing needs: No Vision needs: No Questionnaire PHQ-9 Over the last 2 weeks, how often have you been bothered by any of the following problems? 1. Little interest or pleasure in doing things: not at all 2. Feeling down, depressed, or hopeless: not at all 3. Trouble falling or staying asleep, or sleeping too much: not at all 4. Feeling tired or having little energy: not at all 5. Poor appetite or overeating: not at all 6. Feeling bad about yourself - or that you are a failure or have let yourself or your family down: not at all 7. Trouble concentrating on things, such as reading the newspaper or watching television: not at all 8. Moving or speaking so slowly that other people could have noticed. Or the opposite - being so fidgety or restless that you have been moving around a lot more than usual: not at all 9. Thoughts that you would be better off or of hurting yourself in some way: not at all Total score: 0 Source: Developed by Drs. Darin Day, Ama Bowman, Deyvi Espinal and colleagues, with an educational helen from [employer]. Thrive Questionnaire Date Thrive assessed: 11/10/24 I am a: Patient What is your living situation today?: I choose not to answer this question Within the past 12 months, did the food you bought not last and you didn't have the money to get more?: I choose not to answer this question Within the past 12 months, did you worry whether your food would run out before you got money to buy more?: I choose not to answer this question Do you have trouble paying for medicines?: I choose not to answer this question Do you have trouble getting transportation to medical appointments?: No Do you have trouble paying your heating and electricity bill?: No Do you have trouble taking care of your child, family member or friend?: I choose not to answer this question Do you have trouble with day-to-day activities such as bathing, preparing meals, shopping, managing finances, etc.?: I choose not to answer this question Are you currently unemployed and looking for a job?: I choose not to answer this question Are you interested in more education?: I choose not to answer this question Please select the resources that you would like help with: None Currently or been in a relationship where the following occur: I choose not to answer THRIVE Score: 0 AUDIT C Alcohol Use Questionnaire (AUDIT-C) 1. How often do you have a drink containing alcohol?: Never Total Score: 0 LISA-7 AMB Questionnaire LISA-7 Date LISA - 7 assessed: 10/21/23 Source: Developed by Drs. Darin Day, Ama Bowman, Deyvi Espinal and colleagues, with an educational helen from [employer]. Physical exam (Primary Care) Vital Signs: Last Vital Signs Temp 98.4 F 04/21/25 10:13 Pulse 90 04/21/25 10:13 Resp 16 04/21/25 10:13 BP 132/82 04/21/25 10:13 Pulse Ox 98 04/21/25 10:13 Oxygen Delivery Method Room Air 04/21/25 10:13 BMI result Body Mass Index 34.2 Tobacco/Smoking Status: Tobacco use Status Tobacco use date assessed 01/19/24 04/21/25 10:11 Patient Tobacco Use Status Former Tobacco user 04/21/25 10:13 e-Cigarette/Vaping Use Never Used 04/21/25 10:13 PHQ-9: PHQ-9 Score PHQ-9: Total score 0 04/21/25 10:29 Thrive Assessment: Date of Thrive Assessment Date Thrive assessed 11/10/24 04/21/25 10:11 Currently or been in a relationship where the following occur: I choose not to answer Coding Level of Care Code Est Pt Level 4 (67987) Complex EM visit Add On G2211 Diagnoses Environmental allergies Z91.09 Chronic maxillary sinusitis J32.0 Sinusitis location: maxillary Penicillin allergy Z88.0 Assessment & Plan Assessment & Plan (1) Environmental allergies: Code(s): Z91.09 - Other allergy status, other than to drugs and biological substances Category: Medical (2) Chronic sinusitis: Code(s): J32.9 - Chronic sinusitis, unspecified Category: Medical Qualifiers: Sinusitis location: maxillary Qualified Code(s): J32.0 - Chronic maxillary sinusitis (3) Penicillin allergy: Code(s): Z88.0 - Allergy status to penicillin Plan Continued symptoms despite treatment with doxycycline. Documented severe penicillin allergy from childhood. Cephalosporins not recommended since this is the case. Prescribed Levaquin. We discussed this is not a first-line antibiotic due to the side effect profile which was reviewed but is necessary to treat the patient's symptoms. He will monitor closely for side effects. Restart mometasone nasal spray. Refer to Allergy and immunology. Patient instructed to call if symptoms do not resolve. Orders: Referrals Allergy & Immunology Referral J32.0 - Chronic maxillary sinusitis, J33.9 - Nasal polyp, unspecified, Z88.0 - Allergy status to penicillin, Z91.09 - Other allergy status, other than to drugs and biological substances Medications: New levofloxacin 500 mg PO DAILY 7 tabs 0RF mometasone 50 mcg/actuation (Allergy Nasal (mometasone)) administer into each nostril 2 sprays intranasal DAILY 17 grams 5RF
[2025-04-21 10:13] VITALS: BP 132/82; PULSE 90; RESP 16; TEMP 36.9; O2SAT 98; BMI 34.2
--- OUTSIDE RECORDS SUMMARY | 2025-04-21 11:25 | XMS_ITS | Clinical Summary ---
Author Organization [facility] ity Address [address] [place] [address] Care Team Providers Care Liquor Runner Name Role Phone Ainsley Glynn MD Primary [...] age to complete this topic Care Teams Liquor Runner Relationship Specialty Start Date End Date Ainsley Glynn MD PCP - General Internal Medicine 03/22/19
--- OUTSIDE RECORDS SUMMARY | 2025-04-21 11:25 | XMS_ITS | Clinical Summary ---
Author Organization [facility] Address [address] [place] [address] Care Team Providers Care Dishtank Operator Name Role Phone Rylan Roth MD Primary Care Provider [phone] Allergies Active Allergy Reactions Criticality Noted Date [...] patient's age to complete this topic Insurance [facility] [place] [place] [address] [facility] Care Teams Dishtank Operator Relationship Specialty Start Date End Date Rylan Roth MD [address] [place] [address] PCP - General Internal Medicine 10/08/19
--- OUTSIDE RECORDS SUMMARY | 2025-04-21 11:25 | XMS_ITS | Clinical Summary ---
Author Organization [facility] Address [address] [place] [address] Care Team Providers Care Mica Machine Operator Name Role Phone Unknown Pcp, Non Php [...] Acute sinusitis 11/01/2021 Overview (10/05/2023): Impression - [id number]: Doxycylcine 100mg bid X 7 days. Prednisone as directed. S/E discussed. Push fluids. Saline spray, mucinex prn. RTO if not improving. Impression - 01Nov2021: Rapid covid test done in office and negative. Doxycylcine 100mg bid X 7 days. Prednisone as directed. S/E discussed. Push fluids. Saline spray, mucinex prn. RTO if not improving. COVID-19 virus infection 08/06/2021 Overview (10/05/2023): Impression - [id number]: Patient with covid 19 infection who testing [...] symptoms he is advised to contact his lining strap closer Dr. Pope. Dyspnea 09/15/2020 Overview (10/05/2023): Impression - 15Sep2020: This has been going on for months but pt getting worse. Did not respond to Albuterol inhaler of which Bitumen Plant Operator took him off from. I am concerned about a PE due to no response to conventional medications. Impression - [id number]: Pt with no definite diagnosis and not responding well to medicaton. I will refer him to Cardiology to r/o cardiac etiology for symptoms. 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 Allergic rhinitis due to pollen, unspecified sea sonality 10/15/2019 Moderate persistent asthma 10/15/2019 Overview (10/05/2023): Impression - [id number]: I will add Spiriva to treatment regimen [...] SCHED (09/15/2020 4:00 PM EST) IMAGING STUDY [facility] Medical Imaging Report PATIENT: JOSE HUDSON # 58 ADMISSION DATE: 09/15/20 MR#: [id number] LOCATION: [facility] SCAN ROOM#: ATTENDING PHYSICIAN: Julian Michele DICTATING PHYSICIAN: Hossein Ontiveros REPORT#: [id number] ORDERING PHYSICIAN: Julian Michele EXAM SERVICE DATE: 09/15/20 EXAM: CTA Chest Spiral for PE ====== EXAMINATION: CT ANGIOGRAM OF THE CHEST WITH AND WITHOUT CONTRAST (CT PULMONARY ANGIOGRAM FOR PE) CLINICAL INFORMATION: [place]: [facility]
Diabetic: No
Normal Creatinine: Unknown
20g IV: Unknown
Exam Reason: SOB DYSPNEA ? PULMONARY EMBOLISM
Hx Of Renal Impairment: N
Rad Site: [facility]
Are you ordering this test to rule out VTE? Y
Comment: KEEP AND CALL TIMI Boyle#[phone]
COMPARISON: None TECHNIQUE: Prior to contrast administration, [...] Tomogra phy 09/15/2020 4:00 PM EST Result [facility] WITH CONTRAST ORD ERABLES Final Result [...] a test for HCV RNA (test code 93282) is suggested. For additional information please refer to http://[employer]or/faq/KJA88e8 (This link is being provided for informational/ educational purposes only.) 01/04/2020 6:22 AM EDT Narrative PHCT CONVERSIONS - 01/05/2020 11:28 AM EDT [facility] Date/Time: [facility] Testing performed at: 1, [email or web address], [address] [place] [address], [address], [place], [address], Model And Pattern Supervisor: Griselda Randolph MD [facility] Collection Date/Time: [facility] [...] LDL-C. Isidro SS et al. AMANDA. 2013;310(19): 6920-4341 (http://education.WorldEscape.[employer]/faq/OXX280) CHOL/HDL Ratio 3.6 <5.0 (calc) PHCT CONVERSIONS [...] for this test(s) to be performed at [facility]. We have processed it and sent it to the reference lab as required by the payor. Please enter in error the original order. FASTING: YES [facility] Testing performed at: NL1, [email or web address], [address] [place] [address], [address], [place], [address], Model And Pattern Supervisor: Griselda Randolph MD [facility] Date/Time: [facility] Results Received Date/Time: [facility] Reported Date/Time: us Rylan Roth MD LABORATORY Final Resu lt PHCT CONVERSIONS from Last 3 Months or Most Recently Relevant to Health Maintenance Care Teams Mica Machine Operator Relationship Specialty Start Date End Date Unknown Pcp, Non Php PCP - General 07/02/24
== END 2025-04-21 11:57 | disposition home or self-care (01) ==
LOC: HO.HMCFM 10:01
PROVIDERS: PCP Family Medicine; Visit Provider Physician Assistant Medical
DX: Z91.09 Other allergy status, other than to drugs and biological substances (principal); J32.0 Chronic maxillary sinusitis; Z88.0 Allergy status to penicillin

== ENCOUNTER 2025-08-22 10:03 | Outpatient (REF) | payer OTHER, SELFPAY ==
--- OUTSIDE RECORDS SUMMARY | 2025-08-17 23:59 | XMS_ITS | Continuity of Care Document ---
Author Organization [facility] Address [address] [address]- Care Team Providers Care Stoneworking Sander Name Role Phone Fidel Espinal MD Primary Care Physician [phone] [place] [facility] [place]s): 04/28/25 - 08/17/25 [facility] [address] [address]- Attending Physician: Evette Santos Admitting Physician: Evette Santos Referring Physician: Fidel Espinal MD Encounter Type: Pre Office Visit Allergies, Adverse Reactions, Alerts Substance Criticality Severity Reaction Reaction Severity Status predniSONE Active atorvastatin Prednisone adve rse reaction Active penicillins breathing problems Active Nuts Active Sesame seed or oil A ctive Medications acetaminophen 325 mg oral tablet 650 mg, 2, tablet, By Mouth, Every 6 hours, PRN, # 50 tablet, Refills 0, Tot. Refills 0, Maintenance, as needed for pain, 08/11/25 1:48:00 PM EST, Route to Pharmacy Electronically, [facility] #[id number], Partial fill upon patient request if the prescription is for a schedule II opioid drug., 165, cm, 08/11/25 12:25:00 EST, Height, 109.7, kg, 08/11/25 12:25:00 EST, Dry Weight Start Date: 08/11/25 Status: Ordered Medication Dispense Status: Completed Quantity: 50.0 Unit: tablet Total Allowed Fills: 1 Fills Dispensed: 0 aspirin 81 mg oral delayed release tablet = 81 mg, By Mouth, Daily, # 90 tablet, 0 Refills, Maintenance, 11/07/23 9:42:00 AM EST, EC Tablet, [facility], Partial fill upon patient request if the prescription is for a schedule II opioid drug., 178, cm, 11/07/23 8:33:00 EST, Height, 115.1, kg, 11/05/23 17:19:00 EST, Dry Weight Start Date: 11/07/23 Stop Date: 02/05/24 Status: Ordered Medication Dispense Status: Completed Quantity: 90.0 Unit: tablet Total Allowed Fills: 1 Fills Dispensed: 0 Indications: Atherosclerotic heart disease of [place] coronary artery without angina pectoris; morphine 15 mg oral tablet, immediate release 1 tablet = 15 mg, By Mouth, Every 8 hours, PRN Pain , Severe, # 6 tablet, 0 Refills, Maintenance, 08/11/25 2:30:00 PM EST, Tablet, [facility] #[id number], Partial fill upon patient request if the prescription is for a schedule II opioid drug., 165, cm, 08/11/25 12:25:00 EST, Height, 109.7, kg,08/11/25 12:25:00 EST, Dry Weight Start Date: 08/11/25 Status: Ordered Medication Dispense Status: Completed Quantity: 6.0 Unit: tablet Total Allowed Fills: 1 Fills Dispensed: 0 ofloxacin 0.3% ophthalmic solution See Instructions, 2 drops left eye 4 times a day 5 days, # 10 mL, 0 Refills, Maintenance, 08/11/25 1:47:00 PM EST, [facility] #[id number], Partial fill upon patient request if the prescription is for a schedule II opioid drug., 2 drops left eye 4 times a day 5 days, 165, cm, 08/11/25 12:25:00 EST, Height, 109.7, kg, 08/11/25 12:25:00 EST, Dry Weight Start Date: 08/11/25 Status: Ordered Medication Dispense Status: Completed Quantity: 10.0 Unit: mL Total Allowed Fills: 1 Fills Dispensed: 0 Problem List Condition Confirmation Course Effective Dates Status Health St [facility] Informant Shortness of breath Confirmed Active Groin pain Confirmed Active Severe obesity Confirmed Active URI with cough and congestion Confirmed Active Social History Social History Type Response Smoking Status Former smoker, quit more than 30 days ago entered on: 11/05/23 Sex Sex Representation Male (finding) Implantable Device List Procedure Provider Procedure Date Device Type Site Reduction Turbinate Inferior Shaji Vora MD 04/28/19 Unknown Nares Right Device Identifier Serial Number Lot or Batch Number Manufacturing Date Expiration Date Distinct Identification Code MRI Safety Implantable Status Assigning Authority Unknown Unknown [id number] Unknown 09/21/20 Unknown Unknown Active Unknown Procedure Provider Procedure Date Device Type Site Reduction Turbinate Inferior Shaji Vora MD 04/28/19 Unknown Nares Left Device Identifier Serial Number Lot or Batch Number Manufacturing Date Expiration Date Distinct Identification Code MRI Safety Implantable Status Assigning Authority Unknown Unknown [id number] 1 Unknown 09/21/20 Unknown Unknown Active Unknown Patient Care team information Care Team Personnel Name: Jazmyn Sanchez RN Position: [facility] RN Member Role: Primary Care Nurse Name: Fidel Espinal MD Position: [facility] Outreach Member Role: PCP Address: [address] [place] [address] Telecom: Care Team Related Persons Name: SHALONDA HUDSON Insurance Providers Guarantor name: TAVO TROYMARCO A Health Plan Information #: 1 Payer: [place] [employer] Payer Identifier: NA Member Number: [id number] Group Number: [id number] Subscriber Identifier: [id number] Relationship to Subscriber: self Coverage Type: Managed Care (Private) Coverage Verification Date: NA Telecom: NA Address:
--- OUTSIDE RECORDS SUMMARY | 2025-08-17 23:59 | XMS_ITS | Continuity of Care Document ---
Author Organization [facility] Address [address] [address]- Care Team Providers Care Bounty Hunter Name Role Phone Teddy GUIDO, Fidel Mayo Primary Care Physician [phone] [place] [facility] [place]18[place]25 [place] 08/17/25 [facility] [address] [address]- Attending Physician: Phyllis Felton Admitting Physician: Phyllis Felton Referring Physician: AdmtrPhyllis Encounter Type: Triage Allergies, Adverse Reactions, Alerts Substance Criticality Severity [...] 1:48:00 PM EST, Route to Pharmacy Electronically, [facility] #[id number], Partial fill upon patient request if the [...] 11/07/23 9:42:00 AM EST, EC Tablet, [facility], Partial fill upon patient request if the prescription is for a schedule II opioid drug., 178, cm, 11/07/23 8:33:00 EST, Height, 115.1, kg, 11/05/23 17:19:00 EST, Dry Weight Start Date: 11/07/23 Stop Date: 02/05/24 Status: Ordered Medication Dispense Status: Completed Quantity: 90.0 Unit: tablet Total Allowed Fills: 1 Fills Dispensed: 0 Indications: Atherosclerotic heart disease of [place] coronary artery without angina pectoris; morphine 15 mg oral tablet, immediate release 1 tablet = 15 mg, By Mouth, Every 8 hours, PRN Pain , Severe, # 6 tablet, 0 Refills, Maintenance, 08/11/25 2:30:00 PM EST, Tablet, [facility] #[id number], Partial fill upon patient request if the [...] 0 Refills, Maintenance, 08/11/25 1:47:00 PM EST, [facility] #[id number], Partial fill upon patient request if the [...] Safety Implantable Status Assigning Authority Unknown Unknown [id number] 1 Unknown 09/21/20 Unknown Unknown Active Unknown Procedure Provider Procedure Date Device Type Site Reduction Turbinate Inferior Shaji Vora MD 04/28/19 Unknown Nares Left Device Identifier Serial Number Lot or Batch Number Manufacturing Date Expiration Date Distinct Identification Code MRI Safety Implantable Status Assigning Authority Unknown Unknown [id number] 1 Unknown 09/21/20 Unknown Unknown Active Unknown Patient Care team information Care Team Personnel Name: Jazmyn Sanchez RN Position: [facility] RN Member Role: Primary Care Nurse Name: Fidel Espinal MD Position: [facility] Outreach Member Role: PCP Address: [address] [place] [address] Telecom: Care Team Related Persons Name: SHALONDA HUDSON Insurance Providers Guarantor name: TAVO TROYMARCO A Health Plan Information #: 1 Payer: [employer] [employer] Payer Identifier: NA Member Number: [id number] Group Number: [id number] Subscriber Identifier: NA Relationship to Subscriber: self Coverage Type: Managed Care (Private) Coverage Verification Date: NA Telecom: NA Address:
--- OUTSIDE RECORDS SUMMARY | 2025-08-22 12:04 | XMS_ITS | Clinical Summary ---
Author Organization [facility] ity Address [address] [place] [address] Care Team Providers Care Pantry Worker Name Role Phone Ainsley Glynn MD Primary Care Provider Unav ailable Social History Tobacco Use Types Packs/Day Years Used Date Smoking Tobacco: Former Cigarettes 39 0 09/01/1976 - 09/01/2015 Smokeless Tobacco: Never Alcohol Use Standard Drinks/Week Comments Yes 1 (1 standard drink = 0.6 oz pur e alcohol) Sex and Gender Information Value Date Recorded Sex Assigned at Not on file Legal Sex Male 9:38 PM EST Gender Identity Not on file Sexual Orientation Not on file Plan of Treatment Health Maintenance Due Date Last Done Comments DTaP,Tdap,and Td Vaccines (1 - Tdap) 1978 Pneumococcal Vaccine: 50+ Ye ars (1 of 1 - PCV) 2009 Zoster Vaccines (1 of 2) 2009 Depression Screening 09/01/2024 COVID-19 Vaccine (1 - 2024-2 6 season) 2025 Influenza Vaccine (#1) 2025 RSV Immunization Adult [...] age to complete this topic Care Teams Pantry Worker Relationship Specialty Start Date End Date Ainsley Glynn MD PCP - General Internal Medicine 03/22/19
--- OUTSIDE RECORDS SUMMARY | 2025-08-22 12:04 | XMS_ITS | Clinical Summary ---
Author Organization [facility] Address [address] [place] [address] Care Team Providers Care Fire Prevention Specialist Name Role Phone Otis Rivas Primary Care Provider Unavailab le Allergies Active Allergy Reactions Criticality Noted Date Comments Other Other (See Comments) 01/13/2012 Adhesive Tape. Other Other (See Comments) 01/13/2012 Nuts. Other Other (See Comments) 01/13/2012 Sesame Seeds. Penicillins Other (See Comments) 01/13/2012 Active Problems Problem Noted Date Diagnosed Date Inguinal pain 01/13/2012 Overview (10/31/2014): Groin (Inguinal) Pain Left Side Social History Tobacco Use Types Packs/Day Years Used Date Smoking Tobacco: Never Assessed Sex and Gender Information Value Date Recorded Sex Assigned at Not on file Legal Sex Male 3:46 AM EST Gender Identity Not on file Sexual Orientation Not on file Last Filed Vital Signs Vital Sign Reading Time Taken Comments Blood Pressure 126/64 01/13/2012 11:32 AM EDT Pulse - - Temperature - - Respiratory Rate - - Oxygen Saturation - - Inhaled Oxygen Concentration - - Weight 98.9 kg (218 lb) 01/13/2012 11:32 AM EDT Height 177.8 cm (5' 10 ) 01/13/2012 11:32 AM EDT Body Mass Index 31.28 01/13/2012 11:32 AM EDT Plan of Treatment Not on file Care Teams Fire Prevention Specialist Relationship Specialty Start Date End Date Otis Rivas PCP - General 07/11/14
--- OUTSIDE RECORDS SUMMARY | 2025-08-22 12:04 | XMS_ITS | Encounter Summary ---
Author Organization [facility] Address [address] [place] [address] Care Team Providers Care Health Administrator Name Role Phone Otis Rivas Primary Care Provider Unavailab le Encounter Details Date Type Department Care Team (Late st Contact Info) Description 01/13/2012 Clinical Conversion Encounter [facility] General Surgery [facility] General Surgery [address] [place] [address] Shaji Marie MD [address] [place] [address] Social History Tobacco Use Types Packs/Day Years Used Date Smoking Tobacco: Never Assessed Sex and Gender Information Value Date Recorded Sex Assigned at Not on file Legal Sex Male 3:46 AM EST Gender Identity Not on file Sexual Orientation Not on file documented as of this encounter Progress Notes * Shaji Marie MD - 10/15/2014 7:12 PM EST [id number],[place], [place]. GENERAL SURGERY OUTPATIENT CONSULT JOSE GILBERT 01/13/2012 # [id number] : 1960 Second Visit ID: [id number] Visit ID: [id number] This is a consultation requested by Dr. Otis Rivas for evaluation of left groin pain after inguinal hernia repair. The patient underwent a left inguinal hernia repair in April 2010. He was found to have a left indirect inguinal hernia and he underwent a mesh repair of a left inguinal hernia using the UltraPro hernia system mesh. It sounds as though he had a plug and mesh both placed in a typical fashion. Reading his operative, there did not appear to be any deviation from the standard approach to this. Postoperatively, he has had persistent pain. He has had burning pain under the incision. It hurts at the time when he sits. 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 The pain does not radiate to his testicles or his groin, but primarily is in the area of the incision. He has had no inflammation or infection. He saw an urologist, who felt there was no urologic etiology to this and suggested perhaps having the mesh removed. A CT scan showed inguinal hernia repair without any evidence of inflammation or recurrence and ultrasound was unremarkable. He does not take any pain medication for this, but it really does change his quality of life. PAST MEDICAL HISTORY: Mild prostatitis. PAST SURGICAL HISTORY: Inguinal hernia repair. ALLERGIES: None. MEDICATIONS: None. SOCIAL HISTORY: He smokes cigarettes. He does not drink alcohol. He works as a robson. REVIEW OF SYSTEMS: Taken. No history of coronary artery disease, pulmonary disease, gastrointestinal disorders, or orthopedic complications. PHYSICAL EXAMINATION: General: Well-developed, well-nourished male, in no apparent distress. Vital Signs: Blood pressure 126/64. He is 5 feet 10 inches tall, 218 pounds, BMI is 31. Heart rate 80 and respirations 18. HEENT: Normocephalic and atraumatic. Extraocular motions intact. Pupils equal, round, reactive to light and accommodation. No JVD. No carotid bruits. Trachea is midline. No thyromegaly. No cervical or supraclavicular adenopathy. Lungs: Clear to auscultation and percussion. Heart: Rate and rhythm are regular. Normal S1, S2 without murmur. Abdomen: Soft, obese, and nontender. He has no right inguinal hernia. He has no left inguinal hernia. He is tender in the site of his inguinal herniorrhaphy. He is examined both supine and standing and with Valsalva, there is definitely no recurrence of his hernia. He is tender in the area of the repair and when he does with Valsalva, his is also tender in the area of the internal ring. His testicles are descended and are normal. Extremities: Warm, well-perfused. He has no edema. Strength and sensation are normal bilaterally. Mood and affect are appropriate. IMPRESSION AND PLAN: This is a 51-year-old man with a history of left inguinal herniorrhaphy almost two years ago with persistent left groin pain. He has no evidence of recurrence of his hernia. I would recommend no operative intervention. I would recommend pain management consultation, perhaps nerve block or medication to down regulate this nerve pain that patient clearly has. Removing the mesh would leave him with a defect, which would need to be reconstructed as well. There does not appear to be any evidence of the mesh itself is causing a reaction. I have offered to refer him to our pain management center, but he will talk to his primary care physician who I also spoke with, Dr. Loya, who will refer him to pain management . Shaji Marie MD [phone] [id number] J: [id number] CC: Otis Rivas MD, <Referring> THIS DOCUMENT WAS ELECTRONICALLY AUTHENTICATED BY Shaji Marie MD ON 01/22/2012 15:33:44 JOSE GILBERT 01/13/2012 # [id number] OUTPATIENT CONSULT [facility] * [address] [place] [address] * [phone] Page 2 of [address] [place] [address] OUTPATIENT CONSULT documented in this encounter Plan of Treatment Not on file documented as of this encounter Visit Diagnoses Not on filedocumented in this encounter Care Teams Health Administrator Relationship Specialty Start Date End Date Otis Rivas PCP - General 07/11/14 documented as of this encounter
--- OUTSIDE RECORDS SUMMARY | 2025-08-22 12:04 | XMS_ITS | Encounter Summary ---
Author Organization [facility] Address [address] [place] [address] Care Team Providers Care Surgical Coder Name Role Phone Rylan Roth MD Primary Care Provider Encounter Details Date Type Department Care Team (Late st Contact Info) Description 05/15/2020 Scanned Document [facility] Urologic Surgery [address] [place] [id number] Provider, MD Mandeep [address] [place] [address] Social History Tobacco Use Types Packs/Day Years [...] on filedocumented in this encounter Care Teams Surgical Coder Relationship Specialty Start Date End Date Rylan Roth MD [address] [place] [address] PCP - General Internal Medicine 10/08/19 documented as of this encounter
--- OUTSIDE RECORDS SUMMARY | 2025-08-22 12:04 | XMS_ITS | Clinical Summary ---
Author Organization [facility] Address [address] [place] [address] Care Team Providers Care Integrated Logistics Support Manager Name Role Phone Rylan Roth MD Primary Care Provider [phone] Allergies Active Allergy Reactions Criticality Noted Date [...] Health Maintenance Due Date Last Done Comments Advance Care Planning 1960 Hepatitis C Virus Screening 1960 Colonoscopy 2004 Pneumococcal Vaccines 50+ (1 of 1 - PCV) 2009 Zoster (Shingles) Vaccine (1 of 2) 2009 DTaP/Tdap/Td Vaccines (2 - T d or Tdap) 08/10/2023 08/10/2013 Influenza Vaccine 04/01/2025 COVID-19 Vaccine ( - 2024-2 6 season) 2025 RSV Vaccine 50 years and old er and Patients (1 - 1-dose 75+ series) 2034 Hepatitis B Vaccines Aged Out No long er eligible based on patient's age to complete this topic Insurance [facility] Care Teams Integrated Logistics Support Manager Relationship Specialty Start Date End Date Rylan Roth MD [address] [place] [address] PCP - General Internal Medicine 10/08/19
--- OUTSIDE RECORDS SUMMARY | 2025-08-22 12:05 | XMS_ITS | Clinical Summary ---
Author Organization [facility] Address [address] [place] [address] Care Team Providers Care Global Cmo Name Role Phone Unknown Pcp, Non Php [...] Acute sinusitis 11/01/2021 Overview (10/05/2023): Impression - [id number]: Doxycylcine 100mg bid X 7 days. Prednisone as directed. S/E discussed. Push fluids. Saline spray, mucinex prn. RTO if not improving. Impression - 01Nov2021: Rapid covid test done in office and negative. Doxycylcine 100mg bid X 7 days. Prednisone as directed. S/E discussed. Push fluids. Saline spray, mucinex prn. RTO if not improving. COVID-19 virus infection 08/06/2021 Overview (10/05/2023): Impression - [id number]: Patient with covid 19 infection who testing [...] symptoms he is advised to contact his certified histologic technician Dr. Pope. Dyspnea 09/15/2020 Overview (10/05/2023): Impression - 15Sep2020: This has been going on for months but pt getting worse. Did not respond to Albuterol inhaler of which Pilot Supervisor took him off from. I am concerned about a PE due to no response to conventional medications. Impression - [id number]: Pt with no definite diagnosis and not responding well to medicaton. I will refer him to Cardiology to r/o cardiac etiology for symptoms. 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 Allergic rhinitis due to pollen, unspecified sea sonality 10/15/2019 Moderate persistent asthma 10/15/2019 Overview (10/05/2023): Impression - [id number]: I will add Spiriva to treatment regimen [...] Health Maintenance Due Date Last Done Comments MMR (Born 1957-) 1960 DTaP/Tdap/Td (1 - Tdap) 1977 Pneumococcal 50+ years (1 of 2 - PCV) 1978 Colon Cancer Screening 2004 RSV (1 - Risk 50-74 years 1-dose series) 2009 Zoster (Shingrix) (1 of 2) 2009 COVID-19 Vaccine (1 - 2024-2 6 season) 2025 Influenza (#1) 2025 09/21/2019 Hepatitis C Screening [...] SCHED (09/15/2020 4:00 PM EST) IMAGING STUDY [facility] Medical Imaging Report PATIENT: JOSE HUDSON # [id number] ADMISSION DATE: 09/15/20 MR#: [id number] LOCATION: [facility] SCAN ROOM#: ATTENDING PHYSICIAN: Julian Michele DICTATING PHYSICIAN: Hossein Ontiveros REPORT#: [id number] ORDERING PHYSICIAN: Julian Michele EXAM SERVICE DATE: 09/15/20 EXAM: CTA Chest Spiral for PE ====== EXAMINATION: CT ANGIOGRAM OF THE CHEST WITH AND WITHOUT CONTRAST (CT PULMONARY ANGIOGRAM FOR PE) CLINICAL INFORMATION: [place]: [facility]
Diabetic: No
Normal Creatinine: Unknown
20g IV: Unknown
Exam Reason: SOB DYSPNEA ? PULMONARY EMBOLISM
Hx Of Renal Impairment: N
Rad Site: [facility]
Are you ordering this test to rule out VTE? Y
Comment: KEEP AND CALL TIMI Boyle#[phone]
COMPARISON: None TECHNIQUE: Prior to contrast administration, [...] BY: Hossein Ontiveros 09/15/20 1615 TRANSCRIBED BY: PSCSIMIN 09/15/20 1615 REPORT STATUS: Signed 09/15/20 SIGNED BY: Hossein Ontiveros [id number] Report is considered draft until signed, signified by completion of date and time stamp above. PHCT CONVERSIONS Anatomical Region Laterality Modality CHEST Computed Tomogra phy 09/15/2020 4:00 PM EST [facility] CT WITH CONTRAST ORD ERABLES Final [...] a test for HCV RNA (test code 39255) is suggested. For additional information please refer to http://Vidapp.Page365/faq/EJR77c1 (This link is being provided for informational/ educational purposes only.) 01/04/2020 6:22 AM EDT Narrative PHCT CONVERSIONS - 01/05/2020 11:28 AM EDT [facility] Date/Time: [facility] Testing performed at: 1, [facility], [address] [place] [address], [address], [place], [address], Triage Clinician: Griselda Randolph MD [facility] Date/Time: [facility] [...] estimation of LDL-C. Isidro SS et al. AAMNDA. 2013;310(19): 5189-3832 (http://Vidapp.magnify360/faq/VEX802) CHOL/HDL Ratio 3.6 <5.0 (calc) PHCT CONVERSIONS [...] for this test(s) to be performed at [facility]. We have processed it and sent it to the reference lab as required by the payor. Please enter in error the original order. FASTING: YES [facility] performed at: [facility], [address] [place] [address], [address], [place], [address], Triage Clinician: Griselda Randolph MD [facility] Date/Time: [id number] [facility] Results Received Date/Time: [facility] Reported Date/Time: us Rylan Roth MD LABORATORY Final Resu lt PHCT CONVERSIONS from Last 3 Months or Most Recently Relevant to Health Maintenance Care Teams Global Cmo Relationship Specialty Start Date End Date Unknown Pcp, Non Php PCP - General 07/02/24
[2025-08-22 15:52] LABS: Alanine Aminotransferase 18 U/L (0-40); Albumin Level 3.9 g/dL (3.5-5.0); Alkaline Phosphatase 65 U/L (39-117); Anion Gap 11 (12-20); Aspartate Amino Transferase 24 U/L (5-37); Blood Urea Nitrogen 16 mg/dL (9-16); Calcium 9.2 mg/dL (8.4-10.2); Carbon Dioxide 25 mmol/L (22-29); Chloride 109 mmol/L (96-108); Estimated Glomerular Filt Rate > 60; Potassium 4.0 mmol/L (3.3-5.1); Sodium 141 mmol/L (135-145); Total Protein 6.6 g/dL (6.5-8.0)
== END 2025-08-22 10:04 | disposition home or self-care (01) ==
LOC: HO.WFDLDS 10:03
PROVIDERS: Visit Provider Family Medicine
DX: Z00.00 Encounter for general adult medical examination without abnormal findings (principal); R53.83 Other fatigue
CPT/HCPCS: 36415; 80053

== ENCOUNTER 2025-08-24 10:38 | Outpatient (AMB) | payer OTHER, SELFPAY ==
--- NOTE | 2025-08-24 10:43 | MHC.PC.OV ---
Vital Signs 08/24/25 10:55 Height 5 ft 10 in Weight 238 lb 6 oz BMI 34.2 BP 138/92 H Blood Pressure Location Rt brachial Position Sitting Respiration 16 Pulse 84 Pulse Source Pulse Oximeter Temp 98.1 F Temp Source Temporal Artery Scan Pulse Oximetry (%) 97 Oxygen Delivery Method Room Air Intake Visit Reasons: f/u HLD, HTN, labs, resched Intake Note: Jose presents in the office today for a follow up to hypertension, HLD and his labs. General Production Laborer Required: No Allergies pollen extracts Allergy (Mild, Verified 08/24/25 10:52) Sneezing sesame oil Allergy (Mild, Verified 08/24/25 10:52) Anaphylaxis sesame seed Allergy (Mild, Verified 08/24/25 10:52) Anaphylaxis penicillin V Allergy (Unknown, Verified 08/24/25 10:52) childhood Penicillins Allergy (Unknown, Verified 08/24/25 10:52) Unknown keli seeds Allergy (Severe, Uncoded 08/24/25 10:52) Anaphylaxis tree nuts, sesame seeds Allergy (Unknown, Uncoded 08/24/25 10:52) anaphylaxis Tobacco use date assessed: 08/24/25 Dental Screening Dental Screen Date: 08/24/25 Did you have a dental visit in the last 12 months?: Yes Did you have a dental problem in the last 6 months where you did not have access to dental care?: No Was dental information given to patient?: Patient has dentist HPI f/u HLD, HTN, labs, resched HPI Details 65 y/o male presents to f/u HLD, HTN, labs. Blood pressure today 138/92, 84p. He is not on any medications for blood pressure. A1c today 5.5%. Labs drawn 08/22/25. Reviewed labs with pt. Liver enzymes are fine. No recent lipid panel to review. Reports R 3rd finger avulsion fx at work. Reports L knee pain/fullness. PFSH Medical History No pertinent past medical history Surgical History History of nasal surgery History of hernia surgery Social History (Updated 08/24/25 @ 10:55 by Naya Chambers CMA) Housing: Apartment Alcohol intake: current Alcohol intake frequency: a few times a week Patient Tobacco Use Status: Former Tobacco user e-Cigarette/Vaping Use: Never Used Second Hand Smoke Exposure: No Use of substances other than those prescribed or required for medical reasons: No service: No Current occupational status: employed Current occupation: [employer] Current occupational exposures/hazards: No Cognitive needs: No Hearing needs: No Vision needs: No Questionnaire Thrive Questionnaire Date Thrive assessed: 11/10/24 Within the past 12 months, did the food you bought not last and you didn't have the money to get more?: I choose not to answer this question Within the past 12 months, did you worry whether your food would run out before you got money to buy more?: I choose not to answer this question Do you have trouble paying for medicines?: I choose not to answer this question Do you have trouble getting transportation to medical appointments?: No Do you have trouble paying your heating and electricity bill?: No Do you have trouble taking care of your child, family member or friend?: I choose not to answer this question Do you have trouble with day-to-day activities such as bathing, preparing meals, shopping, managing finances, etc.?: I choose not to answer this question Are you currently unemployed and looking for a job?: I choose not to answer this question Are you interested in more education?: I choose not to answer this question Currently or been in a relationship where the following occur: I choose not to answer THRIVE Score: 0 LISA-7 AMB Questionnaire LISA-7 Date LISA - 7 assessed: 10/21/23 Feeling nervous, anxious, or on edge: 0 = Not at all Not being able to stop or control worryin = Not at all Worrying too much about different things: 0 = Not at all Trouble relaxin = Not at all Being so restless that it is hard to sit still: 0 = Not at all Becoming easily annoyed or irritable: 0 = Not at all Feeling afraid as if something awful might happen: 0 = Not at all Total LISA-7 score (0-4 normal; 5-9 mild; 10-14 moderate; 15-21 severe): 0 Source: Developed by Drs. Darin Day, Ama Bowman, Deyvi Espinal and colleagues, with an educational helen from [employer]. Review of Systems Const Denies chills, Denies fatigue, Denies fever(s), Denies headache(s) and Denies weakness ENT Denies dizziness and Denies headache(s) Card Denies dyspnea Resp Denies cough, Denies dyspnea, Denies wheezing and Denies other (shortness of breath) Musc Denies numbness and Denies tingling Neuro Denies dizziness, Denies headache(s), Denies numbness, Denies tingling and Denies weakness Psych Denies anxiety and Denies depression Endo Denies fatigue Aller/Immun Denies wheezing Physical exam (Primary Care) Vital Signs: Last Vital Signs Temp 98.1 F 08/24/25 10:55 Pulse 84 08/24/25 10:55 Resp 16 08/24/25 10:55 BP 138/92 H 08/24/25 10:55 Pulse Ox 97 08/24/25 10:55 Oxygen Delivery Method Room Air 08/24/25 10:55 BMI result Body Mass Index 34.2 Tobacco/Smoking Status: Tobacco use Status Tobacco use date assessed 08/24/25 08/24/25 11:00 Patient Tobacco Use Status Former Tobacco user 08/24/25 10:55 e-Cigarette/Vaping Use Never Used 08/24/25 10:55 Thrive Assessment: Date of Thrive Assessment Date Thrive assessed 11/10/24 08/24/25 10:45 Currently or been in a relationship where the following occur: I choose not to answer Const General: well developed; No acute distress Nutritional Appearance: well nourished Orientation/consciousness: patient oriented x3 [facility]: Yes normocephalic and Yes atraumatic Eyes General: appearance normal, both eyes and all related structures Pupils: Equal, round and reactive pupils present EOM: EOMs intact bilaterally Resp Effort & Inspection: normal respiratory effort Neuro General: patient oriented x3 and gait normal Cranial nerves: Yes Equal, round and reactive pupils present Psych Affect: normal affect Results AMB Hemoglobin A1c AMB Hemoglobin A1c 5.5 % Last Edit by Naya Chambers CMA on 08/24/25 11:04 Results Reviewed Results Reviewed: Laboratory Last Values Hgb A1c (Clinic) 5.5 % (4.0-6.0) 08/24/25 11:00 Coding Level of Care Code Tele Est Pt Level 5 (51350) Diagnoses Pre-diabetes R73.03 Hypertension I10 CAD (coronary artery disease) I25.10 Hyperlipidemia E78.5 Knee pain M25.569 Finger fracture S62.603F Assessment & Plan Assessment & Plan (1) Pre-diabetes: Code(s): R73.03 - Prediabetes Category: Medical Plan: A1c 5.5% Top normal range Continue working at a diet low in sugars and starches Encouraged weight loss and exercise (2) Hypertension: Code(s): I10 - Essential (primary) hypertension Category: Medical Plan: Blood pressure is elevated. Patient declines medications for this. Encouraged diet low in salt and sodium Encouraged weight loss Encouraged exercise as tolerated (3) CAD (coronary artery disease): Code(s): I25.10 - Atherosclerotic heart disease of [place] coronary artery without angina pectoris Category: Medical Plan: Followed by cardiology Continues aspirin Encouraged control of cholesterol and blood pressure. Patient declines medication for these (4) Hyperlipidemia: Code(s): E78.5 - Hyperlipidemia, unspecified Category: Medical Plan: As above, patient is not taking medication. He has not tolerated statins Encouraged diet low in saturated fats and cholesterol Encouraged weight loss and exercise Will continue to monitor (5) Knee pain: Code(s): M25.569 - Pain in unspecified knee Category: Medical Plan: Left knee pain and fullness. Has a very mild effusion. Some discomfort with Axel's test Checking x-ray and referring patient to ortho Starting physical therapy (6) Finger fracture: Code(s): S62.609A - Fracture of unspecified phalanx of unspecified finger, initial encounter for closed fracture Category: Medical Plan: R 3rd finger avulsion fx at work. Dealing with workers comp Has seen Dr Medrano and has specialist in [facility] and Dr from [employer] in [place]. Still out of work Follow-up with Dr. Medrano and your hand specialist. Plan He will follow-up by telemedicine in 6 weeks to discuss left knee pain & Lipids Orders: Orders AMB Hemoglobin A1c Today R73.03 - Prediabetes XR knee LT 3V Today M25.569 - Pain in unspecified knee PT Evaluation and Treatment Today M25.569 - Pain in unspecified knee Referrals Orthopedics Referral M25.569 - Pain in unspecified knee
--- OUTSIDE RECORDS SUMMARY | 2025-08-24 10:44 | XMS_ITS | Clinical Summary ---
Author Organization [facility] Address [address] [place] [address] Care Team Providers Care Water Pump Servicer Name Role Phone Rylan Roth MD Primary Care Provider [phone] Allergies Active Allergy Reactions Criticality Noted Date [...] patient's age to complete this topic Insurance [facility] Care Teams Water Pump Servicer Relationship Specialty Start Date End Date Rylan Roth MD [address] [place] [id number] PCP - General Internal Medicine 10/08/19
--- OUTSIDE RECORDS SUMMARY | 2025-08-24 10:44 | XMS_ITS | Clinical Summary ---
Author Organization [facility] Address [address] [place] [address] Care Team Providers Care Flyer Builder Name Role Phone Otis Rivas Primary Care [...] of Treatment Not on file Care Teams Flyer Builder Relationship Specialty Start Date End Date Otis Rivas PCP - General 07/11/14
--- OUTSIDE RECORDS SUMMARY | 2025-08-24 10:44 | XMS_ITS | Patient Health Record ---
Author Organization Darin Jones MD, Address [address] [address] Care Team Providers Care Lock Operator Name Role Phone Fidel Espinal Primary Care Provider Unavailab le Tony Navaveer Unavailable unknown, unknown Unavailable Unavailable Allergies Allergen (clinical drug ingredient) Drug/Non Drug Allergy documented on EMR Reaction Allergy Type Onset Date Status nuts (uncoded) Unknown Allergy Activ e Penicillin Unknown Drug Allergy Active Reason For Referral No Information Medications Medication SIG (Take, Route, Frequency, Duration) Notes Start Date End Date Status Ibuprofen Unknown Social History Social History Additional Details Category Social Info Options Details Social History alcohol yes recreational drug use no children yes caffeine yes Encounters Encounter Location Date Provider Diagnosis [facility] [address] [address] 05/09/2025 Raghuveer Muppavarapu Sprain of interphalangeal joint of right middle finger, initial encounter S63.632A [facility] [facility] [address] [address] 06/20/2025 Raghuveer Muppavarapu Sprain of interphalangeal joint of right middle finger, initial encounter S63.632A [place] [address] [facility] [address] [address] 05/16/2025 Raghuveer Muppavarapu [place] [address] [facility] [address] [address] 06/06/2025 Raghuveer Muppavarapu [place] [address] [facility] [address] [address] 06/23/2025 Ragabelveer Sedrickppavarapu [place] [address] [facility] [facility] [address] [place] [address] 07/18/2025 Master Nava Assessments Encounter Date Diagnosis (ICD Code) Assessment Notes Treatment Notes Treatment Clinical Notes Section Notes 05/09/2025 Sprain of interphalangeal joint of right middle finger, initial encounter (ICD-10 - S63.632A) Due to his work-related injury on 02/02/2025 he can not return to work at this time and for the foreseeable future. His work-related injury on 02/02/2025 is the primary cause of his current right middle finger pain and dysfunction. He has sustained a right middle finger PIP joint strain/ sprain with ligament damage and possible avulsion fracture. I recommend that he go to physical therapy to work on regaining his range of motion and function. He can start working on gentle strengthening. He should use Coban wrapping to help with the edema control. Rest, ice, NSAIDs and activity modification to help decrease swelling and pain. Taught him how to do massage for the finger to help decrease swelling and improve blood flow and improve pain. We discussed briefly doing a corticosteroid injection but decided to hold off for now since he has not done any of the other treatments. Follow up in 4-6 weeks. There is a possibility he may require surgical intervention in the future to repair of the collateral ligament fee does not regain the strength and stability he needs for his job. 06/20/2025 Sprain of interphalangeal joint of right middle finger, initial encounter (ICD-10 - S63.632A) Due to his work-related injury on 02/02/2025 he can not return to work at this time and for the foreseeable future. His work-related injury on 02/02/2025 is the primary cause of his current right middle finger pain and dysfunction. He has sustained a right middle finger PIP joint strain/ sprain with ligament damage and possible avulsion fracture. I recommend that he go to physical therapy to work on regaining his range of motion and function. He can start working on gentle strengthening. He should use Coban wrapping to help with the edema control. Rest, ice, NSAIDs and activity modification to help decrease swelling and pain. Taught him how to do massage for the finger to help decrease swelling and improve blood flow and improve pain. We discussed briefly doing a corticosteroid injection. risks and benefits are discussed including pain, infection, bleeding, scar, possibly due to nerves and tendons and vessels. He understands and elects to proceed. Today in the office using standard sterile technique and protocol injected his right middle finger PIP joint with 1 cc of 40 milligrams/mL of Kenalog and 0.5 cc of 1% lidocaine. Follow up in 4-6 weeks. There is a possibility he may require surgical intervention in the future to repair of the collateral ligament. there is a chance he does not regain the strength and stability he needs for his job. 05/09/2025 Other Patient Educate d with: Anatomy of hand.pdf (Anatomy of hand.pdf) Plan Of Treatment No Information Insurance Providers Payer Name Payer Address Payer Phone Subscriber Number Group Number Insured Name Patient Relationship to Insured Coverage Start Date Coverage End Date Contactually [facility] [address] [address] [place] [address] [id number] Jose Gilbert Self - patient is the insured
--- OUTSIDE RECORDS SUMMARY | 2025-08-24 10:44 | XMS_ITS | Encounter Summary ---
Author Organization [facility]acy Ar[facility] Address [address] [place] [address] Care Team Providers Care Loading Unit Tool Setter Name Role Phone Otis Rivas Primary Care Provider Unavailab le Encounter Details Date Type Department Care Team (Late st Contact Info) Description 01/13/2012 Clinical Conversion Encounter [facility] General Surgery [facility] General Surgery [address] [place] [address] Shaji Marie MD [address] [place] [address] Social History Tobacco Use Types Packs/Day Years Used Date Smoking Tobacco: Never Assessed Sex and Gender Information Value Date Recorded Sex Assigned at Not on file Legal Sex Male 3:46 AM EST Gender Identity Not on file Sexual Orientation Not on file documented as of this encounter Progress Notes * Shaji Marie MD - 10/15/2014 7:12 PM EST [id number],ALBERT [place], [place]. GENERAL SURGERY OUTPATIENT CONSULT JOSE GILBERT 01/13/2012 # [id number] : 1960 Second Visit ID: [id number] Visit ID: [id number] This is a consultation requested by Dr. [...] when he sits. He works as a [employer] and when he sits for a long [...] to pain management . Shaji Marie MD [phone] [id number] J: [id number] CC: Otis Rivas MD, <Referring> THIS DOCUMENT WAS ELECTRONICALLY AUTHENTICATED BY Shaji Marie MD ON 01/22/2012 15:33:44 JOSE GILBERT 01/13/2012 # [id number] OUTPATIENT CONSULT [facility] * [address] [place] [address] * [phone] Page [address] of [address] [place] [address] OUTPATIENT CONSULT documented in this encounter Plan of Treatment Not on file documented as of this encounter Visit Diagnoses Not on filedocumented in this encounter Care Teams Loading Unit Tool Setter Relationship Specialty Start Date End Date Otis Rivas PCP - General 07/11/14 documented as of this encounter
--- OUTSIDE RECORDS SUMMARY | 2025-08-24 10:44 | XMS_ITS | Clinical Summary ---
Author Organization [facility] Address [address] [place] [address] Care Team Providers Care Polyethylene Combiner Name Role Phone Unknown Pcp, Non Php [...] Acute sinusitis 11/01/2021 Overview (10/05/2023): Impression - [id number]: Doxycylcine 100mg bid X 7 days. Prednisone as directed. S/E discussed. Push fluids. Saline spray, mucinex prn. RTO if not improving. Impression - 01Nov2021: Rapid covid test done in office and negative. Doxycylcine 100mg bid X 7 days. Prednisone as directed. S/E discussed. Push fluids. Saline spray, mucinex prn. RTO if not improving. COVID-19 virus infection 08/06/2021 Overview (10/05/2023): Impression - [id number]: Patient with covid 19 infection who testing [...] symptoms he is advised to contact his striper spray gun Dr. Pope. Dyspnea 09/15/2020 Overview (10/05/2023): Impression - 15Sep2020: This has been going on for months but pt getting worse. Did not respond to Albuterol inhaler of which Reporting Lead took him off from. I am concerned about a PE due to no response to conventional medications. Impression - 12Mqi3321: Pt with no definite diagnosis and not responding well to medicaton. I will refer him to Cardiology to r/o cardiac etiology for symptoms. 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 Allergic rhinitis due to pollen, unspecified sea sonality 10/15/2019 Moderate persistent asthma 10/15/2019 Overview (10/05/2023): Impression - [id number]: I will add Spiriva to treatment regimen [...] SCHED (09/15/2020 4:00 PM EST) IMAGING STUDY [facility] Medical Imaging Report PATIENT: JOSE HUDSON # [id number] ADMISSION DATE: 09/15/20 MR#: [id number] LOCATION: [facility] SCAN ROOM#: ATTENDING PHYSICIAN: Julian Michele DICTATING PHYSICIAN: Hossein Ontiveros REPORT#: [id number] ORDERING PHYSICIAN: Julian Michele EXAM SERVICE DATE: 09/15/20 EXAM: CTA Chest Spiral for PE ====== EXAMINATION: CT ANGIOGRAM OF THE CHEST WITH AND WITHOUT CONTRAST (CT PULMONARY ANGIOGRAM FOR PE) CLINICAL INFORMATION: [place]: [facility]
Diabetic: No
Normal Creatinine: Unknown
20g IV: Unknown
Exam Reason: SOB DYSPNEA ? PULMONARY EMBOLISM
Hx Of Renal Impairment: N
Rad Site: [facility]
Are you ordering this test to rule out VTE? Y
Comment: KEEP AND CALL TIMI Boyle#[phone]
COMPARISON: None TECHNIQUE: Prior to contrast administration, [...] Computed Tomogra phy 09/15/2020 4:00 PM EST [facility] CT WITH CONTRAST ORD ERABLES [...] a test for HCV RNA (test code 59040) is suggested. For additional information please refer to http://[employer].Fancred/faq/YOU16o9 (This link is being provided for informational/ educational purposes only.) 01/04/2020 6:22 AM EDT Narrative PHCT CONVERSIONS - 01/05/2020 11:28 AM EDT [facility] Date/Time: [facility] Testing performed at: 1, [facility], [address] [place] [address], [address], [place], [address], Automotive Glass Technician: Griselda Randolph MD [facility] Collection Date/Time: [facility] [...] LDL-C. Isidro SS et al. AMANDA. 2013;310(19): 6926-8816 (http://[employer].LabNow/faq/DTC469) CHOL/HDL Ratio 3.6 <5.0 (calc) PHCT CONVERSIONS [...] for this test(s) to be performed at [facility]. We have processed it and sent it to the reference lab as required by the payor. Please enter in error the original order. FASTING: YES [facility] Testing performed at: NL1, [facility], [address] [place] [address], [address], [place], [address], Automotive Glass Technician: Griselda Randolph MD [facility] Date/Time: [id number] [facility] Results Received Date/Time: [facility] Reported Date/Time: us Rylan Roth MD LABORATORY Final Resu lt PHCT CONVERSIONS from Last 3 Months or Most Recently Relevant to Health Maintenance Care Teams Polyethylene Combiner Relationship Specialty Start Date End Date Unknown Pcp, Non Php PCP - General 07/02/24
--- OUTSIDE RECORDS SUMMARY | 2025-08-24 10:44 | XMS_ITS | Clinical Summary ---
Author Organization [facility] Address [address] [place] [address] Care Team Providers Care Mannequin Decorator Name Role Phone Ainsley Glynn MD Primary [...] age to complete this topic Care Teams Mannequin Decorator Relationship Specialty Start Date End Date Ainsley Glynn MD PCP - General Internal Medicine 03/22/19
--- OUTSIDE RECORDS SUMMARY | 2025-08-24 10:44 | XMS_ITS | Encounter Summary ---
Author Organization [facility] Address [address] [place] [address] Care Team Providers Care Skiver Sock Linings Name Role Phone Rylan Roth MD Primary Care Provider Encounter Details Date Type Department Care Team (Late st Contact Info) Description 05/15/2020 Scanned Document [facility] Surgery [address] [place] [id number] Provider, MD Mandeep [address] [place] [address] Social History Tobacco Use Types Packs/Day Years [...] on filedocumented in this encounter Care Teams Skiver Sock Linings Relationship Specialty Start Date End Date Rylan Roth MD [address] [place] [address] PCP - General Internal Medicine 10/08/19 documented as of this encounter
[2025-08-24 10:55] VITALS: BP 138/92; PULSE 84; RESP 16; TEMP 36.7; O2SAT 97; BMI 34.2
== END 2025-08-24 11:52 | disposition home or self-care (01) ==
LOC: HO.HMCFM 10:38
PROVIDERS: PCP Family Medicine; Visit Provider Family Medicine
DX: R73.03 Prediabetes (principal)

== ENCOUNTER → 2025-08-24 10:38 | Outpatient (BNVA) | payer OTHER, SELFPAY | PROVIDERS: PCP Family Medicine; Visit Provider Family Medicine | DX: R73.03 Prediabetes (principal); S62.602A Fracture of unspecified phalanx of right middle finger, initial encounter for closed fracture; I10 Essential (primary) hypertension; I25.10 Atherosclerotic heart disease of native coronary artery without angina pectoris; E78.5 Hyperlipidemia, unspecified; M25.569 Pain in unspecified knee | CPT/HCPCS: 83036 ==